=== PATIENT | male | born 1935 | race Caucasian/White ===

== ENCOUNTER → 2016-05-13 | Outpatient (CLI) | payer OTHER ==
[~2016-05-13] MED LIST: AMR2 PO; ASPEC81 PO; CHOL2000 PO; CYAN1TAB5 PO; GLC/500 PO; LUCENTIS INT OCU; METO50TA16 PO; MULT60CA PO; NTRGSL/4 UT; SIMV40TA2 PO
[2016-05-13 17:10] LABS: BLOOD UREA NITROGEN 16 mg/dl (7-18); BUN/CREATININE RATIO 15.6 (10-20); CALCIUM 8.9 mg/dl (8.5-10.1); CARBON DIOXIDE 32 mmol/L (21-32); CHLORIDE 106 mmol/L (98-107); GLUCOSE 149 mg/dl (70-99); POTASSIUM 4.1 mmol/L (3.5-5.1); SODIUM 143 mmol/L (136-145)
[2016-05-14 06:23] LABS: ESTIMATED AVERAGE GLUCOSE 128 mg/dl; HA1C FLAG Normal (Normal)
== END | disposition home or self-care (01) ==
LOC: C.LABBC 14:24
PROVIDERS: ATTEND Internal Medicine Geriatric Medicine
DX: I10 Essential (primary) hypertension (principal); E11.9 Type 2 diabetes mellitus without complications; E78.5 Hyperlipidemia, unspecified

== ENCOUNTER → 2016-07-13 | Outpatient (CLI) | payer OTHER ==
--- NOTE | 2016-07-13 15:27 | DIAGNOSTIC IMAGING REPORT ---
LUMBAR SPINE 5 VIEWS HISTORY: Trauma Fall from standing COMPARISON: None. FINDINGS: 50% compression of L1. Slight compression deformity superior endplate T12. All remaining components of the lumbar spine is negative for acute bony pathology. No subluxation. Disc spaces are preserved. IMPRESSION: 50% compression deformity L1. Mild compression deformity superior endplate T12. Electronically signed by: Albert Tyler M.D. 07/13/2016 3:26 PM Dictated Date/Time: 07/13/2016 3:25 PM
--- NOTE | 2016-07-13 15:33 | DIAGNOSTIC IMAGING REPORT ---
LEFT HIP 2 VIEWS CLINICAL HISTORY: Fall several weeks ago with left hip pain. FINDINGS: AP and frog-leg views of the left hip are correlated with pelvic CT dated 03/12/2013. The skeletal structures are osteopenic. No fracture is identified in the left hip or the visualized left hemipelvis. Mild degenerative joint space narrowing is seen in left hip. The left sacroiliac joint is normal in appearance. The overlying soft tissues are unremarkable. IMPRESSION: Osteopenia and mild arthritic change as above. No fracture is seen in the left hip or the visualized left hemipelvis. Electronically signed by: Maurice Garrison M.D. 07/13/2016 3:32 PM Dictated Date/Time: 07/13/2016 3:31 PM
--- NOTE | 2016-07-13 15:44 | DIAGNOSTIC IMAGING REPORT ---
THORACIC SPINE 3 VIEWS ROUTINE CLINICAL HISTORY: Fall from standing COMPARISON STUDY: Chest CT May 23, 2015. FINDINGS: A right internal jugular [id number]-c-Vjys is incidentally noted. Mild loss of height of several lower thoracic vertebral bodies is noted. These fractures are age indeterminate. Mild multilevel degenerative disc disease is present. IMPRESSION: 1Mild to moderate loss of height of several vertebral bodies at the thoracolumbar junction which reflect age indeterminate compression fractures. Electronically signed by: Lucio Mcneal M.D. 07/13/2016 3:42 PM Dictated Date/Time: 07/13/2016 3:40 PM
== END | disposition home or self-care (01) ==
LOC: C.RADBC 14:10
PROVIDERS: ATTEND Physician Assistant
DX: T14.8 Other injury of unspecified body region (principal); W19.XXXA Unspecified fall, initial encounter; M85.88 Other specified disorders of bone density and structure, other site; M43.8X6 Other specified deforming dorsopathies, lumbar region

== ENCOUNTER → 2016-12-14 | Outpatient (CLI) | payer OTHER ==
--- NOTE | 2016-12-14 17:07 | EEG Procedure Note ---
EEG Procedure Note Date of Service Dec 14, 2016. Start / End Times Start Time: 1:41 PM End Time: 2:01 PM Referring Physician Preston Stanford History This is 81-year-old male with paroxysmal spells of falling down. EEG for further evaluation of possible seizure etiology. Home Medication List Scheduled Aspirin Enteric Coated (Ecotrin Or Generic *), 81 MG PO DAILY Cholecalciferol (Vitamin D3), 2,000 MG PO DAILY Cyanocobalamin (B-12), 2,000 MCG PO DAILY Glimepiride (Glimepiride), 2 MG PO DAILY Metformin Hcl (Glucophage), 500 MG PO BID Metoprolol Tartrate (Lopressor) (Lopressor), 25 MG PO BID Multiple Vitamins W/ Minerals (Preservision Areds 2), 1 TAB PO BID Nitroglycerin (Nitrostat), 0.4 MG UT PRN Simvastatin (Zocor), 40 MG PO QPM [Lucentis], 1 DOSE INT OCU UD Description This is a 21 electrode EEG with a single channel dedicated to limited EKG. The electrodes were placed in accordance with the International 10-20 system. At the start of the recording the patient was in an awake state. Background was well organized and composed of symmetric mixed alpha and beta frequencies. There was a symmetric well-formed moderate amplitude 8-9 Hz posterior dominant rhythm that was reactive to eye opening and closure. Hyperventilation was not done. Intermittent photic stimulation at various frequencies produced no abnormalities. There was no state changes or sleep transients. Interpretation This is a normal awake only routine EEG. There was no electrographic seizures or epileptiform discharges. Clinical Correlation A normal EEG does not rule out epilepsy if there is a strong clinical suspicion.
== END | disposition home or self-care (01) ==
LOC: C.NEUR 13:25
PROVIDERS: ATTEND Internal Medicine Geriatric Medicine
DX: R40.4 Transient alteration of awareness (principal)

== ENCOUNTER → 2017-01-04 | Outpatient (CLI) | payer OTHER | END | disposition home or self-care (01) | LOC: C.MAMM 14:58 | PROVIDERS: ATTEND Internal Medicine Geriatric Medicine | DX: M48.50XA Collapsed vertebra, not elsewhere classified, site unspecified, initial encounter for fracture (principal); M85.852 Other specified disorders of bone density and structure, left thigh; M85.851 Other specified disorders of bone density and structure, right thigh ==

== ENCOUNTER → 2017-06-30 | Outpatient (CLI) | payer OTHER ==
[2017-06-30 13:06] LABS: BASO % 0.2 %; BASO ABS # 0.01 K/uL (0-0.2); EOS % 4.1 %; EOS ABS # 0.21 K/uL (0-0.5); HEMATOCRIT 36.5 % (42-52); HEMOGLOBIN 13.1 g/dL (14.0-18.0); IG# 0.02 K/uL (0.00-0.02); LYMPH % 29.6 %; LYMPH ABS # 1.52 K/uL (1.2-3.4); MEAN CELL VOLUME 90.3 fL (80-100); MEAN CORPUSCULAR HEMOGLOBIN 32.4 pg (25-34); MEAN CORPUSCULAR HGB CONC 35.9 g/dl (32-36); MEAN PLATELET VOLUME 9.3 fL (7.4-10.4); MONO % 12.1 %; MONO ABS # 0.62 K/uL (0.11-0.59); NEUT % 53.6 %; NEUT ABS # 2.76 K/uL (1.4-6.5); PLATELET COUNT 145 K/uL (130-400); RED CELL DISTRIBUTION WIDTH CV 14.3 % (11.5-14.5); RED CELL DISTRIBUTION WIDTH SD 46.8 fL (36.4-46.3); WHITE BLOOD COUNT 5.14 K/uL (4.8-10.8)
[2017-06-30 13:32] LABS: ALBUMIN 3.7 gm/dl (3.4-5.0); ALT/SGPT 31 U/L (12-78); AST/SGOT 27 U/L (15-37); BLOOD UREA NITROGEN 15 mg/dl (7-18); CALCIUM 8.5 mg/dl (8.5-10.1); CARBON DIOXIDE 29 mmol/L (21-32); CREATININE 1.13 mg/dl (0.60-1.40); GLUCOSE 224 mg/dl (70-99); POTASSIUM 3.7 mmol/L (3.5-5.1); SODIUM 139 mmol/L (136-145)
[2017-06-30 13:35] LABS: ALKALINE PHOSPHATASE 124 U/L (45-117); TOTAL PROTEIN 7.4 gm/dl (6.4-8.2)
[2017-06-30 13:36] LABS: HEMOGLOBIN A1C 6.3 % (4.5-5.6)
== END | disposition home or self-care (01) ==
LOC: C.LAB1850 10:36
PROVIDERS: ATTEND Internal Medicine Geriatric Medicine
DX: I10 Essential (primary) hypertension (principal); I25.10 Atherosclerotic heart disease of native coronary artery without angina pectoris; E78.5 Hyperlipidemia, unspecified; C85.10 Unspecified B-cell lymphoma, unspecified site; E11.42 Type 2 diabetes mellitus with diabetic polyneuropathy; M48.50XA Collapsed vertebra, not elsewhere classified, site unspecified, initial encounter for fracture; M85.80 Other specified disorders of bone density and structure, unspecified site

== ENCOUNTER → 2017-09-22 | Outpatient (CLI) | payer OTHER ==
[2017-09-22 11:36] LABS: BASO % 0.6 %; BASO ABS # 0.03 K/uL (0-0.2); EOS % 3.3 %; EOS ABS # 0.16 K/uL (0-0.5); HEMATOCRIT 34.4 % (42-52); HEMOGLOBIN 12.2 g/dL (14.0-18.0); IG# 0.03 K/uL (0.00-0.02); LYMPH % 29.9 %; LYMPH ABS # 1.44 K/uL (1.2-3.4); MEAN CELL VOLUME 90.3 fL (80-100); MEAN CORPUSCULAR HGB CONC 35.5 g/dl (32-36); MEAN PLATELET VOLUME 9.4 fL (7.4-10.4); MONO % 11.4 %; MONO ABS # 0.55 K/uL (0.11-0.59); NEUT % 54.2 %; PLATELET COUNT 135 K/uL (130-400); RED CELL DISTRIBUTION WIDTH CV 14.5 % (11.5-14.5); RED CELL DISTRIBUTION WIDTH SD 47.2 fL (36.4-46.3); WHITE BLOOD COUNT 4.81 K/uL (4.8-10.8)
[2017-09-22 12:02] LABS: ALBUMIN 3.5 gm/dl (3.4-5.0); ALKALINE PHOSPHATASE 89 U/L (45-117); ALT/SGPT 24 U/L (12-78); AST/SGOT 19 U/L (15-37); BLOOD UREA NITROGEN 13 mg/dl (7-18); CALCIUM 8.6 mg/dl (8.5-10.1); CARBON DIOXIDE 28 mmol/L (21-32); CREATININE 1.03 mg/dl (0.60-1.40); GLUCOSE 255 mg/dl (70-99); SODIUM 138 mmol/L (136-145); TOTAL PROTEIN 6.7 gm/dl (6.4-8.2)
== END | disposition home or self-care (01) ==
LOC: C.LABSPEC 10:56
PROVIDERS: ATTEND Internal Medicine Hematology & Oncology
DX: C83.07 Small cell B-cell lymphoma, spleen (principal)

== ENCOUNTER 2020-05-19 13:34 | Inpatient (IN) ==
[2020-05-19] MEDS ORDERED: IPRATROPIUM BROMIDE/ALBUTEROL respimat INH INH STA (14:35)
[2020-05-19] MEDS ORDERED: guaiFENesin 600 MG TABCR PO STA (14:35)
[2020-05-19] MEDS ORDERED: dexAMETHasone**PF** 10 MG/ML VIAL IV ONE (14:35)
[2020-05-19 14:56] LABS: Eosinophils # (auto) 0.06 K/uL (0-0.5); Eosinophils % (auto) 1.7 %; Hematocrit (blood only) 32.8 % (42-52); Hemoglobin 11.9 g/dL (14.0-18.0); Immature Granulocytes # (auto) 0.03 K/uL (0.00-0.02); Immature Granulocytes % (auto) 0.9 %; Lymphocytes # (auto) 0.82 K/uL (1.2-3.4); Lymphocytes % (auto) 23.4 %; Mean Corpuscular Hemoglobin 32.3 pg (25-34); Mean Corpuscular Hgb Conc 36.3 g/dL (32-36); Mean Corpuscular Volume 89.1 fL (80-100); Mean Platelet Volume 10.9 fL (7.4-10.4); Monocytes # (auto) 0.55 K/uL (0.11-0.59); Monocytes % (auto) 15.7 %; Neutrophils # (auto) 2.05 K/uL (1.4-6.5); Neutrophils % (auto) 58.3 %; Platelet Count 122 K/uL (130-400); RDW Coefficient of Variation 13.3 % (11.5-14.5); RDW Standard Deviation 43.7 fL (36.4-46.3); Red Blood Count 3.68 M/uL (4.7-6.1); White Blood Count 3.51 K/uL (4.8-10.8)
--- NOTE | 2020-05-19 14:56 | Electrocardiogram Report ---
Test Reason : Blood Pressure : / mmHG Vent. Rate : 059 BPM Atrial Rate : 059 BPM P-R Int : 168 ms QRS Dur : 116 ms QT Int : 476 ms P-R-T Axes : 063 -66 087 degrees QTc Int : 471 ms Sinus bradycardia Left anterior fascicular block Abnormal ECG When compared with ECG of 12-DEC-2012 11:24, T wave inversion no longer evident in Inferior leads Confirmed by Kain Clements [id number]) on 05/19/2020 2:56:19 PM Referred By: ED Confirmed By:Kain Clements
--- NOTE | 2020-05-19 14:57 | XRay Report ---
XR chest 1V portable CLINICAL HISTORY: Chest Pain COMPARISON STUDY: Chest radiograph August 17, 2019. FINDINGS: Right internal jugular Roqxvj-[id number]-Agih is in place. There is no pneumothorax or pleural effus ion. Cardiac size is within normal limits. There is interstitial thickening and suspected mild bilate ral airspace opacities. There is no evidence for pulmonary edema. IMPRESSION: Mild bilateral airspace opacities and interstitial thickening which favor an infectious process. Radiographic follow-up is recommended. ACT 112: Negative or not required by law. Electronically signed by: Lucio Mcneal M.D. 05/19/2020 2:55 PM
[2020-05-19] MEDS: SODIUM CHLORIDE 0.9% 500 ML IV SCH ×2 (15:01→23:45)
[2020-05-19 15:12] LABS: INR 1.1 (0.9-1.1); Prothrombin Time 10.9 Seconds (9.0-12.0)
[2020-05-19 15:30] LABS: Alanine Aminotransferase 53 U/L (12-78); Albumin Globulin Ratio 0.6 (0.9-2); Albumin Level 2.5 gm/dl (3.4-5.0); Alkaline Phosphatase 74 U/L (45-117); BUN Creatinine Ratio 35.9 (10-20); Bilirubin,Total 1.6 mg/dl (0.2-1); Blood Urea Nitrogen 29 mg/dl (7-18); Calcium 8.1 mg/dl (8.5-10.1); Carbon Dioxide 29 mmol/L (21-32); Chloride 105 mmol/L (98-107); Est GFR (African American) 94.4; Est GFR (Non-African American) 81.5; Globulin 4.1 gm/dl (2.5-4.0); Glucose 155 mg/dl (70-99); Lipase 109 U/L (73-393); NT Pro B Type Natriuretic Pept 669 pg/ml (0-1800); Phosphorus 2.9 mg/dl (2.5-4.9); Sodium 139 mmol/L (136-145); Total Protein 6.6 gm/dl (6.4-8.2); Troponin I < 0.015 ng/ml (0-0.045)
[2020-05-19 16:13] LABS: Influenza A virus by PCR Negative (Neg); Influenza B virus by PCR Negative (Neg); RSV by PCR Negative (Neg)
[2020-05-19 16:40] LABS: Potassium 4.5 mmol/L (3.5-5.1)
[2020-05-19 16:48] LABS: Magnesium 2.3 mg/dl (1.8-2.4)
--- NOTE | 2020-05-19 17:07 | Emergency Department Note ---
Impression & Plan Pneumonia due to COVID-19 virus, Hypoxia, COPD (chronic obstructive pulmonary disease) ED Provider Note NAME: NATALIA RANDHAWA AGE: 84 SEX: M ARRIVES VIA: Ambulance INFORMANT: Patient, ED PROVIDER(S): Carlos Eduardo Barros MD CHIEF COMPLAINT: Shortness of breath, Covid-19 exposure. PLAN: Disposition: Admit MEDICAL DECISION MAKING: The patient is a pleasant 84-year-old gentleman with a past medical history of COPD, remote history of smoking, prior history of lymphoma, KS/cardiomyopathy, hypertension, hyperlipidemia, diabetes who presents to the emergency department with worsening shortness of breath in setting of developing cough, congestion with feverishness and body aches over the past week in the setting of his grandson who lives with them being diagnosed with COVID-19 and being symptomatic several weeks ago. The patient denies any chest pain, active nausea (though he did vomit in the ambulance in route), diarrhea, urinary symptoms. On arrival the patient is fatigued, uncomfortable but no acute distress, afebrile stable vital signs. O2 saturation initially low-mid 90s on room air without increased respiratory effort. However, he then did develop mild hypoxia to mid 80s on room air. Lungs with intermittent wheezing. He does appear clinically dry. Abdomen is benign. Given the patient's worsening symptoms and low O2 saturation he is agreeable with recommendation for admission given his high risk in the setting of presumed COVID-19. EKG without overt acute ischemia. Chest x-ray demonstrates bilateral airspace opacities and interstitial thickening suspicious for pneumonia. WBC 3.5 with lymphopenia 0.82 consistent with suspected COVID-19 infection. H/H 11.9/32.8 without recent values for comparison. Platelets 122K without recent values for comparison. Chemistry without metabolic acidosis. BUN/creatinine> 30 consistent with the patient's clinically dry appearance. LFTs are unremarkable. Troponin negative/undetectable. BNP within normal limits. Treatment initiated with IV fluid hydration, dexamethasone, guaifenesin, albuterol MDI. Dr. Rivera, [facility] [place] to evaluate the patient for admission. Triage Nursing notes reviewed and agree them. Prior medical records reviewed Vital Signs: reviewed and remarkable for hypoxia. Differential diagnosis: Reactive airway disease, pneumonia, pneumothorax, COPD, CHF, infections, cardiac ischemia, pulmonary embolism, musculoskeletal, gastrointestinal, as well as other pathologies. ER treatment provided: See below. Diagnostics interpreted by me: ECG: Sinus bradycardia, 59 bpm, no ectopy, LAFB, no overt ST elevation or depression. Cardiac Monitoring: An order for continuous cardiac monitoring was placed and demonstrated Sinus bradycardia, 59 bpm, no ectopy. Laboratory studies: See below Imaging studies: XR chest 1V portable CLINICAL HISTORY: Chest Pain COMPARISON STUDY: Chest radiograph August 17, 2019. FINDINGS: Right internal jugular Rlcsyk-d-Cbmc is in place. There is no pneumothorax or pleural effusion. Cardiac size is within normal limits. There is interstitial thickening and suspected mild bilateral airspace opacities. There is no evidence for pulmonary edema. IMPRESSION: Mild bilateral airspace opacities and interstitial thickening which favor an infectious process. Radiographic follow-up is recommended. ACT 112: Negative or not required by law. Consultation(s): Dr. Rivera, [facility] [place] to evaluate the patient for admission. HPI: The patient is a pleasant 84-year-old gentleman with a past medical history of COPD, remote history of smoking, prior history of lymphoma, KS/cardiomyopathy, hypertension, hyperlipidemia, diabetes who presents to the emergency department with worsening shortness of breath in setting of developing cough, congestion with feverishness and body aches over the past week in the setting of his grandson who lives with them being diagnosed with COVID-19 and being symptomatic several weeks ago. The patient denies any chest pain, active nausea (though he did vomit in the ambulance in route), diarrhea, urinary symptoms. ROS: See above HPI for pertinent positives & negatives. A total of 10 systems reviewed and were otherwise negative. PAST MEDICAL HISTORY:See Below PAST SURGICAL HISTORY:See Below FAMILY HISTORY:See Below SOCIAL HISTORY:See Below HOME MEDICATIONS:See Below ALLERGIES:See Below VITALS:See Below PHYSICAL EXAMINATION: GENERAL: Awake, alert, fatigued/uncomfortable-appearing, in no distress HENT: Normocephalic, atraumatic. Oropharynx with dry mucous membranes and otherwise unremarkable. EYES: Normal conjunctiva. Sclera non-icteric. NECK: Supple. No nuchal rigidity. FROM. No JVD. RESPIRATORY: Intermittent wheezes, otherwise clear. CARDIAC: Regular rate, normal rhythm. Extremities warm and well perfused. Pulses equal. ABDOMEN: Soft, non-distended. No tenderness to palpation. No rebound or guarding. No masses. RECTAL: Deferred. MUSCULOSKELETAL: Chest examination reveals no tenderness. The back is symmetrical on inspection without obvious abnormality. There is no CVA tenderness to palpation. No joint edema. LOWER EXTREMITIES: Calves are equal size bilaterally and non-tender. No edema. No discoloration. NEURO: Normal sensorium. No sensory or motor deficits noted. SKIN: No rash or jaundice noted. 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 Following with Heme/Onc q6 months. Vitamin D insufficiency Surgical History H/O heart artery stent (~2002) History of cholecystectomy History of PTCA (~2013) Family History Father Leukemia Mother Sick sinus syndrome S/P placement of cardiac pacemaker Sister Macular degeneration Brother Macular degeneration Denies family history of Ovarian cancer Prostate cancer Breast cancer Lung cancer Colorectal cancer Social History Smoking Status: Former smoker Second Hand Exposure: No; Do You Dip or Chew Tobacco: No; Tobacco Cessation Education Requested by Patient: No Hx Alcohol Use: No Hx Substance Use: No Preferred Language: Mohawk Communication Ability: Effective Visual Impairment: No Limitations Hearing Ability: Normal Beliefs That Will Affect Care: None marital status: Current Living Situation: Spouse and Family Current Living Situation Comment: Lives with and nephew Other Information That Helps Us Care for You: No Feels Safe at Home: Yes Safety Concerns: Feels Safe At This Time Assistive Devices: None Allergies Allergies Allergy/AdvReac Type Severity Reaction Status Date / Time Sulfa (Sulfonamide Allergy Intermediate RASH Verified 05/19/20 15:11 Antibiotics) adhesive Allergy Mild RASH Verified 05/19/20 15:11 bee venom protein (honey bee) Allergy Unknown Verified 05/19/20 15:11 Home Meds Home Medications Medication Instructions Recorded Confirmed cyanocobalamin (vitamin B-12) 2,000 mcg PO DAILY tab 10/02/19 03/29/21 2,000 mcg tablet vit C 250 mg-vit E 90 mg-zinc 40 1 tab PO BID 11/22/18 05/19/20 mg-copper 1 [id number] capsule Previous Rx's Medication Instructions Recorded aspirin 81 mg tablet,delayed 81 mg PO DAILY #30 tab 08/21/18 release cholecalciferol (vitamin D3) 50 2,000 units PO DAILY #30 cap 08/21/18 mcg (2,000 unit) capsule magnesium 250 mg tablet 250 mg PO DAILY #30 tab 08/21/18 vitamin B complex 1 tab PO DAILY #30 tab 08/21/18 metoprolol tartrate 50 mg tablet 25 mg PO BID #90 tab 01/21/20 lisinopril 5 mg tablet 5 mg PO DAILY #90 tab 05/19/20 metformin 500 mg tablet 500 mg PO BID #180 tab 05/19/20 Results & Data (ED) Vital Signs Vital Signs - 24 hr 05/19/20 13:39 05/19/20 13:41 05/19/20 13:42 Temperature 36.4 C L Temperature Source Oral Pulse Rate 62 61 61 Pulse Rate from SpO2 Sensor 62 61 Respiratory Rate 18 19 16 Respiratory Effort / Characteristics Spontaneous Respiratory Pattern Regular Blood Pressure 173/79 H 173/79 H Blood Pressure Mean 110 110 Pulse Oximetry 100 97 98 Oxygen Delivery Method Room Air Oxygen Flow Rate Sepsis Recent Fever Within 48 Hours No Sepsis New/Unexplained Change in Mental Status No Sepsis Action Taken by Nursing No Action Required Oxygen Flow Rate - Titration Pulse Oximetry Post Tiitration 05/19/20 13:44 05/19/20 14:00 05/19/20 14:30 Temperature Temperature Source Pulse Rate 59 L 63 Pulse Rate from SpO2 Sensor 59 L 62 Respiratory Rate 18 21 Respiratory Effort / Characteristics Spontaneous Respiratory Pattern Regular Blood Pressure 146/71 H 123/62 Blood Pressure Mean 96 82 Pulse Oximetry 92 87 L Oxygen Delivery Method Room Air Oxygen Flow Rate Sepsis Recent Fever Within 48 Hours Sepsis New/Unexplained Change in Mental Status Sepsis Action Taken by Nursing Oxygen Flow Rate - Titration Pulse Oximetry Post Tiitration 05/19/20 15:00 05/19/20 15:01 05/19/20 15:12 Temperature Temperature Source Pulse Rate 57 L 59 L Pulse Rate from SpO2 Sensor 57 L 59 L Respiratory Rate 18 17 Respiratory Effort / Characteristics Respiratory Pattern Blood Pressure 136/68 Blood Pressure Mean 90 Pulse Oximetry 97 99 86 L Oxygen Delivery Method Nasal Cannula Oxygen Flow Rate 0 Sepsis Recent Fever Within 48 Hours Sepsis New/Unexplained Change in Mental Status Sepsis Action Taken by Nursing Oxygen Flow Rate - Titration 2 Pulse Oximetry Post Tiitration 96 05/19/20 15:13 05/19/20 15:30 05/19/20 16:00 Temperature Temperature Source Pulse Rate 60 63 Pulse Rate from SpO2 Sensor 61 65 Respiratory Rate 19 20 Respiratory Effort / Characteristics Respiratory Pattern Blood Pressure 126/63 112/60 Blood Pressure Mean 84 77 Pulse Oximetry 99 98 Oxygen Delivery Method Nasal Cannula Oxygen Flow Rate Sepsis Recent Fever Within 48 Hours Sepsis New/Unexplained Change in Mental Status Sepsis Action Taken by Nursing Oxygen Flow Rate - Titration Pulse Oximetry Post Tiitration 05/19/20 16:01 05/19/20 16:30 05/19/20 16:31 Temperature Temperature Source Pulse Rate 63 62 62 Pulse Rate from SpO2 Sensor 64 62 62 Respiratory Rate 20 20 20 Respiratory Effort / Characteristics Respiratory Pattern Blood Pressure 121/60 Blood Pressure Mean 80 Pulse Oximetry 98 98 99 Oxygen Delivery Method Nasal Cannula Oxygen Flow Rate 2 Sepsis Recent Fever Within 48 Hours Sepsis New/Unexplained Change in Mental Status Sepsis Action Taken by Nursing Oxygen Flow Rate - Titration Pulse Oximetry Post Tiitration 05/19/20 17:00 05/19/20 17:01 05/19/20 17:30 Temperature Temperature Source Pulse Rate 62 69 58 L Pulse Rate from SpO2 Sensor 62 68 59 L Respiratory Rate 22 21 21 Respiratory Effort / Characteristics Respiratory Pattern Blood Pressure 121/62 127/65 Blood Pressure Mean 81 85 Pulse Oximetry 97 97 99 Oxygen Delivery Method Oxygen Flow Rate Sepsis Recent Fever Within 48 Hours Sepsis New/Unexplained Change in Mental Status Sepsis Action Taken by Nursing Oxygen Flow Rate - Titration Pulse Oximetry Post Tiitration 05/19/20 17:31 05/19/20 18:00 05/19/20 18:01 Temperature Temperature Source Pulse Rate 60 58 L 58 L Pulse Rate from SpO2 Sensor 60 59 L 58 L Respiratory Rate 22 23 24 Respiratory Effort / Characteristics Respiratory Pattern Blood Pressure 124/63 Blood Pressure Mean 83 Pulse Oximetry 98 98 99 Oxygen Delivery Method Oxygen Flow Rate 2 2 Sepsis Recent Fever Within 48 Hours Sepsis New/Unexplained Change in Mental Status Sepsis Action Taken by Nursing Oxygen Flow Rate - Titration Pulse Oximetry Post Tiitration Laboratory Data Attestation: I reviewed the patient's lab results. Result diagrams: 05/19/20 14:00 05/19/20 15:53 Lab Results 05/19/20 05/19/20 05/19/20 Range/Units 14:00 14:00 14:00 WBC 3.51 L (4.8-10.8) K/uL RBC 3.68 L (4.7-6.1) M/uL Hgb 11.9 L (14.0-18.0) g/dL Hct 32.8 L (42-52) % MCV 89.1 (80-100) fL MCH 32.3 (25-34) pg MCHC 36.3 H (32-36) g/dL RDW Std Deviation 43.7 (36.4-46.3) fL RDW Coeff of Petar 13.3 (11.5-14.5) % Plt Count 122 L (130-400) K/uL MPV 10.9 H (7.4-10.4) fL Immature Gran % (Auto) 0.9 % Neut % (Auto) 58.3 % Lymph % (Auto) 23.4 % [place] % (Auto) 15.7 % Eos % (Auto) 1.7 % Baso % (Auto) 0.0 % Neut # (Auto) 2.05 (1.4-6.5) K/uL Lymph # (Auto) 0.82 L (1.2-3.4) K/uL [place] # (Auto) 0.55 (0.11-0.59) K/uL Eos # (Auto) 0.06 (0-0.5) K/uL Baso # (Auto) 0.00 (0-0.2) K/uL Immature Gran # (Auto) 0.03 H (0.00-0.02) K/uL Hyposegmented Neuts 1+ PT 10.9 (9.0-12.0) Seconds INR 1.1 (0.9-1.1) Sodium 139 (136-145) mmol/L Potassium (3.5-5.1) mmol/L Chloride 105 (98-107) mmol/L Carbon Dioxide 29 (21-32) mmol/L Anion Gap 5.0 (3-11) BUN 29 H (7-18) mg/dl Creatinine 0.80 (0.6-1.4) mg/dl Est Cr Clr Drug Dosing Not Reportable Est GFR ( Amer) 94.4 Est GFR (Non-Af Amer) 81.5 BUN/Creatinine Ratio 35.9 H (10-20) Glucose 155 H (70-99) mg/dl Calcium 8.1 L (8.5-10.1) mg/dl Phosphorus 2.9 (2.5-4.9) mg/dl Magnesium (1.8-2.4) mg/dl Total Bilirubin 1.6 H (0.2-1) mg/dl Direct Bilirubin (0-0.2) mg/dl AST (15-37) U/L ALT 53 (12-78) U/L Alkaline Phosphatase 74 (45-117) U/L Total Creatine Kinase (39-308) U/L Troponin I < 0.015 (0-0.045) ng/ml C-Reactive Protein (0-0.29) mg/dl NT-Pro-B Natriuret Pep 669 (0-1800) pg/ml Total Protein 6.6 (6.4-8.2) gm/dl Albumin 2.5 L (3.4-5.0) gm/dl Globulin 4.1 H (2.5-4.0) gm/dl Albumin/Globulin Ratio 0.6 L (0.9-2) Lipase 109 (73-393) U/L COVID-19 Eval Order SARS-CoV-2 (PCR) (Negative) Influenza Type A (PCR) (Neg) Influenza Type B (PCR) (Neg) RSV (RT-PCR) (Neg) 05/19/20 05/19/20 05/19/20 Range/Units 15:00 15:00 15:53 WBC (4.8-10.8) K/uL RBC (4.7-6.1) M/uL Hgb (14.0-18.0) g/dL Hct (42-52) % MCV (80-100) fL MCH (25-34) pg MCHC (32-36) g/dL RDW Std Deviation (36.4-46.3) fL RDW Coeff of Petar (11.5-14.5) % Plt Count (130-400) K/uL MPV (7.4-10.4) fL Immature Gran % (Auto) % Neut % (Auto) % Lymph % (Auto) % [place] % (Auto) % Eos % (Auto) % Baso % (Auto) % Neut # (Auto) (1.4-6.5) K/uL Lymph # (Auto) (1.2-3.4) K/uL [place] # (Auto) (0.11-0.59) K/uL Eos # (Auto) (0-0.5) K/uL Baso # (Auto) (0-0.2) K/uL Immature Gran # (Auto) (0.00-0.02) K/uL Hyposegmented Neuts PT (9.0-12.0) Seconds INR (0.9-1.1) Sodium (136-145) mmol/L Potassium 4.5 (3.5-5.1) mmol/L Chloride (98-107) mmol/L Carbon Dioxide (21-32) mmol/L Anion Gap (3-11) BUN (7-18) mg/dl Creatinine (0.6-1.4) mg/dl Est Cr Clr Drug Dosing Est GFR ( Amer) Est GFR (Non-Af Amer) BUN/Creatinine Ratio (10-20) Glucose (70-99) mg/dl Calcium (8.5-10.1) mg/dl Phosphorus (2.5-4.9) mg/dl Magnesium 2.3 (1.8-2.4) mg/dl Total Bilirubin (0.2-1) mg/dl Direct Bilirubin (0-0.2) mg/dl AST 49 H (15-37) U/L ALT (12-78) U/L Alkaline Phosphatase (45-117) U/L Total Creatine Kinase 26 L (39-308) U/L Troponin I (0-0.045) ng/ml C-Reactive Protein (0-0.29) mg/dl NT-Pro-B Natriuret Pep (0-1800) pg/ml Total Protein (6.4-8.2) gm/dl Albumin (3.4-5.0) gm/dl Globulin (2.5-4.0) gm/dl Albumin/Globulin Ratio (0.9-2) Lipase (73-393) U/L COVID-19 Eval Order [facility] at [facility] SARS-CoV-2 (PCR) POSITIVE A* (Negative) Influenza Type A (PCR) Negative (Neg) Influenza Type B (PCR) Negative (Neg) RSV (RT-PCR) Negative (Neg) 05/19/20 Range/Units 15:53 WBC (4.8-10.8) K/uL RBC (4.7-6.1) M/uL Hgb (14.0-18.0) g/dL Hct (42-52) % MCV (80-100) fL MCH (25-34) pg MCHC (32-36) g/dL RDW Std Deviation (36.4-46.3) fL RDW Coeff of Petar (11.5-14.5) % Plt Count (130-400) K/uL MPV (7.4-10.4) fL Immature Gran % (Auto) % Neut % (Auto) % Lymph % (Auto) % [place] % (Auto) % Eos % (Auto) % Baso % (Auto) % Neut # (Auto) (1.4-6.5) K/uL Lymph # (Auto) (1.2-3.4) K/uL [place] # (Auto) (0.11-0.59) K/uL Eos # (Auto) (0-0.5) K/uL Baso # (Auto) (0-0.2) K/uL Immature Gran # (Auto) (0.00-0.02) K/uL Hyposegmented Neuts PT (9.0-12.0) Seconds INR (0.9-1.1) Sodium (136-145) mmol/L Potassium (3.5-5.1) mmol/L Chloride (98-107) mmol/L Carbon Dioxide (21-32) mmol/L Anion Gap (3-11) BUN (7-18) mg/dl Creatinine (0.6-1.4) mg/dl Est Cr Clr Drug Dosing Est GFR ( Amer) Est GFR (Non-Af Amer) BUN/Creatinine Ratio (10-20) Glucose (70-99) mg/dl Calcium (8.5-10.1) mg/dl Phosphorus (2.5-4.9) mg/dl Magnesium (1.8-2.4) mg/dl Total Bilirubin (0.2-1) mg/dl Direct Bilirubin (0-0.2) mg/dl AST (15-37) U/L ALT (12-78) U/L Alkaline Phosphatase (45-117) U/L Total Creatine Kinase (39-308) U/L Troponin I (0-0.045) ng/ml C-Reactive Protein 5.26 H (0-0.29) mg/dl NT-Pro-B Natriuret Pep (0-1800) pg/ml Total Protein (6.4-8.2) gm/dl Albumin (3.4-5.0) gm/dl Globulin (2.5-4.0) gm/dl Albumin/Globulin Ratio (0.9-2) Lipase (73-393) U/L COVID-19 Eval Order SARS-CoV-2 (PCR) (Negative) Influenza Type A (PCR) (Neg) Influenza Type B (PCR) (Neg) RSV (RT-PCR) (Neg) Administered Medications Enoxaparin Sodium (Enoxaparin Inj 40 Mg/0.4 Ml Syr) 40 mg SQ BID DANIKA Stop: 06/18/20 22:44 Last Admin: 05/19/20 23:38 Dose: 40 mg Documented by: [id number] Sodium Chloride (Nss 1000ml) 1,000 mls @ 100 mls/hr IV .Q10H DANIKA Stop: 05/20/20 08:44 Last Admin: 05/19/20 23:38 Dose: 100 mls/hr Documented by: [id number] Insulin Aspart (Insulin Aspart 100 Units/Ml 3 Ml Pen) 0 units SC ACHS DANIKA Stop: 06/18/20 21:29 Last Admin: 05/19/20 22:45 Dose: 3 units Documented by: [id number] Cosigned by: [id number] Metoprolol Tartrate (Metoprolol Tartrate 25 Mg Tab) 25 mg PO BID DANIKA Stop: 06/18/20 20:59 Last Admin: 05/19/20 22:13 Dose: 25 mg Documented by: [id number] Multivitamins/Minerals (Cerovite Adv Formula Tab) 1 tab PO BID DANIKA Stop: 06/18/20 21:39 Last Admin: 05/19/20 22:13 Dose: 1 tab Documented by: [id number] Discontinued Medications Albuterol (Ipratropium Mcintosh/Albuterol Respimat Inh) 1 puffs INH NOW STA Stop: 05/19/20 14:36 Last Admin: 05/19/20 14:59 Dose: 1 puffs Documented by: [id number] Dexamethasone Sodium Phosphate (DexamethasonePf 10 Mg/Ml Vial) 10 mg IV NOW ONE Stop: 05/19/20 14:36 Last Admin: 05/19/20 15:00 Dose: 10 mg Documented by: [id number] Guaifenesin (Guaifenesin 600 Mg Tabcr) 600 mg PO NOW STA Stop: 05/19/20 14:36 Last Admin: 05/19/20 15:01 Dose: 600 mg Documented by: [id number] Sodium Chloride (Nss) 500 mls @ 125 mls/hr IV .Q4H DANIKA Stop: 06/18/20 14:44 Last Admin: 05/19/20 23:45 Dose: Not Given Documented by: [id number] Infusion: 05/19/20 23:45 Dose: 0 mls/hr Documented by: [id number] Admin: 05/19/20 15:01 Dose: 125 mls/hr Documented by: [id number] Insulin Aspart (Insulin Aspart 100 Units/Ml 3 Ml Pen) 0 units SC 0400 [facility] Stop: 05/20/20 04:01 Last Admin: 05/20/20 04:08 Dose: 3 units Documented by: [id number] Cosigned by: [id number] Discharge Plan Visit Data Chief Complaint: Shortness of Breath/Dyspnea ED Provider: Carlos Eduardo Barros Discharge Problem: Pneumonia due to COVID-19 virus, Hypoxia, COPD (chronic obstructive pulmonary disease) Patient Disposition: Admitted As Inpatient Discharge Instructions Interventions: ED Discharge Assessment Last Done: 05/19/20 18:57 Discharge Problem: COPD (chronic obstructive pulmonary disease) Qualifiers: COPD type: unspecified COPD Qualified Code(s): J44.9 - Chronic obstructive pulmonary disease, unspecified
[2020-05-19 17:10] LABS: SARS CoV2 RNA(COVID-19) InHosp POSITIVE (Negative)
--- NOTE | 2020-05-19 18:12 | History & Physical Report ---
Date of Service May 19, 2020 Assessment & Plan (1) Pneumonia due to COVID-19 virus: Dexamethasone 6 mg IV daily up until discharge. Given duration of illness (admission on day 13) unlikely benefit from remdesivir. Isolation precautions. Self prone as able. (2) Hypoxia: without respiratory distress on admission Aim O2 sats > 90% (3) Hypertension: Continue metoprolol tartrate 25 mg p.o. twice daily with hold parameters Continue lisinopril 5 mg p.o. daily with hold parameters (4) Diabetes mellitus, type II: Hemoglobin A1c 5.4 in July 2019 Hold Metformin. 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 Gentle rehydration only. Continue ASA, metoprolol On no outpatient statin, previously on simvastatin but unclear why he discontinued this. 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 (9) Oropharyngeal dysphagia: ?secondary to very dry mucus membranes. Consult SLT. (10) DVT prophylaxis: D-dimer pending to assess whether patient high risk to need BID dosing. Currently will order BID, however if d -dimer < 700 consider daily Lovenox 40mg dosing. Admission and Anticipated Discharge Date Admission Date: May 19, 2020 History of Present Illness Chief Complaint: Shortness of breath, hypoxia, fatigue Primary Care Provider: DO Jhony Arce Melissa is an 84-year-old male who presents to the ER via EMS with shortness of breath. He was exposed to his grandson who tested positive for COVID-19 3 weeks ago. History taken from the patient in person and and daughter over the phone. Suspected started illness May 07 initially with fever and chills. He progressively became more fatigued with reduced appetite and for the last 7 days has mostly been laid up in bed. He comes to the emergency room today on advice of his daughter who is an RN and called EMS. Current main symptoms of generalized fatigue and poor appetite. Additional symptoms of chills, shortness of breath, dry cough, sore throat, vomiting (just once today), nasal congestion. He notably reports being wheelchair-bound since the fall due to diabetic neuropathy. Also notably has a port for repeated iron transfusions. In the ER chest x-ray concerning for mild bilateral airspace opacities and interstitial thickening suggestive of infectious process, SARS-CoV-2 PCR positive. He was treated with dexamethasone 10 mg IV. He was referred to medicine for admission ongoing management of COVID-19 pneumonia. Allergies Allergy/AdvReac Type Severity Reaction Status Date / Time Sulfa (Sulfonamide Allergy Intermediate RASH Verified 05/19/20 15:11 Antibiotics) adhesive Allergy Mild RASH Verified 05/19/20 15:11 bee venom protein (honey bee) Allergy Unknown Verified 05/19/20 15:11 Home Medications Medication Instructions Recorded Confirmed Type aspirin 81 mg tablet,delayed 81 mg PO DAILY #30 tab 08/21/18 05/19/20 Rx release cholecalciferol (vitamin D3) 50 2,000 units PO DAILY #30 cap 08/21/18 05/19/20 Rx mcg (2,000 unit) capsule magnesium 250 mg tablet 250 mg PO DAILY #30 tab 08/21/18 05/19/20 Rx vitamin B complex 1 tab PO DAILY #30 tab 08/21/18 05/19/20 Rx cyanocobalamin (vitamin B-12) 2,000 mcg PO DAILY tab 11/22/18 05/19/20 History 2,000 mcg tablet vit C 250 mg-vit E 90 mg-zinc 40 1 tab PO BID 11/22/18 05/19/20 History mg-copper 1 ld-jhdica-lzukpz capsule metoprolol tartrate 50 mg tablet 25 mg PO BID #90 tab 01/21/20 05/19/20 Rx lisinopril 5 mg tablet 5 mg PO DAILY #90 tab 05/19/20 05/19/20 Rx metformin 500 mg tablet 500 mg PO BID #180 tab 05/19/20 05/19/20 Rx Past Med/Surg History Medical History Cardiomyopathy Diabetes mellitus, type II Gait apraxia History of DC (myocardial infarction) (~2002) Hyperlipidemia Hypertension Low vision of left eye Lymphoma, marginal zone, 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 Following with Heme/Onc q6 months. Vitamin D insufficiency Surgical History H/O heart artery stent (~2002) History of cholecystectomy History of PTCA (~2013) Family History Father Leukemia Mother Sick sinus syndrome S/P placement of cardiac pacemaker Sister Macular degeneration Brother Macular degeneration Denies family history of Ovarian cancer Prostate cancer Breast cancer Lung cancer Colorectal cancer Social History Smoking Status: Former smoker Second Hand Exposure: No; Do You Dip or Chew Tobacco: No; Tobacco Cessation Education Requested by Patient: No Hx Alcohol Use: No Hx Substance Use: No Preferred Language: French Communication Ability: Effective Visual Impairment: No Limitations Hearing Ability: Normal Beliefs That Will Affect Care: None marital status: Current Living Situation: Spouse and Family Current Living Situation Comment: Lives with and nephew Other Information That Helps Us Care for You: No Feels Safe at Home: Yes Safety Concerns: Feels Safe At This Time Assistive Devices: None Review of Systems Review of Systems: All systems reviewed & are unremarkable except as noted in HPI & below Gastrointestinal: Occasional choking and coughing after eating Physical Exam Constitutional: well developed and well nourished; no acute distress Eyes: + anicteric sclerae; normal pupil size Left eyelid drooping, left eye reduced vision ENMT: Ears: no external ear abnormality Nose: no external nose abnormality Mouth: + dry oral mucous membranes Neck: trachea midline, no thyromegaly Respiratory: normal respiratory effort, lungs clear to auscultation Cardiovascular: Rate/Rhythm: regular rate and regular rhythm Extremities: normal capillary refill; no calf tenderness and no pedal edema Gastrointestinal (Abdomen): normal bowel sounds, soft, nontender, no hepatosplenomegaly Musculoskeletal: no cyanosis or clubbing, extremities motor strength 5/5 Skin: no rashes, warm and dry Neurologic: moves all extremities and awake; no focal motor deficits and not confused Psychiatric: A+Ox3, euthymic affect Results & Data Results & Data ([facility]) Vital Signs (Past 12 Hours) Vital Signs Temp Pulse Resp BP Pulse Ox 05/19/20 18:01 58 L 24 99 05/19/20 18:00 58 L 23 124/63 98 05/19/20 17:31 60 22 98 05/19/20 17:30 58 L 21 127/65 99 05/19/20 17:01 69 21 97 05/19/20 17:00 62 22 121/62 97 05/19/20 16:31 62 20 99 05/19/20 16:30 62 20 121/60 98 05/19/20 16:01 63 20 98 05/19/20 16:00 63 20 112/60 98 05/19/20 15:30 60 19 126/63 99 05/19/20 15:12 86 L 05/19/20 15:01 59 L 17 99 05/19/20 15:00 57 L 18 136/68 97 05/19/20 14:30 63 21 123/62 87 L 05/19/20 14:00 59 L 18 146/71 H 92 05/19/20 13:42 61 16 98 05/19/20 13:41 36.4 C L 61 19 173/79 H 97 05/19/20 13:39 62 18 173/79 H 100 Diagnostic Findings XR chest 1V portable IMPRESSION: Mild bilateral airspace opacities and interstitial thickening which favor an infectious process. Radiographic follow-up is recommended. Medications Administered ER medications given: Dexamethasone 10 mg IV NSS 500 ml @ 125 ml/hr Code Status & VTE Plan Code Status DNR - all other treatment outside of a cardiac arrest VTE Prophylaxis Plan VTE Prophylaxis will be ordered: Yes PG Care Time/CCT Total # of Minutes Spent Total Time Spent with Patient: Total time spent is greater than 50% in coordination of care (as documented) at patient's floor/unit and/or counseling patient: Coding Level of Care Code 46730 Initial Inpt Care Lvl 3 Diagnoses Pneumonia due to COVID-19 virus U07.1; J12.82 Hypoxia R09.02 Hypertension I10 Hypertension type: essential hypertension Diabetes mellitus, type II E11.65 Diabetes mellitus long-term insulin use: without long-term use Diabetes mellitus complication status: with hyperglycemia Lymphoma, marginal zone, spleen C83.07 Gait apraxia R48.2 History of DC (myocardial infarction) I25.2 Low vision of left eye H54.52A1 Oropharyngeal dysphagia R13.12 DVT prophylaxis Z29.9 (1) Diabetes mellitus, type II Diabetes mellitus long-term insulin use: without quality reviewer use Diabetes mellitus complication status: with hyperglycemia Qualified Code(s): E11.65 - Type 2 diabetes mellitus with hyperglycemia (2) Hypertension Hypertension type: essential hypertension Qualified Code(s): I10 - Essential (primary) hypertension
[2020-05-19] MEDS ORDERED: ACETAMINOPHEN 325 MG TAB PO PRN (20:28)
[2020-05-19] MEDS ORDERED: PHARMACY GLYCEMIC MGMT CONSULT PRN (21:00)
[2020-05-19] MEDS ORDERED: GLUCOSE 40% GEL 15 GM TUBE PO PRN (21:15)
[2020-05-19] MEDS ORDERED: DEXTROSE 50% 50 ML SYRINGE IV PRN (21:15)
[2020-05-19] MEDS ORDERED: GLUCOSE 10 TABS/TUBE PO PRN (21:15)
[2020-05-19] MEDS ORDERED: GLUCAGON FOR INJ 1 MG VIAL SQ PRN (21:15)
[2020-05-19] MEDS: METOPROLOL TARTRATE 25 MG TAB PO SCH (22:13)
[2020-05-19] MEDS: CEROVITE ADV FORMULA TAB PO SCH (22:13)
[2020-05-19] MEDS: INSULIN ASPART 100 UNITS/ML 3 ML PEN SC SCH (22:45)
[2020-05-19] MEDS ORDERED: SODIUM CHLORIDE 0.9% 1000ML 1,000 ML IV SCH (22:45)
[2020-05-19] MEDS: ENOXAPARIN INJ 40 MG/0.4 ML SYR SQ SCH (23:38)
[2020-05-20] MEDS ORDERED: INSULIN ASPART 100 UNITS/ML 3 ML PEN SC SCH (04:00)
[2020-05-20] MEDS: ONDANSETRON INJ 2 MG/ML 2 ML VIAL IV PRN ×2 (05:58→23:38)
[2020-05-20 07:10] LABS: Basophils # (auto) 0.01 K/uL (0-0.2); Basophils % (auto) 0.2 %; Eosinophils # (auto) 0.02 K/uL (0-0.5); Eosinophils % (auto) 0.5 %; Hematocrit (blood only) 32.1 % (42-52); Hemoglobin 11.6 g/dL (14.0-18.0); Immature Granulocytes # (auto) 0.04 K/uL (0.00-0.02); Lymphocytes # (auto) 0.56 K/uL (1.2-3.4); Lymphocytes % (auto) 13.6 %; Mean Corpuscular Hemoglobin 31.9 pg (25-34); Mean Corpuscular Hgb Conc 36.1 g/dL (32-36); Mean Corpuscular Volume 88.2 fL (80-100); Mean Platelet Volume 9.5 fL (7.4-10.4); Monocytes # (auto) 0.59 K/uL (0.11-0.59); Monocytes % (auto) 14.4 %; Neutrophils # (auto) 2.89 K/uL (1.4-6.5); Neutrophils % (auto) 70.3 %; Platelet Count 144 K/uL (130-400); RDW Coefficient of Variation 13.1 % (11.5-14.5); RDW Standard Deviation 42.6 fL (36.4-46.3); Red Blood Count 3.64 M/uL (4.7-6.1); White Blood Count 4.11 K/uL (4.8-10.8)
[2020-05-20 07:23] LABS: D Dimer 4330 ug/L FEU (0-500)
[2020-05-20 07:28] LABS: Estimated Average Glucose 140 mg/dl; Hemoglobin A1C 6.5 % (4.5-5.6)
[2020-05-20 07:44] LABS: BUN Creatinine Ratio 34.3 (10-20); Calcium 8.8 mg/dl (8.5-10.1); Creatinine Clr Calc Pharmacy 72.6 ml/min; Est GFR (African American) 93.9; Potassium 4.1 mmol/L (3.5-5.1)
[2020-05-20] MEDS: CEROVITE ADV FORMULA TAB PO SCH ×2 (08:24→21:54)
[2020-05-20] MEDS: CHOLECALCIFEROL 1,000 UNITS 25 MCG TAB PO SCH (08:25)
[2020-05-20] MEDS: CYANOCOBALAMIN 500 MCG TABLET (VITAMIN B-12) PO SCH (08:25)
[2020-05-20] MEDS: ASPIRIN 81 MG ECTAB PO SCH (08:25)
[2020-05-20] MEDS: MAGNESIUM OXIDE 400 MG TAB PO SCH (08:25)
[2020-05-20] MEDS: VITAMIN B COMPLEX TAB PO SCH (08:25)
[2020-05-20] MEDS: dexAMETHasone 6 MG in SYRINGE 0 ML IV SCH (08:26)
[2020-05-20] MEDS: METOPROLOL TARTRATE 25 MG TAB PO SCH (08:26)
[2020-05-20] MEDS: ENOXAPARIN INJ 40 MG/0.4 ML SYR SQ SCH ×2 (08:26→21:54)
[2020-05-20] MEDS ORDERED: lisinopril 5 MG TAB PO SCH (09:00)
[2020-05-20] MEDS ORDERED: INSULIN HUMAN NPH SC SCH (09:00)
[2020-05-20] MEDS: INSULIN ASPART 100 UNITS/ML 3 ML PEN SC SCH ×4 (09:15→22:08)
[2020-05-20] MEDS: INSULIN HUMAN NPH SC SCH (10:01)
--- NOTE | 2020-05-20 12:19 | Pharmacy Report ---
Pharmacy Glycemic Short Note 2 - Date of Service May 20, 2020 - Glycemic Short BSG Results (Last 24 hours): 05/19/20 05/19/20 05/20/20 14:00 21:43 03:40 Glucose 155 H POC Glucose 215 H 193 H 05/20/20 05/20/20 06:44 08:19 Glucose 156 H POC Glucose 170 H OUTPATIENT ANTIDIABETIC REGIMEN: * metformin 500 bid * A1c 6.5% ASSESSMENT: * 84 year old admitted with COVID pneumonia. Started on IV dexamethasone * Type 2 diabetic managed only on metformin at home. Anticipate steroid induced hyperglycemia. Plan to utilize NPH ~0.4 units/kg to help with coverage of steroids. Plan stress of 3 for novolog PLAN FOR INPATIENT GLYCEMIC CONTROL: * Hold outpatient oral diabetes medications * Basal insulin * NPH 30 units daily (~0.4 units/kg) - give with IV dexamethasone * Bolus insulin * NovoLog per scale ACHS or Q6hrs while NPO * Goal Range: Low 110 mg/dL - High 140 mg/dL * Correction Factor: 20 mg/dL/unit * Nutritional / Prandial insulin per carb ratio of 1 unit per 7 grams CHO consumed PLAN FOR DISCHARGE: * A1c 6.5% - reasonable to continue home metformin on discharge as long as no contraindications exist
--- NOTE | 2020-05-20 20:36 | Hospitalist Progress Note ---
Date of Service May 20, 2020 Assessment & Plan (1) Pneumonia due to COVID-19 virus: Dexamethasone 6 mg IV daily, day 2 Given duration of illness (admission on day 13) no benefit from remdesivir. Isolation precautions. doing well on 1-2L today, no distress try to titrate to room air very weak, even at baseline, will ask PT/OT to see him (2) Hypoxia: without respiratory distress on admission Aim O2 sats > 90% doing well on 1-2L today, continue to try to wean (3) Hypertension: Continue metoprolol tartrate 25 mg p.o. twice daily with hold parameters, BP soft this morning stop lisinopril 5mg for now (4) Diabetes mellitus, type II: Hemoglobin A1c 5.4 in July 2019 Hold Metformin. 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 Gentle rehydration only. Continue ASA, metoprolol On no outpatient statin, previously on simvastatin but unclear why he discontinued this. 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 (9) Oropharyngeal dysphagia: eating fine today (10) DVT prophylaxis: D-dimer high at 4400, continue BID dosing of Lovenox Admission and Anticipated Discharge Date Admission Date: May 19, 2020 Subjective patient doing well, breathing easy at rest, no cough he is eating a little better but not much, drinking adequately he says he has been sick for about a week now, progressively got worse discussed case with his daughter over the phone, answered her questions reviewed chart from admission patient is doing well on 2L, no distress, CXR was not overly impressive for infiltrates labs are stable, mild leukopenia, Cr is at baseline and electrolytes stable, D dimer up at 4400 no fever, no diarrhea Review of Systems Review of Systems: All systems reviewed & are unremarkable except as noted in Subjective Constitutional: + fatigue and + weakness Respiratory: + cough and + dyspnea on exertion; no dyspnea and no sputum production Cardiovascular: no chest pain and no edema Gastrointestinal: + early satiety; no abdominal pain, no nausea, no vomiting, no constipation and no diarrhea/loose stools Physical Exam Constitutional: well developed, + thin, + frail appearing and comfortable; no acute distress Neck: trachea midline, no thyromegaly Respiratory: normal respiratory effort, lungs clear to auscultation Cardiovascular: RRR, no murmur, no edema Gastrointestinal (Abdomen): normal bowel sounds, soft, nontender, no hepatosplenomegaly Musculoskeletal: Head/Neck/Chest: normocephalic, head atraumatic and neck supple Extremities: extremities normal to inspection and + abnormal strength (generalized weakness in legs, cannot stand up) Skin: no rashes, warm and dry Neurologic: patellar DTR's 2+ bilat, sensation intact and PERRL, EOMI, accommodation nl, no face palsy, no dysarthria Psychiatric: A+Ox3, euthymic affect Lymphatic: no cervical or axillary lymphadenopathy Results & Data Results & Data ([facility]) Vital Signs (Past 12 Hours) Vital Signs Temp Pulse BP Pulse Ox 05/20/20 17:05 95 05/20/20 16:20 96 05/20/20 14:39 36.4 C L 52 L 165/74 H 97 Laboratory Results Laboratory Results - last 24 hr 05/19/20 05/19/20 05/19/20 21:43 21:43 21:43 WBC RBC Hgb Hct MCV MCH MCHC RDW Std Deviation RDW Coeff of Petar Plt Count MPV Immature Gran % (Auto) Neut % (Auto) Lymph % (Auto) [place] % (Auto) Eos % (Auto) Baso % (Auto) Neut # (Auto) Lymph # (Auto) [place] # (Auto) Eos # (Auto) Baso # (Auto) Immature Gran # (Auto) D-Dimer Cancelled Sodium Potassium Chloride Carbon Dioxide Anion Gap BUN Creatinine Est Cr Clr Drug Dosing Est GFR ( Amer) Est GFR (Non-Af Amer) BUN/Creatinine Ratio Glucose POC Glucose 215 H Estimat Average Glucose Hemoglobin A1c Calcium Procalcitonin < 0.05 05/20/20 05/20/20 05/20/20 03:40 06:44 06:44 WBC 4.11 L RBC 3.64 L Hgb 11.6 L Hct 32.1 L MCV 88.2 MCH 31.9 MCHC 36.1 H RDW Std Deviation 42.6 RDW Coeff of Petar 13.1 Plt Count 144 MPV 9.5 Immature Gran % (Auto) 1.0 Neut % (Auto) 70.3 Lymph % (Auto) 13.6 [place] % (Auto) 14.4 Eos % (Auto) 0.5 Baso % (Auto) 0.2 Neut # (Auto) 2.89 Lymph # (Auto) 0.56 L [place] # (Auto) 0.59 Eos # (Auto) 0.02 Baso # (Auto) 0.01 Immature Gran # (Auto) 0.04 H D-Dimer Sodium 138 Potassium 4.1 Chloride 104 Carbon Dioxide 30 Anion Gap 5.0 BUN 28 H Creatinine 0.81 Est Cr Clr Drug Dosing 72.6 Est GFR ( Amer) 93.9 Est GFR (Non-Af Amer) 81.0 BUN/Creatinine Ratio 34.3 H Glucose 156 H POC Glucose 193 H Estimat Average Glucose Hemoglobin A1c Calcium 8.8 Procalcitonin 05/20/20 05/20/20 05/20/20 06:44 06:44 08:19 WBC RBC Hgb Hct MCV MCH MCHC RDW Std Deviation RDW Coeff of Petar Plt Count MPV Immature Gran % (Auto) Neut % (Auto) Lymph % (Auto) [place] % (Auto) Eos % (Auto) Baso % (Auto) Neut # (Auto) Lymph # (Auto) [place] # (Auto) Eos # (Auto) Baso # (Auto) Immature Gran # (Auto) D-Dimer 4330 H* Sodium Potassium Chloride Carbon Dioxide Anion Gap BUN Creatinine Est Cr Clr Drug Dosing Est GFR ( Amer) Est GFR (Non-Af Amer) BUN/Creatinine Ratio Glucose POC Glucose 170 H Estimat Average Glucose 140 Hemoglobin A1c 6.5 H Calcium Procalcitonin 05/20/20 05/20/20 12:13 16:58 WBC RBC Hgb Hct MCV MCH MCHC RDW Std Deviation RDW Coeff of Petar Plt Count MPV Immature Gran % (Auto) Neut % (Auto) Lymph % (Auto) [place] % (Auto) Eos % (Auto) Baso % (Auto) Neut # (Auto) Lymph # (Auto) [place] # (Auto) Eos # (Auto) Baso # (Auto) Immature Gran # (Auto) D-Dimer Sodium Potassium Chloride Carbon Dioxide Anion Gap BUN Creatinine Est Cr Clr Drug Dosing Est GFR ( Amer) Est GFR (Non-Af Amer) BUN/Creatinine Ratio Glucose POC Glucose 178 H 186 H Estimat Average Glucose Hemoglobin A1c Calcium Procalcitonin Medications Administered Current Inpatient Medications Acetaminophen (Acetaminophen 325 Mg Tab) 650 mg PO Q4H PRN PRN Reason: pain/fever Stop: 06/18/20 20:27 Aspirin (Aspirin 81 Mg Ectab) 81 mg PO DAILY DANIKA Stop: 06/19/20 08:59 Last Admin: 05/20/20 08:25 Dose: 81 mg Documented by: Cyanocobalamin (Cyanocobalamin 500 Mcg Tablet (Vitamin B-12)) 2,000 mcg PO QAM DANIKA Stop: 06/19/20 08:59 Last Admin: 05/20/20 08:25 Dose: 2,000 mcg Documented by: Dextrose (Dextrose 50% 50 Ml Syringe) 25 - 50 ml IV UD PRN; Protocol PRN Reason: Hypoglycemia Protocol Stop: 06/18/20 21:14 Enoxaparin Sodium (Enoxaparin Inj 40 Mg/0.4 Ml Syr) 40 mg SQ BID DANIKA Stop: 06/18/20 22:44 Last Admin: 05/20/20 08:26 Dose: 40 mg Documented by: Glucagon (Glucagon For Inj 1 Mg Vial) 1 mg SQ UD PRN; Protocol PRN Reason: Hypoglycemia Protocol Stop: 06/18/20 21:14 Glucose (Glucose 40% Gel 15 Gm Tube) 15 - 30 gm PO UD PRN; Protocol PRN Reason: Hypoglycemia Protocol Stop: 06/18/20 21:14 Glucose (Glucose 10 Tabs/Tube) 4 - 8 tabs PO UD PRN; Protocol PRN Reason: Hypoglycemia Protocol Stop: 06/18/20 21:14 Heparin Sodium (Porcine) (Heparin 100 Unit/Ml 5ml Flush) 5 ml FLUSH PRN PRN PRN Reason: Flush Stop: 06/19/20 03:51 Dexamethasone 6 mg/ Syringe 1.5 mls @ 1 mls/min IV QAM DANIKA Stop: 05/29/20 08:59 Last Admin: 05/20/20 08:26 Dose: 1 mls/min Documented by: Insulin Aspart (Insulin Aspart 100 Units/Ml 3 Ml Pen) 0 units SC ACHS DANIKA Stop: 06/18/20 21:29 Last Admin: 05/20/20 17:12 Dose: 5 units Documented by: Insulin Human NPH (Insulin Human Nph) 30 units SC DAILY DANIKA Stop: 06/19/20 08:59 Last Admin: 05/20/20 10:01 Dose: 30 units Documented by: Magnesium Oxide (Magnesium Oxide 400 Mg Tab) 400 mg PO DAILY [facility] Stop: 06/19/20 08:59 Last Admin: 05/20/20 08:25 Dose: 400 mg Documented by: Miscellaneous (Carbohydrates For Hypoglycemia ) 15 - 30 gm PO UD PRN PRN Reason: Hypoglycemia Treatment Stop: 06/18/20 21:14 Miscellaneous Information (Pharmacy Glycemic Mgmt Consult) 1 ea N/A UD PRN PRN Reason: Consult Stop: 06/18/20 20:59 Multivitamins/Minerals (Cerovite Adv Formula Tab) 1 tab PO BID [facility] Stop: 06/18/20 21:39 Last Admin: 05/20/20 08:24 Dose: 1 tab Documented by: Ondansetron HCl (Ondansetron Inj 2 Mg/Ml 2 Ml Vial) 4 mg IV Q4H PRN PRN Reason: Nausea Stop: 06/18/20 20:27 Last Admin: 05/20/20 05:58 Dose: 4 mg Documented by: Polyethylene Glycol (Polyethylene (Miralax) 17 Gm Pack) 17 gm PO DAILY PRN PRN Reason: Constipation Stop: 06/18/20 20:27 Vitamin B Complex (Vitamin B Complex Tab) 1 tab PO DAILY [facility] Stop: 06/19/20 08:59 Last Admin: 05/20/20 08:25 Dose: 1 tab Documented by: Vitamin D (Cholecalciferol 1,000 Units 25 Mcg Tab) 2,000 units PO DAILY DANIKA Stop: 06/19/20 08:59 Last Admin: 05/20/20 08:25 Dose: 2,000 units Documented by: PG Care Time/CCT Total # of Minutes Spent Total Time Spent with Patient: Total time spent is greater than 50% in coordination of care (as documented) at patient's floor/unit and/or counseling patient: Coding Level of Care Code 73626 Subseq Hosp Care Lvl 3 Diagnoses Pneumonia due to COVID-19 virus U07.1; J12.82 Hypoxia R09.02 Hypertension I10 Hypertension type: essential hypertension Diabetes mellitus, type II E11.65 Diabetes mellitus manager intermediate insulin use: without manager intermediate use Diabetes mellitus complication status: with hyperglycemia Lymphoma, marginal zone, spleen C83.07 Gait apraxia R48.2 History of DC (myocardial infarction) I25.2 Low vision of left eye H54.52A1 Oropharyngeal dysphagia R13.12 DVT prophylaxis Z29.9 (1) Hypertension Hypertension type: essential hypertension Qualified Code(s): I10 - Essential (primary) hypertension (2) Diabetes mellitus, type II Diabetes mellitus usp insulin use: without usp use Diabetes mellitus complication status: with hyperglycemia Qualified Code(s): E11.65 - Type 2 diabetes mellitus with hyperglycemia
[2020-05-20] MEDS: HEPARIN 100 UNIT/ML 5ML FLUSH FLUSH PRN (23:43)
[2020-05-21] MEDS: CYANOCOBALAMIN 500 MCG TABLET (VITAMIN B-12) PO SCH (08:34)
[2020-05-21] MEDS: MAGNESIUM OXIDE 400 MG TAB PO SCH (08:34)
[2020-05-21] MEDS: CHOLECALCIFEROL 1,000 UNITS 25 MCG TAB PO SCH (08:34)
[2020-05-21] MEDS: CEROVITE ADV FORMULA TAB PO SCH ×2 (08:34→21:18)
[2020-05-21] MEDS: dexAMETHasone 6 MG in SYRINGE 0 ML IV SCH (08:35)
[2020-05-21] MEDS: VITAMIN B COMPLEX TAB PO SCH (08:35)
[2020-05-21] MEDS: ASPIRIN 81 MG ECTAB PO SCH (08:35)
[2020-05-21] MEDS: ENOXAPARIN INJ 40 MG/0.4 ML SYR SQ SCH ×2 (08:35→21:18)
[2020-05-21] MEDS: INSULIN ASPART 100 UNITS/ML 3 ML PEN SC SCH ×4 (08:56→21:27)
[2020-05-21] MEDS: INSULIN HUMAN NPH SC SCH (08:58)
[2020-05-21] MEDS: PANTOprazole 40 MG TAB PO SCH (09:32)
[2020-05-21] MEDS: SODIUM CHLORIDE 0.9% 1000ML 1,000 ML IV SCH (09:33)
--- NOTE | 2020-05-21 13:43 | Pharmacy Report ---
Pharmacy Glycemic Short Note 2 - Date of Service May 21, 2020 - Glycemic Short BSG Results (Last 24 hours): 05/20/20 05/20/20 05/21/20 16:58 21:52 08:31 POC Glucose 186 H 158 H 129 H 05/21/20 12:34 POC Glucose 133 H OUTPATIENT ANTIDIABETIC REGIMEN: * metformin 500 bid * A1c 6.5% ASSESSMENT: 05/21 * Patient received total of 43 units of insulin yesterday, of which 30 units were NPH * BSGs improving throughout the day * Fasting BSG w/in range at 129 mg/dL - continue same NPH to cover dexamethasone 05/20 * 84 year old admitted with COVID pneumonia. Started on IV dexamethasone * Type 2 diabetic managed only on metformin at home. Anticipate steroid induced hyperglycemia. Plan to utilize NPH ~0.4 units/kg to help with coverage of steroids. Plan stress of 3 for novolog PLAN FOR INPATIENT GLYCEMIC CONTROL: * Hold outpatient oral diabetes medications * Basal insulin * NPH 30 units daily (~0.4 units/kg) - give with IV dexamethasone * Bolus insulin * NovoLog per scale ACHS or Q6hrs while NPO * Goal Range: Low 110 mg/dL - High 140 mg/dL * Correction Factor: 20 mg/dL/unit * Nutritional / Prandial insulin per carb ratio of 1 unit per 7 grams CHO consumed PLAN FOR DISCHARGE: * A1c 6.5% - reasonable to continue home metformin on discharge as long as no contraindications exist
[2020-05-21] MEDS ORDERED: SODIUM CHLORIDE 0.9% 1000ML 250 ML IV ONE (16:13)
--- NOTE | 2020-05-21 22:58 | Hospitalist Progress Note ---
Date of Service May 21, 2020 Assessment & Plan (1) Pneumonia due to COVID-19 virus: Dexamethasone 6 mg IV daily, day 3 Given duration of illness (admission on day 13) no benefit from remdesivir. Isolation precautions. doing well on 1L today, no distress, saturations > 90% try to titrate to room air as allowed very weak, even at baseline, will ask PT/OT to see him very fatigued today, poor oral intake add Boost for calories (2) Hypoxia: without respiratory distress on admission Aim O2 sats > 90% doing well on 1L today, continue to try to wean to room air (3) Hypertension: Continue metoprolol tartrate 25 mg p.o. twice daily with hold parameters, BP soft this morning stop lisinopril 5mg for now (4) Diabetes mellitus, type II: Hemoglobin A1c 5.4 in July 2019 Hold Metformin. 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 Gentle rehydration only. Continue ASA, metoprolol On no outpatient statin, previously on simvastatin but unclear why he discontinued this. 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 (9) Oropharyngeal dysphagia: eating fine today (10) DVT prophylaxis: D-dimer high at 4400, continue BID dosing of Lovenox Admission and Anticipated Discharge Date Admission Date: May 19, 2020 Subjective patient says he is very weak, just wants to sleep all day very poor appetite, UO is low, only 150cc out today, he is on IV fluids no nausea, no vomiting, no diarrhea, no fever/chills, no dyspnea, he is stable on 1L, could likely be okay on room air no labs today asked RN to give hime 250cc bolus of NSS for the low UO added Boost TID for nutrition/calories Review of Systems Review of Systems: All systems reviewed & are unremarkable except as noted in Subjective Constitutional: + fatigue and + weakness; no fever, no chills and no sweats Respiratory: no cough and no dyspnea Cardiovascular: no chest pain, no palpitations, no syncope and no edema Gastrointestinal: no abdominal pain, no nausea, no vomiting, no constipation and no diarrhea/loose stools Musculoskeletal: + muscle weakness Physical Exam Constitutional: well developed, + thin, + frail appearing and comfortable; no acute distress Neck: trachea midline, no thyromegaly Respiratory: normal respiratory effort, lungs clear to auscultation Cardiovascular: RRR, no murmur, no edema Gastrointestinal (Abdomen): normal bowel sounds, soft, nontender, no hepatosplenomegaly Musculoskeletal: Head/Neck/Chest: normocephalic, head atraumatic and neck supple Extremities: extremities normal to inspection and + abnormal strength (generalized weakness in legs, cannot stand up) Skin: no rashes, warm and dry Neurologic: patellar DTR's 2+ bilat, sensation intact and PERRL, EOMI, accommodation nl, no face palsy, no dysarthria Psychiatric: A+Ox3, euthymic affect Lymphatic: no cervical or axillary lymphadenopathy Results & Data Results & Data ([facility]) Vital Signs (Past 12 Hours) Vital Signs Temp Pulse Resp BP Pulse Ox Pulse Ox 05/21/20 15:49 37 C 53 L 16 138/72 98 05/21/20 13:21 92 Laboratory Results Laboratory Results - last 24 hr 05/21/20 05/21/20 05/21/20 08:31 12:34 16:27 POC Glucose 129 H 133 H 127 H 05/21/20 21:17 POC Glucose 143 H Medications Administered Current Inpatient Medications Acetaminophen (Acetaminophen 325 Mg Tab) 650 mg PO Q4H PRN PRN Reason: pain/fever Stop: 06/18/20 20:27 Aspirin (Aspirin 81 Mg Ectab) 81 mg PO DAILY [facility] Stop: 06/19/20 08:59 Last Admin: 05/21/20 08:35 Dose: 81 mg Documented by: Cyanocobalamin (Cyanocobalamin 500 Mcg Tablet (Vitamin B-12)) 2,000 mcg PO QAM DANIKA Stop: 06/19/20 08:59 Last Admin: 05/21/20 08:34 Dose: 2,000 mcg Documented by: Dextrose (Dextrose 50% 50 Ml Syringe) 25 - 50 ml IV UD PRN; Protocol PRN Reason: Hypoglycemia Protocol Stop: 06/18/20 21:14 Enoxaparin Sodium (Enoxaparin Inj 40 Mg/0.4 Ml Syr) 40 mg SQ BID DANIKA Stop: 06/18/20 22:44 Last Admin: 05/21/20 21:18 Dose: 40 mg Documented by: Glucagon (Glucagon For Inj 1 Mg Vial) 1 mg SQ UD PRN; Protocol PRN Reason: Hypoglycemia Protocol Stop: 06/18/20 21:14 Glucose (Glucose 40% Gel 15 Gm Tube) 15 - 30 gm PO UD PRN; Protocol PRN Reason: Hypoglycemia Protocol Stop: 06/18/20 21:14 Glucose (Glucose 10 Tabs/Tube) 4 - 8 tabs PO UD PRN; Protocol PRN Reason: Hypoglycemia Protocol Stop: 06/18/20 21:14 Heparin Sodium (Porcine) (Heparin 100 Unit/Ml 5ml Flush) 5 ml FLUSH PRN PRN PRN Reason: Flush Stop: 06/19/20 03:51 Last Admin: 05/20/20 23:43 Dose: 5 ml Documented by: Dexamethasone 6 mg/ Syringe 1.5 mls @ 1 mls/min IV QAM DANIKA Stop: 05/29/20 08:59 Last Admin: 05/21/20 08:35 Dose: 1 mls/min Documented by: Sodium Chloride (Nss 1000ml) 1,000 mls @ 80 mls/hr IV .[id number] [facility] Stop: 06/20/20 08:29 Last Admin: 05/21/20 09:33 Dose: 80 mls/hr Documented by: Insulin Aspart (Insulin Aspart 100 Units/Ml 3 Ml Pen) 0 units SC ACHS DANIKA Stop: 06/18/20 21:29 Last Admin: 05/21/20 21:27 Dose: 1 units Documented by: Insulin Human NPH (Insulin Human Nph) 30 units SC DAILY DANIKA Stop: 06/19/20 08:59 Last Admin: 05/21/20 08:58 Dose: 30 units Documented by: Magnesium Oxide (Magnesium Oxide 400 Mg Tab) 400 mg PO DAILY DANIKA Stop: 06/19/20 08:59 Last Admin: 05/21/20 08:34 Dose: 400 mg Documented by: Miscellaneous (Carbohydrates For Hypoglycemia ) 15 - 30 gm PO UD PRN PRN Reason: Hypoglycemia Treatment Stop: 06/18/20 21:14 Miscellaneous Information (Pharmacy Glycemic Mgmt Consult) 1 ea N/A UD PRN PRN Reason: Consult Stop: 06/18/20 20:59 Multivitamins/Minerals (Cerovite Adv Formula Tab) 1 tab PO BID DANIKA Stop: 06/18/20 21:39 Last Admin: 05/21/20 21:18 Dose: 1 tab Documented by: Ondansetron HCl (Ondansetron Inj 2 Mg/Ml 2 Ml Vial) 4 mg IV Q4H PRN PRN Reason: Nausea Stop: 06/18/20 20:27 Last Admin: 05/20/20 23:38 Dose: 4 mg Documented by: Pantoprazole Sodium (Pantoprazole 40 Mg Tab) 40 mg PO QAM DANIKA Stop: 06/20/20 08:59 Last Admin: 05/21/20 09:32 Dose: 40 mg Documented by: Polyethylene Glycol (Polyethylene (Miralax) 17 Gm Pack) 17 gm PO DAILY PRN PRN Reason: Constipation Stop: 06/18/20 20:27 Vitamin B Complex (Vitamin B Complex Tab) 1 tab PO DAILY DANIKA Stop: 06/19/20 08:59 Last Admin: 05/21/20 08:35 Dose: 1 tab Documented by: Vitamin D (Cholecalciferol 1,000 Units 25 Mcg Tab) 2,000 units PO DAILY DANIK[facility] Stop: 06/19/20 08:59 Last Admin: 05/21/20 08:34 Dose: 2,000 units Documented by: PG Care Time/CCT Total # of Minutes Spent Total Time Spent with Patient: Total time spent is greater than 50% in coordination of care (as documented) at patient's floor/unit and/or counseling patient: Coding Level of Care Code 76987 Subseq Hosp Care Lvl 2 Diagnoses Pneumonia due to COVID-19 virus U07.1; J12.82 Hypoxia R09.02 Hypertension I10 Hypertension type: essential hypertension Diabetes mellitus, type II E11.65 Diabetes mellitus custodial insulin use: without tank terminal gauger use Diabetes mellitus complication status: with hyperglycemia Lymphoma, marginal zone, spleen C83.07 Gait apraxia R48.2 History of NM (myocardial infarction) I25.2 Low vision of left eye H54.52A1 Oropharyngeal dysphagia R13.12 DVT prophylaxis Z29.9 (1) Hypertension Hypertension type: essential hypertension Qualified Code(s): I10 - Essential (primary) hypertension (2) Diabetes mellitus, type II Diabetes mellitus tank terminal gauger insulin use: without tank terminal gauger use Diabetes mellitus complication status: with hyperglycemia Qualified Code(s): E11.65 - Type 2 diabetes mellitus with hyperglycemia
[2020-05-22 06:03] LABS: Hematocrit (blood only) 28.4 % (42-52); Hemoglobin 10.5 g/dL (14.0-18.0); Mean Corpuscular Hemoglobin 32.9 pg (25-34); Mean Platelet Volume 9.3 fL (7.4-10.4); Platelet Count 159 K/uL (130-400); RDW Coefficient of Variation 13.1 % (11.5-14.5); RDW Standard Deviation 42.5 fL (36.4-46.3); Red Blood Count 3.19 M/uL (4.7-6.1); White Blood Count 5.42 K/uL (4.8-10.8)
[2020-05-22 06:29] LABS: BUN Creatinine Ratio 33.3 (10-20); Calcium 8.2 mg/dl (8.5-10.1); Creatinine Clr Calc Pharmacy 82.8 ml/min; Est GFR (African American) 99.2; Est GFR (Non-African American) 85.6; Magnesium 2.1 mg/dl (1.8-2.4); Potassium 3.5 mmol/L (3.5-5.1)
[2020-05-22] MEDS: CARBOHYDRATES FOR HYPOGLYCEMIA PO PRN ×2 (07:57→08:21)
[2020-05-22] MEDS: SODIUM CHLORIDE 0.9% 1000ML 1,000 ML IV SCH ×3 (07:58→20:23)
[2020-05-22] MEDS: dexAMETHasone 6 MG in SYRINGE 0 ML IV SCH (08:04)
[2020-05-22] MEDS: CYANOCOBALAMIN 500 MCG TABLET (VITAMIN B-12) PO SCH (08:04)
[2020-05-22] MEDS: VITAMIN B COMPLEX TAB PO SCH (08:04)
[2020-05-22] MEDS: CEROVITE ADV FORMULA TAB PO SCH ×2 (08:04→20:51)
[2020-05-22] MEDS: MAGNESIUM OXIDE 400 MG TAB PO SCH (08:04)
[2020-05-22] MEDS: ASPIRIN 81 MG ECTAB PO SCH (08:04)
[2020-05-22] MEDS: CHOLECALCIFEROL 1,000 UNITS 25 MCG TAB PO SCH (08:04)
[2020-05-22] MEDS: PANTOprazole 40 MG TAB PO SCH (08:04)
[2020-05-22] MEDS: ENOXAPARIN INJ 40 MG/0.4 ML SYR SQ SCH ×2 (08:04→20:52)
[2020-05-22] MEDS: INSULIN ASPART 100 UNITS/ML 3 ML PEN SC SCH ×4 (08:26→21:01)
[2020-05-22] MEDS ORDERED: INSULIN HUMAN NPH SC SCH ×2 (09:00)
--- NOTE | 2020-05-22 11:41 | Pharmacy Report ---
Pharmacy Glycemic Short Note 2 - Date of Service May 22, 2020 - Glycemic Short BSG Results (Last 24 hours): 05/21/20 05/21/20 05/21/20 12:34 16:27 21:17 Glucose POC Glucose 133 H 127 H 143 H 05/22/20 05/22/20 05/22/20 05:50 07:48 07:50 Glucose 63 L POC Glucose 67 L* 67 L* 05/22/20 05/22/20 05/22/20 08:13 08:15 08:18 Glucose POC Glucose 67 L* 67 L* 66 L* 05/22/20 05/22/20 05/22/20 08:35 08:37 08:58 Glucose POC Glucose 69 L* 66 L* 77 OUTPATIENT ANTIDIABETIC REGIMEN: * metformin 500 bid * A1c 6.5% ASSESSMENT: 05/22 * Pt has received 31 units of insulin over the past 24hrs * 30 units of basal with NPH for steroid induced hyperglycemia with dexamethasone IV * 1 units of bolus with NovoLog; very poor PO intake * BSGs 075-116-942-143-67 mg/dl * Pt with LOW BSG this AM at 63mg/dl. This could just be patient's baseline AM fasting BSG based on A1c. However, pt required 3 juices Q15 min to bring BSG up to 77mg/dl. Pt is only receiving NPH insulin QAM with dexamethasone which usually lasts ~18hrs. Pt received one unit of NovoLog insulin at HS which may have also contributed to AM low BSG. * Pt with very poor PO intake yesterday and continues today. Will hold off on NPH this AM. Reassess if small dose needed at lunch time. Steroids cause more severe hyperglycemia when combined with CHO. NPH may not be needed if low PO intake continues. 05/21 * Patient received total of 43 units of insulin yesterday, of which 30 units were NPH * BSGs improving throughout the day * Fasting BSG w/in range at 129 mg/dL - continue same NPH to cover dexamethasone 05/20 * 84 year old admitted with COVID pneumonia. Started on IV dexamethasone * Type 2 diabetic managed only on metformin at home. Anticipate steroid induced hyperglycemia. Plan to utilize NPH ~0.4 units/kg to help with coverage of steroids. Plan stress of 3 for novolog PLAN FOR INPATIENT GLYCEMIC CONTROL: * Hold outpatient oral diabetes medications * Basal insulin * Hold NPH this AM for LOW BSG and poor PO intake. Will add a small dose of NPH if BSG > 180 * Bolus insulin: no change * NovoLog per scale ACHS or Q6hrs while NPO * Goal Range: Low 110 mg/dL - High 140 mg/dL * Correction Factor: 20 mg/dL/unit * Nutritional / Prandial insulin per carb ratio of 1 unit per 7 grams CHO consumed PLAN FOR DISCHARGE: * A1c 6.5% - reasonable to continue home metformin on discharge as long as no contraindications exist
[2020-05-22] MEDS ORDERED: INSULIN HUMAN NPH SC ONE (12:30)
--- NOTE | 2020-05-22 23:09 | Hospitalist Progress Note ---
Date of Service May 22, 2020 Assessment & Plan (1) Pneumonia due to COVID-19 virus: Dexamethasone 6 mg IV daily, day 4 Given duration of illness (admission on day 13) no benefit from remdesivir. Isolation precautions. doing well on 1L since admission, no distress, saturations > 90% try to titrate to room air as allowed very weak, even at baseline, will ask PT/OT to see him very fatigued today, but appetite is a little better add Boost for calories (2) Hypoxia: without respiratory distress on admission Aim O2 sats > 90% doing well on 1L today, continue to try to wean to room air (3) Hypertension: Continue metoprolol tartrate 25 mg p.o. twice daily with hold parameters, BP low normal stop lisinopril 5mg for now (4) Diabetes mellitus, type II: Hemoglobin A1c 5.4 in July 2019 Hold Metformin. 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 Gentle rehydration only. Continue ASA, metoprolol On no outpatient statin, previously on simvastatin but unclear why he discontinued this. 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 (9) Oropharyngeal dysphagia: eating fine today (10) DVT prophylaxis: D-dimer high at 4400, continue BID dosing of Lovenox Admission and Anticipated Discharge Date Admission Date: May 19, 2020 Subjective patient still says he feels terrible, very weak, poor appetite, but he is getting down a little more, drinking his Boost no dyspnea, no cough, no fever checked BMP, renal function is normal, BUN going down to 24 from 29 on admission, electrolytes stable WBC is normal, Hb stable updated his daughter over the phone Review of Systems Review of Systems: All systems reviewed & are unremarkable except as noted in Subjective Constitutional: + fatigue and + weakness; no fever Respiratory: no cough and no dyspnea Cardiovascular: no chest pain, no palpitations, no syncope and no edema Physical Exam Constitutional: well developed, + thin, + frail appearing and comfortable; no acute distress Neck: trachea midline, no thyromegaly Respiratory: normal respiratory effort, lungs clear to auscultation Cardiovascular: RRR, no murmur, no edema Gastrointestinal (Abdomen): normal bowel sounds, soft, nontender, no hepatosplenomegaly Musculoskeletal: Head/Neck/Chest: normocephalic, head atraumatic and neck supple Extremities: extremities normal to inspection and + abnormal strength (generalized weakness in legs, cannot stand up) Skin: no rashes, warm and dry Neurologic: patellar DTR's 2+ bilat, sensation intact and PERRL, EOMI, accommodation nl, no face palsy, no dysarthria Psychiatric: A+Ox3, euthymic affect Lymphatic: no cervical or axillary lymphadenopathy Results & Data Results & Data ([facility]) Vital Signs (Past 12 Hours) Vital Signs Temp Pulse Resp BP Pulse Ox 05/22/20 20:21 36.4 C L 51 L 20 102/57 L 97 05/22/20 17:10 36.4 C L 58 L 20 138/81 97 Laboratory Results Laboratory Results - last 24 hr 05/22/20 05/22/20 05/22/20 05:50 05:50 07:48 WBC 5.42 RBC 3.19 L Hgb 10.5 L Hct 28.4 L MCV 89.0 MCH 32.9 MCHC 37.0 H RDW Std Deviation 42.5 RDW Coeff of Petar 13.1 Plt Count 159 MPV 9.3 Sodium 144 Potassium 3.5 Chloride 112 H Carbon Dioxide 31 Anion Gap 1.0 L BUN 24 H Creatinine 0.71 Est Cr Clr Drug Dosing 82.8 Est GFR ( Amer) 99.2 Est GFR (Non-Af Amer) 85.6 BUN/Creatinine Ratio 33.3 H Glucose 63 L POC Glucose 67 L* Calcium 8.2 L Magnesium 2.1 05/22/20 05/22/20 05/22/20 07:50 08:13 08:15 WBC RBC Hgb Hct MCV MCH MCHC RDW Std Deviation RDW Coeff of Petar Plt Count MPV Sodium Potassium Chloride Carbon Dioxide Anion Gap BUN Creatinine Est Cr Clr Drug Dosing Est GFR ( Amer) Est GFR (Non-Af Amer) BUN/Creatinine Ratio Glucose POC Glucose 67 L* 67 L* 67 L* Calcium Magnesium 05/22/20 05/22/20 05/22/20 08:18 08:35 08:37 WBC RBC Hgb Hct MCV MCH MCHC RDW Std Deviation RDW Coeff of Petar Plt Count MPV Sodium Potassium Chloride Carbon Dioxide Anion Gap BUN Creatinine Est Cr Clr Drug Dosing Est GFR ( Amer) Est GFR (Non-Af Amer) BUN/Creatinine Ratio Glucose POC Glucose 66 L* 69 L* 66 L* Calcium Magnesium 05/22/20 05/22/20 05/22/20 08:58 12:01 17:02 WBC RBC Hgb Hct MCV MCH MCHC RDW Std Deviation RDW Coeff of Petar Plt Count MPV Sodium Potassium Chloride Carbon Dioxide Anion Gap BUN Creatinine Est Cr Clr Drug Dosing Est GFR ( Amer) Est GFR (Non-Af Amer) BUN/Creatinine Ratio Glucose POC Glucose 77 171 H 189 H Calcium Magnesium 05/22/20 20:28 WBC RBC Hgb Hct MCV MCH MCHC RDW Std Deviation RDW Coeff of Petar Plt Count MPV Sodium Potassium Chloride Carbon Dioxide Anion Gap BUN Creatinine Est Cr Clr Drug Dosing Est GFR ( Amer) Est GFR (Non-Af Amer) BUN/Creatinine Ratio Glucose POC Glucose 116 H Calcium Magnesium Medications Administered Current Inpatient Medications Acetaminophen (Acetaminophen 325 Mg Tab) 650 mg PO Q4H PRN PRN Reason: pain/fever Stop: 06/18/20 20:27 Aspirin (Aspirin 81 Mg Ectab) 81 mg PO DAILY [facility] Stop: 06/19/20 08:59 Last Admin: 05/22/20 08:04 Dose: 81 mg Documented by: Cyanocobalamin (Cyanocobalamin 500 Mcg Tablet (Vitamin B-12)) 2,000 mcg PO QAM DANIKA Stop: 06/19/20 08:59 Last Admin: 05/22/20 08:04 Dose: 2,000 mcg Documented by: Dextrose (Dextrose 50% 50 Ml Syringe) 25 - 50 ml IV UD PRN; Protocol PRN Reason: Hypoglycemia Protocol Stop: 06/18/20 21:14 Enoxaparin Sodium (Enoxaparin Inj 40 Mg/0.4 Ml Syr) 40 mg SQ BID [facility] Stop: 06/18/20 22:44 Last Admin: 05/22/20 20:52 Dose: 40 mg Documented by: Glucagon (Glucagon For Inj 1 Mg Vial) 1 mg SQ UD PRN; Protocol PRN Reason: Hypoglycemia Protocol Stop: 06/18/20 21:14 Glucose (Glucose 40% Gel 15 Gm Tube) 15 - 30 gm PO UD PRN; Protocol PRN Reason: Hypoglycemia Protocol Stop: 06/18/20 21:14 Last Admin: 05/22/20 08:43 Dose: 15 gm Documented by: Glucose (Glucose 10 Tabs/Tube) 4 - 8 tabs PO UD PRN; Protocol PRN Reason: Hypoglycemia Protocol Stop: 06/18/20 21:14 Heparin Sodium (Porcine) (Heparin 100 Unit/Ml 5ml Flush) 5 ml FLUSH PRN PRN PRN Reason: Flush Stop: 06/19/20 03:51 Last Admin: 05/20/20 23:43 Dose: 5 ml Documented by: Dexamethasone 6 mg/ Syringe 1.5 mls @ 1 mls/min IV QAM DANIKA Stop: 05/29/20 08:59 Last Admin: 05/22/20 08:04 Dose: 1 mls/min Documented by: Sodium Chloride (Nss 1000ml) 1,000 mls @ 80 mls/hr IV .[id number] [facility] Stop: 06/20/20 08:29 Last Admin: 05/22/20 20:23 Dose: 80 mls/hr Documented by: Insulin Aspart (Insulin Aspart 100 Units/Ml 3 Ml Pen) 0 units SC ACHS DANIKA Stop: 06/18/20 21:29 Last Admin: 05/22/20 21:01 Dose: Not Given Documented by: Magnesium Oxide (Magnesium Oxide 400 Mg Tab) 400 mg PO DAILY [facility] Stop: 06/19/20 08:59 Last Admin: 05/22/20 08:04 Dose: 400 mg Documented by: Miscellaneous (Carbohydrates For Hypoglycemia ) 15 - 30 gm PO UD PRN PRN Reason: Hypoglycemia Treatment Stop: 06/18/20 21:14 Last Admin: 05/22/20 08:21 Dose: 15 gm Documented by: Miscellaneous Information (Pharmacy Glycemic Mgmt Consult) 1 ea N/A UD PRN PRN Reason: Consult Stop: 06/18/20 20:59 Multivitamins/Minerals (Cerovite Adv Formula Tab) 1 tab PO BID DANIKA Stop: 06/18/20 21:39 Last Admin: 05/22/20 20:51 Dose: 1 tab Documented by: Ondansetron HCl (Ondansetron Inj 2 Mg/Ml 2 Ml Vial) 4 mg IV Q4H PRN PRN Reason: Nausea Stop: 06/18/20 20:27 Last Admin: 05/20/20 23:38 Dose: 4 mg Documented by: Pantoprazole Sodium (Pantoprazole 40 Mg Tab) 40 mg PO QAM DANIKA Stop: 06/20/20 08:59 Last Admin: 05/22/20 08:04 Dose: 40 mg Documented by: Polyethylene Glycol (Polyethylene (Miralax) 17 Gm Pack) 17 gm PO DAILY PRN PRN Reason: Constipation Stop: 06/18/20 20:27 Vitamin B Complex (Vitamin B Complex Tab) 1 tab PO DAILY DANIKA Stop: 06/19/20 08:59 Last Admin: 05/22/20 08:04 Dose: 1 tab Documented by: Vitamin D (Cholecalciferol 1,000 Units 25 Mcg Tab) 2,000 units PO DAILY DANIKA Stop: 06/19/20 08:59 Last Admin: 05/22/20 08:04 Dose: 2,000 units Documented by: PG Care Time/CCT Total # of Minutes Spent Total Time Spent with Patient: Total time spent is greater than 50% in coordination of care (as documented) at patient's floor/unit and/or counseling patient: Coding Level of Care Code 84761 Subseq Hosp Care Lvl 2 Diagnoses Pneumonia due to COVID-19 virus U07.1; J12.82 Hypoxia R09.02 Hypertension I10 Hypertension type: essential hypertension Diabetes mellitus, type II E11.65 Diabetes mellitus usp insulin use: without ore storage drier use Diabetes mellitus complication status: with hyperglycemia Lymphoma, marginal zone, spleen C83.07 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
[2020-05-23] MEDS ORDERED: METOPROLOL TARTRATE 1 MG/ML VIAL IV ONE (00:08)
[2020-05-23] MEDS ORDERED: POTASSIUM CHLORIDE CRTAB 20 MEQ TABCR PO STA (00:10)
[2020-05-23] MEDS: METOPROLOL TARTRATE 1 MG/ML VIAL IV STA (00:21)
[2020-05-23] MEDS ORDERED: METOPROLOL TARTRATE 1 MG/ML VIAL IV STA ×2 (00:52→03:30)
--- NOTE | 2020-05-23 00:53 | Communication Note ---
Date of Service: May 23, 2020 Notified by nursing around 00:00 that patient was feeling "off" and had converted into atrial fibrillation, confirmed on EKG. Patient with rates in the 140-150's. Evaluated patient at the bedside who agreed that he was not feeling well, though had difficulty verbalizing his discomfort. He noted that he was not having chest pain or pressure. With mild shortness of breath but no increase in need for O2 and saturating 97% on 1L NC as he has been. He also endorsed having nausea. Patient unsure if he has ever had a history of atrial fibrillation PE: Patient alert and oriented x3 Heart - Tachycardic 140-150's, irregularly irregular, no definitive murmurs Lungs - CTA bilateral, no crackles, rales or wheezes noted. Abdomen - soft nontender, normal bowel sounds. Plan: -Will optimize electrolyte balance with KCl 40meq IV -Noted that patient was on metoprolol in the past, but has not had since 05/19/20 -With EF 35-40%, do not want to fluid overload patient -Lopressor 5mg push x1 tolerated well with improvement of patients symptoms in addition reduction of HR 110-120's. -Held on second 5mg Lopressor push as his BP was soft at 104/69 -Will restart patients Metoprolol Tartrate 25mg PO in the AM, would monitor for hypotension and adjust PRN Resident Activity Tracking Resident Involvement: Resident Care Provided and Director Of Planning Coverage Note Care Provided: Adult Hospital Medicine
[2020-05-23] MEDS: POTASSIUM CHLORIDE / WTR 10 MEQ/100 ML PLCT IV SCH ×4 (01:02→04:31)
[2020-05-23] MEDS: METOPROLOL TARTRATE 25 MG TAB PO SCH ×2 (05:57→09:18)
[2020-05-23] MEDS ORDERED: METOPROLOL TARTRATE 1 MG/ML VIAL IV SCH (06:00)
[2020-05-23 06:53] LABS: BUN Creatinine Ratio 20.1 (10-20); Calcium 8.1 mg/dl (8.5-10.1); Creatinine Clr Calc Pharmacy 75.4 ml/min; Est GFR (African American) 95.4; Est GFR (Non-African American) 82.3; Magnesium 1.9 mg/dl (1.8-2.4); Phosphorus 2.2 mg/dl (2.5-4.9); Potassium 3.9 mmol/L (3.5-5.1)
[2020-05-23] MEDS ORDERED: INSULIN HUMAN NPH SC SCH (09:00)
[2020-05-23] MEDS: INSULIN ASPART 100 UNITS/ML 3 ML PEN SC SCH ×4 (09:18→21:22)
[2020-05-23] MEDS: ASPIRIN 81 MG ECTAB PO SCH (09:21)
[2020-05-23] MEDS: VITAMIN B COMPLEX TAB PO SCH (09:21)
[2020-05-23] MEDS: CEROVITE ADV FORMULA TAB PO SCH ×2 (09:21→21:03)
[2020-05-23] MEDS: CYANOCOBALAMIN 500 MCG TABLET (VITAMIN B-12) PO SCH (09:21)
[2020-05-23] MEDS: dexAMETHasone 6 MG in SYRINGE 0 ML IV SCH (09:21)
[2020-05-23] MEDS: PANTOprazole 40 MG TAB PO SCH (09:21)
[2020-05-23] MEDS: ENOXAPARIN INJ 40 MG/0.4 ML SYR SQ SCH (09:21)
[2020-05-23] MEDS: CHOLECALCIFEROL 1,000 UNITS 25 MCG TAB PO SCH (09:21)
[2020-05-23] MEDS: MAGNESIUM OXIDE 400 MG TAB PO SCH (09:21)
[2020-05-23] MEDS: INSULIN HUMAN NPH SC SCH (09:48)
--- NOTE | 2020-05-23 09:59 | Pharmacy Report ---
Pharmacy Glycemic Short Note 2 - Date of Service May 23, 2020 - Glycemic Short BSG Results (Last 24 hours): 05/22/20 05/22/20 05/22/20 12:01 17:02 20:28 Glucose POC Glucose 171 H 189 H 116 H 05/23/20 05/23/20 05:46 07:56 Glucose 84 POC Glucose 102 H OUTPATIENT ANTIDIABETIC REGIMEN: * metformin 500 bid * A1c 6.5% ASSESSMENT: 05/23 * Pt has received 21 units of insulin over the past 24hrs * 10 units of basal with NPH for steroid induced hyperglycemia with dexamethasone IV * 11 units of bolus with NovoLog * BSGs 66-25-103-189-116-102 mg/dl * No low BSG this am with dose reductions in NPH yesterday. * Appetite remains very poor. * Dexamethasone 4mg IV daily continues (day #4 today) will continue NPH but at significantly reduced dosing secondary to decreased PO intake * No changes needed to CF/CR 05/22 * Pt has received 31 units of insulin over the past 24hrs * 30 units of basal with NPH for steroid induced hyperglycemia with dexamethasone IV * 1 units of bolus with NovoLog; very poor PO intake * BSGs 602-912-405-143-67 mg/dl * Pt with LOW BSG this AM at 63mg/dl. This could just be patient's baseline AM fasting BSG based on A1c. However, pt required 3 juices Q15 min to bring BSG up to 77mg/dl. Pt is only receiving NPH insulin QAM with dexamethasone which usually lasts ~18hrs. Pt received one unit of NovoLog insulin at HS which may have also contributed to AM low BSG. * Pt with very poor PO intake yesterday and continues today. Will hold off on NPH this AM. Reassess if small dose needed at lunch time. Steroids cause more severe hyperglycemia when combined with CHO. NPH may not be needed if low PO intake continues. 05/21 * Patient received total of 43 units of insulin yesterday, of which 30 units were NPH * BSGs improving throughout the day * Fasting BSG w/in range at 129 mg/dL - continue same NPH to cover dexamethasone 05/20 * 84 year old admitted with COVID pneumonia. Started on IV dexamethasone * Type 2 diabetic managed only on metformin at home. Anticipate steroid induced hyperglycemia. Plan to utilize NPH ~0.4 units/kg to help with coverage of steroids. Plan stress of 3 for novolog PLAN FOR INPATIENT GLYCEMIC CONTROL: * Hold outpatient oral diabetes medications * Basal insulin * NPH 15 units (0.2 units/kg) SQ daily with IV dexamethasone. HOLD if dexamethasone held or DC * Bolus insulin: no change * NovoLog per scale ACHS or Q6hrs while NPO * Goal Range: Low 110 mg/dL - High 140 mg/dL * Correction Factor: 20 mg/dL/unit * Nutritional / Prandial insulin per carb ratio of 1 unit per 7 grams CHO consumed PLAN FOR DISCHARGE: * A1c 6.5% - reasonable to continue home metformin on discharge as long as no contraindications exist
[2020-05-23] MEDS: SODIUM CHLORIDE 0.9% 1000ML 1,000 ML IV SCH (12:00)
[2020-05-23] MEDS ORDERED: METOPROLOL TARTRATE 25 MG TAB PO STA (15:37)
--- NOTE | 2020-05-23 15:58 | Hospitalist Progress Note ---
Date of Service May 23, 2020 Assessment & Plan (1) Atrial fibrillation: went into afib with RVR, rates in 150's down to 110's after Lopressor 5mg IV morning Lopressor was held for BP of 104 will give Lopressor 25mg PO now start on Amiodarone 200mg BID this evening start on full anticoagulation with Eliquis 5mg BID (2) Pneumonia due to COVID-19 virus: Dexamethasone 6 mg IV daily, day 5 Given duration of illness (admission on day 13) no benefit from remdesivir. Isolation precautions. titrated down to room air, no distress, saturations > 90% very weak, even at baseline, will ask PT/OT to see him very fatigued today add Boost for calories (3) Hypoxia: without respiratory distress on admission Aim O2 sats > 90% down to room air today, at most he was on 1L this week (4) Hypertension: Continue metoprolol tartrate 25 mg p.o. twice daily with hold parameters, BP low normal stop lisinopril 5mg for now (5) Diabetes mellitus, type II: Hemoglobin A1c 5.4 in July 2019 Hold Metformin. 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 Gentle rehydration only. Continue ASA, metoprolol On no outpatient statin, previously on simvastatin but unclear why he discontinued this. 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 (10) Oropharyngeal dysphagia: eating fine today (11) DVT prophylaxis: D-dimer high at 4400, continue BID dosing of Lovenox Admission and Anticipated Discharge Date Admission Date: May 19, 2020 Subjective patient was feeling "funny" last night, went into afib on the monitor, HR in the 150's no ischemic changes on EKG, no chest pain at the time given 5mg IV Lopressor, HR down to 110's has been stable today but no Lopressor given this morning due to BP of 104 systo lic he is still not eating great, cannot drink the Boost, no appetite making urine, fluids at 80cc/hr, no BM today titrated to room air today, breathing easy updated his daughter over the phone, she says he does not follow with a manager surgery he does not take anticoagulation senior care he does have a pacemaker for sick sinus syndrome that was placed many years ago d/w RN, will give Lopressor 25mg PO now, BP is 114 systolic will start on Amiodarone 200mg BID to try to convert to sinus Review of Systems Review of Systems: All systems reviewed & are unremarkable except as noted in Subjective Physical Exam Constitutional: well developed, + thin, + frail appearing and comfortable; no acute distress Neck: trachea midline, no thyromegaly Respiratory: normal respiratory effort, lungs clear to auscultation Cardiovascular: Rate/Rhythm: + tachycardic and + irregularly irregular Heart Sounds: normal S1 and normal S2; no murmur Extremities: normal capillary refill; no edema Gastrointestinal (Abdomen): normal bowel sounds, soft, nontender, no hepatosplenomegaly Musculoskeletal: Head/Neck/Chest: normocephalic, head atraumatic and neck supple Extremities: extremities normal to inspection and + abnormal strength (generalized weakness in legs, cannot stand up) Skin: no rashes, warm and dry Neurologic: patellar DTR's 2+ bilat, sensation intact and PERRL, EOMI, accommodation nl, no face palsy, no dysarthria Psychiatric: A+Ox3, euthymic affect Lymphatic: no cervical or axillary lymphadenopathy Results & Data Results & Data ([facility]) Vital Signs (Past 12 Hours) Vital Signs Temp Pulse Pulse Resp BP Pulse Ox 05/23/20 14:28 96 05/23/20 14:26 36.2 C L 118 H 16 114/76 97 05/23/20 12:03 36.8 C 110 H 20 106/72 91 05/23/20 08:17 36.4 C L 100 H 16 100/62 96 05/23/20 07:47 124 H 05/23/20 05:55 126 H 115/73 05/23/20 03:56 128 H Laboratory Results Laboratory Results - last 24 hr 05/22/20 05/22/20 05/23/20 17:02 20:28 05:46 Sodium 140 Potassium 3.9 Chloride 109 H Carbon Dioxide 29 Anion Gap 2.0 L BUN 16 Creatinine 0.78 Est Cr Clr Drug Dosing 75.4 Est GFR ( Amer) 95.4 Est GFR (Non-Af Amer) 82.3 BUN/Creatinine Ratio 20.1 H Glucose 84 POC Glucose 189 H 116 H Calcium 8.1 L Phosphorus 2.2 L Magnesium 1.9 05/23/20 05/23/20 07:56 12:03 Sodium Potassium Chloride Carbon Dioxide Anion Gap BUN Creatinine Est Cr Clr Drug Dosing Est GFR ( Amer) Est GFR (Non-Af Amer) BUN/Creatinine Ratio Glucose POC Glucose 102 H 126 H Calcium Phosphorus Magnesium Medications Administered Current Inpatient Medications Acetaminophen (Acetaminophen 325 Mg Tab) 650 mg PO Q4H PRN PRN Reason: pain/fever Stop: 06/18/20 20:27 Amiodarone HCl (Amiodarone 200 Mg Tab) 200 mg PO BIDM [facility] Stop: 06/22/20 16:59 Aspirin (Aspirin 81 Mg Ectab) 81 mg PO DAILY [facility] Stop: 06/19/20 08:59 Last Admin: 05/23/20 09:21 Dose: 81 mg Documented by: Cyanocobalamin (Cyanocobalamin 500 Mcg Tablet (Vitamin B-12)) 2,000 mcg PO QAM [facility] Stop: 06/19/20 08:59 Last Admin: 05/23/20 09:21 Dose: 2,000 mcg Documented by: Dextrose (Dextrose 50% 50 Ml Syringe) 25 - 50 ml IV UD PRN; Protocol PRN Reason: Hypoglycemia Protocol Stop: 06/18/20 21:14 Enoxaparin Sodium (Enoxaparin Inj 40 Mg/0.4 Ml Syr) 40 mg SQ BID [facility] Stop: 06/18/20 22:44 Last Admin: 05/23/20 09:21 Dose: 40 mg Documented by: Glucagon (Glucagon For Inj 1 Mg Vial) 1 mg SQ UD PRN; Protocol PRN Reason: Hypoglycemia Protocol Stop: 06/18/20 21:14 Glucose (Glucose 40% Gel 15 Gm Tube) 15 - 30 gm PO UD PRN; Protocol PRN Reason: Hypoglycemia Protocol Stop: 06/18/20 21:14 Last Admin: 05/22/20 08:43 Dose: 15 gm Documented by: Glucose (Glucose 10 Tabs/Tube) 4 - 8 tabs PO UD PRN; Protocol PRN Reason: Hypoglycemia Protocol Stop: 06/18/20 21:14 Heparin Sodium (Porcine) (Heparin 100 Unit/Ml 5ml Flush) 5 ml FLUSH PRN PRN PRN Reason: Flush Stop: 06/19/20 03:51 Last Admin: 05/20/20 23:43 Dose: 5 ml Documented by: Dexamethasone 6 mg/ Syringe 1.5 mls @ 1 mls/min IV QAM [facility] Stop: 05/29/20 08:59 Last Admin: 05/23/20 09:21 Dose: 1 mls/min Documented by: Sodium Chloride (Nss 1000ml) 1,000 mls @ 80 mls/hr IV .[id number] [facility] Stop: 06/20/20 08:29 Last Admin: 05/23/20 12:00 Dose: 80 mls/hr Documented by: Insulin Aspart (Insulin Aspart 100 Units/Ml 3 Ml Pen) 0 units SC ACHS [facility] Stop: 06/18/20 21:29 Last Admin: 05/23/20 12:03 Dose: Not Given Documented by: Insulin Human NPH (Insulin Human Nph) 15 units SC DAILY [facility] Stop: 06/22/20 09:59 Last Admin: 05/23/20 09:48 Dose: 15 units Documented by: Magnesium Oxide (Magnesium Oxide 400 Mg Tab) 400 mg PO DAILY [facility] Stop: 06/19/20 08:59 Last Admin: 05/23/20 09:21 Dose: 400 mg Documented by: Miscellaneous (Carbohydrates For Hypoglycemia ) 15 - 30 gm PO UD PRN PRN Reason: Hypoglycemia Treatment Stop: 06/18/20 21:14 Last Admin: 05/22/20 08:21 Dose: 15 gm Documented by: Miscellaneous Information (Pharmacy Glycemic Mgmt Consult) 1 ea N/A UD PRN PRN Reason: Consult Stop: 06/18/20 20:59 Multivitamins/Minerals (Cerovite Adv Formula Tab) 1 tab PO BID [facility] Stop: 06/18/20 21:39 Last Admin: 05/23/20 09:21 Dose: 1 tab Documented by: Ondansetron HCl (Ondansetron Inj 2 Mg/Ml 2 Ml Vial) 4 mg IV Q4H PRN PRN Reason: Nausea Stop: 06/18/20 20:27 Last Admin: 05/20/20 23:38 Dose: 4 mg Documented by: Pantoprazole Sodium (Pantoprazole 40 Mg Tab) 40 mg PO QAM [facility] Stop: 06/20/20 08:59 Last Admin: 05/23/20 09:21 Dose: 40 mg Documented by: Polyethylene Glycol (Polyethylene (Miralax) 17 Gm Pack) 17 gm PO DAILY PRN PRN Reason: Constipation Stop: 06/18/20 20:27 Vitamin B Complex (Vitamin B Complex Tab) 1 tab PO DAILY [facility] Stop: 06/19/20 08:59 Last Admin: 05/23/20 09:21 Dose: 1 tab Documented by: Vitamin D (Cholecalciferol 1,000 Units 25 Mcg Tab) 2,000 units PO DAILY [facility] Stop: 06/19/20 08:59 Last Admin: 05/23/20 09:21 Dose: 2,000 units Documented by: PG Care Time/CCT Total # of Minutes Spent Total Time Spent with Patient: Total time spent is greater than 50% in coordination of care (as documented) at patient's floor/unit and/or counseling patient: Coding Level of Care Code 93640 Subseq Hosp Care Lvl 3 Diagnoses Atrial fibrillation I48.91 Pneumonia due to COVID-19 virus U07.1; J12.82 Hypoxia R09.02 Hypertension I10 Hypertension type: essential hypertension Diabetes mellitus, type II E11.65 Diabetes mellitus senior care insulin use: without senior care use Diabetes mellitus complication status: with hyperglycemia Lymphoma, marginal zone, spleen C83.07 Gait apraxia R48.2 History of [place] (myocardial infarction) I25.2 Low vision of left eye H54.52A1 Oropharyngeal dysphagia R13.12 DVT prophylaxis Z29.9 (1) Hypertension Hypertension type: essential hypertension Qualified Code(s): I10 - Essential (primary) hypertension (2) Diabetes mellitus, type II 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
--- NOTE | 2020-05-23 16:06 | Electrocardiogram Report ---
Test Reason : Blood Pressure : / mmHG Vent. Rate : 151 BPM Atrial Rate : 131 BPM P-R Int : 000 ms QRS Dur : 096 ms QT Int : 320 ms P-R-T Axes : 000 -70 113 degrees QTc Int : 507 ms Atrial fibrillation with rapid ventricular response with premature ventricular or aberrantly conducte d complexes Left axis deviation Septal infarct , age undetermined Abnormal ECG When compared with ECG of 19-MAY-2020 13:40, Significant changes have occurred Confirmed by Kain Clements ([id number]) on 05/23/2020 4:06:08 PM Referred By: REFERRED SELF Confirmed By:Kain Clements
[2020-05-23] MEDS: AMIODARONE 200 MG TAB PO SCH (16:20)
[2020-05-23] MEDS: APIXABAN 5 MG TABLET PO SCH (21:03)
[2020-05-24] MEDS: SODIUM CHLORIDE 0.9% 1000ML 1,000 ML IV SCH ×2 (00:39→12:10)
[2020-05-24 08:13] LABS: BUN Creatinine Ratio 16.7 (10-20); Calcium 8.6 mg/dl (8.5-10.1); Creatinine Clr Calc Pharmacy 61.4 ml/min; Est GFR (African American) 79.2; Est GFR (Non-African American) 68.3; Potassium 3.5 mmol/L (3.5-5.1)
[2020-05-24] MEDS: ONDANSETRON INJ 2 MG/ML 2 ML VIAL IV PRN (08:21)
[2020-05-24] MEDS: dexAMETHasone 6 MG in SYRINGE 0 ML IV SCH (08:22)
[2020-05-24] MEDS: MAGNESIUM OXIDE 400 MG TAB PO SCH (08:24)
[2020-05-24] MEDS: CEROVITE ADV FORMULA TAB PO SCH ×2 (08:24→21:15)
[2020-05-24] MEDS: ASPIRIN 81 MG ECTAB PO SCH (08:24)
[2020-05-24] MEDS: CHOLECALCIFEROL 1,000 UNITS 25 MCG TAB PO SCH (08:24)
[2020-05-24] MEDS: METOPROLOL TARTRATE 25 MG TAB PO SCH ×2 (08:24→21:15)
[2020-05-24] MEDS: VITAMIN B COMPLEX TAB PO SCH (08:25)
[2020-05-24] MEDS: CYANOCOBALAMIN 500 MCG TABLET (VITAMIN B-12) PO SCH (08:25)
[2020-05-24] MEDS: PANTOprazole 40 MG TAB PO SCH (08:25)
[2020-05-24] MEDS: INSULIN ASPART 100 UNITS/ML 3 ML PEN SC SCH ×4 (08:26→21:21)
[2020-05-24 08:27] LABS: Hematocrit (blood only) 37.9 % (42-52); Hemoglobin 13.8 g/dL (14.0-18.0); Mean Corpuscular Hemoglobin 32.3 pg (25-34); Mean Corpuscular Hgb Conc 36.4 g/dL (32-36); Mean Corpuscular Volume 88.8 fL (80-100); Mean Platelet Volume 10.2 fL (7.4-10.4); Platelet Count 289 K/uL (130-400); RDW Coefficient of Variation 13.3 % (11.5-14.5); RDW Standard Deviation 42.7 fL (36.4-46.3); Red Blood Count 4.27 M/uL (4.7-6.1); White Blood Count 11.78 K/uL (4.8-10.8)
[2020-05-24] MEDS: APIXABAN 5 MG TABLET PO SCH ×2 (08:28→21:15)
[2020-05-24] MEDS: INSULIN HUMAN NPH SC SCH (08:39)
[2020-05-24] MEDS: AMIODARONE 200 MG TAB PO SCH ×2 (09:28→16:55)
--- NOTE | 2020-05-24 15:56 | Hospitalist Progress Note ---
Date of Service May 24, 2020 Assessment & Plan (1) Atrial fibrillation: went into afib with RVR, rates in 150's on 05/22 in the evening continue Lopressor 25mg BID started on Amiodarone 200mg BID to try to convert to sinus rhythm start on full anticoagulation with Eliquis 5mg BID on 05/23 rates in the 90s today, better, but still in afib (2) Pneumonia due to COVID-19 virus: Dexamethasone 6 mg IV daily, day 6 Given duration of illness (admission on day 13) no benefit from remdesivir. Isolation precautions. titrated down to room air, no distress, saturations > 90% very weak, even at baseline, will ask PT/OT to see him very fatigued today add Boost for calories but not eating or drinking will likely keep until early/mid next week (3) Hypoxia: without respiratory distress on admission Aim O2 sats > 90% down to room air for two days, at most he was on 1L this week (4) Hypertension: Continue metoprolol tartrate 25 mg p.o. twice daily with hold parameters, BP low normal stop lisinopril 5mg for now (5) Diabetes mellitus, type II: Hemoglobin A1c 5.4 in July 2019 Hold Metformin. 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 Gentle rehydration only. Continue ASA, metoprolol On no outpatient statin, previously on simvastatin but unclear why he discontinued this. 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 (10) Oropharyngeal dysphagia: eating fine today (11) DVT prophylaxis: D-dimer high at 4400, continue BID dosing of Lovenox Admission and Anticipated Discharge Date Admission Date: May 19, 2020 Subjective patient still not eating, but otherwise doing well he ambulated to the bathroom without help today, told him he needs to ring his bajwa his afib is better controlled on Amiodarone and Lopressor 25mg BID no fever/chills hoping to go home after the weekend Review of Systems Review of Systems: All systems reviewed & are unremarkable except as noted in Subjective Physical Exam Constitutional: well developed, + thin, + frail appearing and comfortable; no acute distress Neck: trachea midline, no thyromegaly Respiratory: normal respiratory effort, lungs clear to auscultation Cardiovascular: RRR, no murmur, no edema Rate/Rhythm: + tachycardic and + irregularly irregular Heart Sounds: normal S1 and normal S2; no murmur Extremities: normal capillary refill; no edema Gastrointestinal (Abdomen): normal bowel sounds, soft, nontender, no hepatosplenomegaly Musculoskeletal: Head/Neck/Chest: normocephalic, head atraumatic and neck supp le Extremities: extremities normal to inspection and + abnormal strength (generalized weakness in legs, cannot stand up) Skin: no rashes, warm and dry Neurologic: patellar DTR's 2+ bilat, sensation intact and PERRL, EOMI, accommodation nl, no face palsy, no dysarthria Psychiatric: A+Ox3, euthymic affect Lymphatic: no cervical or axillary lymphadenopathy Results & Data Results & Data ([facility]) Vital Signs (Past 12 Hours) Vital Signs Temp Pulse Pulse Resp BP Pulse Ox 05/24/20 15:34 93 H 05/24/20 15:29 36.1 C L 111 H 16 118/72 95 05/24/20 11:32 36.3 C L 77 16 111/71 94 05/24/20 10:51 96 H 05/24/20 07:57 36.0 C L 136 H 16 147/86 H 94 05/24/20 07:11 100 H Laboratory Results Laboratory Results - last 24 hr 05/23/20 05/23/20 05/24/20 16:15 20:55 07:25 WBC RBC Hgb Hct MCV MCH MCHC RDW Std Deviation RDW Coeff of Petar Plt Count MPV Sodium Potassium Chloride Carbon Dioxide Anion Gap BUN Creatinine Est Cr Clr Drug Dosing Est GFR ( Amer) Est GFR (Non-Af Amer) BUN/Creatinine Ratio Glucose POC Glucose 173 H 162 H 87 Calcium 05/24/20 05/24/20 05/24/20 07:45 07:45 11:28 WBC 11.78 H RBC 4.27 L Hgb 13.8 L Hct 37.9 L MCV 88.8 MCH 32.3 MCHC 36.4 H RDW Std Deviation 42.7 RDW Coeff of Petar 13.3 Plt Count 289 MPV 10.2 Sodium 140 Potassium 3.5 Chloride 108 H Carbon Dioxide 25 Anion Gap 7.0 BUN 17 Creatinine 1.00 Est Cr Clr Drug Dosing 61.4 Est GFR ( Amer) 79.2 Est GFR (Non-Af Amer) 68.3 BUN/Creatinine Ratio 16.7 Glucose 107 H POC Glucose 120 H Calcium 8.6 Medications Administered Current Inpatient Medications Acetaminophen (Acetaminophen 325 Mg Tab) 650 mg PO Q4H PRN PRN Reason: pain/fever Stop: 06/18/20 20:27 Amiodarone HCl (Amiodarone 200 Mg Tab) 200 mg PO BIDM [facility] Stop: 06/22/20 16:59 Last Admin: 05/24/20 09:28 Dose: 200 mg Documented by: Apixaban (Apixaban 5 Mg Tablet) 5 mg PO BID [facility] Stop: 06/22/20 20:59 Last Admin: 05/24/20 08:28 Dose: 5 mg Documented by: Aspirin (Aspirin 81 Mg Ectab) 81 mg PO DAILY [facility] Stop: 06/19/20 08:59 Last Admin: 05/24/20 08:24 Dose: 81 mg Documented by: Cyanocobalamin (Cyanocobalamin 500 Mcg Tablet (Vitamin B-12)) 2,000 mcg PO QAM [facility] Stop: 06/19/20 08:59 Last Admin: 05/24/20 08:25 Dose: 2,000 mcg Documented by: Dextrose (Dextrose 50% 50 Ml Syringe) 25 - 50 ml IV UD PRN; Protocol PRN Reason: Hypoglycemia Protocol Stop: 06/18/20 21:14 Glucagon (Glucagon For Inj 1 Mg Vial) 1 mg SQ UD PRN; Protocol PRN Reason: Hypoglycemia Protocol Stop: 06/18/20 21:14 Glucose (Glucose 40% Gel 15 Gm Tube) 15 - 30 gm PO UD PRN; Protocol PRN Reason: Hypoglycemia Protocol Stop: 06/18/20 21:14 Last Admin: 05/22/20 08:43 Dose: 15 gm Documented by: Glucose (Glucose 10 Tabs/Tube) 4 - 8 tabs PO UD PRN; Protocol PRN Reason: Hypoglycemia Protocol Stop: 06/18/20 21:14 Heparin Sodium (Porcine) (Heparin 100 Unit/Ml 5ml Flush) 5 ml FLUSH PRN PRN PRN Reason: Flush Stop: 06/19/20 03:51 Last Admin: 05/20/20 23:43 Dose: 5 ml Documented by: Dexamethasone 6 mg/ Syringe 1.5 mls @ 1 mls/min IV QAM [facility] Stop: 05/29/20 08:59 Last Admin: 05/24/20 08:22 Dose: 1 mls/min Documented by: Sodium Chloride (Nss 1000ml) 1,000 mls @ 80 mls/hr IV .[id number] [facility] Stop: 06/20/20 08:29 Last Admin: 05/24/20 12:10 Dose: 80 mls/hr Documented by: Insulin Aspart (Insulin Aspart 100 Units/Ml 3 Ml Pen) 0 units SC ACHS [facility] Stop: 06/18/20 21:29 Last Admin: 05/24/20 12:14 Dose: 4 units Documented by: Insulin Human NPH (Insulin Human Nph) 15 units SC DAILY [facility] Stop: 06/22/20 09:59 Last Admin: 05/24/20 08:39 Dose: 15 units Documented by: Magnesium Oxide (Magnesium Oxide 400 Mg Tab) 400 mg PO DAILY [facility] Stop: 06/19/20 08:59 Last Admin: 05/24/20 08:24 Dose: 400 mg Documented by: Metoprolol Tartrate (Metoprolol Tartrate 25 Mg Tab) 25 mg PO BID [facility] Stop: 06/23/20 08:59 Last Admin: 05/24/20 08:24 Dose: 25 mg Documented by: Miscellaneous (Carbohydrates For Hypoglycemia ) 15 - 30 gm PO UD PRN PRN Reason: Hypoglycemia Treatment Stop: 06/18/20 21:14 Last Admin: 05/22/20 08:21 Dose: 15 gm Documented by: Miscellaneous Information (Pharmacy Glycemic Mgmt Consult) 1 ea N/A UD PRN PRN Reason: Consult Stop: 06/18/20 20:59 Multivitamins/Minerals (Cerovite Adv Formula Tab) 1 tab PO BID [facility] Stop: 06/18/20 21:39 Last Admin: 05/24/20 08:24 Dose: 1 tab Documented by: Ondansetron HCl (Ondansetron Inj 2 Mg/Ml 2 Ml Vial) 4 mg IV Q4H PRN PRN Reason: Nausea Stop: 06/18/20 20:27 Last Admin: 05/24/20 08:21 Dose: 4 mg Documented by: Pantoprazole Sodium (Pantoprazole 40 Mg Tab) 40 mg PO QAM [facility] Stop: 06/20/20 08:59 Last Admin: 05/24/20 08:25 Dose: 40 mg Documented by: Polyethylene Glycol (Polyethylene (Miralax) 17 Gm Pack) 17 gm PO DAILY PRN PRN Reason: Constipation Stop: 06/18/20 20:27 Vitamin B Complex (Vitamin B Complex Tab) 1 tab PO DAILY [facility] Stop: 06/19/20 08:59 Last Admin: 05/24/20 08:25 Dose: 1 tab Documented by: Vitamin D (Cholecalciferol 1,000 Units 25 Mcg Tab) 2,000 units PO DAILY [facility] Stop: 06/19/20 08:59 Last Admin: 05/24/20 08:24 Dose: 2,000 units Documented by: PG Care Time/CCT Total # of Minutes Spent Total Time Spent with Patient: Total time spent is greater than 50% in coordination of care (as documented) at patient's floor/unit and/or counseling patient: Coding Level of Care Code 67218 Subseq Hosp Care Lvl 2 Diagnoses Atrial fibrillation I48.91 Pneumonia due to COVID-19 virus U07.1; J12.82 Hypoxia R09.02 Hypertension I10 Hypertension type: essential hypertension Diabetes mellitus, type II E11.65 Diabetes mellitus complication status: with hyperglycemia Diabetes mellitus long term care pharmacist insulin use: without custodial use Lymphoma, marginal zone, spleen C83.07 Gait apraxia R48.2 History of [place] (myocardial infarction) I25.2 Low vision of left eye H54.52A1 Oropharyngeal dysphagia R13.12 DVT prophylaxis Z29.9 (1) Diabetes mellitus, type II Diabetes mellitus complication status: with hyperglycemia Diabetes mellitus custodial insulin use: without long term care pharmacist use Qualified Code(s): E11.65 - Type 2 diabetes mellitus with hyperglycemia (2) Hypertension Hypertension type: essential hypertension Qualified Code(s): I10 - Essential (primary) hypertension
[2020-05-25] MEDS: SODIUM CHLORIDE 0.9% 1000ML 1,000 ML IV SCH ×2 (00:38→12:17)
[2020-05-25] MEDS: PANTOprazole 40 MG TAB PO SCH (08:17)
[2020-05-25] MEDS: CHOLECALCIFEROL 1,000 UNITS 25 MCG TAB PO SCH (08:17)
[2020-05-25] MEDS: dexAMETHasone 6 MG in SYRINGE 0 ML IV SCH (08:17)
[2020-05-25] MEDS: CYANOCOBALAMIN 500 MCG TABLET (VITAMIN B-12) PO SCH (08:17)
[2020-05-25] MEDS: MAGNESIUM OXIDE 400 MG TAB PO SCH (08:17)
[2020-05-25] MEDS: METOPROLOL TARTRATE 25 MG TAB PO SCH ×2 (08:17→20:49)
[2020-05-25] MEDS: VITAMIN B COMPLEX TAB PO SCH (08:18)
[2020-05-25] MEDS: APIXABAN 5 MG TABLET PO SCH ×2 (08:18→20:49)
[2020-05-25] MEDS: ASPIRIN 81 MG ECTAB PO SCH (08:18)
[2020-05-25] MEDS: AMIODARONE 200 MG TAB PO SCH ×2 (08:18→16:56)
[2020-05-25] MEDS: CEROVITE ADV FORMULA TAB PO SCH ×2 (08:19→20:49)
[2020-05-25] MEDS: INSULIN HUMAN NPH SC SCH (08:31)
[2020-05-25] MEDS: INSULIN ASPART 100 UNITS/ML 3 ML PEN SC SCH ×4 (08:31→21:01)
--- NOTE | 2020-05-25 13:21 | Electrocardiogram Report ---
Test Reason : Blood Pressure : / mmHG Vent. Rate : 068 BPM Atrial Rate : 068 BPM P-R Int : 208 ms QRS Dur : 130 ms QT Int : 392 ms P-R-T Axes : 054 -58 -25 degrees QTc Int : 416 ms Normal sinus rhythm with 1st degree A-V block Left axis deviation Left bundle branch block Abnormal ECG When compared with ECG of 22-MAY-2020 23:57, Left bundle branch block now complete HR has decreased by 83 bpm Atrial fibrillation no longer present Confirmed by Jarrett Stephen ([id number] on 05/25/2020 1:20:41 PM Referred By: REFERRED SELF Confirmed By:Jarrett Stephen
--- NOTE | 2020-05-25 15:56 | Hospitalist Progress Note ---
Date of Service May 25, 2020 Assessment & Plan (1) Atrial fibrillation: went into afib with RVR, rates in 150's on 05/22 in the evening continue Lopressor 25mg BID started on Amiodarone 200mg BID to try to convert to sinus rhythm start on full anticoagulation with Eliquis 5mg BID on 05/23 rates in the 80-90s today will consult cardiology tomorrow for recommendations going forward, arrange for follow up (2) Pneumonia due to COVID-19 virus: Dexamethasone 6 mg IV daily, day 7 Given duration of illness (admission on day 13) no benefit from remdesivir. Isolation precautions. titrated down to room air, no distress, saturations > 90% very weak, even at baseline, will ask PT/OT to see him very fatigued today eating and drinking better, stop IV fluids PT/OT - very weak, recommending rehab (3) Hypoxia: without respiratory distress on admission Aim O2 sats > 90% down to room air for three days, at most he was on 1L (4) Hypertension: Continue metoprolol tartrate 25 mg p.o. twice daily with hold parameters, BP low normal stop lisinopril 5mg for now (5) Diabetes mellitus, type II: Hemoglobin A1c 5.4 in July 2019 Hold Metformin. 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 (10) Oropharyngeal dysphagia: eating fine today (11) DVT prophylaxis: D-dimer high at 4400, continue BID dosing of Lovenox Admission and Anticipated Discharge Date Admission Date: May 19, 2020 Subjective patient doing better, eating and drinking better, will stop IV fluids no fever, no dyspnea, no cough, no chest pain, no GI symptoms still very weak, not walking well if at all making urine sugars stable HR in the 80-90's on monitor, on Lopressor and Amiodarone 200mg BID Review of Systems Review of Systems: All systems reviewed & are unremarkable except as noted in Subjective Constitutional: + weakness Musculoskeletal: + muscle weakness Physical Exam Constitutional: well developed, + thin, + frail appearing and comfortable; no acute distress Neck: trachea midline, no thyromegaly Respiratory: normal respiratory effort, lungs clear to auscultation Cardiovascular: Rate/Rhythm: regular rate and + irregularly irregular Heart Sounds: normal S1 and normal S2; no murmur Extremities: normal capillary refill; no edema Gastrointestinal (Abdomen): normal bowel sounds, soft, nontender, no hepatosplenomegaly Musculoskeletal: Head/Neck/Chest: normocephalic, head atraumatic and neck supple Extremities: extremities normal to inspection and + abnormal strength (generalized weakness in legs, cannot stand up) Skin: no rashes, warm and dry Neurologic: patellar DTR's 2+ bilat, sensation intact and PERRL, EOMI, accommo dation nl, no face palsy, no dysarthria Psychiatric: A+Ox3, euthymic affect Lymphatic: no cervical or axillary lymphadenopathy Results & Data Results & Data ([facility]) Vital Signs (Past 12 Hours) Vital Signs Temp Pulse Pulse Resp BP Pulse Ox 05/25/20 14:42 90 18 114/79 94 05/25/20 07:03 36.2 C L 90 103 H 16 117/62 94 Laboratory Results Laboratory Results - last 24 hr 05/24/20 05/24/20 05/25/20 16:44 20:09 07:39 POC Glucose 211 H 179 H 114 H 05/25/20 11:47 POC Glucose 155 H Medications Administered Current Inpatient Medications Acetaminophen (Acetaminophen 325 Mg Tab) 650 mg PO Q4H PRN PRN Reason: pain/fever Stop: 06/18/20 20:27 Amiodarone HCl (Amiodarone 200 Mg Tab) 200 mg PO BIDM [facility] Stop: 06/22/20 16:59 Last Admin: 05/25/20 08:18 Dose: 200 mg Documented by: Apixaban (Apixaban 5 Mg Tablet) 5 mg PO BID [facility] Stop: 06/22/20 20:59 Last Admin: 05/25/20 08:18 Dose: 5 mg Documented by: Aspirin (Aspirin 81 Mg Ectab) 81 mg PO DAILY DANIKA Stop: 06/19/20 08:59 Last Admin: 05/25/20 08:18 Dose: 81 mg Documented by: Cyanocobalamin (Cyanocobalamin 500 Mcg Tablet (Vitamin B-12)) 2,000 mcg PO QAM DANIKA Stop: 06/19/20 08:59 Last Admin: 05/25/20 08:17 Dose: 2,000 mcg Documented by: Dextrose (Dextrose 50% 50 Ml Syringe) 25 - 50 ml IV UD PRN; Protocol PRN Reason: Hypoglycemia Protocol Stop: 06/18/20 21:14 Glucagon (Glucagon For Inj 1 Mg Vial) 1 mg SQ UD PRN; Protocol PRN Reason: Hypoglycemia Protocol Stop: 06/18/20 21:14 Glucose (Glucose 40% Gel 15 Gm Tube) 15 - 30 gm PO UD PRN; Protocol PRN Reason: Hypoglycemia Protocol Stop: 06/18/20 21:14 Last Admin: 05/22/20 08:43 Dose: 15 gm Documented by: Glucose (Glucose 10 Tabs/Tube) 4 - 8 tabs PO UD PRN; Protocol PRN Reason: Hypoglycemia Protocol Stop: 06/18/20 21:14 Heparin Sodium (Porcine) (Heparin 100 Unit/Ml 5ml Flush) 5 ml FLUSH PRN PRN PRN Reason: Flush Stop: 06/19/20 03:51 Last Admin: 05/20/20 23:43 Dose: 5 ml Documented by: Dexamethasone 6 mg/ Syringe 1.5 mls @ 1 mls/min IV QAM DANIKA Stop: 05/29/20 08:59 Last Admin: 05/25/20 08:17 Dose: 1 mls/min Documented by: Sodium Chloride (Nss 1000ml) 1,000 mls @ 80 mls/hr IV .[id number] [facility] Stop: 06/20/20 08:29 Last Admin: 05/25/20 12:17 Dose: 80 mls/hr Documented by: Insulin Aspart (Insulin Aspart 100 Units/Ml 3 Ml Pen) 0 units SC ACHS DANIKA Stop: 06/18/20 21:29 Last Admin: 05/25/20 12:23 Dose: 7 units Documented by: Insulin Human NPH (Insulin Human Nph) 15 units SC DAILY DANIKA Stop: 06/22/20 09:59 Last Admin: 05/25/20 08:31 Dose: 15 units Documented by: Magnesium Oxide (Magnesium Oxide 400 Mg Tab) 400 mg PO DAILY DANIKA Stop: 06/19/20 08:59 Last Admin: 05/25/20 08:17 Dose: 400 mg Documented by: Metoprolol Tartrate (Metoprolol Tartrate 25 Mg Tab) 25 mg PO BID DANIKA Stop: 06/23/20 08:59 Last Admin: 05/25/20 08:17 Dose: 25 mg Documented by: Miscellaneous (Carbohydrates For Hypoglycemia ) 15 - 30 gm PO UD PRN PRN Reason: Hypoglycemia Treatment Stop: 06/18/20 21:14 Last Admin: 05/22/20 08:21 Dose: 15 gm Documented by: Ayanna Information (Pharmacy Glycemic Mgmt Consult) 1 ea N/A UD PRN PRN Reason: Consult Stop: 06/18/20 20:59 Multivitamins/Minerals (Cerovite Adv Formula Tab) 1 tab PO BID [facility] Stop: 06/18/20 21:39 Last Admin: 05/25/20 08:19 Dose: 1 tab Documented by: Ondansetron HCl (Ondansetron Inj 2 Mg/Ml 2 Ml Vial) 4 mg IV Q4H PRN PRN Reason: Nausea Stop: 06/18/20 20:27 Last Admin: 05/24/20 08:21 Dose: 4 mg Documented by: Pantoprazole Sodium (Pantoprazole 40 Mg Tab) 40 mg PO QAM [facility] Stop: 06/20/20 08:59 Last Admin: 05/25/20 08:17 Dose: 40 mg Documented by: Polyethylene Glycol (Polyethylene (Miralax) 17 Gm Pack) 17 gm PO DAILY PRN PRN Reason: Constipation Stop: 06/18/20 20:27 Vitamin B Complex (Vitamin B Complex Tab) 1 tab PO DAILY DANIKA Stop: 06/19/20 08:59 Last Admin: 05/25/20 08:18 Dose: 1 tab Documented by: Vitamin D (Cholecalciferol 1,000 Units 25 Mcg Tab) 2,000 units PO DAILY [facility] Stop: 06/19/20 08:59 Last Admin: 05/25/20 08:17 Dose: 2,000 units Documented by: PG Care Time/CCT Total # of Minutes Spent Total Time Spent with Patient: Total time spent is greater than 50% in coordination of care (as documented) at patient's floor/unit and/or counseling patient: Coding Level of Care Code 19040 Subseq Hosp Care Lvl 2 Diagnoses Atrial fibrillation I48.91 Pneumonia due to COVID-19 virus U07.1; J12.82 Hypoxia R09.02 Hypertension I10 Hypertension type: essential hypertension Diabetes mellitus, type II E11.65 Diabetes mellitus complication status: with hyperglycemia Diabetes mellitus superintendent terminal insulin use: without halfway use Lymphoma, marginal zone, spleen C83.07 Gait apraxia R48.2 History of AR (myocardial infarction) I25.2 Low vision of left eye H54.52A1 Oropharyngeal dysphagia R13.12 DVT prophylaxis Z29.9 (1) Diabetes mellitus, type II Diabetes mellitus complication status: with hyperglycemia Diabetes mellitus halfway insulin use: without superintendent terminal use Qualified Code(s): E11.65 - Type 2 diabetes mellitus with hyperglycemia (2) Hypertension Hypertension type: essential hypertension Qualified Code(s): I10 - Essential (primary) hypertension
[2020-05-26] MEDS: SODIUM CHLORIDE 0.9% 1000ML 1,000 ML IV SCH ×2 (00:52→12:52)
[2020-05-26 07:07] LABS: Creatinine Clr Calc Pharmacy 67.8 ml/min; Est GFR (African American) 86.5; Est GFR (Non-African American) 74.6
--- NOTE | 2020-05-26 08:34 | Hospitalist Progress Note ---
Date of Service May 26, 2020 Assessment & Plan (1) Atrial fibrillation: went into afib with RVR, rates in 150's on 05/22 in the evening continue Lopressor 25mg BID started on Amiodarone 200mg BID to try to convert to sinus rhythm start on full anticoagulation with Eliquis 5mg BID on 05/23 rates controlled but remains in atrial fibrillation/flutter Cardiology neurology consultation agrees with amiodarone and anticoagulation they are ordering an echocardiogram to evaluate his ejection fraction as he is previous history of depressed ejection fraction (2) Pneumonia due to COVID-19 virus: Patient is now out of airborne precautions due to duration of illness dexamethasone 6 mg IV daily, will discontinue now is no longer hypoxemic Given duration of illness (admission on day 13) no benefit from remdesivir. Discontinue airborne isolation precautions. Per infectious control review titrated down to room air, no distress, saturations > 90% very weak, even at baseline, will ask PT/OT to see him Continues to be very fatigued today eating and drinking better, stop IV fluids PT/OT - very weak, recommending rehab (3) Hypoxia: without respiratory distress on admission Aim O2 sats > 90% down to room air for three days, at most he was on 1L (4) Hypertension: Continue metoprolol tartrate 25 mg p.o. twice daily with hold parameters, BP low normal stop lisinopril 5mg for now (5) Diabetes mellitus, type II: Hemoglobin A1c 5.4 in July 2019 Hold Metformin. 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 (10) Oropharyngeal dysphagia: eating fine today (11) DVT prophylaxis: D-dimer high at 4400, continue anticoagulation with apixaban Admission and Anticipated Discharge Date Admission Date: May 19, 2020 Subjective pt is doing better, eating and drinking will stop IVF looking at placement. otherwise is weak and tired Review of Systems Review of Systems: Mild distress and fatigue no headache, blurry or double vision no speech or swallowing issues no chest pain, pressure or palpitations Still with some baseline shortness of breath, nonproductive cough or wheezes no abdominal pain, nausea or vomiting, diarrhea or constipation no dysuria, hematuria or frequency no focal joint pain or swelling no back pain, CVA tenderness or radicular pain no bruising, bleeding or rashes no focal signs of weakness or numbness or altered sensation no complaints of anxiety or depression.. Physical Exam Physical Exam: The patient appeared well nourished and normally developed. Vital signs as documented. Head exam is normocephalic atraumatic no scleral icterus Neck is without JVD, thyromegaly, or carotid bruits. Lungs are basilar rales which clear with deep breath, no focal loss of breath sounds Cardiac exam, Rhythm is regular.. No murmurs, rubs or gallops. Abdominal exam reveals normal bowel sounds, soft non tender, no masses Extremities are nonedematous and both pedal pulses are present Neurologic exam is alert and oriented x3 likely has some baseline dementia, no focal loss of strength or sensation but globally is weak Skin is without bruises or rashes Psychologically is without concerns for anxiety or depression Results & Data Results & Data ([facility]) Vital Signs (Past 12 Hours) Vital Signs Temp Pulse Pulse Resp BP Pulse Ox 05/26/20 07:52 97.5 F L 93 H 16 107/62 94 05/26/20 04:28 97.9 F 82 16 100/62 96 05/26/20 01:01 76 05/26/20 00:09 97.7 F 73 20 108/69 96 05/25/20 20:38 97.7 F 86 16 109/71 97 PG Care Time/CCT Total # of Minutes Spent Total Time Spent with Patient: Total time spent is greater than 50% in coordination of care (as documented) at patient's floor/unit and/or counseling patient: Coding Level of Care Code 94360 Subseq Hosp Care Lvl 3 Diagnoses Atrial fibrillation I48.91 Pneumonia due to COVID-19 virus U07.1; J12.82 Hypoxia R09.02 Hypertension I10 Hypertension type: essential hypertension Diabetes mellitus, type II E11.65 Diabetes mellitus complication status: with hyperglycemia Diabetes mellitus mcc insulin use: without terminal supervisor use Lymphoma, marginal zone, spleen C83.07 Gait apraxia R48.2 History of MS (myocardial infarction) I25.2 Low vision of left eye H54.52A1 Oropharyngeal dysphagia R13.12 DVT prophylaxis Z29.9 (1) Diabetes mellitus, type II Diabetes mellitus complication status: with hyperglycemia Diabetes mellitus mcc insulin use: without mcc use Qualified Code(s): E11.65 - Type 2 diabetes mellitus with hyperglycemia (2) Hypertension Hypertension type: essential hypertension Qualified Code(s): I10 - Essential (primary) hypertension
[2020-05-26] MEDS: INSULIN ASPART 100 UNITS/ML 3 ML PEN SC SCH ×4 (09:21→21:18)
[2020-05-26] MEDS: INSULIN HUMAN NPH SC SCH (09:22)
[2020-05-26] MEDS: METOPROLOL TARTRATE 25 MG TAB PO SCH ×2 (09:29→21:17)
[2020-05-26] MEDS: APIXABAN 5 MG TABLET PO SCH ×2 (09:29→21:17)
[2020-05-26] MEDS: CEROVITE ADV FORMULA TAB PO SCH ×2 (09:29→21:17)
[2020-05-26] MEDS: ASPIRIN 81 MG ECTAB PO SCH (09:30)
[2020-05-26] MEDS: dexAMETHasone 6 MG in SYRINGE 0 ML IV SCH (09:30)
[2020-05-26] MEDS: CYANOCOBALAMIN 500 MCG TABLET (VITAMIN B-12) PO SCH (09:30)
[2020-05-26] MEDS: AMIODARONE 200 MG TAB PO SCH ×2 (09:31→19:43)
[2020-05-26] MEDS: MAGNESIUM OXIDE 400 MG TAB PO SCH (09:31)
[2020-05-26] MEDS: VITAMIN B COMPLEX TAB PO SCH (09:32)
[2020-05-26] MEDS: PANTOprazole 40 MG TAB PO SCH (09:32)
[2020-05-26] MEDS: CHOLECALCIFEROL 1,000 UNITS 25 MCG TAB PO SCH (09:33)
--- NOTE | 2020-05-26 09:50 | Cardiology Consultation ---
Date of Consultation May 26, 2020 Assessment & Plan (1) Atrial fibrillation: He has atrial fibrillation which occurred on May 22, 2020 and has remained since. The rate was initially fast, now on amiodarone and metoprolol the rate is reasonably well controlled. He is on anticoagulation as well which is appropriate. I cannot tell if this is an acute presentation with atrial fibrillation due to the stress of the COVID-19 or if he has paroxysmal atrial fibrillation with recurrence now. I would recommend continue with amiodarone, due to the kinetics of amiodarone will take some time for it to build up enough in his bloodstream and tissues to cause conversion. At the moment I do not think we need to convert the rhythm but since he was immediately started on anticoagulation that would be an option at any time. (2) Cardiomyopathy: He has a cardiomyopathy identified last September which is apparently ischemic (he has wall motion abnormalities and a history of known coronary artery disease). It might be useful to know whether his ejection fraction is stable, I am going to order an echocardiogram and I talked to the department and they will do it when they are in the Covid unit for somebody else, rather than going in just for this echocardiogram. (3) History of HI (myocardial infarction): He has known coronary disease and a history of myocardial infarction. There is no evidence to suggest that he has had an acute ischemic event. We have not had an evaluation of his coronary disease for some time vital think that is necessary now. (4) Hypertension: He has a history of hypertension but currently his blood pressure is generally on the low side on his current regimen. If we need to increase antihypertensives I would go up on beta-blockade to help control the heart rate a little more closely. For now I think it is appropriate. (5) Hyperlipidemia: He has coronary disease and a history of hyperlipidemia or dyslipidemia, his LDL was excellent in July 2019 but he is no longer on a statin. Now is probably not a good time to reintroduce 1, but that should be a consideration for the future. We could draw cholesterol measurements now but that may be misleading. History of Present Illness Reason for Consultation: Atrial fibrillation, cardiomyopathy Attending Physician: Madan Wood MD History of Present Illness This is an 84-year-old male who has a history of diabetes mellitus, hypertension, dyslipidemia and coronary disease including intervention in 2002 but has been doing well in that regard in recent years. He also has a history of B-cell lymphoma. He is wheelchair-bound typically due to peripheral neuropathy from diabetes. He presented here on May 19, 2020 which shortness of breath, fatigue and poor appetite. He did test positive for COVID-19 and did have a prior recent exposure. He was admitted for treatment of that. He was in sinus rhythm at the time. Evaluation in the hospital included an electrocardiogram on May 22, 2020 which was notable for atrial fibrillation with a rapid heart rate of 151 bpm and a septal infarct. He was started on oral amiodarone and and Eliquis. On telemetry has remained in AF with a reasonable heart rate but in his chart is an electrocardiogram on May 24, 2020 showed sinus rhythm at 68 bpm with first- degree AV block and a left bundle branch block pattern with a QRS duration of 130 ms. I believe this electrocardiogram is not his, I did review of telemetry at that time and for the time surrounding it and there is no evidence that he had atrial fibrillation. A prior echocardiogram October 15, 2019 showed normal left ventricular size with left ventricular dysfunction and ejection fraction of 35 to 40% with wall motion abnormalities. At that time he had sinus bradycardia. A troponin done on presentation here was negative, his albumin was reduced at 2.5 with a globulin slightly elevated at 4.1. Cholesterol measurements were good on presentation and liver function tests were minimally abnormal, evidently he was on a statin in the past but that had been discontinued for uncertain reasons. Due to the COVID-19 pandemic I did not interview him. Allergies Allergy/AdvReac Type Severity Reaction Status Date / Time Sulfa (Sulfonamide Allergy Intermediate RASH Verified 05/19/20 15:11 Antibiotics) adhesive Allergy Mild RASH Verified 05/19/20 15:11 bee venom protein (honey bee) Allergy Unknown Verified 05/19/20 15:11 Home Medications Medication Instructions Recorded Confirmed Type aspirin 81 mg tablet,delayed 81 mg PO DAILY #30 tab 08/21/18 05/19/20 Rx release cholecalciferol (vitamin D3) 50 2,000 units PO DAILY #30 cap 08/21/18 05/19/20 Rx mcg (2,000 unit) capsule magnesium 250 mg tablet 250 mg PO DAILY #30 tab 08/21/18 05/19/20 Rx vitamin B complex 1 tab PO DAILY #30 tab 08/21/18 05/19/20 Rx cyanocobalamin (vitamin B-12) 2,000 mcg PO DAILY tab 11/22/18 05/19/20 History 2,000 mcg tablet vit C 250 mg-vit E 90 mg-zinc 40 1 tab PO BID 11/22/18 05/19/20 History mg-copper 1 [id number] capsule metoprolol tartrate 50 mg tablet 25 mg PO BID #90 tab 01/21/20 05/19/20 Rx lisinopril 5 mg tablet 5 mg PO DAILY #90 tab 05/19/20 05/19/20 Rx metformin 500 mg tablet 500 mg PO BID #180 tab 05/19/20 05/19/20 Rx Patient History Medical History Cardiomyopathy Diabetes mellitus, type II Gait apraxia History of HI (myocardial infarction) (~2002) Hyperlipidemia Hypertension Low vision of left eye Lymphoma, marginal zone, 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 Following with Heme/Onc q6 months. Vitamin D insufficiency Surgical History H/O heart artery stent (~2002) History of cholecystectomy History of PTCA (~2013) Family History Father Leukemia Mother Sick sinus syndrome S/P placement of cardiac pacemaker Sister Macular degeneration Brother Macular degeneration Denies family history of Ovarian cancer Prostate cancer Breast cancer Lung cancer Colorectal cancer Social History Smoking Status: Former smoker Second Hand Exposure: No; Do You Dip or Chew Tobacco: No; Tobacco Cessation Education Requested by Patient: No Hx Alcohol Use: No Hx Substance Use: No Preferred Language: Syriac Communication Ability: Effective Visual Impairment: No Limitations Hearing Ability: Normal Beliefs That Will Affect Care: None marital status: Current Living Situation: Spouse and Family Current Living Situation Comment: Lives with and nephew How many Children do You have: 4 Other Information That Helps Us Care for You: No Feels Safe at Home: Yes Safety Concerns: Feels Safe At This Time Assistive Devices: Wheelchair Physical Exam Physical Exam: Due to the COVID-19 pandemic I did not examine the patient. Results & Data ([facility]) Vital Signs (Past 12 Hours) Vital Signs Temp Pulse Pulse Resp BP Pulse Ox 05/26/20 07:52 36.4 C L 93 H 16 107/62 94 05/26/20 04:28 36.6 C 82 16 100/62 96 05/26/20 01:01 76 05/26/20 00:09 36.5 C 73 20 108/69 96 Laboratory Results Comprehensive Metabolic Panel 05/26/20 Range/Units 05:53 Creatinine 0.93 (0.6-1.4) mg/dl Intake and Output 05/25/20 05/26/20 05/26/20 22:59 06:59 14:59 Intake Total 2031 1000 2031 Output Total 150 / 450 300 / 450 Balance -50 1581 700 / 1581 Intake: IV 999 Nss 1000ML 1,000 ml @ 80 mls/hr 999 IV .[id number] DANIKA Rx#:[id number] Oral 100 / 100 0 / 100 Output: Urine 150 / 450 300 / 450 Other: Weight 82.5 kg Weight Measurement Method Built in [facility] Diagnostic Findings I reviewed his electrocardiograms and as noted in the HPI I believe the elect rocardiogram from May 24, 2020 is not his and I will have it deleted. Telemetry: Atrial fibrillation for the last 72 hours that is available on telemetry, no evidence of sinus rhythm, rate averaging around 100 bpm. PG Care Time/CCT Total # of Minutes Spent Total Time Spent with Patient: Total time spent is greater than 50% in coordination of care (as documented) at patient's floor/unit and/or counseling patient: Coding Level of Care Code 35900 Initial Inpt Care Lvl 3 Diagnoses Atrial fibrillation I48.0 Atrial fibrillation type: paroxysmal Cardiomyopathy I25.5 Cardiomyopathy type: ischemic History of HI (myocardial infarction) I25.2 Hypertension I10 Hypertension type: essential hypertension Hyperlipidemia E78.5 Hyperlipidemia type: unspecified (1) Atrial fibrillation Atrial fibrillation type: paroxysmal Qualified Code(s): I48.0 - Paroxysmal atrial fibrillation (2) Hyperlipidemia Hyperlipidemia type: unspecified Qualified Code(s): E78.5 - Hyperlipidemia, unspecified (3) Hypertension Hypertension type: essential hypertension Qualified Code(s): I10 - Essential (primary) hypertension (4) Cardiomyopathy Cardiomyopathy type: ischemic Qualified Code(s): I25.5 - Ischemic cardiomyopathy
--- NOTE | 2020-05-26 13:13 | Pharmacy Report ---
Pharmacy Glycemic Short Note 2 - Date of Service May 26, 2020 - Glycemic Short BSG Results (Last 24 hours): 05/25/20 05/25/20 05/26/20 16:37 20:41 07:51 POC Glucose 170 H 156 H 120 H 05/26/20 11:47 POC Glucose 140 H OUTPATIENT ANTIDIABETIC REGIMEN: * metformin 500 bid * A1c 6.5% ASSESSMENT: 05/26/20: * Mr Torres's BSGs have been quite stable over the past 48 hours or so. * Carb coverage was tightened slightly yesterday morning, which seems to be providing better control throughout the day. * No changes at this time. 05/23 * Pt has received 21 units of insulin over the past 24hrs * 10 units of basal with NPH for steroid induced hyperglycemia with dexamethasone IV * 11 units of bolus with NovoLog * BSGs [id number] mg/dl * No low BSG this am with dose reductions in NPH yesterday. * Appetite remains very poor. * Dexamethasone 4mg IV daily continues (day #4 today) will continue NPH but at significantly reduced dosing secondary to decreased PO intake * No changes needed to CF/CR 05/22 * Pt has received 31 units of insulin over the past 24hrs * 30 units of basal with NPH for steroid induced hyperglycemia with dexamethasone IV * 1 units of bolus with NovoLog; very poor PO intake * BSGs 662-299-469-143-67 mg/dl * Pt with LOW BSG this AM at 63mg/dl. This could just be patient's baseline AM fasting BSG based on A1c. However, pt required 3 juices Q15 min to bring BSG up to 77mg/dl. Pt is only receiving NPH insulin QAM with dexamethasone which usually lasts ~18hrs. Pt received one unit of NovoLog insulin at HS which may have also contributed to AM low BSG. * Pt with very poor PO intake yesterday and continues today. Will hold off on NPH this AM. Reassess if small dose needed at lunch time. Steroids cause more severe hyperglycemia when combined with CHO. NPH may not be needed if low PO intake continues. 05/21 * Patient received total of 43 units of insulin yesterday, of which 30 units were NPH * BSGs improving throughout the day * Fasting BSG w/in range at 129 mg/dL - continue same NPH to cover dexamethasone 05/20 * 84 year old admitted with COVID pneumonia. Started on IV dexamethasone * Type 2 diabetic managed only on metformin at home. Anticipate steroid induced hyperglycemia. Plan to utilize NPH ~0.4 units/kg to help with coverage of steroids. Plan stress of 3 for novolog PLAN FOR INPATIENT GLYCEMIC CONTROL: * Hold outpatient oral diabetes medications * Basal insulin * NPH 15 units (0.2 units/kg) SQ daily with IV dexamethasone. HOLD if dexamethasone held or DC * Bolus insulin: no change * NovoLog per scale ACHS or Q6hrs while NPO * Goal Range: Low 110 mg/dL - High 140 mg/dL * Correction Factor: 20 mg/dL/unit * Nutritional / Prandial insulin per carb ratio of 1 unit per 6 grams CHO consumed PLAN FOR DISCHARGE: * A1c 6.5% - reasonable to continue home metformin on discharge as long as no contraindications exist
--- NOTE | 2020-05-26 15:06 | Electrocardiogram Report ---
Test Reason : Blood Pressure : / mmHG Vent. Rate : 076 BPM Atrial Rate : 357 BPM P-R Int : 000 ms QRS Dur : 114 ms QT Int : 404 ms P-R-T Axes : 000 -71 133 degrees QTc Int : 454 ms Atrial fibrillation Left axis deviation Incomplete left bundle block Nonspecific T wave abnormality Abnormal ECG When compared with ECG of 22-MAY-2020 23:57, Vent. rate has decreased BY 75 BPM Confirmed by Royce Mcneil ([id number]) on 05/26/2020 3:05:55 PM Referred By: REFERRED SELF Confirmed By:Royce Mcneil
--- NOTE | 2020-05-26 16:00 | Electrocardiogram Report ---
Test Reason : Blood Pressure : / mmHG Vent. Rate : 083 BPM Atrial Rate : 340 BPM P-R Int : 000 ms QRS Dur : 116 ms QT Int : 396 ms P-R-T Axes : 000 -72 124 degrees QTc Int : 465 ms Atrial fibrillation Left axis deviation Incomplete left bundle block Nonspecific T wave abnormality Abnormal ECG When compared with ECG of 22-MAY-2020 23:57, Vent. rate has decreased BY 68 BPM Confirmed by Royce Mcneil ([id number]) on 05/26/2020 3:59:37 PM Referred By: REFERRED SELF Confirmed By:Royce Mcneil
--- NOTE | 2020-05-26 21:54 | XCELERA ---
[id number]
[2020-05-27] MEDS: POLYETHYLENE (MIRALAX) 17 GM PACK PO PRN (00:24)
--- NOTE | 2020-05-27 08:46 | Hospitalist Progress Note ---
Date of Service May 27, 2020 Assessment & Plan (1) Atrial fibrillation: went into afib with RVR, rates in 150's on 05/22 in the evening, now rate controlled on Lopressor 25mg BID, Amiodarone 200mg BID, Eliquis 5mg BID on 05/23 remains in atrial fibrillation/flutter Cardiology consultation agrees with amiodarone and anticoagulation echocardiogram shows EF 45%, previous echo 2019 35-40%-> HFrEF is euvolemic and stable (2) Pneumonia due to COVID-19 virus: Patient is now out of airborne precautions due to duration of illness dexamethasone 6 mg IV daily, will discontinue now is no longer hypoxemic Given duration of illness (admission on day 13) no benefit from remdesivir. Discontinue airborne isolation precautions. Per infectious control review titrated down to room air, no distress, saturations > 90% very weak, even at baseline, will ask PT/OT to see him Continues to be very fatigued today eating and drinking better, stop IV fluids PT/OT - very weak, recommending rehab (3) Hypoxia: without respiratory distress on admission Aim O2 sats > 90% down to room air for three days, at most he was on 1L (4) Hypertension: Continue metoprolol tartrate 25 mg p.o. twice daily with hold parameters, BP low normal stop lisinopril 5mg for now (5) Diabetes mellitus, type II: Hemoglobin A1c 5.4 in July 2019 Hold Metformin. 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 (10) Oropharyngeal dysphagia: eating fine today (11) DVT prophylaxis: D-dimer high at 4400, continue anticoagulation with apixaban Admission and Anticipated Discharge Date Admission Date: May 19, 2020 Subjective pt is pleasanlty demented, he has some dysarthria today. if persists will have Ct head or MRI Review of Systems Review of Systems: Mild distress and fatigue no headache, blurry or double vision no swallowing issues, was awoken form sleep but did have some mumbly speech no chest pain, pressure or palpitations Still with some baseline shortness of breath, nonproductive cough or wheezes no abdominal pain, nausea or vomiting, diarrhea or constipation no dysuria, hematuria or frequency no focal joint pain or swelling no back pain, CVA tenderness or radicular pain no bruising, bleeding or rashes no focal signs of weakness or numbness or altered sensation no complaints of anxiety or depression.. Physical Exam Physical Exam: The patient appeared well nourished and normally developed. Vital signs as documented. Head exam is normocephalic atraumatic no scleral icterus Neck is without JVD, thyromegaly, or carotid bruits. Lungs are basilar rales which clear with deep breath, no focal loss of breath sounds Cardiac exam, Rhythm is regular.. No murmurs, rubs or gallops. Abdominal exam reveals normal bowel sounds, soft non tender, no masses Extremities are nonedematous and both pedal pulses are present Neurologic exam is alert and oriented x3 likely has some baseline dementia, no focal loss of strength or sensation but globally is weak Skin is without bruises or rashes Psychologically is without concerns for anxiety or depression Results & Data Results & Data ([facility]) Vital Signs (Past 12 Hours) Vital Signs Temp Pulse Pulse Resp BP Pulse Ox 05/27/20 08:08 97.7 F 68 18 132/84 95 05/27/20 07:29 80 05/27/20 01:08 107 H 05/26/20 23:21 97.9 F 87 18 114/78 95 PG Care Time/CCT Total # of Minutes Spent Total Time Spent with Patient: Total time spent is greater than 50% in coordination of care (as documented) at patient's floor/unit and/or counseling patient: Coding Level of Care Code 70671 Subseq Hosp Care Lvl 3 Diagnoses Atrial fibrillation I48.0 Atrial fibrillation type: paroxysmal Pneumonia due to COVID-19 virus U07.1; J12.82 Hypoxia R09.02 Hypertension I10 Hypertension type: essential hypertension Diabetes mellitus, type II E11.65 Diabetes mellitus complication status: with hyperglycemia Diabetes mellitus long-term insulin use: without long term acute care registered nurse use Lymphoma, marginal zone, spleen C83.07 Gait apraxia R48.2 History of [place] (myocardial infarction) I25.2 Low vision of left eye H54.52A1 Oropharyngeal dysphagia R13.12 DVT prophylaxis Z29.9 (1) Diabetes mellitus, type II Diabetes mellitus complication status: with hyperglycemia Diabetes mellitus long-term insulin use: without long term acute care registered nurse use Qualified Code(s): E11.65 - Type 2 diabetes mellitus with hyperglycemia (2) Atrial fibrillation Atrial fibrillation type: paroxysmal Qualified Code(s): I48.0 - Paroxysmal atrial fibrillation (3) Hypertension Hypertension type: essential hypertension Qualified Code(s): I10 - Essential (primary) hypertension
[2020-05-27] MEDS: INSULIN ASPART 100 UNITS/ML 3 ML PEN SC SCH ×4 (08:47→20:40)
[2020-05-27] MEDS: APIXABAN 5 MG TABLET PO SCH ×2 (08:48→20:39)
[2020-05-27] MEDS: VITAMIN B COMPLEX TAB PO SCH (08:49)
[2020-05-27] MEDS: METOPROLOL TARTRATE 25 MG TAB PO SCH ×2 (08:49→20:40)
[2020-05-27] MEDS: ASPIRIN 81 MG ECTAB PO SCH (08:49)
[2020-05-27] MEDS: CHOLECALCIFEROL 1,000 UNITS 25 MCG TAB PO SCH (08:49)
[2020-05-27] MEDS: MAGNESIUM OXIDE 400 MG TAB PO SCH (08:49)
[2020-05-27] MEDS: CYANOCOBALAMIN 500 MCG TABLET (VITAMIN B-12) PO SCH (08:50)
[2020-05-27] MEDS: PANTOprazole 40 MG TAB PO SCH (08:50)
[2020-05-27] MEDS: AMIODARONE 200 MG TAB PO SCH ×2 (08:50→17:20)
[2020-05-27] MEDS: CEROVITE ADV FORMULA TAB PO SCH ×2 (08:50→20:39)
--- NOTE | 2020-05-27 10:00 | Cardiology Progress Note ---
Date of Service May 27, 2020 Assessment & Plan (1) Atrial fibrillation: He has atrial fibrillation which occurred on May 22, 2020 and has remained since. The rate was initially fast, now on amiodarone and metoprolol the rate is very well controlled. He is on anticoagulation as well which is appropriate. I cannot tell if this is an acute presentation with atrial fibrillation due to the stress of the COVID-19 or if he has paroxysmal atrial fibrillation with recurrence now. I would recommend continue with amiodarone, due to the kinetics of amiodarone it will take some time for it to build up enough in his bloodstream and tissues to cause conversion. At the moment I do not think we need to convert the rhythm but since he was immediately started on anticoagulation when atrial fibrillation occurred that would be an option at any time. (2) Cardiomyopathy: He has a cardiomyopathy identified last September which is apparently ischemic (he has wall motion abnormalities and a history of known coronary artery disease). His ejection fraction seems to have improved somewhat since last summer, currently 45%. He has been on metoprolol tartrate 25 mg twice a day, which I believe he was on at home as well, which technically is not the best for her cardiomyopathy. It may be adequate but I would be in favor of switching it to metoprolol succinate 50 mg daily and I will make that switch for tomorrow. It also appears that he was on lisinopril 5 mg daily at home, his last creatinine is excellent and his blood pressure over the last several days is adequate. I am going to restart that as well for tomorrow. (3) History of [place] (myocardial infarction): He has known coronary disease and a history of myocardial infarction. There is no evidence to suggest that he has had an acute ischemic event. We have not had an evaluation of his coronary disease for some time but I do not think that is necessary now. (4) Hypertension: He has a history of hypertension but his blood pressure was running on the low side but it is now improved. I am going to restart his lisinopril. If we need to increase antihypertensives I would go up on beta-blockade to help control the heart rate a little more closely as well as his cardiomyopathy. For now I think it is appropriate. (5) Hyperlipidemia: He has coronary disease and a history of hyperlipidemia or dyslipidemia, his LDL was excellent in July 2019 but he is no longer on a statin. Now is probably not a good time to reintroduce one, but that should be a consideration for the future. We could draw cholesterol measurements now but that may be misleading. Admission and Anticipated Discharge Date Admission Date: May 19, 2020 Subjective I did not go into the patient's room to interview him today. Physical Exam Physical Exam: Due to the COVID-19 pandemic I did not do a physical examination today. Results & Data ([facility]) Vital Signs (Past 12 Hours) Vital Signs Temp Pulse Pulse Resp BP Pulse Ox 05/27/20 08:08 36.5 C 68 18 132/84 95 05/27/20 07:29 80 05/27/20 01:08 107 H 05/26/20 23:21 36.6 C 87 18 114/78 95 Laboratory Results Intake and Output 05/26/20 05/27/20 05/27/20 22:59 06:59 14:59 Intake Total 470.667 / 1530.667 100 / 1530.667 Output Total 450 / 700 200 / 200 Balance 470.667 / 830.667 -350 / 830.667 -200 / -200 Intake: IV 470.667 / 1430.667 Nss 1000ML 1,000 ml @ 80 mls/hr 470.667 / 1430.667 IV .[id number] [facility] Rx#:[id number] Oral 100 / 100 Output: Urine 450 / 700 200 / 200 Other: Other Intake Source SIPS Diagnostic Findings His echocardiogram May 26, 2020 shows normal left ventricular size with mild le ft ventricular dysfunction and ejection fraction 45%. He does have wall motion abnormalities. If anything his left ventricular function has improved compared to last year. An electrocardiogram done on May 26, 2020 shows atrial fibrillation with ventricular rate of 83 bpm. Telemetry monitoring shows continued atrial fibrillation with a heart rate ranging from 60 to 90 bpm over the last 24 hours with an appropriate diurnal heart rate variation. PG Care Time/CCT Total # of Minutes Spent Total Time Spent with Patient: Total time spent is greater than 50% in coordination of care (as documented) at patient's floor/unit and/or counseling patient: Coding Level of Care Code 60563 Subseq Hosp Care Lvl 3 Diagnoses Atrial fibrillation I48.0 Atrial fibrillation type: paroxysmal Cardiomyopathy I25.5 Cardiomyopathy type: ischemic History of [place] (myocardial infarction) I25.2 Hypertension I10 Hypertension type: essential hypertension Hyperlipidemia E78.5 Hyperlipidemia type: unspecified (1) Atrial fibrillation Atrial fibrillation type: paroxysmal Qualified Code(s): I48.0 - Paroxysmal atrial fibrillation (2) Cardiomyopathy Cardiomyopathy type: ischemic Qualified Code(s): I25.5 - Ischemic cardiomyopathy (3) Hypertension Hypertension type: essential hypertension Qualified Code(s): I10 - Essential (primary) hypertension (4) Hyperlipidemia Hyperlipidemia type: unspecified Qualified Code(s): E78.5 - Hyperlipidemia, unspecified
[2020-05-27] MEDS: ONDANSETRON INJ 2 MG/ML 2 ML VIAL IV PRN (10:11)
--- NOTE | 2020-05-27 14:58 | Pharmacy Report ---
Pharmacy Glycemic Short Note 2 - Date of Service May 27, 2020 - Glycemic Short BSG Results (Last 24 hours): 05/26/20 05/26/20 05/27/20 16:39 20:16 07:41 POC Glucose 193 H 245 H 165 H 05/27/20 11:48 POC Glucose 156 H OUTPATIENT ANTIDIABETIC REGIMEN: * metformin 500 bid * A1c 6.5% ASSESSMENT: 05/27/20: * IV dexamethasone has been discontinued. Expect that this will reduce patient's insulin requirements significantly. * NPH held today. Do not anticipate that pt will require further dosing. * Pt was hyperglycemic yesterday afternoon/evening, so Novolog parameters not adjusted today. Expect that parameters will need to be loosened tomorrow morning, as patient's insulin sensitivity increases. PLAN FOR INPATIENT GLYCEMIC CONTROL: * Hold outpatient oral diabetes medications * Basal insulin * none * Bolus insulin: no change * NovoLog per scale ACHS or Q6hrs while NPO * Goal Range: Low 110 mg/dL - High 140 mg/dL * Correction Factor: 20 mg/dL/unit * Nutritional / Prandial insulin per carb ratio of 1 unit per 6 grams CHO consumed PLAN FOR DISCHARGE: * A1c 6.5% - reasonable to continue home metformin on discharge as long as no contraindications exist
[2020-05-28] MEDS: APIXABAN 5 MG TABLET PO SCH ×2 (08:38→20:30)
[2020-05-28] MEDS: VITAMIN B COMPLEX TAB PO SCH (08:39)
[2020-05-28] MEDS: CHOLECALCIFEROL 1,000 UNITS 25 MCG TAB PO SCH (08:39)
[2020-05-28] MEDS: CEROVITE ADV FORMULA TAB PO SCH ×2 (08:39→20:32)
[2020-05-28] MEDS: CYANOCOBALAMIN 500 MCG TABLET (VITAMIN B-12) PO SCH (08:39)
[2020-05-28] MEDS: AMIODARONE 200 MG TAB PO SCH ×2 (08:40→17:21)
[2020-05-28] MEDS: ASPIRIN 81 MG ECTAB PO SCH (08:40)
[2020-05-28] MEDS: MAGNESIUM OXIDE 400 MG TAB PO SCH (08:40)
[2020-05-28] MEDS: PANTOprazole 40 MG TAB PO SCH (08:41)
[2020-05-28] MEDS: INSULIN ASPART 100 UNITS/ML 3 ML PEN SC SCH ×4 (08:42→20:31)
[2020-05-28] MEDS ORDERED: lisinopril 5 MG TAB PO SCH (09:00)
[2020-05-28] MEDS ORDERED: METOPROLOL SUCC 50MG EXT REL TAB PO SCH (09:00)
[2020-05-28] MEDS: POLYETHYLENE (MIRALAX) 17 GM PACK PO PRN (13:57)
[2020-05-28] MEDS ORDERED: SODIUM CHLORIDE 0.9% 1000ML 1,000 ML IV SCH (15:15)
--- NOTE | 2020-05-28 15:41 | Hospitalist Progress Note ---
Date of Service May 28, 2020 Assessment & Plan (1) Atrial fibrillation: went into afib with RVR, rates in 150's on 05/22 in the evening, now rate controlled on Lopressor 25mg BID, Amiodarone 200mg BID, Eliquis 5mg BID on 05/23 due to orthostatic issues, will reduce lopressor to 25 mg daily and follow , family states in the past did remains in atrial fibrillation/flutter Cardiology consultation agrees with amiodarone and anticoagulation echocardiogram shows EF 45%, previous echo 2019 35-40%-> HFrEF is euvolemic and stable, was started on lisinopril but this will be held also. (2) Pneumonia due to COVID-19 virus: Patient is now out of airborne precautions due to duration of illness dexamethasone 6 mg IV daily, will discontinue now is no longer hypoxemic Given duration of illness (admission on day 13) no benefit from remdesivir. Discontinue airborne isolation precautions. Per infectious control review titrated down to room air, no distress, saturations > 90% very weak, even at baseline, will ask PT/OT to see him Continues to be very fatigued today eating and drinking better, stop IV fluids PT/OT - very weak, recommending rehab, was unfortunatley dizzy with PT will need some medicaiton adjustments (3) Hypoxia: without respiratory distress on admission Aim O2 sats > 90% down to room air for three days, at most he was on 1L (4) Hypertension: Continue metoprolol succinate 25 mg p.o. daily with hold parameters, BP low normal stop lisinopril 5mg for now (5) Diabetes mellitus, type II: Hemoglobin A1c 5.4 in July 2019 Hold Metformin. 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 (10) Oropharyngeal dysphagia: eating fine today (11) DVT prophylaxis: D-dimer high at 4400, continue anticoagulation with apixaban (12) Constipation: adding scheduled senna to prn miralax Admission and Anticipated Discharge Date Admission Date: May 19, 2020 Subjective pt does have some issues with postural hypotension and some symptomatic dizziness this am with PT and maybe affect from metoprolol lisinopril which will be held and reduced. pt also is a bit constipated Review of Systems Review of Systems: Mild distress and fatigue, orthostatic dizziness no headache, blurry or double vision no swallowing issues, was awoken form sleep but did have some mumbly speech no chest pain, pressure or palpitations Still with some baseline shortness of breath, nonproductive cough or wheezes no abdominal pain, nausea or vomiting, diarrhea or constipation no dysuria, hematuria or frequency no focal joint pain or swelling no back pain, CVA tenderness or radicular pain no bruising, bleeding or rashes no focal signs of weakness or numbness or altered sensation no complaints of anxiety or depression.. Physical Exam Physical Exam: The patient appeared well nourished and normally developed. Vital signs as documented. seems orthostatic Head exam is normocephalic atraumatic no scleral icterus Neck is without JVD, thyromegaly, or carotid bruits. Lungs are basilar rales which clear with deep breath, no focal loss of breath sounds Cardiac exam, Rhythm is regular.. No murmurs, rubs or gallops. Abdominal exam reveals normal bowel sounds, soft non tender, no masses Extremities are nonedematous and both pedal pulses are present Neurologic exam is alert and oriented x3 likely has some baseline dementia, no focal loss of strength or sensation but globally is weak Skin is without bruises or rashes Psychologically is without concerns for anxiety or depression Results & Data Results & Data ([facility]) Vital Signs (Past 12 Hours) Vital Signs Temp Pulse Pulse Resp BP Pulse Ox 05/28/20 15:23 97.7 F 81 20 108/66 95 05/28/20 11:02 97.7 F 90 20 114/80 94 05/28/20 07:30 83 05/28/20 07:28 97.7 F 99 H 20 124/78 97 PG Care Time/CCT Total # of Minutes Spent Total Time Spent with Patient: Total time spent is greater than 50% in coordination of care (as documented) at patient's floor/unit and/or counseling patient: Coding Level of Care Code 64997 Subseq Hosp Care Lvl 3 Diagnoses Atrial fibrillation I48.0 Atrial fibrillation type: paroxysmal Pneumonia due to COVID-19 virus U07.1; J12.82 Hypoxia R09.02 Hypertension I10 Hypertension type: essential hypertension Diabetes mellitus, type II E11.65 Diabetes mellitus senior living insulin use: without senior living use Diabetes mellitus complication status: with hyperglycemia Lymphoma, marginal zone, spleen C83.07 Gait apraxia R48.2 History of [place] (myocardial infarction) I25.2 Low vision of left eye H54.52A1 Oropharyngeal dysphagia R13.12 DVT prophylaxis Z29.9 Constipation K59.00 (1) Atrial fibrillation Atrial fibrillation type: paroxysmal Qualified Code(s): I48.0 - Paroxysmal atrial fibrillation (2) Hypertension Hypertension type: essential hypertension Qualified Code(s): I10 - Essential (primary) hypertension (3) Diabetes mellitus, type II 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
[2020-05-29 06:44] LABS: Hematocrit (blood only) 36.2 % (42-52); Hemoglobin 13.1 g/dL (14.0-18.0); Mean Corpuscular Hemoglobin 32.6 pg (25-34); Mean Corpuscular Hgb Conc 36.2 g/dL (32-36); Mean Platelet Volume 9.7 fL (7.4-10.4); Platelet Count 245 K/uL (130-400); RDW Coefficient of Variation 14.5 % (11.5-14.5); RDW Standard Deviation 46.2 fL (36.4-46.3); Red Blood Count 4.02 M/uL (4.7-6.1); White Blood Count 8.52 K/uL (4.8-10.8)
[2020-05-29 07:16] LABS: Albumin Level 2.1 gm/dl (3.4-5.0); BUN Creatinine Ratio 22.1 (10-20); Calcium 7.7 mg/dl (8.5-10.1); Creatinine Clr Calc Pharmacy 74.6 ml/min; Est GFR (African American) 91.6; Est GFR (Non-African American) 79.1; Magnesium 1.7 mg/dl (1.8-2.4); Potassium 4.2 mmol/L (3.5-5.1)
[2020-05-29 07:19] LABS: Albumin Globulin Ratio 0.7 (0.9-2); Bilirubin,Total 1.4 mg/dl (0.2-1); Globulin 3.2 gm/dl (2.5-4.0); Total Protein 5.3 gm/dl (6.4-8.2)
[2020-05-29] MEDS: CHOLECALCIFEROL 1,000 UNITS 25 MCG TAB PO SCH (07:41)
[2020-05-29] MEDS: AMIODARONE 200 MG TAB PO SCH ×2 (07:41→16:46)
[2020-05-29] MEDS: APIXABAN 5 MG TABLET PO SCH ×2 (07:41→21:11)
[2020-05-29] MEDS: VITAMIN B COMPLEX TAB PO SCH (07:42)
[2020-05-29] MEDS: CYANOCOBALAMIN 500 MCG TABLET (VITAMIN B-12) PO SCH (07:42)
[2020-05-29] MEDS: CEROVITE ADV FORMULA TAB PO SCH ×2 (07:43→21:11)
[2020-05-29] MEDS: MAGNESIUM OXIDE 400 MG TAB PO SCH (07:43)
[2020-05-29] MEDS: PANTOprazole 40 MG TAB PO SCH (07:43)
[2020-05-29] MEDS: ASPIRIN 81 MG ECTAB PO SCH (07:44)
[2020-05-29] MEDS: INSULIN ASPART 100 UNITS/ML 3 ML PEN SC SCH ×4 (08:06→21:11)
[2020-05-29] MEDS ORDERED: METOPROLOL SUCC 25MG EXT REL TAB PO SCH (09:00)
[2020-05-29] MEDS: ONDANSETRON INJ 2 MG/ML 2 ML VIAL IV PRN (10:12)
[2020-05-29] MEDS: HEPARIN 100 UNIT/ML 5ML FLUSH FLUSH PRN (10:12)
[2020-05-29] MEDS: POLYETHYLENE (MIRALAX) 17 GM PACK PO PRN (10:13)
--- NOTE | 2020-05-29 11:24 | Pharmacy Report ---
Pharmacy Glycemic Short Note 2 - Date of Service May 29, 2020 - Glycemic Short BSG Results (Last 24 hours): 05/28/20 05/28/20 05/28/20 11:30 16:27 20:16 Glucose POC Glucose 146 H 158 H 145 H 05/29/20 05/29/20 06:21 07:30 Glucose 137 H POC Glucose 135 H OUTPATIENT ANTIDIABETIC REGIMEN: * metformin 500 bid * A1c 6.5% ASSESSMENT: 05/29/20: * Pt has received 11 units of insulin over the past 24hrs * 0 units of basal * 11 units of bolus with NovoLog * BSGs 135-158 mg/dl * No changes needed in insulin regimen at this time 05/27/20: * IV dexamethasone has been discontinued. Expect that this will reduce patient's insulin requirements significantly. * NPH held today. Do not anticipate that pt will require further dosing. * Pt was hyperglycemic yesterday afternoon/evening, so Novolog parameters not adjusted today. Expect that parameters will need to be loosened tomorrow morning, as patient's insulin sensitivity increases. PLAN FOR INPATIENT GLYCEMIC CONTROL: * Hold outpatient oral diabetes medications * Basal insulin * none * Bolus insulin: no change * NovoLog per scale ACHS or Q6hrs while NPO * Goal Range: Low 110 mg/dL - High 140 mg/dL * Correction Factor: 25 mg/dL/unit * Nutritional / Prandial insulin per carb ratio of 1 unit per 9 grams CHO consumed PLAN FOR DISCHARGE: * A1c 6.5% - reasonable to continue home metformin on discharge as long as no contraindications exist
[2020-05-29] MEDS ORDERED: LACTATED RINGER'S 1,000 ML IV SCH (11:30)
[2020-05-29] MEDS ORDERED: bisacodyL 10 MG SUPP PR STA (12:03)
--- NOTE | 2020-05-29 13:08 | XRay Report ---
KUB CLINICAL HISTORY: Vomiting. Constipation. FINDINGS: 2 AP, portable, supine abdominal radiographs are correlated with abdominal CT dated 6. Cholecystectomy clips are noted in the right upper quadrant. There is a nonobstructed abdominal selin wel gas pattern noting moderate colonic fecal retention. No evidence of intraperitoneal free air is s een on these supine views. There are no abnormal abdominal calcifications. Small phleboliths are note d in the pelvis. The skeletal structures are osteopenic and appear intact. Lumbosacral spondylosis is observed. IMPRESSION: Moderate constipation. Electronically signed by: Maurice Garrison M.D. 05/29/2020 1:06 PM
--- NOTE | 2020-05-29 13:39 | Cardiology Progress Note ---
Date of Service May 29, 2020 Assessment & Plan (1) Atrial fibrillation: He has atrial fibrillation which occurred on May 22, 2020 and has remained since. The rate was initially fast, now on amiodarone and metoprolol the rate is well controlled. He is on anticoagulation as well which is a ppropriate. I cannot tell if this is an acute presentation with atrial fibrillation due to the stress of the COVID-19 or if he has paroxysmal atrial fibrillation with recurrence now. He has been on amiodarone but remains in atrial fibrillation and he likely has symptoms related to it primarily involving orthostasis. I think at this point it is reasonable to convert the rhythm back to normal, it should be safe as he was placed on anticoagulation immediately because the rhythm started while he was here on telemetry. I discussed the indications, procedure, risks and alternatives of cardioversion with him and he understands and agrees to proceed. He did sign consent. We will try to schedule this for tomorrow morning. (2) Cardiomyopathy: He has a cardiomyopathy identified 2019 which is apparently ischemic (he has wall motion abnormalities and a history of known coronary artery disease). His ejection fraction seems to have improved somewhat since last summer, currently 45%. He had I did switch him to metoprolol succinate but that may be contributing to his orthostasis been on metoprolol tartrate 25 mg twice a day, which I believe he was on at home as well, which technically is not the best for her cardiomyopathy. I had switched him to metoprolol succinate however that may be contributing to his orthostasis. That has been discontinued due to the orthostasis. Over the long run it would be good for him to be back on it if he can tolerate it. (3) History of [place] (myocardial infarction): He has known coronary disease and a history of myocardial infarction. There is no evidence to suggest that he has had an acute ischemic event. We have not had an evaluation of his coronary disease for some time but I do not think that is necessary now. (4) Hypertension: He has a history of hypertension but his blood pressure was running on the low side with orthostasis here. He was on lisinopril at home, that would be a good drug for his cardiomyopathy as well however with his hypotension he is currently not on it. (5) Hyperlipidemia: He has coronary disease and a history of hyperlipidemia or dyslipidemia, his LDL was excellent in July 2019 but he is no longer on a statin. Now is probably not a good time to reintroduce one, but that should be a consideration for the future. We could draw cholesterol measurements now but that may be misleading. Admission and Anticipated Discharge Date Admission Date: May 19, 2020 Subjective He feels well when he is laying in bed, however he is unable to stand up without significant symptomatic hypotension. His main complaint is that of his bowels at the moment. He has no palpitations. Physical Exam Physical Exam: Constitutional: Alert, cooperative and in no distress. HEENT: Unremarkable Neck: No jugular venous distention, carotid pulses are irregular but otherwise normal and equal bilaterally without bruits. Pulmonary: Clear to auscultation bilaterally. Cardiac: Irregular rhythm with no murmur, gallop or rub. Abdomen: Soft, nontender with normal bowel sounds. Extremities: No edema. Distal pulses intact. Neurologic: No focal findings. Gait is steady. Skin: No rash, ecchymoses or petechiae. Results & Data ([facility]) Vital Signs (Past 12 Hours) Vital Signs Temp Pulse Pulse Resp BP BP Pulse Ox 05/29/20 11:47 36.5 C 114 H 16 108/76 92 05/29/20 07:41 36.4 C L 88 16 111/81 96 05/29/20 07:30 98 H 05/29/20 03:22 36.3 C L 112 H 18 123/88 95 Laboratory Results Cardiac Enzymes 05/29/20 Range/Units 06:21 AST 11 L (15-37) U/L CBC 05/29/20 Range/Units 06:21 WBC 8.52 (4.8-10.8) K/uL RBC 4.02 L (4.7-6.1) M/uL Hgb 13.1 L (14.0-18.0) g/dL Hct 36.2 L (42-52) % Plt Count 245 (130-400) K/uL Comprehensive Metabolic Panel 05/29/20 Range/Units 06:21 Sodium 140 (136-145) mmol/L Potassium 4.2 (3.5-5.1) mmol/L Chloride 108 H (98-107) mmol/L Carbon Dioxide 27 (21-32) mmol/L BUN 19 H (7-18) mg/dl Creatinine 0.86 (0.6-1.4) mg/dl Glucose 137 H (70-99) mg/dl Calcium 7.7 L (8.5-10.1) mg/dl AST 11 L (15-37) U/L ALT 20 (12-78) U/L Alkaline Phosphatase 61 (45-117) U/L Total Protein 5.3 L (6.4-8.2) gm/dl Albumin 2.1 L (3.4-5.0) gm/dl Intake and Output 05/28/20 05/29/20 05/29/20 22:59 06:59 14:59 Intake Total 100 / 1125 1000 / 1125 Output Total 300 / 925 475 / 925 Balance -200 / 200 525 / 200 Intake: IV 1000 / 1000 Nss 1000ML 1,000 ml @ 100 mls/ 1000 / 1000 hr IV .Q10H DANIKA Rx#:[id number] Oral 100 / 125 Output: Urine 300 / 925 475 / 925 Other: Other Intake Source Sips Weight 84 kg Weight Measurement Method Built in [facility] Diagnostic Findings Telemetry: Atrial fibrillation, rate varying between 80 and 110, lower at night and higher during the day. PG Care Time/CCT Total # of Minutes Spent Total Time Spent with Patient: Total time spent is greater than 50% in coordination of care (as documented) at patient's floor/unit and/or counseling patient: Coding Level of Care Code 89861 Subseq Hosp Care Lvl 3 Diagnoses Atrial fibrillation I48.0 Atrial fibrillation type: paroxysmal Cardiomyopathy I25.5 Cardiomyopathy type: ischemic History of [place] (myocardial infarction) I25.2 Hypertension I10 Hypertension type: essential hypertension Hyperlipidemia E78.5 Hyperlipidemia type: unspecified (1) Atrial fibrillation Atrial fibrillation type: paroxysmal Qualified Code(s): I48.0 - Paroxysmal atrial fibrillation (2) Cardiomyopathy Cardiomyopathy type: ischemic Qualified Code(s): I25.5 - Ischemic cardiomyopathy (3) Hypertension Hypertension type: essential hypertension Qualified Code(s): I10 - Essential (primary) hypertension (4) Hyperlipidemia Hyperlipidemia type: unspecified Qualified Code(s): E78.5 - Hyperlipidemia, unspecified
[2020-05-29] MEDS ORDERED: METOPROLOL TARTRATE 1 MG/ML VIAL IV PRN (15:35)
--- NOTE | 2020-05-29 19:43 | Hospitalist Progress Note ---
Date of Service May 29, 2020 Assessment & Plan (1) Atrial fibrillation: went into afib with RVR, rates in 150's on 05/22 in the evening, now rate controlled on Lopressor 25mg BID, Amiodarone 200mg BID, Eliquis 5mg BID on 05/23 due to orthostatic issues, will reduce lopressor to 25 mg daily and follow , family states in the past did remains in atrial fibrillation/flutter Cardiology consultation agrees with amiodarone and anticoagulation echocardiogram shows EF 45%, previous echo 2019 35-40%-> HFrEF is euvolemic and stable, was started on lisinopril but this will be held also. (2) Pneumonia due to COVID-19 virus: Patient is now out of airborne precautions due to duration of illness dexamethasone 6 mg IV daily, will discontinue now is no longer hypoxemic Given duration of illness (admission on day 13) no benefit from remdesivir. Discontinue airborne isolation precautions. Per infectious control review titrated down to room air, no distress, saturations > 90% very weak, even at baseline, will ask PT/OT to see him Continues to be very fatigued today eating and drinking better, stop IV fluids PT/OT - very weak, recommending rehab, was unfortunatley dizzy with PT will need some medicaiton adjustments (3) Hypoxia: without respiratory distress on admission Aim O2 sats > 90% down to room air for three days, at most he was on 1L (4) Hypertension: Continue metoprolol succinate 25 mg p.o. daily with hold parameters, BP low normal stop lisinopril 5mg for now (5) Diabetes mellitus, type II: Hemoglobin A1c 5.4 in July 2019 Hold Metformin. 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 (10) Oropharyngeal dysphagia: eating fine today (11) DVT prophylaxis: D-dimer high at 4400, continue anticoagulation with apixaban (12) Constipation: adding scheduled senna to prn miralax Admission and Anticipated Discharge Date Admission Date: May 19, 2020 Subjective He feels well when he is laying in bed, however he is unable to stand up without significant symptomatic hypotension. He has no palpitations. he does have some constipation seen on kub Review of Systems Review of Systems: Mild distress and fatigue, orthostatic dizziness no headache, blurry or double vision no swallowing issues, was awoken form sleep but did have some mumbly speech no chest pain, pressure or palpitations Still with some baseline shortness of breath, nonproductive cough or wheezes minor abdominal pain, mild nausea & vomiting no dysuria, hematuria or frequency no focal joint pain or swelling no back pain, CVA tenderness or radicular pain no bruising, bleeding or rashes no focal signs of weakness or numbness or altered sensation no complaints of anxiety or depression.. Physical Exam Physical Exam: The patient appeared well nourished and normally developed. Vital signs as documented. seems orthostatic Head exam is normocephalic atraumatic no scleral icterus Neck is without JVD, thyromegaly, or carotid bruits. Lungs are basilar rales which clear with deep breath, no focal loss of breath sounds Cardiac exam, Rhythm is regular.. No murmurs, rubs or gallops. Abdominal exam reveals normal bowel sounds, soft non tender, no masses Extremities are nonedematous and both pedal pulses are present Neurologic exam is alert and oriented x3 likely has some baseline dementia, no focal loss of strength or sensation but globally is weak Skin is without bruises or rashes Psychologically is without concerns for anxiety or depression Results & Data Results & Data ([facility]) Vital Signs (Past 12 Hours) Vital Signs Temp Pulse Resp BP BP Pulse Ox 05/29/20 19:02 97.9 F 110 H 16 114/73 92 05/29/20 16:14 97.7 F 116 H 16 105/69 96 05/29/20 11:47 97.7 F 114 H 16 108/76 92 PG Care Time/CCT Total # of Minutes Spent Total Time Spent with Patient: Total time spent is greater than 50% in coordination of care (as documented) at patient's floor/unit and/or counseling patient: Coding Level of Care Code 03286 Subseq Hosp Care Lvl 3 Diagnoses Atrial fibrillation I48.0 Atrial fibrillation type: paroxysmal Pneumonia due to COVID-19 virus U07.1; J12.82 Hypoxia R09.02 Hypertension I10 Hypertension type: essential hypertension Diabetes mellitus, type II E11.65 Diabetes mellitus complication status: with hyperglycemia Diabetes mellitus mcfp insulin use: without mcfp use Lymphoma, marginal zone, spleen C83.07 Gait apraxia R48.2 History of [place] (myocardial infarction) I25.2 Low vision of left eye H54.52A1 Oropharyngeal dysphagia R13.12 DVT prophylaxis Z29.9 Constipation K59.00 (1) Diabetes mellitus, type II Diabetes mellitus complication status: with hyperglycemia Diabetes mellitus mcfp insulin use: without mcfp use Qualified Code(s): E11.65 - Type 2 diabetes mellitus with hyperglycemia (2) Atrial fibrillation Atrial fibrillation type: paroxysmal Qualified Code(s): I48.0 - Paroxysmal atrial fibrillation (3) Hypertension Hypertension type: essential hypertension Qualified Code(s): I10 - Essential (primary) hypertension
[2020-05-29] MEDS: LACTATED RINGER'S 1,000 ML IV SCH (19:55)
[2020-05-30 00:31] LABS: Appearance Urine Clear (Clear); Bacteria Urine Automated Negative (Negative); Bilirubin Urine Negative (Negative); Blood Urine Negative (Negative); Color Urine Dark Yellow; Glucose Urine UA Negative (Negative); Ketones Urine Trace (Negative); Leukocyte Esterase Urine 1+ (Negative); Nitrite Urine Negative (Negative); Protein Urine Negative (Negative); RBC Urine Automated 0-4 /hpf (0-4); Specific Gravity Urine 1.015 (1.000-1.030); Urobilinogen Urine Negative (Negative)
[2020-05-30] MEDS: CEROVITE ADV FORMULA TAB PO SCH ×2 (07:47→20:38)
[2020-05-30] MEDS: VITAMIN B COMPLEX TAB PO SCH (07:47)
[2020-05-30] MEDS: PANTOprazole 40 MG TAB PO SCH (07:47)
[2020-05-30] MEDS: ASPIRIN 81 MG ECTAB PO SCH (07:48)
[2020-05-30] MEDS: AMIODARONE 200 MG TAB PO SCH ×2 (07:48→18:10)
[2020-05-30] MEDS: MAGNESIUM OXIDE 400 MG TAB PO SCH (07:48)
[2020-05-30] MEDS: APIXABAN 5 MG TABLET PO SCH ×2 (07:49→20:36)
[2020-05-30] MEDS: CYANOCOBALAMIN 500 MCG TABLET (VITAMIN B-12) PO SCH (07:49)
[2020-05-30] MEDS: CHOLECALCIFEROL 1,000 UNITS 25 MCG TAB PO SCH (07:49)
[2020-05-30] MEDS: LACTATED RINGER'S 1,000 ML IV SCH ×2 (07:50→21:27)
[2020-05-30] MEDS: INSULIN ASPART 100 UNITS/ML 3 ML PEN SC SCH ×4 (07:52→20:40)
[2020-05-30] MEDS ORDERED: LIDOCAINE 2% 2 ML VIAL/AMP(20MG/ML) INFIL ONE (09:21)
[2020-05-30] MEDS ORDERED: PROPOFOL IV EMULSION 10 MG/ML 20 ML VIAL IV ONE (09:21)
--- NOTE | 2020-05-30 09:35 | Cardiology Progress Note ---
Date of Service May 30, 2020 Assessment & Plan (1) Atrial fibrillation: He has atrial fibrillation which occurred on May 22, 2020 and has remained since. The rate was initially fast, on amiodarone and metoprolol the rate is well controlled. He has been on anticoagulation as well which is appropriate. I cannot tell if this is an acute onset of atrial fibrillation due to the stress of the COVID-19 or if he has paroxysmal atrial fibrillation with recurrence now. He has been on amiodarone but remains in atrial fibrillation and he likely has symptoms related to it primarily involving orthostasis. I think at this point it is reasonable to convert the rhythm back to normal, it should be safe to proceed at any time as he was placed on anticoagulation immediately because the rhythm started while he was here on telemetry. I discussed the procedure with him yesterday and got consent. We will do it this morning. He has no questions this morning. (2) Cardiomyopathy: He has a cardiomyopathy identified 2019 which is apparently isch emic (he has wall motion abnormalities and a history of known coronary artery disease). His ejection fraction seems to have improved somewhat since last summer, currently 45%. He had I did switch him to metoprolol succinate but that may be contributing to his orthostasis been on metoprolol tartrate 25 mg twice a day, which I believe he was on at home as well, which technically is not the best for his cardiomyopathy. I had switched him to metoprolol succinate however that may be contributing to his orthostasis. That has been discontinued due to the orthostasis. Over the long run it would be good for him to be back on it if he can tolerate it. (3) History of [place] (myocardial infarction): He has known coronary disease and a history of myocardial infarction. There is no evidence to suggest that he has had an acute ischemic event. We have not had an evaluation of his coronary disease for some time but I do not think that is necessary now. (4) Hypertension: He has a history of hypertension but his blood pressure was running on the low side with orthostasis here. He was on lisinopril at home, that would be a good drug for his cardiomyopathy as well however with his hypotension he is currently not on it. (5) Hyperlipidemia: He has coronary disease and a history of hyperlipidemia or dyslipidemia, his LDL was excellent in July 2019 but he is no longer on a statin. Now is probably not a good time to reintroduce one, but that should be a consideration for the future. We could draw cholesterol measurements now but that may be misleading. Admission and Anticipated Discharge Date Admission Date: May 19, 2020 Subjective He is feeling well today, he has no specific complaints. He remains unaware of his rhythm Physical Exam Physical Exam: Constitutional: Alert, cooperative and in no distress. HEENT: Unremarkable Neck: No jugular venous distention, carotid pulses are irregular but otherwise normal and equal bilaterally without bruits. Pulmonary: Clear to auscultation bilaterally. Cardiac: Irregular somewhat rapid rhythm with no murmur, gallop or rub. Abdomen: Soft, nontender with normal bowel sounds. Extremities: No edema. Distal pulses intact. Neurologic: No focal findings. Gait is steady. Skin: No rash, ecchymoses or petechiae. Results & Data ([facility]) Vital Signs (Past 12 Hours) Vital Signs Temp Pulse Pulse Resp BP Pulse Ox 05/30/20 07:41 36.5 C 105 H 18 91/63 L 95 05/30/20 05:15 120 H 05/30/20 03:00 36.4 C L 115 H 20 108/69 96 05/29/20 23:00 36 C L 111 H 20 123/82 94 Laboratory Results Intake and Output 05/29/20 05/30/20 05/30/20 22:59 06:59 14:59 Intake Total 1000 / 1150 953.333 / 953.333 Output Total 150 / 1400 1050 / 1400 Balance 850 / -250 -1050 / -250 953.333 / 953.333 Intake: IV 1000 / 1000 953.333 / 953.333 Lr 1,000 ml @ 80 mls/hr IV . 1000 / 1000 953.333 / 953.333 [id number] DANIKA Rx#:[id number] Output: Urine 150 / 450 100 / 450 Urine Amount (Catheter) 950 / 950 Straight 950 / 950 Other: Other Intake Source NPO Weight 84 kg Patient Weight 05/31/20 06:59 Weight 84 kg Diagnostic Findings Telemetry: Remains in atrial fibrillation with a heart rate in the 100-120 range, consistent with withholding meds. PG Care Time/CCT Total # of Minutes Spent Total Time Spent with Patient: Total time spent is greater than 50% in coordination of care (as documented) at patient's floor/unit and/or counseling patient: Coding Level of Care Code 35696 Subseq Hosp Care Lvl 3 Diagnoses Atrial fibrillation I48.0 Atrial fibrillation type: paroxysmal Cardiomyopathy I25.5 Cardiomyopathy type: ischemic History of [place] (myocardial infarction) I25.2 Hypertension I10 Hypertension type: essential hypertension Hyperlipidemia E78.5 Hyperlipidemia type: unspecified (1) Atrial fibrillation Atrial fibrillation type: paroxysmal Qualified Code(s): I48.0 - Paroxysmal atrial fibrillation (2) Hyperlipidemia Hyperlipidemia type: unspecified Qualified Code(s): E78.5 - Hyperlipidemia, unspecified (3) Hypertension Hypertension type: essential hypertension Qualified Code(s): I10 - Essential (primary) hypertension (4) Cardiomyopathy Cardiomyopathy type: ischemic Qualified Code(s): I25.5 - Ischemic cardiomyopathy
--- NOTE | 2020-05-30 09:35 | Anesthesiology Consultation ---
Date of Service May 30, 2020 Assessment & Plan Chart Review Chart Review: Acceptable Risk for Surgery and Patient NOT seen in Pre Admission Testing Consults Requested none ASA ASA4 Proposed Anesthesia Anesthesia Type: General History Surgery Operation Date: 05/30/20 11:00 Proposed Procedures p Cardioversion Radio Artist w/Anesthesia - Royce Mcneil MD Height/Weight Height: 6 ft 3 in Weight: 84 kg Allergies Allergy/AdvReac Type Severity Reaction Status Date / Time Sulfa (Sulfonamide Allergy Intermediate RASH Verified 05/19/20 15:11 Antibiotics) adhesive Allergy Mild RASH Verified 05/19/20 15:11 bee venom protein (honey bee) Allergy Unknown Unknown Verified 05/27/20 10:13 Medications Home Medications Medication Instructions Recorded Confirmed Last Taken aspirin 81 mg tablet,delayed 81 mg PO DAILY #30 tab 08/21/18 05/19/20 05/17/20 release cholecalciferol (vitamin D3) 50 2,000 units PO DAILY #30 cap 08/21/18 05/19/20 05/17/20 mcg (2,000 unit) capsule magnesium 250 mg tablet 250 mg PO DAILY #30 tab 08/21/18 05/19/20 05/17/20 vitamin B complex 1 tab PO DAILY #30 tab 08/21/18 05/19/20 05/17/20 cyanocobalamin (vitamin B-12) 2,000 mcg PO DAILY tab 11/22/18 05/19/20 05/17/20 2,000 mcg tablet vit C 250 mg-vit E 90 mg-zinc 40 1 tab PO BID 11/22/18 05/19/20 05/17/20 mg-copper 1 [id number] capsule metoprolol tartrate 50 mg tablet 25 mg PO BID #90 tab 01/21/20 05/19/20 05/17/20 lisinopril 5 mg tablet 5 mg PO DAILY #90 tab 05/19/20 05/19/20 05/17/20 metformin 500 mg tablet 500 mg PO BID #180 tab 05/19/20 05/19/20 05/17/20 Active Medications Generic Name Dose Route Start Last Admin Trade Name Freq PRN Reason Stop Dose Admin Amiodarone HCl 200 mg 05/29/20 17:00 05/30/20 07:48 Amiodarone 200 Mg Tab PO 06/28/20 16:59 200 mg BIDM DANIKA Administration Apixaban 5 mg 05/23/20 21:00 05/30/20 07:49 Apixaban 5 Mg Tablet PO 06/22/20 20:59 5 mg BID DANIKA Administration Aspirin 81 mg 05/20/20 09:00 05/30/20 07:48 Aspirin 81 Mg Ectab PO 06/19/20 08:59 81 mg DAILY DANIKA Administration Cyanocobalamin 2,000 mcg 05/20/20 09:00 05/30/20 07:49 Cyanocobalamin 500 Mcg Tablet (Vitamin B-12) PO 06/19/20 08:59 2,000 mcg QAM DANIKA Administration Glucose 15 - 30 gm 05/19/20 21:15 05/22/20 08:43 Glucose 40% Gel 15 Gm Tube PO 06/18/20 21:14 15 gm UD PRN Administration Hypoglycemia Protocol Protocol Heparin Sodium (Porcine) 5 ml 05/20/20 03:52 05/29/20 10:12 Heparin 100 Unit/Ml 5ml Flush FLUSH 06/19/20 03:51 5 ml PRN PRN Administration Flush Lactated Ringer's 1,000 mls @ 80 mls/hr 05/29/20 19:45 05/30/20 07:50 Lr IV 06/28/20 19:44 80 mls/hr .[id number] DANIKA Administration Insulin Aspart 0 units 05/19/20 21:30 05/30/20 07:52 Insulin Aspart 100 Units/Ml 3 Ml Pen SC 06/18/20 21:29 3 units ACHS DANIKA Administration Magnesium Oxide 400 mg 05/20/20 09:00 05/30/20 07:48 Magnesium Oxide 400 Mg Tab PO 06/19/20 08:59 400 mg DAILY DANIKA Administration Miscellaneous 15 - 30 gm 05/19/20 21:15 05/22/20 08:21 Carbohydrates For Hypoglycemia PO 06/18/20 21:14 15 gm UD PRN Administration Hypoglycemia Treatment Multivitamins/Minerals 1 tab 05/19/20 21:40 05/30/20 07:47 Cerovite Adv Formula Tab PO 06/18/20 21:39 1 tab BID DANIKA Administration Ondansetron HCl 4 mg 05/19/20 20:28 05/29/20 10:12 Ondansetron Inj 2 Mg/Ml 2 Ml Vial IV 06/18/20 20:27 4 mg Q4H PRN Administration Nausea Pantoprazole Sodium 40 mg 05/21/20 09:00 05/30/20 07:47 Pantoprazole 40 Mg Tab PO 06/20/20 08:59 40 mg QAM DANIKA Administration Polyethylene Glycol 17 gm 05/19/20 20:28 05/29/20 10:13 Polyethylene (Miralax) 17 Gm Pack PO 06/18/20 20:27 17 gm DAILY PRN Administration Constipation Vitamin B Complex 1 tab 05/20/20 09:00 05/30/20 07:47 Vitamin B Complex Tab PO 06/19/20 08:59 1 tab DAILY DANIKA Administration Vitamin D 2,000 units 05/20/20 09:00 05/30/20 07:49 Cholecalciferol 1,000 Units 25 Mcg Tab PO 06/19/20 08:59 2,000 units DAILY DANIKA Administration Past Medical History Medical History Cardiomyopathy Diabetes mellitus, type II Gait apraxia History of [place] (myocardial infarction) (~2002) Hyperlipidemia Hypertension Low vision of left eye Lymphoma, marginal zone, 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 Following with Heme/Onc q6 months. Vitamin D insufficiency Exercise / Class Metabolic Activity III < 4 Walking/Shop/Light housework Past Family History Family History Father Leukemia Mother Sick sinus syndrome S/P placement of cardiac pacemaker Sister Macular degeneration Brother Macular degeneration Denies family history of Ovarian cancer Prostate cancer Breast cancer Lung cancer Colorectal cancer Past Surgical History Surgical History H/O heart artery stent (~2002) History of cholecystectomy History of PTCA (~2013) Past Anesthesia History No Hx of Anesthesia Complications and No Family Hx of Anesthesia Complications History of PONV No Hx of PONV and No Hx of Motion Sickness Social History Smoking Status: Former smoker Do You Dip or Chew Tobacco: No Hx Alcohol Use: No Hx Substance Use: No Physical Exam Vital Signs Last Vital Signs Temp 36.5 C 05/30/20 07:41 Pulse 105 H 05/30/20 07:41 Resp 18 05/30/20 07:41 BP 91/63 L 05/30/20 07:41 Pulse Ox 95 05/30/20 07:41 Testing Laboratory Results 05/29/20 06:21 05/29/20 06:21 PT 10.9 Seconds (9.0-12.0) 05/19/20 14:00 INR 1.1 (0.9-1.1) 05/19/20 14:00 Hemoglobin A1c 6.5 % (4.5-5.6) H 05/20/20 06:44 Urine Color Dark Yellow 05/30/20 Unknown Urine Appearance Clear (Clear) 05/30/20 Unknown Urine pH 5.0 (4.5-7.5) 05/30/20 Unknown Ur Specific [place] 1.015 (1.000-1.030) 05/30/20 Unknown Urine Protein Negative (Negative) 05/30/20 Unknown Urine Glucose (UA) Negative (Negative) 05/30/20 Unknown Urine Ketones Trace (Negative) H 05/30/20 Unknown Urine Nitrite Negative (Negative) 05/30/20 Unknown Ur Leukocyte Esterase 1+ (Negative) H 05/30/20 Unknown Urine WBC (Auto) 10-30 /hpf (0-5) H 05/30/20 Unknown Urine RBC (Auto) 0-4 /hpf (0-4) 05/30/20 Unknown U Hyaline Cast (Auto) 1-5 /lpf (0-5) 05/30/20 Unknown U Epithel Cells (Auto) 10-20 /lpf (0-5) H 05/30/20 Unknown Urine Bacteria (Auto) Negative (Negative) 05/30/20 Unknown 05/30/20 07:31 POC Glucose 187 H Electrocardiogram Date: 05/26/20 Findings: + NSST changes and + AFIB @ (at 82;LAD;IRBBB) Chest X-Ray Date: 05/19/20 Findings: + infiltrate (B/L airspace opacities) Echocardiogram Date: 05/26/20 EF: 40% LV Function: dysfunctional RWMA: + akinetic (inferolateral wall and basal inferior wall) and + hypokinetic (mid inferior wall); no none Other Findings: + LVH (mild) Valvular Disease: + no significant valvular disease
[2020-05-30] MEDS ORDERED: ATROPINE SULFATE 0.1 MG/ML 10ML SYR IV PRN (10:07)
[2020-05-30] MEDS ORDERED: ePHEDrine sulfate 50 MG/ML AMP IV PRN (10:07)
--- NOTE | 2020-05-30 10:12 | Anesthesiology Progress Note ---
Date of Service May 30, 2020 Anesthesia Post Procedure Vital Signs Vital Signs: Temp Pulse Pulse Resp BP BP Pulse Ox 05/30/20 09:55 109 H 16 99/72 L 94 05/30/20 07:41 36.5 C 105 H 18 91/63 L 95 05/30/20 07:30 124 H 05/30/20 05:15 120 H 05/30/20 03:00 36.4 C L 115 H 20 108/69 96 05/29/20 23:00 36 C L 111 H 20 123/82 94 05/29/20 19:02 36.6 C 110 H 16 114/73 92 05/29/20 16:14 36.5 C 116 H 16 105/69 96 05/29/20 11:47 36.5 C 114 H 16 108/76 92 Transfer of Care Handoff Completed per policy Notes Mental Status: alert / awake / arousable Patient Amnestic to Procedure: Yes Nausea / Vomiting: adequately controlled Pain: adequately controlled Airway Patency, RR, SpO2: stable & adequate BP & HR: stable & adequate Hydration State: stable & adequate Anesthetic Complications: no major complications apparent
--- NOTE | 2020-05-30 10:19 | Cardioversion ---
Date of Service May 30, 2020 PG Electrical Cardioversion Rp Electrical Cardioversion Report The patient was brought to the laboratory being NPO after midnight and was identified in the laboratory, connected to the recording apparatus including electrocardiographic monitoring, noninvasive blood pressure monitoring and pulse oximetry. Anteroposterior patch electrodes were placed. The patient was anesthetized by the anesthesia department. Once adequate anesthesia was obtained a synchronized biphasic shock was delivered using 200 J with conversion to a sinus rhythm. The patient awoke from the anesthetic without sequela, will be observed briefly and then discharged. Coding Level of Care Code Cardioversion, elective Additional Codes Electrical Cardioversion Report ([id number])
[2020-05-30] MEDS: cefTRIAXone SODIUM 2,000 MG in DEXTROSE 5% 50 ML IV SCH (11:14)
--- NOTE | 2020-05-30 11:45 | Pharmacy Report ---
Pharmacy Glycemic Short Note 2 - Date of Service May 30, 2020 - Glycemic Short BSG Results (Last 24 hours): 05/29/20 05/29/20 05/30/20 16:44 20:14 07:31 POC Glucose 168 H 192 H 187 H 05/30/20 11:37 POC Glucose 151 H OUTPATIENT ANTIDIABETIC REGIMEN: * metformin 500 bid * A1c 6.5% ASSESSMENT: 05/30/20: * Pt has received 10 units of insulin over the past 24hrs * 0 units of basal * 10 units of bolus with NovoLog * BSGs 135-192 mg/dl * Blood sugars rising some with meals, tighten CF/CR for better glycemic control * s/p electrocardioversion today 05/29/20: * Pt has received 11 units of insulin over the past 24hrs * 0 units of basal * 11 units of bolus with NovoLog * BSGs 135-158 mg/dl * No changes needed in insulin regimen at this time 05/27/20: * IV dexamethasone has been discontinued. Expect that this will reduce patient's insulin requirements significantly. * NPH held today. Do not anticipate that pt will require further dosing. * Pt was hyperglycemic yesterday afternoon/evening, so Novolog parameters not adjusted today. Expect that parameters will need to be loosened tomorrow morning, as patient's insulin sensitivity increases. PLAN FOR INPATIENT GLYCEMIC CONTROL: * Hold outpatient oral diabetes medications * Basal insulin * none * Bolus insulin: tighten CF/CR * NovoLog per scale ACHS or Q6hrs while NPO * Goal Range: Low 110 mg/dL - High 140 mg/dL * Correction Factor: 20 mg/dL/unit * Nutritional / Prandial insulin per carb ratio of 1 unit per 7 grams CHO consumed PLAN FOR DISCHARGE: * A1c 6.5% - reasonable to continue home metformin on discharge as long as no contraindications exist
--- NOTE | 2020-05-30 18:25 | Hospitalist Progress Note ---
Date of Service May 30, 2020 Assessment & Plan (1) Atrial fibrillation: went into afib with RVR, rates in 150's on 05/22 in the evening, now rate controlled on Amiodarone 200mg BID, Eliquis 5mg BID on 05/23 was cardioverted successfully, not on metoprolol due to lower blood pressure remains in nsr post conversion Cardiology consultation agrees with amiodarone and anticoagulation echocardiogram shows EF 45%, previous echo 2019 35-40%-> HFrEF is euvolemic and stable, was started on lisinopril but this will be held due to lower blood pressure (2) Pneumonia due to COVID-19 virus: Patient is now out of airborne precautions due to duration of illness dexamethasone 6 mg IV daily, will discontinue now is no longer hypoxemic Given duration of illness (admission on day 13) no benefit from remdesivir. Discontinue airborne isolation precautions. Per infectious control review titrated down to room air, no distress, saturations > 90% very weak, even at baseline, will ask PT/OT to see him Continues to be very fatigued today eating and drinking better, stop IV fluids PT/OT - very weak, recommending rehab, was unfortunatley dizzy with PT will need some medicaiton adjustments (3) Hypoxia: without respiratory distress on admission Aim O2 sats > 90% down to room air for three days, at most he was on 1L (4) Hypertension: stopped metoprolol due to lower blood pressure stop lisinopril 5mg for now (5) Diabetes mellitus, type II: Hemoglobin A1c 5.4 in July 2019 Hold Metformin. 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 (10) Oropharyngeal dysphagia: eating fine today (11) DVT prophylaxis: D-dimer high at 4400, continue anticoagulation with apixaban (12) Constipation: adding scheduled senna to prn miralax Admission and Anticipated Discharge Date Admission Date: May 19, 2020 Subjective He is feeling well today, he has no specific complaints. He was cardioverted but does not recall the event, remains with good supine blood pressure Review of Systems Review of Systems: Mild distress and fatigue, orthostatic dizziness no headache, blurry or double vision no swallowing issues, was awoken form sleep but did have some mumbly speech no chest pain, pressure or palpitations Still with some baseline shortness of breath, nonproductive cough or wheezes minor abdominal pain, mild nausea & vomiting no dysuria, hematuria or frequency no focal joint pain or swelling no back pain, CVA tenderness or radicular pain no bruising, bleeding or rashes no focal signs of weakness or numbness or altered sensation no complaints of anxiety or depression.. Physical Exam Physical Exam: The patient appeared well nourished and normally developed. Vital signs as documented. seems orthostatic Head exam is normocephalic atraumatic no scleral icterus Neck is without JVD, thyromegaly, or carotid bruits. Lungs are basilar rales which clear with deep breath, no focal loss of breath sounds Cardiac exam, Rhythm is regular.. No murmurs, rubs or gallops. Abdominal exam reveals normal bowel sounds, soft non tender, no masses Extremities are nonedematous and both pedal pulses are present Neurologic exam is alert and oriented x3 likely has some baseline dementia, no focal loss of strength or sensation but globally is weak Skin is without bruises or rashes Psychologically is without concerns for anxiety or depression Results & Data Results & Data ([facility]) Vital Signs (Past 12 Hours) Vital Signs Temp Pulse Pulse Resp BP BP Pulse Ox 05/30/20 16:19 98.1 F 69 16 124/66 95 05/30/20 11:45 97.9 F 66 16 104/62 95 05/30/20 11:05 71 05/30/20 10:30 64 18 97/52 L 94 05/30/20 10:15 97.9 F 66 18 94/52 L 99 05/30/20 09:55 109 H 16 99/72 L 94 05/30/20 07:41 97.7 F 105 H 18 91/63 L 95 05/30/20 07:30 124 H PG Care Time/CCT Total # of Minutes Spent Total Time Spent with Patient: Total time spent is greater than 50% in coordination of care (as documented) at patient's floor/unit and/or counseling patient: Coding Level of Care Code 43558 Subseq Hosp Care Lvl 3 Diagnoses Atrial fibrillation I48.0 Atrial fibrillation type: paroxysmal Pneumonia due to COVID-19 virus U07.1; J12.82 Hypoxia R09.02 Hypertension I10 Hypertension type: essential hypertension Diabetes mellitus, type II E11.65 Diabetes mellitus complication status: with hyperglycemia Diabetes mellitus ferry terminal supervisor insulin use: without ferry terminal supervisor use Lymphoma, marginal zone, spleen C83.07 Gait apraxia R48.2 History of [place] (myocardial infarction) I25.2 Low vision of left eye H54.52A1 Oropharyngeal dysphagia R13.12 DVT prophylaxis Z29.9 Constipation K59.00 (1) Diabetes mellitus, type II Diabetes mellitus complication status: with hyperglycemia Diabetes mellitus ferry terminal supervisor insulin use: without prison use Qualified Code(s): E11.65 - Type 2 diabetes mellitus with hyperglycemia (2) Atrial fibrillation Atrial fibrillation type: paroxysmal Qualified Code(s): I48.0 - Paroxysmal atrial fibrillation (3) Hypertension Hypertension type: essential hypertension Qualified Code(s): I10 - Essential (primary) hypertension
--- NOTE | 2020-05-31 07:25 | Electrocardiogram Report ---
Test Reason : Blood Pressure : / mmHG Vent. Rate : 066 BPM Atrial Rate : 066 BPM P-R Int : 180 ms QRS Dur : 102 ms QT Int : 498 ms P-R-T Axes : 053 -65 121 degrees QTc Int : 522 ms Sinus rhythm with Premature supraventricular complexes Left axis deviation Prolonged QT Abnormal ECG When compared with ECG of 26-MAY-2020 14:14, Sinus rhythm has replaced Atrial fibrillation T wave inversion more evident in Anterior leads QT has lengthened Confirmed by Royce Mcneil ([id number]) on 05/31/2020 7:25:24 AM Referred By: REFERRED SELF Confirmed By:Royce Mcneil
[2020-05-31 07:43] LABS: Hematocrit (blood only) 29.6 % (42-52); Hemoglobin 10.6 g/dL (14.0-18.0); Mean Corpuscular Hemoglobin 32.7 pg (25-34); Mean Corpuscular Hgb Conc 35.8 g/dL (32-36); Mean Corpuscular Volume 91.4 fL (80-100); Mean Platelet Volume 9.4 fL (7.4-10.4); Platelet Count 183 K/uL (130-400); RDW Coefficient of Variation 15.1 % (11.5-14.5); RDW Standard Deviation 47.4 fL (36.4-46.3); Red Blood Count 3.24 M/uL (4.7-6.1); White Blood Count 7.28 K/uL (4.8-10.8)
[2020-05-31 07:58] LABS: BUN Creatinine Ratio 18.2 (10-20); Calcium 8.2 mg/dl (8.5-10.1); Creatinine Clr Calc Pharmacy 82.8 ml/min; Est GFR (African American) 95.4; Est GFR (Non-African American) 82.3; Magnesium 1.8 mg/dl (1.8-2.4); Potassium 3.9 mmol/L (3.5-5.1)
[2020-05-31] MEDS: AMIODARONE 200 MG TAB PO SCH (08:22)
[2020-05-31] MEDS: VITAMIN B COMPLEX TAB PO SCH (08:23)
[2020-05-31] MEDS: CEROVITE ADV FORMULA TAB PO SCH ×2 (08:23→20:42)
[2020-05-31] MEDS: CHOLECALCIFEROL 1,000 UNITS 25 MCG TAB PO SCH (08:23)
[2020-05-31] MEDS: PANTOprazole 40 MG TAB PO SCH (08:23)
[2020-05-31] MEDS: CYANOCOBALAMIN 500 MCG TABLET (VITAMIN B-12) PO SCH (08:23)
[2020-05-31] MEDS: MAGNESIUM OXIDE 400 MG TAB PO SCH (08:23)
[2020-05-31] MEDS: ASPIRIN 81 MG ECTAB PO SCH (08:23)
[2020-05-31] MEDS: INSULIN ASPART 100 UNITS/ML 3 ML PEN SC SCH ×4 (08:24→20:44)
[2020-05-31] MEDS: APIXABAN 5 MG TABLET PO SCH ×2 (08:24→20:42)
[2020-05-31] MEDS: cefTRIAXone SODIUM 2,000 MG in DEXTROSE 5% 50 ML IV SCH (08:33)
[2020-05-31] MEDS: LACTATED RINGER'S 1,000 ML IV SCH ×2 (10:54→23:22)
[2020-05-31] MEDS ORDERED: FLUDROCORTISONE ACETATE 0.1 MG TAB PO ONE (16:40)
[2020-05-31] MEDS: ONDANSETRON INJ 2 MG/ML 2 ML VIAL IV PRN (18:07)
--- NOTE | 2020-05-31 18:08 | CT Scan Report ---
HEAD CT NONCONTRAST CT DOSE: 853.38 mGy.cm HISTORY: Altered mental status. Stroke symptoms. TECHNIQUE: Multiaxial CT images of the head were performed without the use of intravenous contrast. A utomated exposure control was utilized for this study. A dose lowering technique was utilized adheri ng to the principles of ALARA. Comparison: Brain MRI 10/05/2013. Findings: The paranasal sinuses and mastoid air cells are clear. The calvarium and skull base are int act. There is no mass, hematoma, midline shift, acute infarct. White matter hypodensity is nonspecifi c but suggestive of microvascular ischemic change. The ventricles and sulci demonstrate mild age-rela vivienne involutional changes. 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 Impression: No acute intracranial abnormality. Atrophy and microvascular ischemic changes. ACT 112: Negative or not required by law. Electronically signed by: Perico Schaefer M.D. 05/31/2020 6:07 PM
--- NOTE | 2020-05-31 18:51 | Hospitalist Progress Note ---
Date of Service May 31, 2020 Assessment & Plan (1) Orthostatic hypotension: This is his biggest issue, preventing pt from being able to participate in PT, did hold antihypertensives and will give a dose of florinef, did have normal am cortisol and pending tsh (2) Atrial fibrillation: went into afib with RVR, rates in 150's on 05/22 in the evening, now rate controlled on Amiodarone 200mg BID, Eliquis 5mg BID on 05/23 was cardioverted successfully, not on metoprolol due to lower blood pressure remains in nsr post conversion Cardiology consultation agrees with amiodarone and anticoagulation echocardiogram shows EF 45%, previous echo 2019 35-40%-> HFrEF is euvolemic and stable, was started on lisinopril but this will be held due to lower blood pressure (3) Pneumonia due to COVID-19 virus: Patient is now out of airborne precautions due to duration of illness dexamethasone 6 mg IV daily, will discontinue now is no longer hypoxemic Given duration of illness (admission on day 13) no benefit from remdesivir. Discontinue airborne isolation precautions. Per infectious control review titrated down to room air, no distress, saturations > 90% very weak, even at baseline, will ask PT/OT to see him Continues to be very fatigued today eating and drinking better, stop IV fluids PT/OT - very weak, recommending rehab, was unfortunatley dizzy with PT will need some medicaiton adjustments (4) Hypoxia: without respiratory distress on admission Aim O2 sats > 90% down to room air for three days, at most he was on 1L (5) Diabetes mellitus, type II: Hemoglobin A1c 5.4 in July 2019 Hold Metformin. 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 (10) Oropharyngeal dysphagia: eating fine today (11) Constipation: adding scheduled senna to prn miralax (12) DVT prophylaxis: D-dimer high at 4400, continue anticoagulation with apixaban Admission and Anticipated Discharge Date Admission Date: May 19, 2020 Subjective pt feels that he is better, He was cardioverted but does not recall the event, remains with good supine blood pressure but still with some issues, will try some florinef, am cortisol was good Review of Systems Review of Systems: Mild distress and fatigue, orthostatic dizziness no headache, blurry or double vision no swallowing issues, was awoken form sleep but did have some mumbly speech no chest pain, pressure or palpitations Still with some baseline shortness of breath, nonproductive cough or wheezes minor abdominal pain, mild nausea & vomiting no dysuria, hematuria or frequency no focal joint pain or swelling no back pain, CVA tenderness or radicular pain no bruising, bleeding or rashes no focal signs of weakness or numbness or altered sensation no complaints of anxiety or depression.. Physical Exam Physical Exam: The patient appeared well nourished and normally developed. Vital signs as documented. seems orthostatic Head exam is normocephalic atraumatic no scleral icterus Neck is without JVD, thyromegaly, or carotid bruits. Lungs are basilar rales which clear with deep breath, no focal loss of breath sounds Cardiac exam, Rhythm is regular.. No murmurs, rubs or gallops. Abdominal exam reveals normal bowel sounds, soft non tender, no masses Extremities are nonedematous and both pedal pulses are present Neurologic exam is alert and oriented x3 likely has some baseline dementia, no focal loss of strength or sensation but globally is weak Skin is without bruises or rashes Psychologically is without concerns for anxiety or depression Results & Data Results & Data ([facility]) Vital Signs (Past 12 Hours) Vital Signs Temp Pulse Resp BP Pulse Ox 05/31/20 14:52 97.3 F L 58 L 16 118/70 96 05/31/20 11:08 97.5 F L 59 L 20 151/70 H 97 05/31/20 07:30 98.1 F 57 L 18 127/70 93 PG Care Time/CCT Total # of Minutes Spent Total Time Spent with Patient: Total time spent is greater than 50% in coordination of care (as documented) at patient's floor/unit and/or counseling patient: Coding Level of Care Code 63596 Subseq Hosp Care Lvl 3 Diagnoses Orthostatic hypotension I95.1 Atrial fibrillation I48.0 Atrial fibrillation type: paroxysmal Pneumonia due to COVID-19 virus U07.1; J12.82 Hypoxia R09.02 Diabetes mellitus, type II E11.65 Diabetes mellitus snf insulin use: without exterminator use Diabetes mellitus complication status: with hyperglycemia Lymphoma, marginal zone, spleen C83.07 Gait apraxia R48.2 History of [place] (myocardial infarction) I25.2 Low vision of left eye H54.52A1 Oropharyngeal dysphagia R13.12 Constipation K59.00 DVT prophylaxis Z29.9 (1) Atrial fibrillation Atrial fibrillation type: paroxysmal Qualified Code(s): I48.0 - Paroxysmal atrial fibrillation (2) Diabetes mellitus, type II Diabetes mellitus snf insulin use: without snf use Diabetes anand quick complication status: with hyperglycemia Qualified Code(s): E11.65 - Type 2 diabetes mellitus with hyperglycemia
[2020-06-01] MEDS: VITAMIN B COMPLEX TAB PO SCH (07:49)
[2020-06-01] MEDS: AMIODARONE 200 MG TAB PO SCH (07:49)
[2020-06-01] MEDS: MAGNESIUM OXIDE 400 MG TAB PO SCH (07:49)
[2020-06-01] MEDS: PANTOprazole 40 MG TAB PO SCH (07:49)
[2020-06-01] MEDS: CEROVITE ADV FORMULA TAB PO SCH ×2 (07:49→20:08)
[2020-06-01] MEDS: CHOLECALCIFEROL 1,000 UNITS 25 MCG TAB PO SCH (07:49)
[2020-06-01] MEDS: FLUDROCORTISONE ACETATE 0.1 MG TAB PO SCH (07:50)
[2020-06-01] MEDS: CYANOCOBALAMIN 500 MCG TABLET (VITAMIN B-12) PO SCH (07:50)
[2020-06-01] MEDS: APIXABAN 5 MG TABLET PO SCH ×2 (07:50→20:08)
[2020-06-01] MEDS: ASPIRIN 81 MG ECTAB PO SCH (07:50)
[2020-06-01] MEDS: INSULIN ASPART 100 UNITS/ML 3 ML PEN SC SCH ×4 (07:54→21:20)
[2020-06-01] MEDS: cefTRIAXone SODIUM 2,000 MG in DEXTROSE 5% 50 ML IV SCH (08:20)
[2020-06-01 08:21] LABS: BUN Creatinine Ratio 17.4 (10-20); Calcium 7.8 mg/dl (8.5-10.1); Creatinine Clr Calc Pharmacy 93.5 ml/min; Est GFR (African American) 100.3; Est GFR (Non-African American) 86.6; Potassium 3.7 mmol/L (3.5-5.1)
[2020-06-01 08:31] LABS: Thyroid Stimulating Hormone 2.83 uIu/ml (0.300-4.500)
[2020-06-01] MEDS: LACTATED RINGER'S 1,000 ML IV SCH ×2 (12:10→23:49)
--- NOTE | 2020-06-01 15:33 | Hospitalist Progress Note ---
Date of Service June 01, 2020 Assessment & Plan (1) Orthostatic hypotension: has improved with florinef, did have normal am cortisol and tsh, continue to watch edema and blood pressure (2) Depressed: PT has depressed affect and speaking to family has been so for some time, the pt and family are agreeable to try remeron for depression and help with appetite stimulation (3) Atrial fibrillation: went into afib with RVR, rates in 150's on 05/22 in the evening, now rate controlled on Amiodarone 200mg BID, Eliquis 5mg BID on 05/23 was cardioverted successfully, not on metoprolol due to lower blood pressure remains in nsr post conversion Cardiology consultation agrees with amiodarone and anticoagulation echocardiogram shows EF 45%, previous echo 2019 35-40%-> HFrEF is euvolemic and stable, was started on lisinopril but this will be held due to lower blood pressure (4) Pneumonia due to COVID-19 virus: Patient is now out of airborne precautions due to duration of illness dexamethasone 6 mg IV daily, will discontinue now is no longer hypoxemic Given duration of illness (admission on day 13) no benefit from remdesivir. Discontinue airborne isolation precautions. Per infectious control review titrated down to room air, no distress, saturations > 90% very weak, even at baseline, will ask PT/OT to see him Continues to be very fatigued today eating and drinking better, stop IV fluids PT/OT - very weak, recommending rehab, was unfortunatley dizzy with PT will need some medicaiton adjustments (5) Hypoxia: resolved (6) Diabetes mellitus, type II: Hemoglobin A1c 5.4 in July 2019 Hold Metformin. 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 Prior LDL 49 in 07/2019 (10) Low vision of left eye: Secondary to macular degeneration (11) Oropharyngeal dysphagia: eating fine today, has minced and moist diet (12) Constipation: adding scheduled senna to prn miralax (13) DVT prophylaxis: D-dimer high at 4400, continue anticoagulation with apixaban Admission and Anticipated Discharge Date Admission Date: May 19, 2020 Subjective pt feels that he is better, He was cardioverted but does not recall the event, remains with good supine blood pressure but still with some issues, will try some florinef, am cortisol was good Review of Systems Review of Systems: Mild distress and fatigue, orthostatic dizziness no headache, blurry or double vision no swallowing issues, was awoken form sleep but did have some mumbly speech no chest pain, pressure or palpitations Still with some baseline shortness of breath, nonproductive cough or wheezes minor abdominal pain, mild nausea & vomiting no dysuria, hematuria or frequency no focal joint pain or swelling no back pain, CVA tenderness or radicular pain no bruising, bleeding or rashes no focal signs of weakness or numbness or altered sensation no complaints of anxiety or depression.. Physical Exam Physical Exam: The patient appeared well nourished and normally developed. Vital signs as documented. seems orthostatic Head exam is normocephalic atraumatic no scleral icterus Neck is without JVD, thyromegaly, or carotid bruits. Lungs are basilar rales which clear with deep breath, no focal loss of breath sounds Cardiac exam, Rhythm is regular.. No murmurs, rubs or gallops. Abdominal exam reveals normal bowel sounds, soft non tender, no masses Extremities are nonedematous and both pedal pulses are present Neurologic exam is alert and oriented x3 likely has some baseline dementia, no focal loss of strength or sensation but globally is weak Skin is without bruises or rashes Psychologically is without concerns for anxiety or depression Results & Data Results & Data ([facility]) Vital Signs (Past 12 Hours) Vital Signs Temp Pulse Resp BP BP Pulse Ox 06/01/20 15:15 98.1 F 60 18 134/77 97 06/01/20 11:04 98.2 F 63 18 133/73 94 06/01/20 07:00 97.7 F 63 20 134/75 96 06/01/20 04:00 97.9 F 65 20 146/71 H 93 PG Care Time/CCT Total # of Minutes Spent Total Time Spent with Patient: Total time spent is greater than 50% in coordination of care (as documented) at patient's floor/unit and/or counseling patient: Coding Level of Care Code 85687 Subseq Hosp Care Lvl 3 Diagnoses Orthostatic hypotension I95.1 Depressed F32.9 Atrial fibrillation I48.0 Atrial fibrillation type: paroxysmal Pneumonia due to COVID-19 virus U07.1; J12.82 Hypoxia R09.02 Diabetes mellitus, type II E11.65 Diabetes mellitus skilled nursing insulin use: without skilled nursing use Diabetes mellitus complication status: with hyperglycemia Lymphoma, marginal zone, spleen C83.07 Gait apraxia R48.2 History of [place] (myocardial infarction) I25.2 Low vision of left eye H54.52A1 Oropharyngeal dysphagia R13.12 Constipation K59.00 DVT prophylaxis Z29.9 (1) Atrial fibrillation Atrial fibrillation type: paroxysmal Qualified Code(s): I48.0 - Paroxysmal atrial fibrillation (2) Diabetes mellitus, type II Diabetes mellitus termite helper insulin use: without termite helper use Diabetes mellitus complication status: with hyperglycemia Qualified Code(s): E11.65 - Type 2 diabetes mellitus with hyperglycemia
[2020-06-01] MEDS: MIRTAZAPINE TAB 15 MG TAB PO SCH (21:20)
[2020-06-02] MEDS: MAGNESIUM OXIDE 400 MG TAB PO SCH (07:21)
[2020-06-02] MEDS: APIXABAN 5 MG TABLET PO SCH ×2 (07:21→20:27)
[2020-06-02] MEDS: CYANOCOBALAMIN 500 MCG TABLET (VITAMIN B-12) PO SCH (07:21)
[2020-06-02] MEDS: CEROVITE ADV FORMULA TAB PO SCH ×2 (07:21→20:27)
[2020-06-02] MEDS: ASPIRIN 81 MG ECTAB PO SCH (07:22)
[2020-06-02] MEDS: AMIODARONE 200 MG TAB PO SCH (07:22)
[2020-06-02] MEDS: FLUDROCORTISONE ACETATE 0.1 MG TAB PO SCH (07:22)
[2020-06-02] MEDS: PANTOprazole 40 MG TAB PO SCH (07:22)
[2020-06-02] MEDS: VITAMIN B COMPLEX TAB PO SCH (07:22)
[2020-06-02] MEDS: CHOLECALCIFEROL 1,000 UNITS 25 MCG TAB PO SCH (07:22)
[2020-06-02] MEDS: cefTRIAXone SODIUM 2,000 MG in DEXTROSE 5% 50 ML IV SCH (08:42)
--- NOTE | 2020-06-02 09:03 | Pharmacy Report ---
Pharmacy Glycemic Short Note 2 - Date of Service June 02, 2020 - Glycemic Short BSG Results (Last 24 hours): 06/01/20 06/01/20 06/01/20 11:14 16:22 20:15 POC Glucose 173 H 142 H 135 H 06/02/20 07:25 POC Glucose 138 H OUTPATIENT ANTIDIABETIC REGIMEN: * Metformin 500 BIDM * A1c 6.5% (05/20/20) ASSESSMENT: 06/02: * BSGs have been reasonably well controlled since discontinuation of steroids * BSGs yesterday of 124, 173, 142, and 135 mg/dL * Patient received 8 units of bolus insulin only (no basal) * Fasting BSG of 138 mg/dL today (fasting BSGs have been slightly elevated over past several days) * Will start basal insulin at 0.1 unit/kg daily * Lunch BSG of 201 mg/dL - no Novolog given with breakfast (potentially uncovered breakfast/snack?) * No change for now 05/27/20: * IV dexamethasone has been discontinued. Expect that this will reduce patient's insulin requirements significantly. * NPH held today. Do not anticipate that pt will require further dosing. * Pt was hyperglycemic yesterday afternoon/evening, so Novolog parameters not adjusted today. Expect that parameters will need to be loosened tomorrow morning, as patient's insulin sensitivity increases. PLAN FOR INPATIENT GLYCEMIC CONTROL: * Hold outpatient oral diabetes medications * Basal insulin * 8 units SC daily (0.1 unit/kg) * Bolus insulin: continue * NovoLog per scale ACHS or Q6hrs while NPO * Goal Range: Low 110 mg/dL - High 140 mg/dL * Correction Factor: 20 mg/dL/unit * Nutritional / Prandial insulin per carb ratio of 1 unit per 7 grams CHO consumed PLAN FOR DISCHARGE: * A1c 6.5% - reasonable to continue home metformin on discharge as long as no contraindications exist
[2020-06-02] MEDS: INSULIN GLARGINE SOLOSTAR 100 UNITS/ML 3 ML PEN SC SCH (09:24)
[2020-06-02] MEDS: INSULIN ASPART 100 UNITS/ML 3 ML PEN SC SCH ×4 (09:24→20:34)
[2020-06-02] MEDS: LACTATED RINGER'S 1,000 ML IV SCH (12:44)
--- NOTE | 2020-06-02 12:57 | Hospitalist Progress Note ---
Date of Service June 02, 2020 Assessment & Plan (1) Orthostatic hypotension: has improved with florinef, did have normal am cortisol and tsh, continue to watch edema and blood pressure stop IV fluids today plan for SNF rehab tomorrow (2) Depressed: PT has depressed affect and speaking to family has been so for some time, the pt and family are agreeable to try remeron for depression and help with appetite stimulation continue Remeron on discharge, will take some time to work (3) Atrial fibrillation: went into afib with RVR, rates in 150's on 05/22 in the evening, now rate controlled on Amiodarone 200mg BID, Eliquis 5mg BID on 05/23 was cardioverted successfully, not on metoprolol due to lower blood pressure remains in nsr post conversion Cardiology consultation agrees with amiodarone and anticoagulation echocardiogram shows EF 45%, previous echo 2019 35-40%-> HFrEF is euvolemic and stable, was started on lisinopril but this will be held due to lower blood pressure (4) Pneumonia due to COVID-19 virus: Patient is now out of airborne precautions due to duration of illness dexamethasone 6 mg IV daily, will discontinue now is no longer hypoxemic Given duration of illness (admission on day 13) no benefit from remdesivir. Discontinue airborne isolation precautions. Per infectious control review titrated down to room air, no distress, saturations > 90% very weak, even at baseline, will ask PT/OT to see him Continues to be very fatigued eating and drinking better, stop IV fluids PT/OT - very weak, recommending rehab, apply for auth today, should be ready tomorrow (5) Hypoxia: resolved (6) Diabetes mellitus, type II: Hemoglobin A1c 5.4 in July 2019 Hold Metformin. 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 Prior LDL 49 in 07/2019 (10) Low vision of left eye: Secondary to macular degeneration (11) Oropharyngeal dysphagia: eating fine today, has minced and moist diet (12) Constipation: adding scheduled senna to prn miralax (13) DVT prophylaxis: D-dimer high at 4400, continue anticoagulation with apixaban (14) Urinary retention: developing issue, straight cath for over 600mL this morning, had lower abdominal pain post void residual 300mL this evening ordered padilla will need to keep catheter for 10-14 days and follow up with urology for voiding trial Admission and Anticipated Discharge Date Admission Date: May 19, 2020 Subjective patient doing okay, only issue is that he is having a difficult time voiding he had to be straight cathed for 600mL this morning, had lower abdominal pain then he had over 300mL post void residual this evening, ordered padilla catheter to be placed he is eating better, will stop IV fluids labs and vitals stable CM working on placement for him, needs rehab, would be ready tomorrow Review of Systems Review of Systems: All systems reviewed & are unremarkable except as noted in Subjective Constitutional: + fatigue and + weakness Respiratory: no cough and no dyspnea Cardiovascular: no chest pain and no edema Genitourinary: + difficulty urinating; no dysuria Physical Exam Constitutional: well developed, + thin, + frail appearing and comfortable; no acute distress Neck: trachea midline, no thyromegaly Respiratory: normal respiratory effort, lungs clear to auscultation Cardiovascular: RRR, no murmur, no edema Rate/Rhythm: regular rate and + irregularly irregular Heart Sounds: normal S1 and normal S2; no murmur Extremities: normal capillary refill; no edema Gastrointestinal (Abdomen): normal bowel sounds, soft, nontender, no hepatosplenomegaly Musculoskeletal: Head/Neck/Chest: normocephalic, head atraumatic and neck supple Extremities: extremities normal to inspection and + abnormal strength (generalized weakness in legs, cannot stand up) Skin: no rashes, warm and dry Neurologic: patellar DTR's 2+ bilat, sensation intact and PERRL, EOMI, accommodation nl, no face palsy, no dysarthria Psychiatric: A+Ox3, euthymic affect Lymphatic: no cervical or axillary lymphadenopathy Results & Data Results & [facility] ([facility]) Vital Signs (Past 12 Hours) Vital Signs Temp Pulse Resp BP Pulse Ox 06/02/20 11:46 36.3 C L 93 H 20 119/73 95 06/02/20 07:00 36.4 C L 75 20 162/73 H 94 06/02/20 03:00 36.2 C L 68 20 171/74 H 91 Laboratory Results Laboratory Results - last 24 hr 06/01/20 06/01/20 06/02/20 16:22 20:15 07:25 POC Glucose 142 H 135 H 138 H 06/02/20 11:42 POC Glucose 201 H Medications Administered Current Inpatient Medications Acetaminophen (Acetaminophen 325 Mg Tab) 650 mg PO Q4H PRN PRN Reason: pain/fever Stop: 06/18/20 20:27 Amiodarone HCl (Amiodarone 200 Mg Tab) 200 mg PO DAILY DANIKA Stop: 07/01/20 08:59 Last Admin: 06/02/20 07:22 Dose: 200 mg Documented by: Apixaban (Apixaban 5 Mg Tablet) 5 mg PO BID DANIKA Stop: 06/22/20 20:59 Last Admin: 06/02/20 07:21 Dose: 5 mg Documented by: Aspirin (Aspirin 81 Mg Ectab) 81 mg PO DAILY DANIKA Stop: 06/19/20 08:59 Last Admin: 06/02/20 07:22 Dose: 81 mg Documented by: Cyanocobalamin (Cyanocobalamin 500 Mcg Tablet (Vitamin B-12)) 2,000 mcg PO QAM DANIKA Stop: 06/19/20 08:59 Last Admin: 06/02/20 07:21 Dose: 2,000 mcg Documented by: Dextrose (Dextrose 50% 50 Ml Syringe) 25 - 50 ml IV UD PRN; Protocol PRN Reason: Hypoglycemia Protocol Stop: 06/18/20 21:14 Fludrocortisone Acetate (Fludrocortisone Acetate 0.1 Mg Tab) 0.1 mg PO QAM DANIKA Stop: 07/01/20 08:59 Last Admin: 06/02/20 07:22 Dose: 0.1 mg Documented by: Glucagon (Glucagon For Inj 1 Mg Vial) 1 mg SQ UD PRN; Protocol PRN Reason: Hypoglycemia Protocol Stop: 06/18/20 21:14 Glucose (Glucose 40% Gel 15 Gm Tube) 15 - 30 gm PO UD PRN; Protocol PRN Reason: Hypoglycemia Protocol Stop: 06/18/20 21:14 Last Admin: 05/22/20 08:43 Dose: 15 gm Documented by: Glucose (Glucose 10 Tabs/Tube) 4 - 8 tabs PO UD PRN; Protocol PRN Reason: Hypoglycemia Protocol Stop: 06/18/20 21:14 Heparin Sodium (Porcine) (Heparin 100 Unit/Ml 5ml Flush) 5 ml FLUSH PRN PRN PRN Reason: Flush Stop: 06/19/20 03:51 Last Admin: 05/29/20 10:12 Dose: 5 ml Documented by: Lactated Ringer's (Lr) 1,000 mls @ 80 mls/hr IV .[id number] [facility] Stop: 06/28/20 19:44 Last Admin: 06/02/20 12:44 Dose: 80 mls/hr Documented by: Ceftriaxone Sodium 2,000 mg/ (Dextrose) 70 mls @ 140 mls/hr IV DAILY [facility]; Protocol Stop: 06/04/20 09:29 Last Infusion: 06/02/20 09:44 Dose: Infused Documented by: Insulin Aspart (Insulin Aspart 100 Units/Ml 3 Ml Pen) 0 units SC ACHS DANIKA Stop: 06/18/20 21:29 Last Admin: 06/02/20 12:16 Dose: 8 units Documented by: Insulin Glargine (Insulin Glargine Solostar 100 Units/Ml 3 Ml Pen) 8 units SC DAILY DANIKA Stop: 07/02/20 08:59 Last Admin: 06/02/20 09:24 Dose: 8 units Documented by: Magnesium Oxide (Magnesium Oxide 400 Mg Tab) 400 mg PO DAILY DANIKA Stop: 06/19/20 08:59 Last Admin: 06/02/20 07:21 Dose: 400 mg Documented by: Metoprolol Tartrate (Metoprolol Tartrate 1 Mg/Ml Vial) 5 mg IV Q4H PRN PRN Reason: sbp> 185, dbp >95, HR >120 Stop: 06/28/20 15:34 Mirtazapine (Mirtazapine Tab 15 Mg Tab) 15 mg PO HS DANIKA Stop: 07/01/20 20:59 Last Admin: 06/01/20 21:20 Dose: 15 mg Documented by: Miscellaneous (Carbohydrates For Hypoglycemia ) 15 - 30 gm PO UD PRN PRN Reason: Hypoglycemia Treatment Stop: 06/18/20 21:14 Last Admin: 05/22/20 08:21 Dose: 15 gm Documented by: Miscellaneous Information (Pharmacy Glycemic Mgmt Consult) 1 ea N/A UD PRN PRN Reason: Consult Stop: 06/18/20 20:59 Multivitamins/Minerals (Cerovite Adv Formula Tab) 1 tab PO BID DANIKA Stop: 06/18/20 21:39 Last Admin: 06/02/20 07:21 Dose: 1 tab Documented by: Ondansetron HCl (Ondansetron Inj 2 Mg/Ml 2 Ml Vial) 4 mg IV Q4H PRN PRN Reason: Nausea Stop: 06/18/20 20:27 Last Admin: 05/31/20 18:07 Dose: 4 mg Documented by: Pantoprazole Sodium (Pantoprazole 40 Mg Tab) 40 mg PO QAM DANIKA Stop: 06/20/20 08:59 Last Admin: 06/02/20 07:22 Dose: 40 mg Documented by: Polyethylene Glycol (Polyethylene (Miralax) 17 Gm Pack) 17 gm PO DAILY PRN PRN Reason: Constipation Stop: 06/18/20 20:27 Last Admin: 05/29/20 10:13 Dose: 17 gm Documented by: Vitamin B Complex (Vitamin B Complex Tab) 1 tab PO DAILY DANIKA Stop: 06/19/20 08:59 Last Admin: 06/02/20 07:22 Dose: 1 tab Documented by: Vitamin D (Cholecalciferol 1,000 Units 25 Mcg Tab) 2,000 units PO DAILY DANIKA Stop: 06/19/20 08:59 Last Admin: 06/02/20 07:22 Dose: 2,000 units Documented by: PG Care Time/CCT Total # of Minutes Spent Total Time Spent with Patient: Total time spent is greater than 50% in coordination of care (as documented) at patient's floor/unit and/or counseling patient: Coding Level of Care Code 52108 Subseq Hosp Care Lvl 3 Diagnoses Orthostatic hypotension I95.1 Depressed F32.9 Atrial fibrillation I48.0 Atrial fibrillation type: paroxysmal Pneumonia due to COVID-19 virus U07.1; J12.82 Hypoxia R09.02 Diabetes mellitus, type II E11.65 Diabetes mellitus complication status: with hyperglycemia Diabetes mellitus terminologist insulin use: without terminologist use Lymphoma, marginal zone, spleen C83.07 Gait apraxia R48.2 History of IA (myocardial infarction) I25.2 Low vision of left eye H54.52A1 Oropharyngeal dysphagia R13.12 Constipation K59.00 DVT prophylaxis Z29.9 Urinary retention R33.9 (1) Diabetes mellitus, type II Diabetes mellitus complication status: with hyperglycemia Diabetes mellitus correction insulin use: without terminologist use Qualified Code(s): E11.65 - Type 2 diabetes mellitus with hyperglycemia (2) Atrial fibrillation Atrial fibrillation type: paroxysmal Qualified Code(s): I48.0 - Paroxysmal atrial fibrillation
[2020-06-02] MEDS: MIRTAZAPINE TAB 15 MG TAB PO SCH (20:27)
[2020-06-03] MEDS: INSULIN GLARGINE SOLOSTAR 100 UNITS/ML 3 ML PEN SC SCH (08:33)
[2020-06-03] MEDS: INSULIN ASPART 100 UNITS/ML 3 ML PEN SC SCH ×4 (08:34→20:37)
[2020-06-03] MEDS: CEROVITE ADV FORMULA TAB PO SCH ×2 (08:35→20:36)
--- NOTE | 2020-06-03 08:35 | Pharmacy Report ---
Pharmacy Glycemic Short Note 2 - Date of Service June 03, 2020 - Glycemic Short BSG Results (Last 24 hours): 06/02/20 06/02/20 06/02/20 11:42 16:29 20:07 POC Glucose 201 H 136 H 102 H 06/03/20 07:39 POC Glucose 122 H OUTPATIENT ANTIDIABETIC REGIMEN: * Metformin 500 BIDM * A1c 6.5% (05/20/20) ASSESSMENT: 06/03: * BSGs yesterday of 138, 201, 136, and 102 mg/dL * Patient received 24 units of insulin (8 units of which was basal) * Fasting BSG improved today at 122 mg/dL - will continue once daily low-dose Lantus 06/02: * BSGs have been reasonably well controlled since discontinuation of steroids * BSGs yesterday of 124, 173, 142, and 135 mg/dL * Patient received 8 units of bolus insulin only (no basal) * Fasting BSG of 138 mg/dL today (fasting BSGs have been slightly elevated over past several days) * Will start basal insulin at 0.1 unit/kg daily * Lunch BSG of 201 mg/dL - no Novolog given with breakfast (potentially uncovered breakfast/snack?) * No change for now 05/27/20: * IV dexamethasone has been discontinued. Expect that this will reduce patient's insulin requirements significantly. * NPH held today. Do not anticipate that pt will require further dosing. * Pt was hyperglycemic yesterday afternoon/evening, so Novolog parameters not adjusted today. Expect that parameters will need to be loosened tomorrow morning, as patient's insulin sensitivity increases. PLAN FOR INPATIENT GLYCEMIC CONTROL: * Hold outpatient oral diabetes medications * Basal insulin - continue * 8 units SC daily (0.1 unit/kg) * Bolus insulin: continue * NovoLog per scale ACHS or Q6hrs while NPO * Goal Range: Low 110 mg/dL - High 140 mg/dL * Correction Factor: 20 mg/dL/unit * Nutritional / Prandial insulin per carb ratio of 1 unit per 7 grams CHO consumed PLAN FOR DISCHARGE: * A1c 6.5% - reasonable to continue home metformin on discharge as long as no contraindications exist
[2020-06-03] MEDS: ASPIRIN 81 MG ECTAB PO SCH (08:36)
[2020-06-03] MEDS: AMIODARONE 200 MG TAB PO SCH (08:36)
[2020-06-03] MEDS: VITAMIN B COMPLEX TAB PO SCH (08:36)
[2020-06-03] MEDS: FLUDROCORTISONE ACETATE 0.1 MG TAB PO SCH (08:36)
[2020-06-03] MEDS: CHOLECALCIFEROL 1,000 UNITS 25 MCG TAB PO SCH (08:36)
[2020-06-03] MEDS: PANTOprazole 40 MG TAB PO SCH (08:36)
[2020-06-03] MEDS: MAGNESIUM OXIDE 400 MG TAB PO SCH (08:36)
[2020-06-03] MEDS: APIXABAN 5 MG TABLET PO SCH ×2 (08:36→20:36)
[2020-06-03] MEDS: CYANOCOBALAMIN 500 MCG TABLET (VITAMIN B-12) PO SCH (08:37)
[2020-06-03] MEDS: cefTRIAXone SODIUM 2,000 MG in DEXTROSE 5% 50 ML IV SCH (08:37)
[2020-06-03] MEDS: HEPARIN 100 UNIT/ML 5ML FLUSH FLUSH PRN (09:18)
[2020-06-03] MEDS: CARBOHYDRATES FOR HYPOGLYCEMIA PO PRN (16:53)
[2020-06-03] MEDS: MIRTAZAPINE TAB 15 MG TAB PO SCH (20:38)
[2020-06-04] MEDS: ASPIRIN 81 MG ECTAB PO SCH (08:57)
[2020-06-04] MEDS: APIXABAN 5 MG TABLET PO SCH (08:57)
[2020-06-04] MEDS: AMIODARONE 200 MG TAB PO SCH (08:57)
[2020-06-04] MEDS: CYANOCOBALAMIN 500 MCG TABLET (VITAMIN B-12) PO SCH (08:58)
[2020-06-04] MEDS: CHOLECALCIFEROL 1,000 UNITS 25 MCG TAB PO SCH (08:58)
[2020-06-04] MEDS: PANTOprazole 40 MG TAB PO SCH (08:58)
[2020-06-04] MEDS: INSULIN GLARGINE SOLOSTAR 100 UNITS/ML 3 ML PEN SC SCH (08:58)
[2020-06-04] MEDS: VITAMIN B COMPLEX TAB PO SCH (08:58)
[2020-06-04] MEDS: MAGNESIUM OXIDE 400 MG TAB PO SCH (08:58)
[2020-06-04] MEDS: CEROVITE ADV FORMULA TAB PO SCH ×2 (08:58→20:28)
[2020-06-04] MEDS: FLUDROCORTISONE ACETATE 0.1 MG TAB PO SCH (08:58)
[2020-06-04] MEDS: cefTRIAXone SODIUM 2,000 MG in DEXTROSE 5% 50 ML IV SCH (09:31)
[2020-06-04] MEDS: INSULIN ASPART 100 UNITS/ML 3 ML PEN SC SCH ×4 (09:36→20:28)
[2020-06-04] MEDS: HEPARIN 100 UNIT/ML 5ML FLUSH FLUSH PRN (10:08)
--- NOTE | 2020-06-04 10:23 | Urology Consultation ---
Date of Consultation June 04, 2020 Assessment & Plan (1) Urinary retention: (2) Hematuria: 84yo M admitted on 05/19 with COVID-19 pneumonia who developed urinary retention requiring padilla catheter placement and now with gross hematuria - Hospital course, labs, and imaging reviewed. - Plan of care reviewed with Dr. Ornelas. - He is afebrile, VSS. - No new labs today. Most recent white count and creatinine were normal. - Patient developed urinary retention and required Padilla catheter placement on 06/02 - Has now developed gross hematuria secondary to catheter trauma (patient pulled on catheter per nursing note) - Padilla catheter irrigated at bedside this morning without difficulty. Multiple clots removed with irrigation. Urine cleared to light-pink color. Suprapubic discomfort improved. Pt tolerated well. - Continue to monitor padilla catheter - OK to irrigate gently as needed for retention/clots/ suprapubic pain. Bladder scan as needed. - If hematuria persists, may need to consider holding anticoagulant therapy - Will continue to follow Supervising Physician Co-Signing Physician Notes agree with above . urine clearing this afternoon History of Present Illness Reason for Consultation: Urinary retention; Hematuria Attending Physician: Pablo Hager DO History of Present Illness 84yo M with a PMHx including COPD, remote history of smoking, prior history of lymphoma, MA/cardiomyopathy, hypertension, hyperlipidemia, diabetes who was admitted on 05/19 with worsening shortness of breath, developing cough, congestion, and body aches. Chest x-ray concerning for mild bilateral airspace opacities and interstitial thickening suggestive of infectious process, SARS-CoV-2 PCR positive. He was admitted for ongoing management of COVID-19 pneumonia. He went into Afib on 05/22 and is s/p Cardioversion on 05/30. He was started on Eliquis on 05/23. Patient is now out of airborne precautions due to duration of illness. On 06/03, he reported difficulty with urination. He was straight cathed for over 600ml. On reassessment, post void residual was 300ml. A padilla catheter was ordered and placed at that time. This morning he was found to be pulling on the Padilla catheter and nursing noted hematuria and some bleeding around insertion site. Per nursing, one large clot passed on its own into the catheter bag. He continued to report suprapubic discomfort, so nursing irrigated the catheter twice noting removal of large clots with each irrigation. He continued to have suprapubic pain and leaking around catheter insertion site. Urology consulted for urinary retention, hematuria, and clots. Chart review: Afebrile, VSS. Wbc (05/31)- 7.28 Hgb (05/31)- 10.6 Cr (06/01)- 0.69 Urine culture negative for infection. Patient examined at bedside this AM. Awake, alert, resting in bed on arrival. He currently complains of suprapubic pain. Padilla catheter intact, draining small amount of hematuria with clots noted in tubing. Also a small amount of blood noted at insertion site. He denies fevers or chills. No nausea or vomiting. Patient states he had a few days of difficulty with urination and suprapubic pain. He does report some mild discomfort and small amount of bleeding at time of catheter insertion. He was tolerating the catheter without issues until this morning. He denies any baseline urinary issues prior to this admission. Denies hx of hematuria/dysuria. Denies urgency, frequency, and hesitancy. Nocturia 0-1. No issues with emptying his bladder previously. Stream good. Denies prior hx of urological issues. Has not followed with a urologist in the past. Denies personal/family hx of prostate, bladder, or kidney cancers. Unsure of last PSA. He notably reports being wheelchair-bound since the fall due to diabetic neuropathy. Also notably has a port for repeated iron transfusions. Offers no additional complaints today Allergies Allergy/AdvReac Type Severity Reaction Status Date / Time Sulfa (Sulfonamide Allergy Intermediate RASH Verified 05/19/20 15:11 Antibiotics) adhesive Allergy Mild RASH Verified 05/19/20 15:11 bee venom protein (honey bee) Allergy Unknown Unknown Verified 05/27/20 10:13 Home Medications Medication Instructions Recorded Confirmed Type aspirin 81 mg tablet,delayed 81 mg PO DAILY #30 tab 08/21/18 05/19/20 Rx release cholecalciferol (vitamin D3) 50 2,000 units PO DAILY #30 cap 08/21/18 05/19/20 Rx mcg (2,000 unit) capsule magnesium 250 mg tablet 250 mg PO DAILY #30 tab 08/21/18 05/19/20 Rx vitamin B complex 1 tab PO DAILY #30 tab 08/21/18 05/19/20 Rx cyanocobalamin (vitamin B-12) 2,000 mcg PO DAILY tab 11/22/18 05/19/20 History 2,000 mcg tablet vit C 250 mg-vit E 90 mg-zinc 40 1 tab PO BID 11/22/18 05/19/20 History mg-copper 1 [id number] capsule metoprolol tartrate 50 mg tablet 25 mg PO BID #90 tab 01/21/20 05/19/20 Rx lisinopril 5 mg tablet 5 mg PO DAILY #90 tab 05/19/20 05/19/20 Rx metformin 500 mg tablet 500 mg PO BID #180 tab 05/19/20 05/19/20 Rx amiodarone 200 mg PO DAILY 30 Days #30 tab 06/04/20 Rx apixaban [Eliquis] 5 mg PO BID 30 Days #60 tab 06/04/20 Rx fludrocortisone 0.1 mg PO QAM 30 Days #30 tab 06/04/20 Rx mirtazapine 15 mg PO HS 30 Days #30 tab 06/04/20 Rx Patient History Medical History Cardiomyopathy Diabetes mellitus, type II Gait apraxia History of MA (myocardial infarction) (~2002) Hyperlipidemia Hypertension Low vision of left eye Lymphoma, marginal zone, 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 Following with Heme/Onc q6 months. Vitamin D insufficiency Surgical History H/O heart artery stent (~2002) History of cholecystectomy History of PTCA (~2013) Family History Father Leukemia Mother Sick sinus syndrome S/P placement of cardiac pacemaker Sister Macular degeneration Brother Macular degeneration Denies family history of Ovarian cancer Prostate cancer Breast cancer Lung cancer Colorectal cancer Social History Smoking Status: Former smoker Second Hand Exposure: No; Do You Dip or Chew Tobacco: No; Tobacco Cessation Education Requested by Patient: No Hx Alcohol Use: No Hx Substance Use: No Preferred Language: German Communication Ability: Effective Visual Impairment: No Limitations Hearing Ability: Normal Beliefs That Will Affect Care: None marital status: Current Living Situation: Spouse and Family Current Living Situation Comment: Lives with and nephew How many Children do You have: 4 Other Information That Helps Us Care for You: No Feels Safe at Home: Yes Safety Concerns: Feels Safe At This Time Assistive Devices: Wheelchair Review of Systems Review of Systems: All systems reviewed & are unremarkable except as noted in HPI & below Physical Exam Constitutional: well developed and + frail appearing; no acute distress Respiratory: no respiratory distress and no labored breathing Cardiovascular: Extremities: no calf tenderness Gastrointestinal (Abdomen): Inspection/Auscultation: abdomen not distended Percussion/Palpation: + abdomen tender (mild suprapubic tenderness with palpation) and abdomen soft; no guarding Musculoskeletal: Head/Neck/Chest: normocephalic Skin: no rashes, warm and dry Neurologic: awake Psychiatric: A+Ox3, euthymic affect Genitourinary: Padilla catheter intact Results & Data ([facility]) Vital Signs (Past 12 Hours) Vital Signs Temp Pulse Pulse Resp BP BP Pulse Ox 06/04/20 07:30 36.7 C 77 18 120/75 96 06/04/20 07:16 82 06/04/20 03:00 36.7 C 76 18 105/65 96 06/04/20 00:21 77 06/03/20 23:19 36.6 C 77 18 106/66 95 PG Care Time/CCT Total # of Minutes Spent Total Time Spent with Patient: Total time spent is greater than 50% in coordination of care (as documented) at patient's floor/unit and/or counseling patient: Coding Level of Care Code 10137 Initial Inpt Care Lvl 3 Diagnoses Urinary retention R33.9 Hematuria R31.9
[2020-06-04] MEDS: MIRTAZAPINE TAB 15 MG TAB PO SCH (20:29)
--- NOTE | 2020-06-05 08:58 | Urology Progress Note ---
Date of Service June 05, 2020 Assessment & Plan (1) Urinary retention: (2) Hematuria: 84yo M admitted on 05/19 with COVID-19 pneumonia who developed urinary retention requiring padilla catheter placement and now with gross hematuria - Afebrile, VSS. No new labs today. - Patient developed urinary retention and required Padilla catheter placement on 06/02. - Developed gross hematuria secondary to catheter trauma (patient pulled on catheter). - Padilla catheter intact/patent, draining pink-tinged urine with a few small clots noted in tubing this morning - Eliquis on hold per primary team. - Maintain Padilla catheter and continue to monitor -OK to irrigate gently as needed for retention/clots/suprapubic pain. - Bladder scan as needed. - Recommend keeping Padilla catheter for at least 7-10 days - Will arrange outpatient follow-up with urology for voiding trial - Possible discharge to [facility] later today, will continue to follow while inpatient Admission and Anticipated Discharge Date Admission Date: May 19, 2020 Subjective Pt examined at bedside this AM. Awake, resting comfortably in bed on arrival. He denies any pain or discomfort currently, does have intermittent suprapubic discomfort. Padilla catheter intact/patent, draining pink-tinged urine with a few small clots noted in tubing. Padilla catheter irrigated overnight x1 by nursing for suprapubic pain - Pain improved following irrigation. Denies dysuria. No fevers or chills. Tolerating diet, no nausea or vomiting. Urine output overnight -1200ml Eliquis on hold Review of Systems Constitutional: as per Subjective / HPI Gastrointestinal: as per Subjective / HPI Genitourinary: + as per Subjective / HPI Physical Exam Constitutional: well developed and cooperative; no acute distress Respiratory: no respiratory distress and no labored breathing Gastrointestinal (Abdomen): Inspection/Auscultation: abdomen not distended Percussion/Palpation: + abdomen tender (mild suprapubic tenderness with palpation) and abdomen soft; no guarding Musculoskeletal: Head/Neck/Chest: normocephalic Skin: Warm and dry. Neurologic: awake Psychiatric: A+Ox3, euthymic affect Genitourinary: Padilla catheter intact Results & Data ([facility]) Vital Signs (Past 12 Hours) Vital Signs Temp Pulse Pulse Resp BP BP Pulse Ox 06/05/20 08:02 36.3 C L 86 18 114/73 94 06/05/20 07:32 73 06/05/20 03:44 36.6 C 76 20 137/77 96 06/05/20 00:14 36.2 C L 81 22 121/74 97 06/04/20 23:48 74 PG Care Time/CCT Total # of Minutes Spent Total Time Spent with Patient: Total time spent is greater than 50% in coordi nation of care (as documented) at patient's floor/unit and/or counseling patient: Coding Level of Care Code 32454 Subseq Hosp Care Lvl 2 Diagnoses Urinary retention R33.9 Hematuria R31.9
[2020-06-05] MEDS: INSULIN ASPART 100 UNITS/ML 3 ML PEN SC SCH ×2 (09:02→12:40)
[2020-06-05] MEDS: CYANOCOBALAMIN 500 MCG TABLET (VITAMIN B-12) PO SCH (09:03)
[2020-06-05] MEDS: CHOLECALCIFEROL 1,000 UNITS 25 MCG TAB PO SCH (09:03)
[2020-06-05] MEDS: PANTOprazole 40 MG TAB PO SCH (09:03)
[2020-06-05] MEDS: MAGNESIUM OXIDE 400 MG TAB PO SCH (09:04)
[2020-06-05] MEDS: ASPIRIN 81 MG ECTAB PO SCH (09:04)
[2020-06-05] MEDS: FLUDROCORTISONE ACETATE 0.1 MG TAB PO SCH (09:04)
[2020-06-05] MEDS: VITAMIN B COMPLEX TAB PO SCH (09:04)
[2020-06-05] MEDS: INSULIN GLARGINE SOLOSTAR 100 UNITS/ML 3 ML PEN SC SCH (09:05)
[2020-06-05] MEDS: CEROVITE ADV FORMULA TAB PO SCH (09:05)
[2020-06-05] MEDS: AMIODARONE 200 MG TAB PO SCH (09:05)
--- NOTE | 2020-06-05 09:45 | Hospitalist Progress Note ---
Date of Service June 04, 2020 Assessment & Plan (1) Orthostatic hypotension: has improved with florinef, did have normal am cortisol and tsh, continue to watch edema and blood pressure stop IV fluids 06/03 plan for SNF rehab once insurance authorizes (2) Urinary retention: developing issue, straight cath for over 600mL on 06/03 had lower abdominal pain post void residual 300mL on 06/03 padilla placed in evening on 06/03 will need to keep catheter for 10-14 days and follow up with urology for voiding trial now with some hematuria, clots, will hold Eliquis appreciate urology consult, recommend flushing catheter and holding Eliquis (3) Depressed: PT has depressed affect and speaking to family has been so for some time, the pt and family are agreeable to try remeron for depression and help with appetite stimulation continue Remeron on discharge, will take some time to work (4) Atrial fibrillation: went into afib with RVR, rates in 150's on 05/22 in the evening, now rate controlled on Amiodarone 200mg BID, Eliquis 5mg BID on 05/23 was cardioverted successfully, not on metoprolol due to lower blood pressure remains in nsr post conversion Cardiology consultation agrees with amiodarone and anticoagulation echocardiogram shows EF 45%, previous echo 2019 35-40%-> HFrEF is euvolemic and stable, was started on lisinopril but this will be held due to lower blood pressure hold Eliquis due to hematuria, can hold it for a week as he is in NSR at this time (5) Pneumonia due to COVID-19 virus: Patient is now out of airborne precautions due to duration of illness dexamethasone 6 mg IV daily, will discontinue now is no longer hypoxemic Given duration of illness (admission on day 13) no benefit from remdesivir. Discontinue airborne isolation precautions. Per infectious control review titrated down to room air, no distress, saturations > 90% very weak, even at baseline, will ask PT/OT to see him Continues to be very fatigued eating and drinking better, stop IV fluids PT/OT - very weak, recommending rehab, apply for auth today, should be ready tomorrow (6) Hypoxia: resolved (7) Diabetes mellitus, type II: Hemoglobin A1c 5.4 in July 2019 Hold Metformin. 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 Prior LDL 49 in 07/2019 (11) Low vision of left eye: Secondary to macular degeneration (12) Oropharyngeal dysphagia: eating fine today, has minced and moist diet (13) Constipation: adding scheduled senna to prn miralax (14) DVT prophylaxis: D-dimer high at 4400, continue anticoagulation with apixaban Admission and Anticipated Discharge Date Admission Date: May 19, 2020 Subjective patient doing okay, eating well he was pulling at his padilla catheter, caused some hematuria and clots and then it was not draining well, urine around the catheter appreciate urology consult, flushed catheter, got out clots, urine clear eventually vitals stable will hold Eliquis as he is in normal sinus rhythm stable for discharge, awaiting insurance auth anticipated him getting auth on 06/04 but still pending by end of the day Review of Systems Review of Systems: All systems reviewed & are unremarkable except as noted in Subjective Constitutional: + fatigue and + weakness Respiratory: no dyspnea Cardiovascular: no chest pain Gastrointestinal: no abdominal pain, no nausea, no vomiting, no constipation and no diarrhea/loose stools Genitourinary: + hematuria (clots in padilla) Physical Exam Constitutional: well developed, + thin, + frail appearing and comfortable; no acute distress Neck: trachea midline, no thyromegaly Respiratory: normal respiratory effort, lungs clear to auscultation Cardiovascular: RRR, no murmur, no edema Rate/Rhythm: regular rate and + irregularly irregular Heart Sounds: normal S1 and normal S2; no murmur Extremities: normal capillary refill; no edema Gastrointestinal (Abdomen): normal bowel sounds, soft, nontender, no hepatosplenomegaly Musculoskeletal: Head/Neck/Chest: normocephalic, head atraumatic and neck supple Extremities: extremities normal to inspection and + abnormal strength (generalized weakness in legs, cannot stand up) Skin: no rashes, warm and dry Neurologic: patellar DTR's 2+ bilat, sensation intact and PERRL, EOMI, accommodation nl, no face palsy, no dysarthria Psychiatric: A+Ox3, euthymic affect Lymphatic: no cervical or axillary lymphadenopathy Results & Data Results & Data ([facility]) Vital Signs (Past 12 Hours) Vital Signs Temp Pulse Pulse Resp BP BP Pulse Ox 06/05/20 08:02 36.3 C L 86 18 114/73 94 06/05/20 07:32 73 06/05/20 03:44 36.6 C 76 20 137/77 96 06/05/20 00:14 36.2 C L 81 22 121/74 97 06/04/20 23:48 74 Medications Administered Current Inpatient Medications Acetaminophen (Acetaminophen 325 Mg Tab) 650 mg PO Q4H PRN PRN Reason: pain/fever Stop: 06/18/20 20:27 Last Admin: 06/04/20 09:40 Dose: 650 mg Documented by: Amiodarone HCl (Amiodarone 200 Mg Tab) 200 mg PO DAILY DANIKA Stop: 07/01/20 08:59 Last Admin: 06/05/20 09:05 Dose: 200 mg Documented by: Apixaban (Apixaban 5 Mg Tablet) 5 mg PO BID DANIKA Stop: 06/22/20 20:59 Last Admin: 06/04/20 08:57 Dose: 5 mg Documented by: Aspirin (Aspirin 81 Mg Ectab) 81 mg PO DAILY DANIKA Stop: 06/19/20 08:59 Last Admin: 06/05/20 09:04 Dose: 81 mg Documented by: Cyanocobalamin (Cyanocobalamin 500 Mcg Tablet (Vitamin B-12)) 2,000 mcg PO QAM DANIKA Stop: 06/19/20 08:59 Last Admin: 06/05/20 09:03 Dose: 2,000 mcg Documented by: Dextrose (Dextrose 50% 50 Ml Syringe) 25 - 50 ml IV UD PRN; Protocol PRN Reason: Hypoglycemia Protocol Stop: 06/18/20 21:14 Fludrocortisone Acetate (Fludrocortisone Acetate 0.1 Mg Tab) 0.1 mg PO QAM DANIKA Stop: 07/01/20 08:59 Last Admin: 06/05/20 09:04 Dose: 0.1 mg Documented by: Glucagon (Glucagon For Inj 1 Mg Vial) 1 mg SQ UD PRN; Protocol PRN Reason: Hypoglycemia Protocol Stop: 06/18/20 21:14 Glucose (Glucose 40% Gel 15 Gm Tube) 15 - 30 gm PO UD PRN; Protocol PRN Reason: Hypoglycemia Protocol Stop: 06/18/20 21:14 Last Admin: 05/22/20 08:43 Dose: 15 gm Documented by: Glucose (Glucose 10 Tabs/Tube) 4 - 8 tabs PO UD PRN; Protocol PRN Reason: Hypoglycemia Protocol Stop: 06/18/20 21:14 Heparin Sodium (Porcine) (Heparin 100 Unit/Ml 5ml Flush) 5 ml FLUSH PRN PRN PRN Reason: Flush Stop: 06/19/20 03:51 Last Admin: 06/04/20 10:08 Dose: 5 ml Documented by: Insulin Aspart (Insulin Aspart 100 Units/Ml 3 Ml Pen) 0 units SC ACHS DANIKA Stop: 06/18/20 21:29 Last Admin: 06/05/20 09:02 Dose: 7 units Documented by: Insulin Glargine (Insulin Glargine Solostar 100 Units/Ml 3 Ml Pen) 8 units SC DAILY DANIKA Stop: 07/02/20 08:59 Last Admin: 06/05/20 09:05 Dose: 8 units Documented by: Magnesium Oxide (Magnesium Oxide 400 Mg Tab) 400 mg PO DAILY DANIKA Stop: 06/19/20 08:59 Last Admin: 06/05/20 09:04 Dose: 400 mg Documented by: Metoprolol Tartrate (Metoprolol Tartrate 1 Mg/Ml Vial) 5 mg IV Q4H PRN PRN Reason: sbp> 185, dbp >95, HR >120 Stop: 06/28/20 15:34 Mirtazapine (Mirtazapine Tab 15 Mg Tab) 15 mg PO HS [facility] Stop: 07/01/20 20:59 Last Admin: 06/04/20 20:29 Dose: 15 mg Documented by: Miscellaneous (Carbohydrates For Hypoglycemia ) 15 - 30 gm PO UD PRN PRN Reason: Hypoglycemia Treatment Stop: 06/18/20 21:14 Last Admin: 06/03/20 16:53 Dose: 15 gm Documented by: Miscellaneous Information (Pharmacy Glycemic Mgmt Consult) 1 ea N/A UD PRN PRN Reason: Consult Stop: 06/18/20 20:59 Multivitamins/Minerals (Cerovite Adv Formula Tab) 1 tab PO BID DANIKA Stop: 06/18/20 21:39 Last Admin: 06/05/20 09:05 Dose: 1 tab Documented by: Ondansetron HCl (Ondansetron Inj 2 Mg/Ml 2 Ml Vial) 4 mg IV Q4H PRN PRN Reason: Nausea Stop: 06/18/20 20:27 Last Admin: 05/31/20 18:07 Dose: 4 mg Documented by: Pantoprazole Sodium (Pantoprazole 40 Mg Tab) 40 mg PO QAM DANIKA Stop: 06/20/20 08:59 Last Admin: 06/05/20 09:03 Dose: 40 mg Documented by: Polyethylene Glycol (Polyethylene (Miralax) 17 Gm Pack) 17 gm PO DAILY PRN PRN Reason: Constipation Stop: 06/18/20 20:27 Last Admin: 05/29/20 10:13 Dose: 17 gm Documented by: Vitamin B Complex (Vitamin B Complex Tab) 1 tab PO DAILY DANIKA Stop: 06/19/20 08:59 Last Admin: 06/05/20 09:04 Dose: 1 tab Documented by: Vitamin D (Cholecalciferol 1,000 Units 25 Mcg Tab) 2,000 units PO DAILY DANIKA Stop: 06/19/20 08:59 Last Admin: 06/05/20 09:03 Dose: 2,000 units Documented by: PG Care Time/CCT Total # of Minutes Spent Total Time Spent with Patient: Total time spent is greater than 50% in coordination of care (as documented) at patient's floor/unit and/or counseling patient: Coding Level of Care Code 02733 Subseq Hosp Care Lvl 2 Diagnoses Orthostatic hypotension I95.1 Urinary retention R33.9 Depressed F32.9 Atrial fibrillation I48.0 Atrial fibrillation type: paroxysmal Pneumonia due to COVID-19 virus U07.1; J12.82 Hypoxia R09.02 Diabetes mellitus, type II E11.65 Diabetes mellitus intermediate card 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 insulin use: without intermediate card tender use Diabetes mellitus complication status: with hyperglycemia Lymphoma, marginal zone, spleen C83.07 Gait apraxia R48.2 History of [place] (myocardial infarction) I25.2 Low vision of left eye H54.52A1 Oropharyngeal dysphagia R13.12 Constipation K59.00 DVT prophylaxis Z29.9 (1) Atrial fibrillation Atrial fibrillation type: paroxysmal Qualified Code(s): I48.0 - Paroxysmal atrial fibrillation (2) Diabetes mellitus, type II Diabetes mellitus halfway insulin use: without halfway use Diabetes mellitus complication status: with hyperglycemia Qualified Code(s): E11.65 - Type 2 diabetes mellitus with hyperglycemia
[2020-06-05 11:28] VITALS: BP 93/60; TEMP 98.2; O2SAT 98
--- NOTE | 2020-06-05 12:26 | Discharge Summary ---
Date of Service June 05, 2020 Admission HPI Per Admitting Provider Booker Melissa is an 84-year-old male who presents to the ER via EMS with shortness of breath. He was exposed to his grandson who tested positive for COVID-19 3 weeks ago. History taken from the patient in person and and daughter over the phone. Suspected started illness May 07 initially with fever and chills. He progressively became more fatigued with reduced appetite and for the last 7 days has mostly been laid up in bed. He comes to the emergency room today on advice of his daughter who is an RN and called EMS. Current main symptoms of generalized fatigue and poor appetite. Additional symptoms of chills, shortness of breath, dry cough, sore throat, vomiting (just once today), nasal congestion. He notably reports being wheelchair-bound since the fall due to diabetic neuropathy. Also notably has a port for repeated iron transfusions. In the ER chest x-ray concerning for mild bilateral airspace opacities and interstitial thickening suggestive of infectious process, SARS-CoV-2 PCR posit boy. He was treated with dexamethasone 10 mg IV. He was referred to medicine for admission ongoing management of COVID-19 pneumonia. Admission Exam Per Admitting Provider COVID 19 pneumonia Principal Diagnosis COVID 19 pneumonia, atrial fibrillation, urinary retention Discharge Exam Constitutional well developed, + thin, + frail appearing and comfortable; no acute distress Neck trachea midline, no thyromegaly Respiratory normal respiratory effort, lungs clear to auscultation Cardiovascular RRR, no murmur, no edema Rate/Rhythm: regular rate and + irregularly irregular Heart Sounds: normal S1 and normal S2; no murmur Extremities: normal capillary refill; no edema Gastrointestinal (Abdomen) normal bowel sounds, soft, nontender, no hepatosplenomegaly Musculoskeletal Head/Neck/Chest: normocephalic, head atraumatic and neck supple Extremities: extremities normal to inspection and + abnormal strength (general ized weakness in legs, cannot stand up) Skin no rashes, warm and dry Neurologic patellar DTR's 2+ bilat, sensation intact and PERRL, EOMI, accommodation nl, no face palsy, no dysarthria Psychiatric A+Ox3, euthymic affect Genitourinary no testicular masses, no penis abnormality (padilla catheter in place, bernal colored urine) Lymphatic no cervical or axillary lymphadenopathy Discharge Data Allergies Allergy/AdvReac Type Severity Reaction Status Date / Time Sulfa (Sulfonamide Allergy Intermediate RASH Verified 05/19/20 15:11 Antibiotics) adhesive Allergy Mild RASH Verified 05/19/20 15:11 bee venom protein (honey bee) Allergy Unknown Unknown Verified 05/27/20 10:13 Consultations 05/19/20 17:36 ED Decision to Admit Stat 05/25/20 21:31 Consult Cardiology Routine 06/04/20 09:56 Consult Urology Routine Procedures Performed Operation Date: 05/30/20 11:00 Actual Procedures p Cardioversion - Royce Mcneil MD Ordered Studies 05/31/20 16:41 CT head/brain wo con Routine Hospital Course (1) Orthostatic hypotension: has improved with florinef, did have normal am cortisol and tsh, continue to watch edema and blood pressure stop IV fluids 06/03 plan for SNF rehab once insurance authorizes continue Florinef 0.1mg daily (2) Urinary retention: developing issue, straight cath for over 600mL on 06/03 had lower abdominal pain post void residual 300mL on 06/03 padilla placed in evening on 06/03 will need to keep catheter for 10-14 days and follow up with urology for voiding trial now with some hematuria, clots, will hold Eliquis for 7 days appreciate urology consult, recommend flushing catheter and holding Eliquis follow up with [facility] urology in clinic in 7-10 days (3) Depressed: PT has depressed affect and speaking to family has been so for some time, the pt and family are agreeable to try remeron for depression and help with appetite stimulation continue Remeron on discharge, will take some time to work (4) Atrial fibrillation: went into afib with RVR, rates in 150's on 05/22 in the evening, now rate controlled on Amiodarone 200mg BID, Eliquis 5mg BID on 05/23 was cardioverted successfully, not on metoprolol due to lower blood pressure remains in nsr post conversion Cardiology consultation agrees with amiodarone and anticoagulation echocardiogram shows EF 45%, previous echo 2019 35-40%-> HFrEF is euvolemic and stable, was started on lisinopril but this will be held due to lower blood pressure hold Eliquis due to hematuria, can hold it for a week as he is in NSR at this time (5) Pneumonia due to COVID-19 virus: Patient is now out of airborne precautions due to duration of illness dexamethasone 6 mg IV daily, will discontinue now is no longer hypoxemic Given duration of illness (admission on day 13) no benefit from remdesivir. Discontinue airborne isolation precautions. Per infectious control review titrated down to room air, no distress, saturations > 90% very weak, even at baseline, will ask PT/OT to see him Continues to be very fatigued eating and drinking better, stop IV fluids PT/OT - very weak, recommending rehab, go to [facility] goal is for him to be able to stand and pivot to get in wheelchair (6) Hypoxia: resolved (7) Diabetes mellitus, type II: Hemoglobin A1c 5.4 in July 2019 Hold Metformin. 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 Prior LDL 49 in 07/2019 (11) Low vision of left eye: Secondary to macular degeneration (12) Oropharyngeal dysphagia: eating fine today, has minced and moist diet (13) Constipation: adding scheduled senna to prn miralax (14) DVT prophylaxis: D-dimer high at 4400, continue anticoagulation with apixaban Total Time Total Time Spent Total Time Spent (In Minutes): 40 Total Time Includes: Examination of the Patient, Discharge Planning, Medication Reconciliation and Communication With Other Providers (spoke with insurance for peer to peer) Discharge Plan Discharge Items Patient Disposition: Transfer [facility] Fac Reason For Visit: COVID-19 HYPOXIA Discharge Diagnosis: COVID 19 pneumonia Atrial fibrillation, s/p cardioversion urinary retention, padilla placed Condition on Discharge: Good Goals: follow up with urology in 10-14 days for voiding trial improve strength and mobility, goal is to stand and pivot so he can go home safely Activity: Resume your previous activity Non-emergency contact: Primary Care Provider Call non-emergency contact if: you have any medication questions Follow-up/Referrals: Royce Mcneil MD [Physician] - (one month, follow up atrial fibrillation, cardioversion) Buddy Olivo DO [Physician] - (10 days, needs voiding trial in office for urinary retention) Gilberto Locke DO [Primary Care Provider] - Diet: Carb Consistent or DM2 Addtl Attending Provider Instructions: Medications: - AMIODARONE: 200mg daily for the next month, follow up with Dr. Mcneil to see if he should continue taking past one month - ELIQUIS: 5mg twice a day for stroke prevention with afib, PLEASE HOLD THIS MEDICATION UNTIL 06/11 DUE TO HEMATURIA/CLOTS - FLORINEF: 0.1mg every morning for orthostatic hypotension - REMERON: 15mg at night for depression, help appetite COVID 19, mild hypoxemia that resolved quickly, completed course of dexamethasone, no longer needs isolation still with weakness, was already weak prior to admission needs rehab to improve ability to stand and pivot so that family can transfer him at home Atrial fibrillation: went into afib while admitted, treated initially with amiodarone due to low blood pressures successful cardioversion by Dr. Mcneil, remains in NSR continue amiodarone and Eliquis (hold until 06/11 due to hematuria and clots) recommend follow up with cardiology in a month Urinary retention: required straight cath for 600mL and then had post void residuals of over 300mL padilla placed on 06/02 due to ongoing retention recommend keeping padilla until he can follow up with urology in the office, allow bladder to relax cannot use Flomax due to orthostatic hypotension changes had some hematuria and clots on 06/04 in the morning hold Eliquis, can irrigated catheter 1-2x a day as needed, urine is bernal colored this was due to catheter trauma, he pulled at catheter in evening and morning on 06/04 Pending Studies at Discharge: No Stand-Alone Forms: My [facility] [email or web address] Skilled Items Patient informed of condition?: Yes DNR: Yes Discharge Level of Care: Acute rehab Communicable Disease: No Discharge Prognosis: Improving Lines: None Urinary Catheter: Yes Medications and DC Order Prescriptions: New Eliquis 5 mg Tablet 5 mg PO BID 30 Days Qty: 60 RF: 3 amiodarone 200 mg Tablet 200 mg PO DAILY 30 Days Qty: 30 RF: 0 mirtazapine 15 mg Tablet 15 mg PO HS 30 Days Qty: 30 RF: 3 fludrocortisone 0.1 mg Tablet 0.1 mg PO QAM 30 Days Qty: 30 RF: 3 Continued aspirin [Adult Low Dose Aspirin] 81 mg tablet,delayed release (DR/EC) 81 mg PO DAILY Qty: 30 RF: 2 vitamin B complex [B Complex-Vitamin B12] tablet 1 tab PO DAILY Qty: 30 RF: 0 magnesium 250 mg tablet 250 mg PO DAILY Qty: 30 RF: 0 cholecalciferol (vitamin D3) 2,000 unit capsule 2,000 units PO DAILY Qty: 30 RF: 0 metformin 500 mg tablet 500 mg PO BID Qty: 180 RF: 3 cyanocobalamin (vitamin B-12) 2,000 mcg tablet 2,000 mcg PO DAILY RF: 0 PreserVision AREDS-2 [id number]-somc-lo-mg capsule 1 tab PO BID RF: 0 Discontinued metoprolol tartrate 50 mg tablet 25 mg PO BID Qty: 90 RF: 3 lisinopril 5 mg tablet 5 mg PO DAILY Qty: 90 RF: 3 Discharge Orders: Discharge Order (Routine); Ordered 06/05/20 Ordered By: Pablo Treadwell/Other Patient Handouts: Managing Type 2 Diabetes, Managing Diabetes: The A1C Test Admission Data Admit Date/Time: 05/19/20 18:14 Attending Provider: Pablo Hager Admit Provider: Norris Rivera Primary Care Provider: Gilberto Locke Other Providers: Norris Rivera ; Kain Clements ; Heartjacqueline, ; Buddy Olivo Other Interventions: Discharge Summary Assessment (RN) Last Done: 06/05/20 14:18 Coding Level of Care Code D/C Day Management >30 mins Diagnoses Orthostatic hypotension I95.1 Urinary retention R33.9 Depressed F32.9 Atrial fibrillation I48.0 Atrial fibrillation type: paroxysmal Pneumonia due to COVID-19 virus U07.1; J12.82 Hypoxia R09.02 Diabetes mellitus, type II E11.65 Diabetes mellitus complication status: with hyperglycemia Diabetes mellitus 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
[2020-06-05 13:38] VITALS: PULSE 85
== END 2020-06-05 15:15 | DRG 177 ==
LOC: ED 13:34 → 2W 18:14 → SUATTDRO 18:14 → 2W 18:57 → 2N 06-02 14:18

== ENCOUNTER 2020-06-09 05:20 | Inpatient (IN) ==
[2020-06-09] MEDS ORDERED: SODIUM CHLORIDE 0.9% 1000ML 1,000 ML IV ONE (05:33)
--- NOTE | 2020-06-09 05:41 | Emergency Department Note ---
Impression & Plan Hypoxia, Bilateral pleural effusion, Elevated troponin, Acute hypotension ED Provider Note Name: NATALIA RANDHAWA Age: 84 Sex: M Arrives Via: Ambulance Informant: Patient, Daughter ED Provider: Donny Jimenez MD Chief Complaint: Hypoxia Impression: Hypoxia Bilateral Pleural Effusion Elevated Troponin Acute Hypotension Medical Decision Makin yr old male from [facility] who has been there the last 3 days after 2 weeks hospitalization for COVID complicated by Afib RVR and Urinary Retention. He was seen in ED after padilla came out yesterday, thus it was replaced and he was started on keflex for possible UTI. He arrives back here for evaluation of hypotension, bradycardia (30s per snf), and hypoxia (60s per snf). On arrival he is hypotensive and severely malnourished/weak and dehydrated. His sats are mid 90s on Room air and his HR is in the 60s with many PVCs/PACs. Lungs with decreased sounds lower bilaterally and crackles mid lung lockett. He is quite short of breath with laying flat which resolved with sitting up. When he falls asleep O2 sats are noted to drop in to 80s thus he was put on NC with good result. CXR with bilateral L>R new effusions and bilateral congestion/infiltrates. Given 1 L NSS Bolus with improvement in BP to 100/60. Patient was discussed with daughter (Emily Dyson [phone]) who is Trauma/CCM nurse at [employer] and agrees with plan. She was concerned for PE and given his recent hospitalization, known covid 2 weeks ago, and new hypoxia/hypotension will go ahead and get CTA PE study to further evaluate chest. Trop is positive which is new, along with some diffuse EKG changes which may be due hypoxia/hypotension, or even evolving cardiomyopathy he had from covid. He fortunately is adamant no chest pain thus I do not feel this is ACS requiring emergent interventionalist evaluation. With new effusions, hematuria and new mild thrombocytopenia will hold off on anticoagulation at this time. Prior Medical Record and Triage/Nursing Notes reviewed by Me Additional history obtained from chart and daughter Differentials:Reactive airway disease, pneumonia, pneumothorax, COPD, CHF, infections, cardiac ischemia, pulmonary embolism, musculoskeletal, gastrointestinal, as well as other pathologies. Vital Signs: reviewed and remarkable for hypotension Interventions: saline lock, nss bolus 1 L IV Labs:Reviewed and remarkable for mildly elevated troponin, mild new thrombocytopenia Imaging:X ray results are stated below per my interpretation: Chest: 1 view: New bilateral effusions, atelectasis/infiltrates bilaterally Radiologist interpretation reviewed by me: EKG:Per My Interpretation: Indication Hypotension: NSR 62 bpm, qtc 477, mult iple PACs/PVCs. No Ischemia. Compared to EKG 05/30/20 there are now PVCs & PACs and there is flattening of T waves that were previously inverted anteriorly. ST abnormalities notes throughout Cardiac/Tele Monitoring: Cardiac Monitoring: An Order was placed for continuous cardiac monitoring. The monitor shows a rate of 60 with a normal sinus rhythm with frequent PAC/PVC. Consults:Dr Israel NARAYAN Hospitalist Plan: Disposition:Hospitalization. Condition: Poor History of Present Illness:84 yr old male arrives for evaluation of weakness. Patient hospitalized for the last 2 weeks with COVID and discharged a few days ago to [facility] for post care. During his stay he had complications of afib rvr requiring cardioversion and hematuria with urinary retention. He arrives this morning following a trip here to ED yesterday for acute urinary retention with continued hematuria, having started on abx yesterday evening during ED stay. This morning arrives from alf following Hypotension, Bradycardia and Hypoxia with episodes of "agonal respirations." Patient notes he is very tired, that he feels like he can't breath and that he is very hungry/thirsty. He notes he hasn't eaten in the last two days and feels lightheaded. Shortness of breath is worse with laying flat but improves with sitting up. Denies chest pain, headache, neck pain, fevers, chills cough, abdominal pain, nausea, vomiting, diarrhea, leg swelling, calf pain nor other symptoms. No falls/injuries. No medications prior to arrival. He was on Eliquis when discharged to alf. ROS: See above HPI for pertinent positives & negatives. A total of 10 systems reviewed and were otherwise negative. Past Medical History:COVID-19, Afib, COPD, DMII, Hyperlipidemia, Macular degeneration Past Surgical History:eye surgery Family History:non contributory Social History:LIves in alf, no etoh, no tobacco Home Medications:See Below Allergies:Sulfa, bees, Adhesive Vitals:Blood Pressure: 80/40, Pulse 66, RR 22, T 36.7C, O2 96% on RA Physical Exam: GENERAL: Patient is chronically unwell appearing and in minimal distress. Dehydrated appearing EYES: No scleral icterus, unremarkable pupils. ENT: Mucous membranes dry, no nasal congestion. NECK: No masses appreciated, nomeningismus, trachea is midline. RESPIRATORY: No dyspnea. Clear to auscultation and equal bilaterally. No wheeze, no rhonchi. CARDIOVASCULAR: Regular rate and rhythm.No murmurs, rubs, gallops appreciated. GASTROINTESTINAL: Abdomen soft, non-tender, no peritonitis.Bowel sounds positi ve.No masses appreciated. BACK: No midline tenderness, no CVA tenderness EXTREMITIES: Normal motion all extremities, no cyanosis, no edema. NEUROLOGIC: Alert and oriented, no acute motor or sensory deficits, no focal weakness, cranial nerves grossly intact. SKIN: No rash, no jaundice, no diaphoresis. PSYCH: Appropriate GCS: 15 ED Course: Times/Reassessments: Feel asleep and hypoxia in to the mid 80s noted. 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 Following with Heme/Onc q6 months. Vitamin D insufficiency Surgical History H/O heart artery stent (~2002) History of cholecystectomy History of PTCA (~2013) Family History Father Leukemia Mother Sick sinus syndrome S/P placement of cardiac pacemaker Sister Macular degeneration Brother Macular degeneration Denies family history of Ovarian cancer Prostate cancer Breast cancer Lung cancer Colorectal cancer Social History Smoking Status: Former smoker Second Hand Exposure: No; Hx Alcohol Use: No Hx Substance Use: No Preferred Language: Maori Communication Ability: Effective Visual Impairment: No Limitations Hearing Ability: Normal Research Recruiter Required: No Beliefs That Will Affect Care: None marital status: Current Living Situation: Care Home Current Living Situation Comment: Lives with and nephew How many Children do You have: 4 Feels Safe at Home: Yes Safety Concerns: Feels Safe At This Time Assistive Devices: Denture - Upper, Glasses, Walker and Wheelchair Allergies Allergies Allergy/AdvReac Type Severity Reaction Status Date / Time Sulfa (Sulfonamide Allergy Intermediate RASH Verified 06/09/20 07:34 Antibiotics) adhesive Allergy Mild RASH Verified 06/09/20 07:34 bee venom protein (honey bee) Allergy Unknown Unknown Verified 06/09/20 07:34 Home Meds Home Medications Medication Instructions Recorded Confirmed cyanocobalamin (vitamin B-12) 2,000 mcg PO DAILY tab 11/22/18 06/09/20 2,000 mcg tablet vit C 250 mg-vit E 90 mg-zinc 40 1 tab PO BID 11/22/18 06/09/20 mg-copper 1 [id number] capsule acetaminophen 650 mg PO Q6 PRN MDD 3g 06/08/20 06/09/20 acetaminophen 650 mg PO Q6 PRN MDD 3g 06/08/20 06/09/20 amiodarone 200 mg PO QAM 06/08/20 06/09/20 apixaban [Eliquis] 5 mg PO UD 06/08/20 06/09/20 aspirin [Adult Low Dose Aspirin] 81 mg PO UD 06/08/20 06/09/20 lisinopril 5 mg PO QAM 06/08/20 06/09/20 magnesium 250 mg PO QAM 06/08/20 06/09/20 metoprolol tartrate 25 mg PO BID 06/08/20 06/09/20 potassium chloride 10 meq PO DAILY 06/08/20 06/09/20 Previous Rx's Medication Instructions Recorded cholecalciferol (vitamin D3) 50 2,000 units PO DAILY #30 cap 08/21/18 mcg (2,000 unit) capsule vitamin B complex 1 tab PO DAILY #30 tab 08/21/18 metformin 500 mg tablet 500 mg PO BID #180 tab 05/19/20 fludrocortisone 0.1 mg PO QAM 30 Days #30 tab 06/04/20 mirtazapine 15 mg PO HS 30 Days #30 tab 06/04/20 cephalexin 500 mg PO Q6H 5 Days #20 cap 06/08/20 phenazopyridine [Pyridium] 200 mg PO TID PRN #6 tab 06/08/20 Results & Data (ED) Vital Signs Vital Signs - 24 hr 06/09/20 05:39 06/09/20 06:03 06/09/20 07:06 Temperature 36.7 C Temperature Source Oral Pulse Rate 63 Pulse Rate [Right Finger] 66 62 Respiratory Rate 18 22 16 Respiratory Depth Normal Blood Pressure 89/58 L Blood Pressure [Right Arm] 99/59 L 121/72 Blood Pressure Mean 68 Blood Pressure Mean [Right Arm] 72 88 Blood Pressure Position Lying Blood Pressure Position [Right Arm] Lying Pulse Oximetry 97 96 99 Oxygen Delivery Method Room Air Room Air Nasal Cannula Oxygen Flow Rate 3 Sepsis Recent Fever Within 48 Hours No Sepsis New/Unexplained Change in Mental Status No Sepsis Action Taken by Nursing No Action Required Laboratory Data Result diagrams: 06/09/20 06:00 06/10/20 05:57 Lab Results 06/09/20 06/09/20 06/09/20 Range/Units 06:00 06:00 06:00 WBC 9.75 (4.8-10.8) K/uL RBC 3.27 L (4.7-6.1) M/uL Hgb 10.8 L (14.0-18.0) g/dL Hct 31.0 L (42-52) % MCV 94.8 (80-100) fL MCH 33.0 (25-34) pg MCHC 34.8 (32-36) g/dL RDW Std Deviation 57.7 H (36.4-46.3) fL RDW Coeff of Petar 17.4 H (11.5-14.5) % Plt Count 107 L (130-400) K/uL MPV 12.2 H (7.4-10.4) fL Immature Gran % (Auto) 0.2 % Neut % (Auto) 71.1 % Lymph % (Auto) 14.8 % Barbour % (Auto) 12.1 % Eos % (Auto) 1.7 % Baso % (Auto) 0.1 % Neut # (Auto) 6.93 H (1.4-6.5) K/uL Lymph # (Auto) 1.44 (1.2-3.4) K/uL Barbour # (Auto) 1.18 H (0.11-0.59) K/uL Eos # (Auto) 0.17 (0-0.5) K/uL Baso # (Auto) 0.01 (0-0.2) K/uL Immature Gran # (Auto) 0.02 (0.00-0.02) K/uL Platelet Estimate Decreased L (Normal) PT Cancelled INR Cancelled Sodium (136-145) mmol/L Potassium (3.5-5.1) mmol/L Chloride (98-107) mmol/L Carbon Dioxide (21-32) mmol/L Anion Gap (3-11) BUN (7-18) mg/dl Creatinine (0.6-1.4) mg/dl Est Cr Clr Drug Dosing ml/min Est GFR ( Amer) Est GFR (Non-Af Amer) BUN/Creatinine Ratio (10-20) Glucose (70-99) mg/dl Lactate 1.6 (0.4-2.0) mmol/L Calcium (8.5-10.1) mg/dl Magnesium (1.8-2.4) mg/dl Total Bilirubin (0.2-1) mg/dl Direct Bilirubin (0-0.2) mg/dl AST (15-37) U/L ALT (12-78) U/L Alkaline Phosphatase (45-117) U/L Troponin I (0-0.045) ng/ml Total Protein (6.4-8.2) gm/dl Albumin (3.4-5.0) gm/dl Lipase (73-393) U/L Procalcitonin Specimen Hemolysis COVID-19 Eval Order SARS-CoV-2 (PCR) (Negative) Influenza Type A (PCR) (Neg) Influenza Type B (PCR) (Neg) RSV (RT-PCR) (Neg) 06/09/20 06/09/20 06/09/20 Range/Units 06:00 06:00 06:58 WBC (4.8-10.8) K/uL RBC (4.7-6.1) M/uL Hgb (14.0-18.0) g/dL Hct (42-52) % MCV (80-100) fL MCH (25-34) pg MCHC (32-36) g/dL RDW Std Deviation (36.4-46.3) fL RDW Coeff of Petar (11.5-14.5) % Plt Count (130-400) K/uL MPV (7.4-10.4) fL Immature Gran % (Auto) % Neut % (Auto) % Lymph % (Auto) % Barbour % (Auto) % Eos % (Auto) % Baso % (Auto) % Neut # (Auto) (1.4-6.5) K/uL Lymph # (Auto) (1.2-3.4) K/uL Barbour # (Auto) (0.11-0.59) K/uL Eos # (Auto) (0-0.5) K/uL Baso # (Auto) (0-0.2) K/uL Immature Gran # (Auto) (0.00-0.02) K/uL Platelet Estimate (Normal) PT 13.4 H INR 1.4 H Sodium 138 (136-145) mmol/L Potassium (3.5-5.1) mmol/L Chloride 107 (98-107) mmol/L Carbon Dioxide 28 (21-32) mmol/L Anion Gap 3.0 (3-11) BUN 19 H (7-18) mg/dl Creatinine 0.88 (0.6-1.4) mg/dl Est Cr Clr Drug Dosing 63.4 ml/min Est GFR ( Amer) 90.8 Est GFR (Non-Af Amer) 78.3 BUN/Creatinine Ratio 21.3 H (10-20) Glucose 155 H (70-99) mg/dl Lactate (0.4-2.0) mmol/L Calcium 7.7 L (8.5-10.1) mg/dl Magnesium (1.8-2.4) mg/dl Total Bilirubin 1.9 H (0.2-1) mg/dl Direct Bilirubin (0-0.2) mg/dl AST (15-37) U/L ALT 21 (12-78) U/L Alkaline Phosphatase 70 (45-117) U/L Troponin I 0.071 H* (0-0.045) ng/ml Total Protein 6.2 L (6.4-8.2) gm/dl Albumin 2.0 L (3.4-5.0) gm/dl Lipase 40 L (73-393) U/L Procalcitonin Cancelled Specimen Hemolysis COVID-19 Eval Order SARS-CoV-2 (PCR) (Negative) Influenza Type A (PCR) (Neg) Influenza Type B (PCR) (Neg) RSV (RT-PCR) (Neg) 06/09/20 06/09/20 06/09/20 Range/Units 06:58 06:58 07:35 WBC (4.8-10.8) K/uL RBC (4.7-6.1) M/uL Hgb (14.0-18.0) g/dL Hct (42-52) % MCV (80-100) fL MCH (25-34) pg MCHC (32-36) g/dL RDW Std Deviation (36.4-46.3) fL RDW Coeff of Petar (11.5-14.5) % Plt Count (130-400) K/uL MPV (7.4-10.4) fL Immature Gran % (Auto) % Neut % (Auto) % Lymph % (Auto) % Barbour % (Auto) % Eos % (Auto) % Baso % (Auto) % Neut # (Auto) (1.4-6.5) K/uL Lymph # (Auto) (1.2-3.4) K/uL Barbour # (Auto) (0.11-0.59) K/uL Eos # (Auto) (0-0.5) K/uL Baso # (Auto) (0-0.2) K/uL Immature Gran # (Auto) (0.00-0.02) K/uL Platelet Estimate (Normal) PT INR Sodium (136-145) mmol/L Potassium 4.0 (3.5-5.1) mmol/L Chloride (98-107) mmol/L Carbon Dioxide (21-32) mmol/L Anion Gap (3-11) BUN (7-18) mg/dl Creatinine (0.6-1.4) mg/dl Est Cr Clr Drug Dosing ml/min Est GFR ( Amer) Est GFR (Non-Af Amer) BUN/Creatinine Ratio (10-20) Glucose (70-99) mg/dl Lactate (0.4-2.0) mmol/L Calcium (8.5-10.1) mg/dl Magnesium 1.7 L (1.8-2.4) mg/dl Total Bilirubin (0.2-1) mg/dl Direct Bilirubin 0.4 H (0-0.2) mg/dl AST 25 (15-37) U/L ALT (12-78) U/L Alkaline Phosphatase (45-117) U/L Troponin I (0-0.045) ng/ml Total Protein (6.4-8.2) gm/dl Albumin (3.4-5.0) gm/dl Lipase (73-393) U/L Procalcitonin 0.06 Specimen Hemolysis Cancelled COVID-19 Eval Order CovFluRsv at [facility] SARS-CoV-2 (PCR) (Negative) Influenza Type A (PCR) (Neg) Influenza Type B (PCR) (Neg) RSV (RT-PCR) (Neg) 06/09/20 Range/Units 07:35 WBC (4.8-10.8) K/uL RBC (4.7-6.1) M/uL Hgb (14.0-18.0) g/dL Hct (42-52) % MCV (80-100) fL MCH (25-34) pg MCHC (32-36) g/dL RDW Std Deviation (36.4-46.3) fL RDW Coeff of Petar (11.5-14.5) % Plt Count (130-400) K/uL MPV (7.4-10.4) fL Immature Gran % (Auto) % Neut % (Auto) % Lymph % (Auto) % Barbour % (Auto) % Eos % (Auto) % Baso % (Auto) % Neut # (Auto) (1.4-6.5) K/uL Lymph # (Auto) (1.2-3.4) K/uL Barbour # (Auto) (0.11-0.59) K/uL Eos # (Auto) (0-0.5) K/uL Baso # (Auto) (0-0.2) K/uL Immature Gran # (Auto) (0.00-0.02) K/uL Platelet Estimate (Normal) PT INR Sodium (136-145) mmol/L Potassium (3.5-5.1) mmol/L Chloride (98-107) mmol/L Carbon Dioxide (21-32) mmol/L Anion Gap (3-11) BUN (7-18) mg/dl Creatinine (0.6-1.4) mg/dl Est Cr Clr Drug Dosing ml/min Est GFR ( Amer) Est GFR (Non-Af Amer) BUN/Creatinine Ratio (10-20) Glucose (70-99) mg/dl Lactate (0.4-2.0) mmol/L Calcium (8.5-10.1) mg/dl Magnesium (1.8-2.4) mg/dl Total Bilirubin (0.2-1) mg/dl Direct Bilirubin (0-0.2) mg/dl AST (15-37) U/L ALT (12-78) U/L Alkaline Phosphatase (45-117) U/L Troponin I (0-0.045) ng/ml Total Protein (6.4-8.2) gm/dl Albumin (3.4-5.0) gm/dl Lipase (73-393) U/L Procalcitonin Specimen Hemolysis COVID-19 Eval Order SARS-CoV-2 (PCR) POSITIVE A* (Negative) Influenza Type A (PCR) Negative (Neg) Influenza Type B (PCR) Negative (Neg) RSV (RT-PCR) Negative (Neg) Administered Medications Amiodarone HCl (Amiodarone 200 Mg Tab) 200 mg PO QAM [facility] Stop: 07/09/20 11:05 Last Admin: 06/10/20 07:36 Dose: 200 mg Documented by: [id number] Admin: 06/09/20 12:54 Dose: 200 mg Documented by: [id number] Aspirin (Aspirin 81 Mg Ectab) 81 mg PO DAILY [facility] Stop: 07/09/20 11:05 Last Admin: 06/10/20 07:37 Dose: 81 mg Documented by: [id number] Admin: 06/09/20 12:53 Dose: 81 mg Documented by: [id number] Fludrocortisone Acetate (Fludrocortisone Acetate 0.1 Mg Tab) 0.1 mg PO QAM [facility] Stop: 07/09/20 11:05 Last Admin: 06/10/20 07:36 Dose: 0.1 mg Documented by: [id number] Admin: 06/09/20 12:54 Dose: 0.1 mg Documented by: [id number] Ceftriaxone Sodium 2,000 mg/ (Dextrose) 70 mls @ 140 mls/hr IV Q24H [facility] Stop: 06/14/20 11:59 Last Infusion: 06/09/20 13:49 Dose: 0 mls/hr Documented by: [id number] Admin: 06/09/20 12:54 Dose: 140 mls/hr Documented by: [id number] Insulin Aspart (Insulin Aspart 100 Units/Ml 3 Ml Pen) 0 units SC ACHS DANIKA Stop: 07/09/20 11:29 Last Admin: 06/09/20 20:30 Dose: 1 units Documented by: [id number] Cosigned by: [id number] Admin: 06/09/20 17:49 Dose: 1 units Documented by: [id number] Cosigned by: [id number] Admin: 06/09/20 13:48 Dose: 1 units Documented by: [id number] Cosigned by: [id number] Magnesium Oxide (Magnesium Oxide 400 Mg Tab) 400 mg PO QAM DANIKA Stop: 07/09/20 11:05 Last Admin: 06/10/20 07:36 Dose: 400 mg Documented by: [id number] Admin: 06/09/20 12:53 Dose: 400 mg Documented by: [id number] Mirtazapine (Mirtazapine Tab 15 Mg Tab) 15 mg PO HS DANIKA Stop: 07/09/20 20:59 Last Admin: 06/09/20 20:10 Dose: 15 mg Documented by: [id number] Multivitamins/Minerals (Cerovite Adv Formula Tab) 1 tab PO BID DANIKA Stop: 07/09/20 11:05 Last Admin: 06/10/20 07:37 Dose: 1 tab Documented by: [id number] Admin: 06/09/20 20:10 Dose: 1 tab Documented by: [id number] Admin: 06/09/20 12:53 Dose: 1 tab Documented by: [id number] Potassium Chloride (Potassium Chloride 10 Meq Tabcr) 10 meq PO DAILY DANIKA Stop: 07/09/20 11:05 Last Admin: 06/10/20 07:36 Dose: 10 meq Documented by: [id number] Admin: 06/09/20 12:53 Dose: 10 meq Documented by: [id number] Vitamin B Complex (Vitamin B Complex Tab) 1 tab PO DAILY DANIKA Stop: 07/09/20 11:05 Last Admin: 06/10/20 07:36 Dose: 1 tab Documented by: [id number] Admin: 06/09/20 12:54 Dose: 1 tab Documented by: [id number] Vitamin D (Cholecalciferol 1,000 Units 25 Mcg Tab) 2,000 units PO DAILY DANIKA Stop: 07/09/20 11:05 Last Admin: 06/10/20 07:36 Dose: 2,000 units Documented by: [id number] Admin: 06/09/20 12:53 Dose: 2,000 units Documented by: [id number] Discontinued Medications Sodium Chloride (Nss 1000ml) 1,000 mls @ 999 mls/hr IV .Q1H1M ONE Stop: 06/09/20 06:33 Last Infusion: 06/09/20 07:32 Dose: 0 mls/hr Documented by: [id number] Admin: 06/09/20 06:08 Dose: 999 mls/hr Documented by: [id number] Ioversol (Optiray 350 500ml) 125 ml IV ONCE ONE Stop: 06/09/20 06:29 Last Admin: 06/09/20 06:28 Dose: 109 ml Documented by: [id number] Imaging Data Radiologist's Impression: Chest X-Ray 06/09/20 05:33 SINGLE VIEW CHEST CLINICAL HISTORY: Hypoxia. Covid. FINDINGS: An AP, portable, upright chest radiograph is compared to study dated 05/19/2020. A right-sided central venous infusion port is unchanged in position. The heart is enlarged noting atherosclerotic calcification of the thoracic aorta. Multifocal airspace consolidation is seen throughout both lungs. There are layering pleural effusions. No pneumothorax is seen. The skeletal structures are osteopenic. There are healed left-sided rib fractures. IMPRESSION: 1. Multifocal airspace consolidation is seen throughout both lungs and consistent with the reported history of a viral pneumonia. 2. Layering pleural effusions. 3. Cardiomegaly. ACT 112: Negative or not required by law. Electronically signed by: Maurice Garrison M.D. 06/09/2020 7:24 AM Discharge Plan Visit Data Chief Complaint: Cardiac Assessment Stated Complaint: CARDIAC ASSESSMENT ED Provider: Donny Jimenez Discharge Problem: Hypoxia, Bilateral pleural effusion, Elevated troponin, Acute hypotension Patient Disposition: Admitted As Inpatient Discharge Instructions Interventions: ED Discharge Assessment Last Done: 06/09/20 10:55
[2020-06-09] MEDS ORDERED: OPTIRAY 350 500ml IV ONE (06:28)
[2020-06-09 06:37] LABS: Basophils # (auto) 0.01 K/uL (0-0.2); Basophils % (auto) 0.1 %; Eosinophils # (auto) 0.17 K/uL (0-0.5); Eosinophils % (auto) 1.7 %; Hemoglobin 10.8 g/dL (14.0-18.0); Immature Granulocytes # (auto) 0.02 K/uL (0.00-0.02); Immature Granulocytes % (auto) 0.2 %; Lymphocytes # (auto) 1.44 K/uL (1.2-3.4); Lymphocytes % (auto) 14.8 %; Mean Corpuscular Hgb Conc 34.8 g/dL (32-36); Mean Corpuscular Volume 94.8 fL (80-100); Mean Platelet Volume 12.2 fL (7.4-10.4); Monocytes # (auto) 1.18 K/uL (0.11-0.59); Monocytes % (auto) 12.1 %; Neutrophils # (auto) 6.93 K/uL (1.4-6.5); Neutrophils % (auto) 71.1 %; Platelet Count 107 K/uL (130-400); Platelet Estimate Decreased (Normal); RDW Coefficient of Variation 17.4 % (11.5-14.5); RDW Standard Deviation 57.7 fL (36.4-46.3); Red Blood Count 3.27 M/uL (4.7-6.1); White Blood Count 9.75 K/uL (4.8-10.8)
[2020-06-09 06:39] LABS: BUN Creatinine Ratio 21.3 (10-20); Bilirubin,Total 1.9 mg/dl (0.2-1); Calcium 7.7 mg/dl (8.5-10.1); Creatinine Clr Calc Pharmacy 63.4 ml/min; Est GFR (African American) 90.8; Est GFR (Non-African American) 78.3; Total Protein 6.2 gm/dl (6.4-8.2)
[2020-06-09 06:41] LABS: Troponin I 0.071 ng/ml (0-0.045)
--- NOTE | 2020-06-09 07:25 | XRay Report ---
SINGLE VIEW CHEST CLINICAL HISTORY: Hypoxia. Covid. FINDINGS: An AP, portable, upright chest radiograph is compared to study dated 05/19/2020. A right-eb ed central venous infusion port is unchanged in position. The heart is enlarged noting atheroscleroti c calcification of the thoracic aorta. Multifocal airspace consolidation is seen throughout both lung s. There are layering pleural effusions. No pneumothorax is seen. The skeletal structures are osteope johnson. There are healed left-sided rib fractures. IMPRESSION: 1. Multifocal airspace consolidation is seen throughout both lungs and consistent with the reported h istory of a viral pneumonia. 2. Layering pleural effusions. 3. Cardiomegaly. ACT 112: Negative or not required by law. Electronically signed by: Maurice Garrison M.D. 06/09/2020 7:24 AM
[2020-06-09 07:35] LABS: INR 1.4 (0.9-1.1); Prothrombin Time 13.4 Seconds (9.0-12.0)
[2020-06-09 07:41] LABS: Bilirubin Direct 0.4 mg/dl (0-0.2)
[2020-06-09 07:42] LABS: Magnesium 1.7 mg/dl (1.8-2.4)
--- NOTE | 2020-06-09 07:53 | History & Physical Report ---
Date of Service June 09, 2020 Assessment & Plan (1) Hypotension: Patient returns right side with hypotension and general decline. Prior to going home last time he was given Florinef for orthostatic hypotension. His family corroborated this is been a problem for some time. There is also some concern due to an indwelling Padilla catheter that he could have a urinary tract infection that is catheter associated present on admission. He was placed on Keflex however at this point time be transition to Rocephin and a culture will be sent. Culture from 06/08 shows multiple organisms. Also during his last day for Covid he was found to have a cardiomyopathy which was considered either either be from atrial fibrillation or possibly from his Covid infection. (2) Atrial fibrillation: Patient has remained rate controlled without medications he was anticoagulated with Eliquis did develop some hematuria from that (3) Cardiomyopathy: Once again the patient has an EF of 35 to 40% making him having chronic heart failure reduced ejection fraction need to be cautious with volume resuscitation in this case. 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 He was seen in ED after padilla came out 06/08,this was replaced and he was started on keflex for possible UTI. (culture not confirming) He returned 06/09 with hypotension, bradycardia (30s per USP), and hypoxia (60s per USP). On evaluation in the ER he was found to be hypotensive and severely malnourished/weak and dehydrated. His sats are mid 90s on Room air and his HR is in the 60s with many PVCs/PACs. He is described as being orthopneic. When he falls asleep O2 sats are noted to drop in to 80s thus he was put on NC with good result. CXR with bilateral L>R new effusions and bilateral congestion/infiltrates. His daughter (Emily Dyson [phone]) who is Trauma/CCM nurse at [employer] was updated by the ER attending. CTA PE study to further evaluate chest. Trop is positive which is new, along with some diffuse EKG changes which may be due hypoxia/hypotension, or even evolving cardiomyopathy he had from covid. He fortunately describes no chest pain With new effusions, hematuria and new mild thrombocytopenia will hold off on an ticoagulation at this time Allergies Allergy/AdvReac Type Severity Reaction Status Date / Time Sulfa (Sulfonamide Allergy Intermediate RASH Verified 06/09/20 07:34 Antibiotics) adhesive Allergy Mild RASH Verified 06/09/20 07:34 bee venom protein (honey bee) Allergy Unknown Unknown Verified 06/09/20 07:34 Home Medications Medication Instructions Recorded Confirmed Type cholecalciferol (vitamin D3) 50 2,000 units PO DAILY #30 cap 08/21/18 06/09/20 Rx mcg (2,000 unit) capsule vitamin B complex 1 tab PO DAILY #30 tab 08/21/18 06/09/20 Rx cyanocobalamin (vitamin B-12) 2,000 mcg PO DAILY tab 11/22/18 06/09/20 History 2,000 mcg tablet vit C 250 mg-vit E 90 mg-zinc 40 1 tab PO BID 11/22/18 06/09/20 History mg-copper 1 ip-erpryo-tassag capsule metformin 500 mg tablet 500 mg PO BID #180 tab 05/19/20 06/09/20 Rx fludrocortisone 0.1 mg PO QAM 30 Days #30 tab 06/04/20 06/09/20 Rx mirtazapine 15 mg PO HS 30 Days #30 tab 06/04/20 06/09/20 Rx acetaminophen 650 mg PO Q6 PRN MDD 3g 06/08/20 06/09/20 History acetaminophen 650 mg PO Q6 PRN MDD 3g 06/08/20 06/09/20 History amiodarone 200 mg PO QAM 06/08/20 06/09/20 History apixaban [Eliquis] 5 mg PO UD 06/08/20 06/09/20 History aspirin [Adult Low Dose Aspirin] 81 mg PO UD 04/18/21 04/19/21 History cephalexin 500 mg PO Q6H 5 Days #20 cap 06/08/20 06/09/20 Rx lisinopril 5 mg PO QAM 06/08/20 06/09/20 History magnesium 250 mg PO QAM 06/08/20 06/09/20 History metoprolol tartrate 25 mg PO BID 06/08/20 06/09/20 History phenazopyridine [Pyridium] 200 mg PO TID PRN #6 tab 06/08/20 06/09/20 Rx potassium chloride 10 meq PO DAILY 06/08/20 06/09/20 History Past Med/Surg History Medical History Cardiomyopathy Diabetes mellitus, type II Gait apraxia History of VT (myocardial infarction) (~2002) Hyperlipidemia Hypertension Low vision of left eye Lymphoma, marginal zone, 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 Following with Heme/Onc q6 months. Vitamin D insufficiency Surgical History H/O heart artery stent (~2002) History of cholecystectomy History of PTCA (~2013) Family History Father Leukemia Mother Sick sinus syndrome S/P placement of cardiac pacemaker Sister Macular degeneration Brother Macular degeneration Denies family history of Ovarian cancer Prostate cancer Breast cancer Lung cancer Colorectal cancer Social History Smoking Status: Former smoker Second Hand Exposure: No; Hx Alcohol Use: No Hx Substance Use: No Preferred Language: Serbian Communication Ability: Effective Visual Impairment: No Limitations Hearing Ability: Normal Commercial Lending Assistant Required: No Beliefs That Will Affect Care: None marital status: Current Living Situation: Shelter Current Living Situation Comment: Lives with and nephew How many Children do You have: 4 Feels Safe at Home: Yes Safety Concerns: Feels Safe At This Time Assistive Devices: Oxygen - Continuous Review of Systems Review of Systems: Mild distress and fatigue no headache, blurry or double vision garbling speech that is his baseline no chest pain, pressure or palpitations seems to have some shortness of breath, tachypneic no abdominal pain, nausea or vomiting, diarrhea or constipation no dysuria, does have hematuria on exam no focal joint pain or swelling no back pain, CVA tenderness or radicular pain no bruising, bleeding or rashes no focal signs of weakness or numbness or altered sensation no complaints of anxiety or depression.. Physical Exam Physical Exam: The patient appeared chronically ill and more debilitated than when I last saw him Vital signs as documented. Head exam is normocephalic atraumatic no scleral icterus Neck is without JVD, thyromegaly, or carotid bruits. Lungs are diminshed at the bases Cardiac exam, Rhythm is rate controlled and irregular Abdominal exam reveals normal bowel sounds, soft non tender, no masses Extremities are trace edematous and both pedal pulses are present Neurologic exam is alert and oriented, has leg weakness Skin is without bruises or rashes Psychologically is with concerns for depression Results & Data Results & Data ([facility]) Vital Signs (Past 12 Hours) Vital Signs Temp Pulse Pulse Resp BP BP Pulse Ox 06/09/20 07:06 62 16 121/72 99 06/09/20 06:03 66 22 99/59 L 96 06/09/20 05:39 98.1 F 63 18 89/58 L 97 chest x-ray shows persistent changes of COVID-19 positive test (U07.1, COVID-19) with Acute Pneumonia (J12.89, Other viral pneumonia) And bilateral layering pleural effusions PG Care Time/CCT Total # of Minutes Spent Total Time Spent with Patient: Total time spent is greater than 50% in coordination of care (as documented) at patient's floor/unit and/or counseling patient: Coding Level of Care Code 01286 Initial Inpt Care Lvl 3 Diagnoses Hypotension I95.9 Atrial fibrillation I48.0 Atrial fibrillation type: paroxysmal Cardiomyopathy I25.5 Cardiomyopathy type: ischemic Diabetes mellitus, type II E11.65 Diabetes mellitus complication status: with hyperglycemia Diabetes mellitus predatory animal exterminator insulin use: without skilled nursing use Gait apraxia R48.2 Depressed F32.9 Orthostatic hypotension I95.1 (1) Diabetes mellitus, type II Diabetes mellitus complication status: with hyperglycemia Diabetes mellitus predatory animal exterminator insulin use: without predatory animal exterminator use Qualified Code(s): E11.65 - Type 2 diabetes mellitus with hyperglycemia (2) Atrial fibrillation Atrial fibrillation type: paroxysmal Qualified Code(s): I48.0 - Paroxysmal atrial fibrillation (3) Cardiomyopathy Cardiomyopathy type: ischemic Qualified Code(s): I25.5 - Ischemic cardiomyopathy
--- NOTE | 2020-06-09 08:17 | CT Scan Report ---
CT ANGIOGRAM OF THE CHEST CLINICAL HISTORY: Hypoxia, shortness of breath, COVID positive patient COMPARISON STUDY: 05/23/2015 TECHNIQUE: Following the IV administration of 109 mL of Optiray, CT angiogram of the thorax was perfo rmed from the thoracic inlet to the lung bases utilizing the pulmonary embolus protocol. Images are r eviewed in the axial, sagittal, and coronal planes. IV contrast was administered without complication . MIP imaging was performed. A dose lowering technique was utilized adhering to the principles of [place]. CT DOSE: 782.10 mGy.cm FINDINGS: There is mild mediastinal and hilar lymphadenopathy possibly reactive. There was no evidence of thoracic aortic dilatation. There were no pulmonary artery filling defects to indicate acute pulmonary embolism. There are moderate bilateral pleural effusions There are multifocal groundglass pulmonary opacities consistent with a multifocal pneumonia. The examination is motion compromised. IMPRESSION: 1. No evidence of acute pulmonary embolism 2. Multifocal groundglass opacities consistent with a multifocal pneumonia 3. Moderate bilateral pleural effusions 4. Nonspecific mediastinal and hilar lymphadenopathy possibly reactive ACT 112: Negative or not required by law. Electronically signed by: Jakub Almonte M.D. 06/09/2020 8:16 AM
[2020-06-09 08:54] LABS: Influenza A virus by PCR Negative (Neg); Influenza B virus by PCR Negative (Neg); RSV by PCR Negative (Neg)
[2020-06-09 09:56] LABS: SARS CoV2 RNA(COVID-19) InHosp POSITIVE (Negative)
[2020-06-09] MEDS ORDERED: GLUCAGON FOR INJ 1 MG VIAL SQ PRN (11:06)
[2020-06-09] MEDS ORDERED: ALUMINUM/MAGNESIUM SUSP 30 ML UDC PO PRN (11:06)
[2020-06-09] MEDS ORDERED: POLYETHYLENE (MIRALAX) 17 GM PACK PO PRN (11:06)
[2020-06-09] MEDS ORDERED: DEXTROSE 50% 50 ML SYRINGE IV PRN (11:06)
[2020-06-09] MEDS ORDERED: ONDANSETRON INJ 2 MG/ML 2 ML VIAL IV PRN (11:06)
[2020-06-09] MEDS ORDERED: GLUCOSE 40% GEL 15 GM TUBE PO PRN (11:06)
[2020-06-09] MEDS ORDERED: CARBOHYDRATES FOR HYPOGLYCEMIA PO PRN (11:06)
[2020-06-09] MEDS ORDERED: ACETAMINOPHEN 325 MG TAB PO PRN (11:06)
[2020-06-09] MEDS ORDERED: GLUCOSE 10 TABS/TUBE PO PRN (11:06)
[2020-06-09] MEDS ORDERED: MAGNESIUM HYDROXIDE SUSP 30 ML UDC PO PRN (11:06)
[2020-06-09] MEDS ORDERED: cefTRIAXone SODIUM 1,000 MG in DEXTROSE 5% 50 ML IV SCH (11:06)
[2020-06-09] MEDS ORDERED: cefTRIAXone SODIUM 2,000 MG in DEXTROSE 5% 50 ML IV SCH (12:00)
[2020-06-09] MEDS: ASPIRIN 81 MG ECTAB PO SCH (12:53)
[2020-06-09] MEDS: CEROVITE ADV FORMULA TAB PO SCH ×2 (12:53→20:10)
[2020-06-09] MEDS: MAGNESIUM OXIDE 400 MG TAB PO SCH (12:53)
[2020-06-09] MEDS: CHOLECALCIFEROL 1,000 UNITS 25 MCG TAB PO SCH (12:53)
[2020-06-09] MEDS: POTASSIUM CHLORIDE 10 MEQ TABCR PO SCH (12:53)
[2020-06-09] MEDS: FLUDROCORTISONE ACETATE 0.1 MG TAB PO SCH (12:54)
[2020-06-09] MEDS: VITAMIN B COMPLEX TAB PO SCH (12:54)
[2020-06-09] MEDS: AMIODARONE 200 MG TAB PO SCH (12:54)
[2020-06-09] MEDS: cefTRIAXone SODIUM 2,000 MG in DEXTROSE 5% 50 ML IV SCH (12:54)
[2020-06-09 13:43] LABS: Appearance Urine Cloudy (Clear); Bacteria Urine Automated Negative (Negative); Blood Urine 3+ (Negative); Color Urine Orange; Glucose Urine UA Negative (Negative); Ketones Urine Trace (Negative); Leukocyte Esterase Urine Trace (Negative); Nitrite Urine Positive (Negative); Protein Urine 1+ (Negative); RBC Urine Automated >30 /hpf (0-4); Specific Gravity Urine > 1.045 (1.000-1.030); Urobilinogen Urine Negative (Negative)
[2020-06-09] MEDS: INSULIN ASPART 100 UNITS/ML 3 ML PEN SC SCH ×3 (13:48→20:30)
[2020-06-09 13:50] LABS: Bilirubin Urine 1+ (Negative)
--- NOTE | 2020-06-09 17:34 | Electrocardiogram Report ---
Test Reason : Blood Pressure : / mmHG Vent. Rate : 062 BPM Atrial Rate : 062 BPM P-R Int : 200 ms QRS Dur : 098 ms QT Int : 470 ms P-R-T Axes : 027 -61 117 degrees QTc Int : 477 ms Sinus rhythm with frequent Premature ventricular complexes Left anterior fascicular block Anteroseptal infarct , age undetermined Abnormal ECG Confirmed by Darwin Hoyt ([id number]) on 06/09/2020 5:34:08 PM Referred By: Bev Elkins Confirmed By:Christian Hoyt
[2020-06-09] MEDS: MIRTAZAPINE TAB 15 MG TAB PO SCH (20:10)
[2020-06-10 07:06] LABS: BUN Creatinine Ratio 24.1 (10-20); Calcium 7.6 mg/dl (8.5-10.1); Creatinine Clr Calc Pharmacy 87.2 ml/min; Est GFR (African American) 98.6; Est GFR (Non-African American) 85.1; Magnesium 1.8 mg/dl (1.8-2.4); Potassium 3.7 mmol/L (3.5-5.1)
[2020-06-10] MEDS: AMIODARONE 200 MG TAB PO SCH (07:36)
[2020-06-10] MEDS: CHOLECALCIFEROL 1,000 UNITS 25 MCG TAB PO SCH (07:36)
[2020-06-10] MEDS: MAGNESIUM OXIDE 400 MG TAB PO SCH (07:36)
[2020-06-10] MEDS: VITAMIN B COMPLEX TAB PO SCH (07:36)
[2020-06-10] MEDS: POTASSIUM CHLORIDE 10 MEQ TABCR PO SCH (07:36)
[2020-06-10] MEDS: FLUDROCORTISONE ACETATE 0.1 MG TAB PO SCH (07:36)
[2020-06-10] MEDS: ASPIRIN 81 MG ECTAB PO SCH (07:37)
[2020-06-10] MEDS: CEROVITE ADV FORMULA TAB PO SCH ×2 (07:37→20:18)
[2020-06-10] MEDS: INSULIN ASPART 100 UNITS/ML 3 ML PEN SC SCH ×4 (08:45→21:22)
[2020-06-10] MEDS: cefTRIAXone SODIUM 2,000 MG in DEXTROSE 5% 50 ML IV SCH (11:30)
--- NOTE | 2020-06-10 18:07 | Hospitalist Progress Note ---
Date of Service June 10, 2020 Assessment & Plan (1) Hypotension: Patient returns with hypotension and general decline. Prior to going home last time he was given Florinef for orthostatic hypotension. His family corroborated this is been a problem for some time. Culture from 06/08 shows multiple organisms, repeat is negative for infection stopping rocephin. Also during his last day for Covid he was found to have a cardiomyopathy which was considered either either be from atrial fibrillation or possibly from his Covid infection. (2) Atrial fibrillation: Patient continues to remain rate controlled without medications he was anticoagulated with Eliquis did develop some hematuria from that (3) Cardiomyopathy: Once again the patient has an EF of 35 to 40% making him having chronic heart failure reduced ejection fraction need to be cautious with volume resuscitation and sodium orally. 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 prior to his Covid infection he will continue with PT OT while here (6) Depressed: Patient has persistent depression he had some appetite reduction subsequently remains on Remeron (7) Orthostatic hypotension: As mentioned above the patient documented orthostatic hypotension Florinef will be maintained, in case this is POTS from post covid will have sodium chloride 1 gm po bid Admission and Anticipated Discharge Date Admission Date: June 09, 2020 Subjective pt looks much better, but still is not as his baseline, feels dizzy and weak Review of Systems Review of Systems: Mild distress and fatigue no headache, blurry or double vision no speech or swallowing issues no chest pain, pressure or palpitations no shortness of breath, cough or wheezes no abdominal pain, nausea or vomiting, diarrhea or constipation no dysuria, hematuria or frequency no focal joint pain or swelling no back pain, CVA tenderness or radicular pain no bruising, bleeding or rashes Still complains of dizziness or lightheadedness but no vertiginous symptoms Concerns for depression.. Physical Exam Physical Exam: The patient appeared chronically ill but improving Vital signs as documented. Head exam is normocephalic atraumatic no scleral icterus Neck is without JVD, thyromegaly, or carotid bruits. Lungs are clear to auscultation, no focal loss of breath sounds Cardiac exam, Rhythm is regular.. Systolic ejection murmur is heard Abdominal exam reveals normal bowel sounds, soft non tender, no masses Extremities are nonedematous and both pedal pulses are present Neurologic exam is alert and orientedx2 , some complaints of some hand numbness Skin is without bruises or rashes Psychologically is without concerns for anxiety or depression Results & Data Results & Data ([facility]) Vital Signs (Past 12 Hours) Vital Signs Temp Pulse Pulse Resp BP Pulse Ox Pulse Ox 06/10/20 15:46 98.8 F 77 19 121/67 97 06/10/20 14:00 85 06/10/20 11:39 94 06/10/20 11:20 97.3 F L 81 19 131/57 L 96 06/10/20 11:06 06/10/20 08:00 80 06/10/20 07:34 97.7 F 72 20 119/68 93 Pulse Ox Pulse Ox 06/10/20 15:46 06/10/20 14:00 06/10/20 11:39 94 06/10/20 11:20 06/10/20 11:06 94 06/10/20 08:00 06/10/20 07:34 PG Care Time/CCT Total # of Minutes Spent Total Time Spent with Patient: Total time spent is greater than 50% in coordination of care (as documented) at patient's floor/unit and/or counseling patient: Coding Level of Care Code 85175 Subseq Hosp Care Lvl 3 Diagnoses Hypotension I95.9 Atrial fibrillation I48.0 Atrial fibrillation type: paroxysmal Cardiomyopathy I25.5 Cardiomyopathy type: ischemic Diabetes mellitus, type II E11.65 Diabetes mellitus jail insulin use: without dedicated intermodal truck driver use Diabetes mellitus complication status: with hyperglycemia Gait apraxia R48.2 Depressed F32.9 Orthostatic hypotension I95.1 (1) Atrial fibrillation Atrial fibrillation type: paroxysmal Qualified Code(s): I48.0 - Paroxysmal atrial fibrillation (2) Cardiomyopathy Cardiomyopathy type: ischemic Qualified Code(s): I25.5 - Ischemic cardiomyopathy (3) Diabetes mellitus, type II Diabetes mellitus dedicated intermodal truck driver insulin use: without dedicated intermodal truck driver use Diabetes mellitus complication status: with hyperglycemia Qualified Code(s): E11.65 - Type 2 diabetes mellitus with hyperglycemia
[2020-06-10] MEDS: SODIUM CHLORIDE 1 GM TABLET PO SCH (20:18)
[2020-06-10] MEDS: MIRTAZAPINE TAB 15 MG TAB PO SCH (20:18)
[2020-06-11 06:46] LABS: Hematocrit (blood only) 28.8 % (42-52); Mean Corpuscular Hemoglobin 32.7 pg (25-34); Mean Corpuscular Hgb Conc 34.7 g/dL (32-36); Mean Corpuscular Volume 94.1 fL (80-100); Mean Platelet Volume 10.7 fL (7.4-10.4); Platelet Count 157 K/uL (130-400); RDW Coefficient of Variation 17.1 % (11.5-14.5); RDW Standard Deviation 57.3 fL (36.4-46.3); Red Blood Count 3.06 M/uL (4.7-6.1); White Blood Count 5.85 K/uL (4.8-10.8)
[2020-06-11 07:15] LABS: BUN Creatinine Ratio 19.4 (10-20); Calcium 8.1 mg/dl (8.5-10.1); Creatinine Clr Calc Pharmacy 89.7 ml/min; Est GFR (African American) 99.7; Est GFR (Non-African American) 86.1; Magnesium 1.7 mg/dl (1.8-2.4); Potassium 3.5 mmol/L (3.5-5.1)
[2020-06-11] MEDS: INSULIN ASPART 100 UNITS/ML 3 ML PEN SC SCH ×4 (08:31→21:51)
[2020-06-11] MEDS: MAGNESIUM OXIDE 400 MG TAB PO SCH (08:32)
[2020-06-11] MEDS: FLUDROCORTISONE ACETATE 0.1 MG TAB PO SCH (08:32)
[2020-06-11] MEDS: SODIUM CHLORIDE 1 GM TABLET PO SCH ×2 (08:32→21:51)
[2020-06-11] MEDS: CEROVITE ADV FORMULA TAB PO SCH ×2 (08:32→21:51)
[2020-06-11] MEDS: POTASSIUM CHLORIDE 10 MEQ TABCR PO SCH (08:32)
[2020-06-11] MEDS: VITAMIN B COMPLEX TAB PO SCH (08:32)
[2020-06-11] MEDS: ASPIRIN 81 MG ECTAB PO SCH (08:33)
[2020-06-11] MEDS: CHOLECALCIFEROL 1,000 UNITS 25 MCG TAB PO SCH (08:33)
[2020-06-11] MEDS: AMIODARONE 200 MG TAB PO SCH (08:33)
--- NOTE | 2020-06-11 17:39 | Hospitalist Progress Note ---
Date of Service June 11, 2020 Assessment & Plan (1) Hypotension: Patient returns with hypotension and general decline. Prior to going home last time he was given Florinef for orthostatic hypotension. His family corroborated this is been a problem for some time. Culture from 06/08 shows multiple organisms, repeat is negative for infection stopping rocephin. Also during his last day for Covid he was found to have a cardiomyopathy which was considered either either be from atrial fibrillation or possibly from his Covid infection. (2) Atrial fibrillation: Patient continues to remain rate controlled without medications he was anticoagulated with Eliquis did develop some hematuria from that (3) Cardiomyopathy: Once again the patient has an EF of 35 to 40% making him having chronic heart failure reduced ejection fraction need to be cautious with volume resuscitation and sodium orally. 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 prior to his Covid infection he will continue with PT OT while here (6) Depressed: Patient has persistent depression he had some appetite reduction subsequently remains on Remeron (7) Orthostatic hypotension: As mentioned above the patient documented orthostatic hypotension Florinef will be maintained, in case this is POTS from post covid toleration sodium chloride 1 gm po bid Admission and Anticipated Discharge Date Admission Date: June 09, 2020 Subjective pt looks better, but still is not as his baseline, feels light headed Review of Systems Review of Systems: Mild distress and fatigue no headache, blurry or double vision no speech or swallowing issues no chest pain, pressure or palpitations no shortness of breath, cough or wheezes no abdominal pain, nausea or vomiting, diarrhea or constipation no dysuria, hematuria or frequency no focal joint pain or swelling no back pain, CVA tenderness or radicular pain no bruising, bleeding or rashes Still complains of dizziness or lightheadedness but no vertiginous symptoms Concerns for depression.. Physical Exam 2 Physical Exam: The patient appeared chronically ill but improving Vital signs as documented. Head exam is normocephalic atraumatic no scleral icterus Neck is without JVD, thyromegaly, or carotid bruits. Lungs are clear to auscultation, no focal loss of breath sounds Cardiac exam, Rhythm is regular.. Systolic ejection murmur is heard Abdominal exam reveals normal bowel sounds, soft non tender, no masses Extremities are nonedematous and both pedal pulses are present Neurologic exam is alert and orientedx2 , some complaints of some hand numbness Skin is without bruises or rashes Psychologically is without concerns for anxiety or depression Results & Data Results & Data ([facility]) Vital Signs (Past 12 Hours) Vital Signs Temp Pulse Pulse Resp BP Pulse Ox 06/11/20 15:37 87 06/11/20 15:21 98.2 F 85 19 132/72 92 06/11/20 11:16 98.6 F 80 19 118/68 96 06/11/20 08:52 75 06/11/20 07:04 98.6 F 79 18 133/74 95 PG Care Time/CCT Total # of Minutes Spent Total Time Spent with Patient: Total time spent is greater than 50% in coordination of care (as documented) at patient's floor/unit and/or counseling patient: Coding Level of Care Code 92403 Subseq Hosp Care Lvl 3 Diagnoses Hypotension I95.9 Atrial fibrillation I48.0 Atrial fibrillation type: paroxysmal Cardiomyopathy I25.5 Cardiomyopathy type: ischemic Diabetes mellitus, type II E11.65 Diabetes mellitus intermodal dispatcher insulin use: without intermodal dispatcher use Diabetes mellitus complication status: with hyperglycemia Gait apraxia R48.2 Depressed F32.9 Orthostatic hypotension I95.1 (1) Atrial fibrillation Atrial fibrillation type: paroxysmal Qualified Code(s): I48.0 - Paroxysmal atrial fibrillation (2) Cardiomyopathy Cardiomyopathy type: ischemic Qualified Code(s): I25.5 - Ischemic cardiomyopathy (3) Diabetes mellitus, type II Diabetes mellitus [facility] insulin use: without [facility] use Diabetes mellitus complication status: with hyperglycemia Qualified Code(s): E11.65 - Type 2 diabetes mellitus with hyperglycemia
[2020-06-11] MEDS ORDERED: MAGNESIUM SULFATE / D5W 1 GM/100 ML BAG IV ONE (17:45)
[2020-06-11] MEDS: MIRTAZAPINE TAB 15 MG TAB PO SCH (21:51)
--- NOTE | 2020-06-12 02:35 | Communication Note ---
Date of Service: June 12, 2020 Subjective: Nursing notified me that the patient had a fall, unwitnessed. The patient denied hitting their head or any change in mental status. He was not experiencing any pain. When I saw him he has some slurring of his speech that has been chronic per nursing and he was not sure when I asked him if he had hit his head. Objective: CN II-XII intact with the exception of some right sided droop when asked to smile strength intact grossly in upper and lower extremity bilaterally A/P: - Order for CT w/o contrast given patient in on Eliquis - discussed with patient importance of using his call light - bed alarm is active
--- NOTE | 2020-06-12 07:15 | CT Scan Report ---
HEAD CT NONCONTRAST CT DOSE: 614.27 mGy.cm HISTORY: fall on elliquis TECHNIQUE: Multiaxial CT images of the head were performed without the use of intravenous contrast. A utomated exposure control was utilized for this study. A dose lowering technique was utilized adheri ng to the principles of ALARA. Comparison: Head CT 05/31/2020. Findings: The paranasal sinuses and mastoid air cells are clear. The calvarium and skull base are int act. There is no mass, hematoma, midline shift, acute infarct. White matter hypodensity is nonspecifi c but suggestive of microvascular ischemic change. The ventricles and sulci demonstrate mild age-rela vivienne involutional changes. 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 Impression: No significant change compared to the prior study. No acute intracranial abnormality. ACT 112: Negative or not required by law. Electronically signed by: Perico Schaefer M.D. 06/12/2020 7:14 AM
[2020-06-12 07:16] LABS: BUN Creatinine Ratio 18.9 (10-20); Calcium 8.7 mg/dl (8.5-10.1); Creatinine Clr Calc Pharmacy 88.4 ml/min; Est GFR (African American) 99.2; Est GFR (Non-African American) 85.6; Magnesium 1.8 mg/dl (1.8-2.4); Potassium 3.6 mmol/L (3.5-5.1)
[2020-06-12] MEDS: INSULIN ASPART 100 UNITS/ML 3 ML PEN SC SCH ×4 (08:37→21:14)
[2020-06-12] MEDS: AMIODARONE 200 MG TAB PO SCH (08:39)
[2020-06-12] MEDS: POTASSIUM CHLORIDE 10 MEQ TABCR PO SCH (08:40)
[2020-06-12] MEDS: SODIUM CHLORIDE 1 GM TABLET PO SCH ×2 (08:40→21:12)
[2020-06-12] MEDS: ASPIRIN 81 MG ECTAB PO SCH (08:40)
[2020-06-12] MEDS: FLUDROCORTISONE ACETATE 0.1 MG TAB PO SCH (08:40)
[2020-06-12] MEDS: VITAMIN B COMPLEX TAB PO SCH (08:41)
[2020-06-12] MEDS: CEROVITE ADV FORMULA TAB PO SCH ×2 (08:41→21:12)
[2020-06-12] MEDS: CHOLECALCIFEROL 1,000 UNITS 25 MCG TAB PO SCH (08:41)
[2020-06-12] MEDS: MAGNESIUM OXIDE 400 MG TAB PO SCH (08:42)
--- NOTE | 2020-06-12 15:37 | Hospitalist Progress Note ---
Date of Service June 12, 2020 Assessment & Plan (1) Hypotension: Patient returns with hypotension and general decline. Prior to going home last time he was given Florinef for orthostatic hypotension. His family corroborated this is been a problem for some time. Culture from 06/08 shows multiple organisms, repeat is negative for infection stopping rocephin. Also during his last stay for Covid he was found to have a cardiomyopathy which was considered either either be from atrial fibrillation or possibly from his Covid infection. pt has responded to salt tablets and florinef if concern for post covid POTS (2) Atrial fibrillation: Patient continues to remain rate controlled without medications he was anticoagulated with Eliquis did develop some hematuria from that, since resolved (3) Cardiomyopathy: Once again the patient has an EF of 35 to 40% making him having chronic heart failure reduced ejection fraction need to be cautious with volume resuscitation and sodium orally. 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 prior to his Covid infection he will continue with PT OT while here limited by his complaints of lightneadedness (6) Depressed: Patient has persistent depression he had some appetite reduction subsequently remains on Remeron (7) Orthostatic hypotension: As mentioned above the patient documented orthostatic hypotension Florinef will be maintained, in case this is POTS from post covid toleration sodium chloride 1 gm po bid Admission and Anticipated Discharge Date Admission Date: June 09, 2020 Subjective pt looks better, but still is not as his baseline, feels light headed but blood pressure much better, decreased oral intake and urinary output will have some ivf Review of Systems Review of Systems: Mild distress and fatigue no headache, blurry or double vision no speech or swallowing issues no chest pain, pressure or palpitations no shortness of breath, cough or wheezes no abdominal pain, nausea or vomiting, diarrhea or constipation decreased urine output dark urine no focal joint pain or swelling no back pain, CVA tenderness or radicular pain no bruising, bleeding or rashes Still complains of dizziness or lightheadedness but no vertiginous symptoms Concerns for depression.. Physical Exam Physical Exam: The patient appeared chronically ill but improving Vital signs as documented. Head exam is normocephalic atraumatic no scleral icterus Neck is without JVD, thyromegaly, or carotid bruits. Lungs are clear to auscultation, no focal loss of breath sounds Cardiac exam, Rhythm is regular.. Systolic ejection murmur is heard Abdominal exam reveals normal bowel sounds, soft non tender, no masses Extremities are nonedematous and both pedal pulses are present Neurologic exam is alert and orientedx2 still complaint of lightheadedness not vertigo Skin is without bruises or rashes Psychologically is without concerns for anxiety or depression Results & Data Results & Data ([facility]) Vital Signs (Past 12 Hours) Vital Signs Temp Pulse Pulse Resp BP BP Pulse Ox 06/12/20 15:07 97.9 F 80 20 150/70 H 92 06/12/20 11:30 97.6 F 88 20 125/73 100 06/12/20 11:00 06/12/20 08:00 92 H 06/12/20 07:07 98.2 F 82 17 136/73 99 06/12/20 03:47 97.3 F L 75 20 132/75 93 Pulse Ox 06/12/20 15:07 06/12/20 11:30 06/12/20 11:00 100 06/12/20 08:00 06/12/20 07:07 06/12/20 03:47 PG Care Time/CCT Total # of Minutes Spent Total Time Spent with Patient: Total time spent is greater than 50% in coordination of care (as documented) at patient's floor/unit and/or counseling patient: Coding Level of Care Code 20197 Subseq Hosp Care Lvl 3 Diagnoses Hypotension I95.9 Atrial fibrillation I48.0 Atrial fibrillation type: paroxysmal Cardiomyopathy I25.5 Cardiomyopathy type: ischemic Diabetes mellitus, type II E11.65 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 use: without irrigating pump operator use Diabetes mellitus complication status: with hyperglycemia Gait apraxia R48.2 Depressed F32.9 Orthostatic hypotension I95.1 (1) Atrial fibrillation Atrial fibrillation type: paroxysmal Qualified Code(s): I48.0 - Paroxysmal atrial fibrillation (2) Cardiomyopathy Cardiomyopathy type: ischemic Qualified Code(s): I25.5 - Ischemic cardiomyopathy (3) Diabetes mellitus, type II 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
[2020-06-12] MEDS ORDERED: SODIUM CHLORIDE 0.9% 1000ML 1,000 ML IV SCH (15:45)
[2020-06-12] MEDS: MIRTAZAPINE TAB 15 MG TAB PO SCH (21:12)
[2020-06-13 06:25] LABS: Hematocrit (blood only) 31.3 % (42-52); Hemoglobin 10.7 g/dL (14.0-18.0); Mean Corpuscular Hemoglobin 32.3 pg (25-34); Mean Corpuscular Hgb Conc 34.2 g/dL (32-36); Mean Corpuscular Volume 94.6 fL (80-100); Mean Platelet Volume 11.1 fL (7.4-10.4); Platelet Count 244 K/uL (130-400); RDW Coefficient of Variation 17.4 % (11.5-14.5); RDW Standard Deviation 58.4 fL (36.4-46.3); Red Blood Count 3.31 M/uL (4.7-6.1)
[2020-06-13 06:45] LABS: BUN Creatinine Ratio 15.8 (10-20); Calcium 8.3 mg/dl (8.5-10.1); Creatinine Clr Calc Pharmacy 76.6 ml/min; Est GFR (African American) 93.5; Est GFR (Non-African American) 80.6; Potassium 3.4 mmol/L (3.5-5.1)
[2020-06-13] MEDS: INSULIN ASPART 100 UNITS/ML 3 ML PEN SC SCH ×4 (08:12→20:35)
[2020-06-13] MEDS: ASPIRIN 81 MG ECTAB PO SCH (08:12)
[2020-06-13] MEDS: CHOLECALCIFEROL 1,000 UNITS 25 MCG TAB PO SCH (08:12)
[2020-06-13] MEDS: POTASSIUM CHLORIDE 10 MEQ TABCR PO SCH (08:12)
[2020-06-13] MEDS: SODIUM CHLORIDE 1 GM TABLET PO SCH ×2 (08:12→20:01)
[2020-06-13] MEDS: CEROVITE ADV FORMULA TAB PO SCH ×2 (08:12→20:01)
[2020-06-13] MEDS: AMIODARONE 200 MG TAB PO SCH (08:13)
[2020-06-13] MEDS: FLUDROCORTISONE ACETATE 0.1 MG TAB PO SCH (08:13)
[2020-06-13] MEDS: MAGNESIUM OXIDE 400 MG TAB PO SCH (08:13)
[2020-06-13] MEDS: VITAMIN B COMPLEX TAB PO SCH (08:13)
[2020-06-13] MEDS ORDERED: THIAMINE HCL 100 MG in SYRINGE 9 ML IV ONE (18:00)
--- NOTE | 2020-06-13 18:30 | Hospitalist Progress Note ---
Date of Service June 13, 2020 Assessment & Plan (1) Hypotension: Patient returns with hypotension and general decline. Prior to going home last time he was given Florinef for orthostatic hypotension. His family corroborated this is been a problem for some time. Culture from 06/08 shows multiple organisms, repeat is negative for infection stopping rocephin. Also during his last stay for Covid he was found to have a cardiomyopathy which was considered either either be from atrial fibrillation or possibly from his Covid infection. pt has responded to salt tablets and florinef if concern for post covid POTS (2) Atrial fibrillation: Patient continues to remain rate controlled without medications he was anticoagulated with Eliquis did develop some hematuria from that, since resolved (3) Cardiomyopathy: Once again the patient has an EF of 35 to 40% making him having chronic heart failure reduced ejection fraction need to be cautious with volume resuscitation and sodium orally. 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 prior to his Covid infection he will continue with PT OT while here limited by his complaints of lightneadedness (6) Depressed: Patient has persistent depression he had some appetite reduction subsequently remains on Remeron, however will stop due to concerns for med side affects (7) Orthostatic hypotension: As mentioned above the patient documented orthostatic hypotension Florinef will be maintained, in case this is POTS from post covid toleration sodium chloride 1 gm po bid Admission and Anticipated Discharge Date Admission Date: June 09, 2020 Subjective pt looks better, but still is not as his baseline, feels light headed but blood pressure continues to be better, continues to improve Review of Systems Review of Systems: Mild distress and moderate fatigue no headache, blurry or double vision some garbled speech but no swallowing issues no chest pain, pressure or palpitations no shortness of breath, cough or wheezes no abdominal pain, nausea or vomiting, diarrhea or constipation decreased urine output improved with ivf no focal joint pain or swelling no back pain, CVA tenderness or radicular pain no bruising, bleeding or rashes Still complains of dizziness or lightheadedness but no vertiginous symptoms Concerns for depression.. Physical Exam Physical Exam: The patient appeared chronically ill but improving Vital signs as documented. Head exam is normocephalic atraumatic no scleral icterus Neck is without JVD, thyromegaly, or carotid bruits. Lungs are clear to auscultation, no focal loss of breath sounds Cardiac exam, Rhythm is regular.. Systolic ejection murmur is heard Abdominal exam reveals normal bowel sounds, soft non tender, no masses Extremities are nonedematous and both pedal pulses are present Neurologic exam is alert and orientedx2 still complaint of lightheadedness not vertigo has some dysmetria Skin is without bruises or rashes Psychologically is without concerns for anxiety or depression Results & Data Results & Data ([facility]) Vital Signs (Past 12 Hours) Vital Signs Temp Pulse Pulse Resp BP Pulse Ox 06/13/20 16:00 87 06/13/20 15:39 91 06/13/20 15:25 98.1 F 79 22 121/64 91 06/13/20 11:15 97.7 F 79 20 128/78 93 06/13/20 08:00 84 06/13/20 07:18 97.5 F L 81 22 132/75 97 PG Care Time/CCT Total # of Minutes Spent Total Time Spent with Patient: Total time spent is greater than 50% in coordination of care (as documented) at patient's floor/unit and/or counseling patient: Coding Level of Care Code 73748 Subseq Hosp Care Lvl 3 Diagnoses Hypotension I95.9 Atrial fibrillation I48.0 Atrial fibrillation type: paroxysmal Cardiomyopathy I25.5 Cardiomyopathy type: ischemic Diabetes mellitus, type II E11.65 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
[2020-06-14] MEDS ORDERED: ALBUT/IPRATROP 3MG/0.5MG NEB 3 ML VIAL NEB PRN (01:44)
[2020-06-14] MEDS ORDERED: ALBUT/IPRATROP 3MG/0.5MG NEB 3 ML VIAL NEB ONE (01:44)
[2020-06-14] MEDS: ASPIRIN 81 MG ECTAB PO SCH (08:17)
[2020-06-14] MEDS: THIAMINE HCL 100 MG TAB PO SCH (08:17)
[2020-06-14] MEDS: POTASSIUM CHLORIDE 10 MEQ TABCR PO SCH (08:18)
[2020-06-14] MEDS: SODIUM CHLORIDE 1 GM TABLET PO SCH ×2 (08:18→20:17)
[2020-06-14] MEDS: MAGNESIUM OXIDE 400 MG TAB PO SCH (08:18)
[2020-06-14] MEDS: CEROVITE ADV FORMULA TAB PO SCH ×2 (08:18→20:17)
[2020-06-14] MEDS: AMIODARONE 200 MG TAB PO SCH (08:18)
[2020-06-14] MEDS: FLUDROCORTISONE ACETATE 0.1 MG TAB PO SCH (08:19)
[2020-06-14] MEDS: CHOLECALCIFEROL 1,000 UNITS 25 MCG TAB PO SCH (08:20)
[2020-06-14] MEDS: INSULIN ASPART 100 UNITS/ML 3 ML PEN SC SCH ×4 (09:03→20:54)
[2020-06-14 12:14] LABS: Appearance Urine Turbid (Clear); Bacteria Urine Automated Negative (Negative); Blood Urine 3+ (Negative); Color Urine Dark Yellow; Epithelial Cell Urine Auto 0-5 /lpf (0-5); Glucose Urine UA Negative (Negative); Ketones Urine 3+ (Negative); Leukocyte Esterase Urine 1+ (Negative); Nitrite Urine Positive (Negative); Protein Urine 2+ (Negative); Specific Gravity Urine 1.025 (1.000-1.030); Urobilinogen Urine Negative (Negative); WBC Urine Automated >30 /hpf (0-5)
[2020-06-14 12:17] LABS: Bilirubin Urine 1+ (Negative)
[2020-06-14] MEDS ORDERED: NURSING DECISION MEDICATION ONE (12:25)
[2020-06-14] MEDS ORDERED: LIDOCAINE 2% JELLY 5 ML TUBE ONE (12:27)
[2020-06-14 12:29] LABS: RBC Urine Automated >30 /hpf (0-4)
[2020-06-14 12:31] LABS: Cast Urine Automated 0 /lpf (0-5)
[2020-06-14] MEDS ORDERED: LIDOCAINE 2% JELLY 5 ML TUBE EXT PRN (12:33)
--- NOTE | 2020-06-14 15:05 | Hospitalist Progress Note ---
Date of Service June 14, 2020 Assessment & Plan (1) Hypotension: Patient returns with hypotension and general decline. Prior to going home last time he was given Florinef for orthostatic hypotension. His family corroborated this is been a problem for some time. Culture from 06/08 shows multiple organisms, repeat is negative for infection stopping rocephin. Also during his last stay for Covid he was found to have a cardiomyopathy which was considered either either be from atrial fibrillation or possibly from his Covid infection. pt has responded to salt tablets and florinef if concern for post covid POTS with blood pressures stable will reduce salt tablets to once a day (2) Atrial fibrillation: Patient continues to remain rate controlled without medications he was anticoagulated with Eliquis did develop some hematuria from that, since resolved (3) Cardiomyopathy: Once again the patient has an EF of 35 to 40% making him having chronic heart failure reduced ejection fraction need to be cautious with volume resuscitation and sodium orally. 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 prior to his Covid infection he will continue with PT OT while here limited by his complaints of lightneadedness (6) Depressed: Patient has persistent depression he had some appetite reduction subsequently started on Remeron, however will stop due to concerns for med side affects (7) Orthostatic hypotension: As mentioned above the patient documented orthostatic hypotension Florinef will be maintained, in case this is POTS from post covid toleration sodium chloride 1 gm daily (8) Discharge planning issues: Pt was discharged to [facility] the last visit discharged 06/05, in er 06/08 and readmitted 06/09, family feels that pt was given metoprolol and lisinopril which were directed not to give on the d/c paperwork,Pt presented with h ypotension, family requests not to return to [facility] Admission and Anticipated Discharge Date Admission Date: June 09, 2020 Subjective Patient seemed to have less issues with movement today however her biggest complaints is leaking Padilla catheter. Bladder scan did not show urinary retention however with the leaking around try to change the catheter out. We will send a urine culture as his urinalysis is abnormal. Was given intravenous thiamine and start on oral thiamine last night with a thiamine level sent to be pending Review of Systems Review of Systems: Mild distress and moderate fatigue no headache, blurry or double vision improving speech no chest pain, pressure or palpitations no shortness of breath, cough or wheezes no abdominal pain, nausea or vomiting, diarrhea or constipation leaking around padilla, attempt padilla change no focal joint pain or swelling no back pain, CVA tenderness or radicular pain no bruising, bleeding or rashes Still complains of dizziness or lightheadedness remains without vertiginous symptoms Concerns for depression.. Physical Exam Physical Exam: The patient appeared chronically ill but improving Vital signs as documented. Head exam is normocephalic atraumatic no scleral icterus Neck is without JVD, thyromegaly, or carotid bruits. Lungs are clear to auscultation, no focal loss of breath sounds Cardiac exam, Rhythm is regular.. Systolic ejection murmur is heard Abdominal exam reveals normal bowel sounds, soft non tender, no masses Extremities are nonedematous and both pedal pulses are present Neurologic exam is alert and orientedx3 still complaint of lightheadedness not vertigo has some dysmetria Skin is without bruises or rashes Psychologically is without concerns for anxiety or depression Results & Data Results & Data ([facility]) Vital Signs (Past 12 Hours) Vital Signs Temp Pulse Resp BP BP Pulse Ox 06/14/20 08:14 81 122/67 06/14/20 07:11 97.9 F 76 16 133/70 94 PG Care Time/CCT Total # of Minutes Spent Total Time Spent with Patient: Total time spent is greater than 50% in coord ination of care (as documented) at patient's floor/unit and/or counseling patient: Coding Level of Care Code 75614 Subseq Hosp Care Lvl 3 Diagnoses Hypotension I95.9 Atrial fibrillation I48.0 Atrial fibrillation type: paroxysmal Cardiomyopathy I25.5 Cardiomyopathy type: ischemic Diabetes mellitus, type II E11.65 Diabetes mellitus alf insulin use: without superintendent marine oil terminal use Diabetes mellitus complication status: with hyperglycemia Gait apraxia R48.2 Depressed F32.9 Orthostatic hypotension I95.1 Discharge planning issues Z02.9 (1) Atrial fibrillation Atrial fibrillation type: paroxysmal Qualified Code(s): I48.0 - Paroxysmal atrial fibrillation (2) Cardiomyopathy Cardiomyopathy type: ischemic Qualified Code(s): I25.5 - Ischemic cardiomyopathy (3) Diabetes mellitus, type II Diabetes mellitus alf insulin use: without superintendent marine oil terminal use Diabetes mellitus complication status: with hyperglycemia Qualified Code(s): E11.65 - Type 2 diabetes mellitus with hyperglycemia
[2020-06-15 06:44] LABS: Mean Corpuscular Hemoglobin 32.1 pg (25-34); Mean Corpuscular Hgb Conc 33.3 g/dL (32-36); Mean Corpuscular Volume 96.2 fL (80-100); Mean Platelet Volume 10.9 fL (7.4-10.4); Platelet Count 224 K/uL (130-400); RDW Coefficient of Variation 17.8 % (11.5-14.5); RDW Standard Deviation 60.7 fL (36.4-46.3); Red Blood Count 3.43 M/uL (4.7-6.1); White Blood Count 7.11 K/uL (4.8-10.8)
[2020-06-15] MEDS ORDERED: cefTRIAXone SODIUM 2,000 MG in DEXTROSE 5% 50 ML IV SCH (09:00)
[2020-06-15] MEDS: INSULIN ASPART 100 UNITS/ML 3 ML PEN SC SCH ×4 (09:33→22:37)
[2020-06-15] MEDS: MAGNESIUM OXIDE 400 MG TAB PO SCH (09:35)
[2020-06-15] MEDS: CHOLECALCIFEROL 1,000 UNITS 25 MCG TAB PO SCH (09:35)
[2020-06-15] MEDS: CEROVITE ADV FORMULA TAB PO SCH ×2 (09:35→22:36)
[2020-06-15] MEDS: ASPIRIN 81 MG ECTAB PO SCH (09:35)
[2020-06-15] MEDS: POTASSIUM CHLORIDE 10 MEQ TABCR PO SCH (09:35)
[2020-06-15] MEDS: AMIODARONE 200 MG TAB PO SCH (09:35)
[2020-06-15] MEDS: THIAMINE HCL 100 MG TAB PO SCH (09:35)
[2020-06-15] MEDS: FLUDROCORTISONE ACETATE 0.1 MG TAB PO SCH (09:35)
[2020-06-15] MEDS: SODIUM CHLORIDE 1 GM TABLET PO SCH ×2 (09:43→22:36)
[2020-06-15] MEDS ORDERED: FLUCONAZOLE 100 MG TAB PO ONE (14:15)
--- NOTE | 2020-06-15 14:16 | Hospitalist Progress Note ---
Date of Service June 15, 2020 Assessment & Plan (1) Urinary retention: pt did have padilla that was uncomfortable and leaking, he self removed it on 06/15, is voiding without it, does have confirmed colin uti, started on diflucan (2) Hypotension: Patient returns with hypotension and general decline. Prior to going home last time he was given Florinef for orthostatic hypotension. His family corroborated this is been a problem for some time. 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 to his Covid infection he will continue with PT OT while here limited by his complaints of lightneadedness on thiamine level sent and pending (7) Depressed: Patient has persistent depression he had some appetite reduction subs equently started on Remeron, however will stop due to concerns for med side affects (8) Orthostatic hypotension: As mentioned above the patient documented orthostatic hypotension Florinef will be maintained, in case this is POTS from post covid toleration sodium chloride 1 gm daily (9) Discharge planning issues: Pt was discharged to [facility] the last visit discharged 06/05, in er 06/08 and readmitted 06/09, family feels that pt was given metoprolol and lisinopril which were directed not to give on the d/c paperwork,Pt presented with hypotension, family requests not to return to [facility] Admission and Anticipated Discharge Date Admission Date: June 09, 2020 Subjective Patient seemed to have less issues with movement today however her biggest complaints is leaking Padilla catheter. In fact he pulled it out twice, after which Bladder scan did not show urinary retention He voided spontaneously later in the day, We will send a urine culture as his urinalysis is abnormal and it did grow colin albicans started on diflucan 06/15 Review of Systems Review of Systems: Mild distress and moderate fatigue, maybe some encephalopathy no headache, blurry or double vision improving speech no chest pain, pressure or palpitations no shortness of breath, cough or wheezes no abdominal pain, nausea or vomiting, diarrhea or constipation dysuria did pull out padilla no focal joint pain or swelling no back pain, CVA tenderness or radicular pain no bruising, bleeding or rashes Still complains of dizziness or lightheadedness remains without vertiginous symptoms Concerns for depression.. Physical Exam Physical Exam: The patient appeared chronically ill but improving, mild encephalopathy Vital signs as documented. Head exam is normocephalic atraumatic no scleral icterus Neck is without JVD, thyromegaly, or carotid bruits. Lungs are clear to auscultation, no focal loss of breath sounds Cardiac exam, Rhythm is regular.. Systolic ejection murmur is heard Abdominal exam reveals normal bowel sounds, soft non tender, no masses Extremities are nonedematous and both pedal pulses are present Neurologic exam is alert and orientedx3 still complaint of lightheadedness not vertigo has some dysmetria Skin is without bruises or rashes Psychologically is without concerns for anxiety or depression Results & Data Results & Data ([facility]) Vital Signs (Past 12 Hours) Vital Signs Temp Pulse Resp BP Pulse Ox 06/15/20 07:08 98.1 F 84 16 138/75 94 PG Care Time/CCT Total # of Minutes Spent Total Time Spent with Patient: Total time spent is greater than 50% in coordination of care (as documented) at patient's floor/unit and/or counseling patient: Coding Level of Care Code 04023 Subseq Hosp Care Lvl 3 Diagnoses Urinary retention R33.9 Hypotension I95.9 Atrial fibrillation I48.0 Atrial fibrillation type: paroxysmal Cardiomyopathy I25.5 Cardiomyopathy type: ischemic Diabetes mellitus, type II E11.65 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 insulin use: without superintendent marine oil terminal use Diabetes mellitus complication status: with hyperglycemia 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
[2020-06-16] MEDS: INSULIN ASPART 100 UNITS/ML 3 ML PEN SC SCH ×4 (08:49→22:30)
[2020-06-16] MEDS: MAGNESIUM OXIDE 400 MG TAB PO SCH (08:51)
[2020-06-16] MEDS: POTASSIUM CHLORIDE 10 MEQ TABCR PO SCH (08:51)
[2020-06-16] MEDS: ASPIRIN 81 MG ECTAB PO SCH (08:51)
[2020-06-16] MEDS: SODIUM CHLORIDE 1 GM TABLET PO SCH ×3 (08:51→22:40)
[2020-06-16] MEDS: FLUDROCORTISONE ACETATE 0.1 MG TAB PO SCH (08:51)
[2020-06-16] MEDS: AMIODARONE 200 MG TAB PO SCH (08:51)
[2020-06-16] MEDS: CEROVITE ADV FORMULA TAB PO SCH ×3 (08:51→22:40)
[2020-06-16] MEDS: THIAMINE HCL 100 MG TAB PO SCH (08:51)
[2020-06-16] MEDS: CHOLECALCIFEROL 1,000 UNITS 25 MCG TAB PO SCH (09:46)
[2020-06-16] MEDS: FLUCONAZOLE 100 MG TAB PO SCH (09:46)
--- NOTE | 2020-06-16 13:50 | Hospitalist Progress Note ---
Date of Service June 16, 2020 Assessment & Plan (1) Urinary retention: pt did have padilla that was uncomfortable and leaking, he self removed it on 06/15, is voiding without it, does have confirmed colin uti, started on diflucan complete 10-14 days of Diflucan (2) Hypotension: Patient returns with hypotension and general decline. Prior to going home last time he was given Florinef for orthostatic hypotension. His family corroborated this is been a problem for some time. concern for post covid pots syndrome, bp and heart rate along with dizziness complaint did improve with florinef and salt tablets suspect that he might have been getting metoprolol and lisinopril that he was not supposed to be getting (3) Atrial fibrillation: Patient continues to remain rate controlled without medications he was anticoagulated with Eliquis did develop some hematuria from that, since resolved (4) Cardiomyopathy: Once again the patient has an EF of 35 to 40% making him having chronic heart failure reduced ejection fraction need to be cautious with volume resuscitation and sodium orally. 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 to his Covid infection he will continue with PT OT while here limited by his complaints of lightneadedness on thiamine level sent and pending (7) Depressed: Patient has persistent depression he had some appetite reduction subsequently started on Remeron, however will stop due to concerns for med side affects (8) Orthostatic hypotension: As mentioned above the patient documented orthostatic hypotension Florinef will be maintained, in case this is POTS from post covid toleration sodium chloride 1 gm daily (9) Discharge planning issues: Pt was discharged to [facility] the last visit discharged 06/05, in er 06/08 and readmitted 06/09, family feels that pt was given metoprolol and lisinopril which were directed not to give on the d/c paperwork,Pt presented with hypotension, family requests not to return to [facility] plan for [facility] Admission and Anticipated Discharge Date Admission Date: June 09, 2020 Subjective patient acting a little confused this afternoon, said he could not tell what time it was despite staring at the clock continues to have difficulty urinating he is eating okay, very weak, looking into going to [facility] CM following no chest pain, no dyspnea, no fever/chills, no nausea/vomiting, no diarrhea reviewed chart Review of Systems Review of Systems: All systems reviewed & are unremarkable except as noted in Subjective Physical Exam Constitutional: well developed, + frail appearing and comfortable; no acute distress Neck: trachea midline, no thyromegaly Respiratory: normal respiratory effort, lungs clear to auscultation Cardiovascular: RRR, no murmur, no edema Gastrointestinal (Abdomen): normal bowel sounds, soft, nontender, no hepatosplenomegaly Musculoskeletal: no cyanosis or clubbing, extremities motor strength 5/5 Skin: no rashes, warm and dry Neurologic: patellar DTR's 2+ bilat, sensation intact and PERRL, EOMI, accommodation nl, no face palsy, no dysarthria Psychiatric: A+Ox3, euthymic affect Lymphatic: no cervical or axillary lymphadenopathy Results & Data Results & Data ([facility]) Vital Signs (Past 12 Hours) Vital Signs Temp Pulse Resp BP Pulse Ox 06/16/20 08:10 37.1 C 85 16 140/80 92 Laboratory Results Laboratory Results - last 24 hr 06/15/20 06/15/20 06/16/20 17:38 20:29 07:41 POC Glucose 201 H 158 H 194 H 06/16/20 11:32 POC Glucose 237 H Medications Administered Current Inpatient Medications Acetaminophen (Acetaminophen 325 Mg Tab) 650 mg PO Q4H PRN PRN Reason: Pain or Fever Stop: 07/09/20 11:05 Al Hydrox/Mg Hydrox/Simethicone (Aluminum/Magnesium Susp 30 Ml Udc) 15 ml PO Q4H PRN PRN Reason: Dyspepsia Stop: 07/09/20 11:05 Albuterol (Albut/Ipratrop 3mg/0.5mg Neb 3 Ml Vial) 3 ml NEB Q4R PRN PRN Reason: wheezing Stop: 07/14/20 02:59 Amiodarone HCl (Amiodarone 200 Mg Tab) 200 mg PO QAM [facility] Stop: 07/09/20 11:05 Last Admin: 06/16/20 08:51 Dose: 200 mg Documented by: Aspirin (Aspirin 81 Mg Ectab) 81 mg PO DAILY [facility] Stop: 07/09/20 11:05 Last Admin: 06/16/20 08:51 Dose: 81 mg Documented by: Dextrose (Dextrose 50% 50 Ml Syringe) 25 - 50 ml IV UD PRN; Protocol PRN Reason: Hypoglycemia Protocol Stop: 07/09/20 11:05 Fluconazole (Fluconazole 100 Mg Tab) 200 mg PO DAILY [facility] Stop: 06/26/20 08:59 Last Admin: 06/16/20 09:46 Dose: 200 mg Documented by: Fludrocortisone Acetate (Fludrocortisone Acetate 0.1 Mg Tab) 0.1 mg PO QAM [facility] Stop: 07/09/20 11:05 Last Admin: 06/16/20 08:51 Dose: 0.1 mg Documented by: Glucagon (Glucagon For Inj 1 Mg Vial) 1 mg SQ UD PRN; Protocol PRN Reason: Hypoglycemia Protocol Stop: 07/09/20 11:05 Glucose (Glucose 10 Tabs/Tube) 4 - 8 tabs PO UD PRN; Protocol PRN Reason: Hypoglycemia Protocol Stop: 07/09/20 11:05 Glucose (Glucose 40% Gel 15 Gm Tube) 15 - 30 gm PO UD PRN; Protocol PRN Reason: Hypoglycemia Protocol Stop: 07/09/20 11:05 Heparin Sodium (Porcine) (Heparin 100 Unit/Ml 5ml Flush) 5 ml FLUSH PRN PRN PRN Reason: Flush Stop: 07/15/20 10:52 Insulin Aspart (Insulin Aspart 100 Units/Ml 3 Ml Pen) 0 units SC ACHS [facility] Stop: 07/09/20 11:29 Last Admin: 06/16/20 12:56 Dose: 4 units Documented by: Lidocaine HCl (Lidocaine 2% Jelly 5 Ml Tube) 5 ml EXT PRN PRN PRN Reason: CATH INSERTION Stop: 07/14/20 12:32 Magnesium Hydroxide (Magnesium Hydroxide Susp 30 Ml Udc) 30 ml PO Q12H PRN PRN Reason: Constipation Stop: 07/09/20 11:05 Magnesium Oxide (Magnesium Oxide 400 Mg Tab) 400 mg PO QAM [facility] Stop: 07/09/20 11:05 Last Admin: 06/16/20 08:51 Dose: 400 mg Documented by: Miscellaneous (Carbohydrates For Hypoglycemia ) 15 - 30 gm PO UD PRN PRN Reason: Hypoglycemia Protocol Stop: 07/09/20 11:05 Multivitamins/Minerals (Cerovite Adv Formula Tab) 1 tab PO BID [facility] Stop: 07/09/20 11:05 Last Admin: 06/16/20 08:51 Dose: 1 tab Documented by: Ondansetron HCl (Ondansetron Inj 2 Mg/Ml 2 Ml Vial) 4 mg IV Q6H PRN PRN Reason: Nausea Stop: 07/09/20 11:05 Polyethylene Glycol (Polyethylene (Miralax) 17 Gm Pack) 17 gm PO DAILY PRN PRN Reason: Constipation Stop: 07/09/20 11:05 Potassium Chloride (Potassium Chloride 10 Meq Tabcr) 10 meq PO DAILY [facility] Stop: 07/09/20 11:05 Last Admin: 06/16/20 08:51 Dose: 10 meq Documented by: Sodium Chloride (Sodium Chloride 1 Gm Tablet) 1 gm PO BID [facility] Stop: 07/10/20 20:59 Last Admin: 06/16/20 08:51 Dose: 1 gm Documented by: Thiamine HCl (Thiamine Hcl 100 Mg Tab) 100 mg PO QAM [facility] Stop: 07/14/20 08:59 Last Admin: 06/16/20 08:51 Dose: 100 mg Documented by: Vitamin D (Cholecalciferol 1,000 Units 25 Mcg Tab) 2,000 units PO DAILY [facility] Stop: 07/09/20 11:05 Last Admin: 06/16/20 09:46 Dose: 2,000 units Documented by: PG Care Time/CCT Total # of Minutes Spent Total Time Spent with Patient: Total time spent is greater than 50% in coordination of care (as documented) at patient's floor/unit and/or counseling patient: Coding Level of Care Code 04362 Subseq Hosp Care Lvl 2 Diagnoses Urinary retention R33.9 Hypotension I95.9 Atrial fibrillation I48.0 Atrial fibrillation type: paroxysmal Cardiomyopathy I25.5 Cardiomyopathy type: ischemic Diabetes mellitus, type II [id number] Diabetes mellitus complication status: with hyperglycemia Diabetes mellitus halfway insulin use: without intermediate project manager use Gait apraxia R48.2 Depressed F32.9 Orthostatic hypotension I95.1 Discharge planning issues Z02.9 (1) Diabetes mellitus, type II Diabetes mellitus complication status: with hyperglycemia Diabetes mellitus intermediate project manager insulin use: without intermediate project manager use Qualified Code(s): E11.65 - Type 2 diabetes mellitus with hyperglycemia (2) Atrial fibrillation Atrial fibrillation type: paroxysmal Qualified Code(s): I48.0 - Paroxysmal atrial fibrillation (3) Cardiomyopathy Cardiomyopathy type: ischemic Qualified Code(s): I25.5 - Ischemic cardiomyopathy
[2020-06-17] MEDS: SODIUM CHLORIDE 1 GM TABLET PO SCH ×2 (09:40→21:13)
[2020-06-17] MEDS: THIAMINE HCL 100 MG TAB PO SCH (09:40)
[2020-06-17] MEDS: ASPIRIN 81 MG ECTAB PO SCH (09:40)
[2020-06-17] MEDS: AMIODARONE 200 MG TAB PO SCH (09:40)
[2020-06-17] MEDS: CEROVITE ADV FORMULA TAB PO SCH ×2 (09:40→21:13)
[2020-06-17] MEDS: CHOLECALCIFEROL 1,000 UNITS 25 MCG TAB PO SCH (09:41)
[2020-06-17] MEDS: FLUDROCORTISONE ACETATE 0.1 MG TAB PO SCH (09:41)
[2020-06-17] MEDS: FLUCONAZOLE 100 MG TAB PO SCH (09:41)
[2020-06-17] MEDS: POTASSIUM CHLORIDE 10 MEQ TABCR PO SCH (09:41)
[2020-06-17] MEDS: MAGNESIUM OXIDE 400 MG TAB PO SCH (09:41)
[2020-06-17] MEDS: INSULIN ASPART 100 UNITS/ML 3 ML PEN SC SCH ×4 (09:42→21:16)
--- NOTE | 2020-06-17 15:55 | Hospitalist Progress Note ---
Date of Service June 17, 2020 Assessment & Plan (1) Urinary retention: pt did have padilla that was uncomfortable and leaking, he self removed it on 06/15, is voiding without it, does have confirmed colin uti now on culture complete 10-14 days of Diflucan started 06/15/20 (2) Hypotension: Patient returns with hypotension and general decline. Prior to going home last time he was given Florinef for orthostatic hypotension. His family corroborated this is been a problem for some time. concern for post covid pots syndrome, bp and heart rate along with dizziness complaint did improve with florinef and salt tablets suspect that he might have been getting metoprolol and lisinopril that he was not supposed to be getting BP has been normal to elevated (3) Atrial fibrillation: Patient continues to remain rate controlled without medications he was anticoagulated with Eliquis did develop some hematuria from that, since resolved (4) Cardiomyopathy: Once again the patient has an EF of 35 to 40% making him having chronic heart failure reduced ejection fraction need to be cautious with volume resuscitation and sodium orally. 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 to his Covid infection he will continue with PT OT while here limited by his complaints of lightneadedness on thiamine level sent and pending (7) Depressed: Patient has persistent depression he had some appetite reduction subsequently started on Remeron, however will stop due to concerns for med side affects (8) Orthostatic hypotension: As mentioned above the patient documented orthostatic hypotension Florinef will be maintained, in case this is POTS from post covid toleration sodium chloride 1 gm daily (9) Discharge planning issues: Pt was discharged to [facility] the last visit discharged 06/05, in er 06/08 and readmitted 06/09, family feels that pt was given metoprolol and lisinopril which were directed not to give on the d/c paperwork,Pt presented with hypotension, family requests not to return to [facility] plan for [facility] Admission and Anticipated Discharge Date Admission Date: June 09, 2020 Subjective patient frustrated, every time he has to pee he has to wait for staff I told him he can use the urinal on his own if he needs to continues to only urinate a little at a time, he denies dysuria, hematuria he is eating well, no chest pain, no dyspnea, no cough he is frustrated about how weak he has become and that he cannot do what he needs to do he is hopeful that he will get better/stronger at [facility] so he can eventually get back home Review of Systems Review of Systems: All systems reviewed & are unremarkable except as noted in Subjective Constitutional: + fatigue and + weakness Genitourinary: + difficulty urinating, + urinary frequency, + post-void dribbling and + decreased urination; no dysuria and no hematuria Physical Exam Constitutional: well developed, + frail appearing and comfortable; no acute distress Neck: trachea midline, no thyromegaly Respiratory: normal respiratory effort, lungs clear to auscultation Cardiovascular: RRR, no murmur, no edema Gastrointestinal (Abdomen): normal bowel sounds, soft, nontender, no hepatosplenomegaly Musculoskeletal: no cyanosis or clubbing, extremities motor strength 5/5 Skin: no rashes, warm and dry Neurologic: patellar DTR's 2+ bilat, sensation intact and PERRL, EOMI, accommodation nl, no face palsy, no dysarthria Psychiatric: A+Ox3, euthymic affect Lymphatic: no cervical or axillary lymphadenopathy Results & Data Results & Data ([facility]) Vital Signs (Past 12 Hours) Vital Signs Temp Pulse Resp BP Pulse Ox 06/17/20 08:15 36.4 C L 77 16 155/85 H 91 Laboratory Results Laboratory Results - last 24 hr 06/16/20 06/16/20 06/17/20 16:23 20:52 07:58 POC Glucose 201 H 195 H 199 H 06/17/20 11:26 POC Glucose 218 H Medications Administered Current Inpatient Medications Acetaminophen (Acetaminophen 325 Mg Tab) 650 mg PO Q4H PRN PRN Reason: Pain or Fever Stop: 07/09/20 11:05 Al Hydrox/Mg Hydrox/Simethicone (Aluminum/Magnesium Susp 30 Ml Udc) 15 ml PO Q4H PRN PRN Reason: Dyspepsia Stop: 07/09/20 11:05 Albuterol (Albut/Ipratrop 3mg/0.5mg Neb 3 Ml Vial) 3 ml NEB Q4R PRN PRN Reason: wheezing Stop: 07/14/20 02:59 Amiodarone HCl (Amiodarone 200 Mg Tab) 200 mg PO QAM [facility] Stop: 07/09/20 11:05 Last Admin: 06/17/20 09:40 Dose: 200 mg Documented by: Aspirin (Aspirin 81 Mg Ectab) 81 mg PO DAILY [facility] Stop: 07/09/20 11:05 Last Admin: 06/17/20 09:40 Dose: 81 mg Documented by: Dextrose (Dextrose 50% 50 Ml Syringe) 25 - 50 ml IV UD PRN; Protocol PRN Reason: Hypoglycemia Protocol Stop: 07/09/20 11:05 Fluconazole (Fluconazole 100 Mg Tab) 200 mg PO DAILY [facility] Stop: 06/26/20 08:59 Last Admin: 06/17/20 09:41 Dose: 200 mg Documented by: Fludrocortisone Acetate (Fludrocortisone Acetate 0.1 Mg Tab) 0.1 mg PO QAM [facility] Stop: 07/09/20 11:05 Last Admin: 06/17/20 09:41 Dose: 0.1 mg Documented by: Glucagon (Glucagon For Inj 1 Mg Vial) 1 mg SQ UD PRN; Protocol PRN Reason: Hypoglycemia Protocol Stop: 07/09/20 11:05 Glucose (Glucose 10 Tabs/Tube) 4 - 8 tabs PO UD PRN; Protocol PRN Reason: Hypoglycemia Protocol Stop: 07/09/20 11:05 Glucose (Glucose 40% Gel 15 Gm Tube) 15 - 30 gm PO UD PRN; Protocol PRN Reason: Hypoglycemia Protocol Stop: 07/09/20 11:05 Heparin Sodium (Porcine) (Heparin 100 Unit/Ml 5ml Flush) 5 ml FLUSH PRN PRN PRN Reason: Flush Stop: 07/15/20 10:52 Insulin Aspart (Insulin Aspart 100 Units/Ml 3 Ml Pen) 0 units SC ACHS [facility] Stop: 07/09/20 11:29 Last Admin: 06/17/20 12:16 Dose: 3 units Documented by: Lidocaine HCl (Lidocaine 2% Jelly 5 Ml Tube) 5 ml EXT PRN PRN PRN Reason: CATH INSERTION Stop: 07/14/20 12:32 Magnesium Hydroxide (Magnesium Hydroxide Susp 30 Ml Udc) 30 ml PO Q12H PRN PRN Reason: Constipation Stop: 07/09/20 11:05 Magnesium Oxide (Magnesium Oxide 400 Mg Tab) 400 mg PO QAM [facility] Stop: 07/09/20 11:05 Last Admin: 06/17/20 09:41 Dose: 400 mg Documented by: Miscellaneous (Carbohydrates For Hypoglycemia ) 15 - 30 gm PO UD PRN PRN Reason: Hypoglycemia Protocol Stop: 07/09/20 11:05 Multivitamins/Minerals (Cerovite Adv Formula Tab) 1 tab PO BID [facility] Stop: 07/09/20 11:05 Last Admin: 06/17/20 09:40 Dose: 1 tab Documented by: Ondansetron HCl (Ondansetron Inj 2 Mg/Ml 2 Ml Vial) 4 mg IV Q6H PRN PRN Reason: Nausea Stop: 07/09/20 11:05 Polyethylene Glycol (Polyethylene (Miralax) 17 Gm Pack) 17 gm PO DAILY PRN PRN Reason: Constipation Stop: 07/09/20 11:05 Potassium Chloride (Potassium Chloride 10 Meq Tabcr) 10 meq PO DAILY [facility] Stop: 07/09/20 11:05 Last Admin: 06/17/20 09:41 Dose: 10 meq Documented by: Sodium Chloride (Sodium Chloride 1 Gm Tablet) 1 gm PO BID [facility] Stop: 07/10/20 20:59 Last Admin: 06/17/20 09:40 Dose: 1 gm Documented by: Thiamine HCl (Thiamine Hcl 100 Mg Tab) 100 mg PO QAM [facility] Stop: 07/14/20 08:59 Last Admin: 06/17/20 09:40 Dose: 100 mg Documented by: Vitamin D (Cholecalciferol 1,000 Units 25 Mcg Tab) 2,000 units PO DAILY [facility] Stop: 07/09/20 11:05 Last Admin: 06/17/20 09:41 Dose: 2,000 units Documented by: PG Care Time/CCT Total # of Minutes Spent Total Time Spent with Patient: Total time spent is greater than 50% in coordination of care (as documented) at patient's floor/unit and/or counseling patient: Coding Level of Care Code 99789 Subseq Hosp Care Lvl 2 Diagnoses Urinary retention R33.9 Hypotension I95.9 Atrial fibrillation I48.0 Atrial fibrillation type: paroxysmal Cardiomyopathy I25.5 Cardiomyopathy type: ischemic Diabetes mellitus, type II E11.65 Diabetes mellitus shelter insulin use: without shaft repairer use Diabetes mellitus complication status: with hyperglycemia Gait apraxia R48.2 Depressed F32.9 Orthostatic hypotension I95.1 Discharge planning issues Z02.9 (1) Atrial fibrillation Atrial fibrillation type: paroxysmal Qualified Code(s): I48.0 - Paroxysmal atrial fibrillation (2) Cardiomyopathy Cardiomyopathy type: ischemic Qualified Code(s): I25.5 - Ischemic cardiomyopathy (3) Diabetes mellitus, type II Diabetes mellitus shelter insulin use: without shelter use Diabetes mellitus complication status: with hyperglycemia Qualified Code(s): E11.65 - Type 2 diabetes mellitus with hyperglycemia
[2020-06-18] MEDS: CEROVITE ADV FORMULA TAB PO SCH ×2 (08:31→21:09)
[2020-06-18] MEDS: AMIODARONE 200 MG TAB PO SCH (08:31)
[2020-06-18] MEDS: POTASSIUM CHLORIDE 10 MEQ TABCR PO SCH (08:32)
[2020-06-18] MEDS: MAGNESIUM OXIDE 400 MG TAB PO SCH (08:32)
[2020-06-18] MEDS: FLUCONAZOLE 100 MG TAB PO SCH (08:32)
[2020-06-18] MEDS: CHOLECALCIFEROL 1,000 UNITS 25 MCG TAB PO SCH (08:32)
[2020-06-18] MEDS: THIAMINE HCL 100 MG TAB PO SCH (08:33)
[2020-06-18] MEDS: FLUDROCORTISONE ACETATE 0.1 MG TAB PO SCH (08:33)
[2020-06-18] MEDS: ASPIRIN 81 MG ECTAB PO SCH (08:33)
[2020-06-18] MEDS: SODIUM CHLORIDE 1 GM TABLET PO SCH ×2 (08:33→21:09)
[2020-06-18] MEDS: INSULIN ASPART 100 UNITS/ML 3 ML PEN SC SCH ×4 (08:34→21:13)
[2020-06-18] MEDS ORDERED: haloperidoL 5 MG TAB PO STA (12:55)
--- NOTE | 2020-06-18 22:35 | Hospitalist Progress Note ---
Date of Service June 18, 2020 Assessment & Plan (1) Delirium: hospital delirium, has been in the hospital for two weeks, getting weaker he does not have his glasses so his vision is poor, unclear if he is hallucinating he is convinced everyone here is trying to kill him not eating or drinking well, won't let us access port for fluids tried Haldol 5mg PO but he would not take it updated his daughter over the phone, she is at a loss on how to help him he cannot go home with his , too weak, needs to get stronger at SNF but at his point he won't participate with therapy, denied by insurance to go to SNF will probably need to improve/resolve delirium, get him to be cooperative, get updated PT/OT notes and try again try to maintain normal sleep wake cycles but he is very sleepy during the day, not sleeping well at night try Seroquel HS he is agitated by the urge to pee all the time but he cannot have a padilla, pulled out a padilla in the past (2) Urinary retention: pt did have padilla that was uncomfortable and leaking, he self removed it on 06/15, is voiding without it, does have confirmed colin uti now on culture complete 10-14 days of Diflucan started 06/15/20, day 4 today (3) Hypotension: Patient returns with hypotension and general decline. Prior to going home last time he was given Florinef for orthostatic hypotension. His family corroborated this is been a problem for some time. concern for post covid pots syndrome, bp and heart rate along with dizziness complaint did improve with florinef and salt tablets suspect that he might have been getting metoprolol and lisinopril that he was not supposed to be getting BP has been normal to elevated (4) Atrial fibrillation: Patient continues to remain rate controlled without medications he was anticoagulated with Eliquis did develop some hematuria from that, since resolved (5) Cardiomyopathy: Once again the patient has an EF of 35 to 40% making him having chronic heart failure reduced ejection fraction need to be cautious with volume resuscitation and sodium orally. 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 prior to his Covid infection he will continue with PT OT while here limited by his complaints of lightneadedness at baseline he could stand up and get in wheelchair he would move himself around in his wheelchair with his arms at this point he cannot get out of bed, cannot stand up, far weaker than normal his mental status is only complicating matters, he is paranoid, won't trust any one, won't participate (8) Depressed: Patient has persistent depression he had some appetite reduction subsequently started on Remeron, however will stop due to concerns for med side affects (9) Orthostatic hypotension: As mentioned above the patient documented orthostatic hypotension Florinef will be maintained, in case this is POTS from post covid toleration sodium chloride 1 gm daily (10) Discharge planning issues: Pt was discharged to [facility] the last visit discharged 06/05, in er 06/08 and readmitted 06/09, family feels that pt was given metoprolol and lisinopril which were directed not to give on the d/c paperwork,Pt presented with hypotension, family requests not to return to [facility] plan for [facility] Admission and Anticipated Discharge Date Admission Date: June 09, 2020 Subjective patient very confused and agitated today he is developing delirium, he is paranoid and delusional, claims staff is trying to kill him he says that if he could walk he would walk out of here but he is not strong enough I spoke with his daughter Jessy to provide update, she is an RN she understands the complexities of delirium, she mentioned that his glasses are missing so he probably cannot see very well that definitely is not helping, he has mentioned that he cannot read the clock and the TV is blurry and he mentioned looking at the vitals machine as a person who does not talk back tried to get him to take Haldol 5mg PO but he refused, swinging at staff at times he won't allow anyone to access his port for labs or fluids he was denied SNF for rehab, I called for peer to peer, spoke with medical officer psychiatry still denied, she claims he is at or better than his baseline from mobility perspective I assured her that he is far weaker than normal, that prior to this he was able to stand up, move himself around with a wheelchair he lives with his who cannot provide 24/7 care, she still claims he does not have any skilled needs she suggest and expedited appeal with updated PT/OT notes certainly the delirium is not helping the placement issues he would not even listen to his daughter on the phone, got very angry with her Review of Systems Review of Systems: Unobtainable due to cognitive status (confused, angry, delusional) Physical Exam Constitutional: well developed, + frail appearing and comfortable; no acute distress Neck: trachea midline, no thyromegaly Respiratory: normal respiratory effort, lungs clear to auscultation Cardiovascular: RRR, no murmur, no edema Gastrointestinal (Abdomen): normal bowel sounds, soft, nontender, no hepatosplenomegaly Musculoskeletal: no cyanosis or clubbing, extremities motor strength 5/5 Skin: no rashes, warm and dry Neurologic: patellar DTR's 2+ bilat, sensation intact and PERRL, EOMI, accommodation nl, no face palsy, no dysarthria Psychiatric: Orientation: alert, oriented to person, oriented to place and + guarded (agitated); + not oriented to time Thought Content: + paranoid, + delusions and + persecution Hallucinations: + visual hallucinations (cannot see well due to no glasses) Insight: + limited insight Judgement: + limited judgement Lymphatic: no cervical or axillary lymphadenopathy Results & Data Results & Data ([facility]) Vital Signs (Past 12 Hours) Vital Signs Temp Pulse Resp BP Pulse Ox 06/18/20 15:12 36.7 C 91 H 16 150/83 H 92 Medications Administered Current Inpatient Medications Acetaminophen (Acetaminophen 325 Mg Tab) 650 mg PO Q4H PRN PRN Reason: Pain or Fever Stop: 07/09/20 11:05 Al Hydrox/Mg Hydrox/Simethicone (Aluminum/Magnesium Susp 30 Ml Udc) 15 ml PO Q4H PRN PRN Reason: Dyspepsia Stop: 07/09/20 11:05 Albuterol (Albut/Ipratrop 3mg/0.5mg Neb 3 Ml Vial) 3 ml NEB Q4R PRN PRN Reason: wheezing Stop: 07/14/20 02:59 Amiodarone HCl (Amiodarone 200 Mg Tab) 200 mg PO QAM [facility] Stop: 07/09/20 11:05 Last Admin: 06/18/20 08:31 Dose: 200 mg Documented by: Aspirin (Aspirin 81 Mg Ectab) 81 mg PO DAILY [facility] Stop: 07/09/20 11:05 Last Admin: 04/28/21 08:33 Dose: 81 mg Documented by: Dextrose (Dextrose 50% 50 Ml Syringe) 25 - 50 ml IV UD PRN; Protocol PRN Reason: Hypoglycemia Protocol Stop: 07/09/20 11:05 Fluconazole (Fluconazole 100 Mg Tab) 200 mg PO DAILY [facility] Stop: 06/26/20 08:59 Last Admin: 06/18/20 08:32 Dose: 200 mg Documented by: Fludrocortisone Acetate (Fludrocortisone Acetate 0.1 Mg Tab) 0.1 mg PO QAM [facility] Stop: 07/09/20 11:05 Last Admin: 06/18/20 08:33 Dose: 0.1 mg Documented by: Glucagon (Glucagon For Inj 1 Mg Vial) 1 mg SQ UD PRN; Protocol PRN Reason: Hypoglycemia Protocol Stop: 07/09/20 11:05 Glucose (Glucose 10 Tabs/Tube) 4 - 8 tabs PO UD PRN; Protocol PRN Reason: Hypoglycemia Protocol Stop: 07/09/20 11:05 Glucose (Glucose 40% Gel 15 Gm Tube) 15 - 30 gm PO UD PRN; Protocol PRN Reason: Hypoglycemia Protocol Stop: 07/09/20 11:05 Heparin Sodium (Porcine) (Heparin 100 Unit/Ml 5ml Flush) 5 ml FLUSH PRN PRN PRN Reason: Flush Stop: 07/15/20 10:52 Insulin Aspart (Insulin Aspart 100 Units/Ml 3 Ml Pen) 0 units SC ACHS [facility] Stop: 07/09/20 11:29 Last Admin: 06/18/20 21:13 Dose: 4 units Documented by: Lidocaine HCl (Lidocaine 2% Jelly 5 Ml Tube) 5 ml EXT PRN PRN PRN Reason: CATH INSERTION Stop: 07/14/20 12:32 Magnesium Hydroxide (Magnesium Hydroxide Susp 30 Ml Udc) 30 ml PO Q12H PRN PRN Reason: Constipation Stop: 07/09/20 11:05 Magnesium Oxide (Magnesium Oxide 400 Mg Tab) 400 mg PO QAM [facility] Stop: 07/09/20 11:05 Last Admin: 06/18/20 08:32 Dose: 400 mg Documented by: Miscellaneous (Carbohydrates For Hypoglycemia ) 15 - 30 gm PO UD PRN PRN Reason: Hypoglycemia Protocol Stop: 07/09/20 11:05 Multivitamins/Minerals (Cerovite Adv Formula Tab) 1 tab PO BID [facility] Stop: 07/09/20 11:05 Last Admin: 06/18/20 21:09 Dose: 1 tab Documented by: Ondansetron HCl (Ondansetron Inj 2 Mg/Ml 2 Ml Vial) 4 mg IV Q6H PRN PRN Reason: Nausea Stop: 07/09/20 11:05 Polyethylene Glycol (Polyethylene (Miralax) 17 Gm Pack) 17 gm PO DAILY PRN PRN Reason: Constipation Stop: 07/09/20 11:05 Potassium Chloride (Potassium Chloride 10 Meq Tabcr) 10 meq PO DAILY [facility] Stop: 07/09/20 11:05 Last Admin: 06/18/20 08:32 Dose: 10 meq Documented by: Sodium Chloride (Sodium Chloride 1 Gm Tablet) 1 gm PO BID [facility] Stop: 07/10/20 20:59 Last Admin: 06/18/20 21:09 Dose: 1 gm Documented by: Thiamine HCl (Thiamine Hcl 100 Mg Tab) 100 mg PO QAM [facility] Stop: 07/14/20 08:59 Last Admin: 06/18/20 08:33 Dose: 100 mg Documented by: Vitamin D (Cholecalciferol 1,000 Units 25 Mcg Tab) 2,000 units PO DAILY [facility] Stop: 07/09/20 11:05 Last Admin: 06/18/20 08:32 Dose: 2,000 units Documented by: PG Care Time/CCT Total # of Minutes Spent Total Time Spent: 40 Total Time Spent with Patient: Total time spent is greater than 50% in coordination of care (as documented) at patient's floor/unit and/or counseling patient: 15 minutes on phone with daughter 10 minutes on phone with insurance company for peer to peer 15 minutes with patient, chart review, documentation Coding Level of Care Code 15915 Subseq Hosp Care Lvl 3 Diagnoses Delirium R41.0 Urinary retention R33.9 Hypotension I95.9 Atrial fibrillation I48.0 Atrial fibrillation type: paroxysmal Cardiomyopathy I25.5 Cardiomyopathy type: ischemic Diabetes mellitus, type II E11.65 Diabetes mellitus complication status: with hyperglycemia Diabetes mellitus alf insulin use: without alf use Gait apraxia R48.2 Depressed F32.9 Orthostatic hypotension I95.1 Discharge planning issues Z02.9 (1) Diabetes mellitus, type II Diabetes mellitus complication status: with hyperglycemia Diabetes mellitus alf insulin use: without lobsterman use Qualified Code(s): E11.65 - Type 2 diabetes mellitus with hyperglycemia (2) Atrial fibrillation Atrial fibrillation type: paroxysmal Qualified Code(s): I48.0 - Paroxysmal atrial fibrillation (3) Cardiomyopathy Cardiomyopathy type: ischemic Qualified Code(s): I25.5 - Ischemic cardiomyopathy
[2020-06-19] MEDS: THIAMINE HCL 100 MG TAB PO SCH (07:36)
[2020-06-19] MEDS: SODIUM CHLORIDE 1 GM TABLET PO SCH (08:43)
[2020-06-19] MEDS: AMIODARONE 200 MG TAB PO SCH (08:44)
[2020-06-19] MEDS: MAGNESIUM OXIDE 400 MG TAB PO SCH (08:44)
[2020-06-19] MEDS: POTASSIUM CHLORIDE 10 MEQ TABCR PO SCH (08:44)
[2020-06-19] MEDS: FLUDROCORTISONE ACETATE 0.1 MG TAB PO SCH (08:44)
[2020-06-19] MEDS: ASPIRIN 81 MG ECTAB PO SCH (08:44)
[2020-06-19] MEDS: CHOLECALCIFEROL 1,000 UNITS 25 MCG TAB PO SCH (08:44)
[2020-06-19] MEDS: CEROVITE ADV FORMULA TAB PO SCH (08:44)
[2020-06-19] MEDS: FLUCONAZOLE 100 MG TAB PO SCH (08:45)
[2020-06-19] MEDS: INSULIN ASPART 100 UNITS/ML 3 ML PEN SC SCH ×3 (08:46→21:03)
[2020-06-19] MEDS ORDERED: LORazepam 0.5 MG TAB PO STA (10:29)
[2020-06-19] MEDS ORDERED: D5W AND 1/2NSS 1,000 ML IV SCH (10:30)
[2020-06-19] MEDS ORDERED: QUEtiapine FUMARATE 25 MG TABLET PO ONE (10:33)
--- NOTE | 2020-06-19 10:51 | Hospitalist Progress Note ---
Date of Service June 19, 2020 Assessment & Plan (1) Delirium: hospital delirium, has been in the hospital for two weeks, getting weaker he does not have his glasses so his vision is poor, unclear if he is hallucinating his is working on getting a new pair he is convinced everyone here is trying to kill him not eating or drinking well, able to access port today to start gentle fluids updated his daughter over the phone, she is at a loss on how to help him he cannot go home with his , too weak, needs to get stronger at SNF but at his point he won't participate with therapy, denied by insurance to go to SNF will probably need to improve/resolve delirium, get him to be cooperative, get updated PT/OT notes and try again try to maintain normal sleep wake cycles but he is very sleepy during the day, not sleeping well at night try Seroquel 25mg BID, Haldol PO PRN, Ativan 0.5mg IV PRN (2) Urinary retention: pt did have padilla that was uncomfortable and leaking, he self removed it on 06/15, is voiding without it, does have confirmed colin uti now on culture complete 10-14 days of Diflucan started 06/15/20, day 5 today (3) Hypotension: Patient returns with hypotension and general decline. Prior to going home last time he was given Florinef for orthostatic hypotension. His family corroborated this is been a problem for some time. concern for post covid pots syndrome, bp and heart rate along with dizziness complaint did improve with florinef and salt tablets suspect that he might have been getting metoprolol and lisinopril that he was not supposed to be getting BP has been normal to elevated stop Florinef, stop sodium tablets, less PO to take (4) Atrial fibrillation: Patient continues to remain rate controlled without medications he was anticoagulated with Eliquis did develop some hematuria from that, since resolved (5) Cardiomyopathy: Once again the patient has an EF of 35 to 40% making him having chronic heart failure reduced ejection fraction need to be cautious with volume resuscitation and sodium orally. 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 prior to his Covid infection he will continue with PT OT while here limited by his complaints of lightneadedness at baseline he could stand up and get in wheelchair he would move himself around in his wheelchair with his arms at this point he cannot get out of bed, cannot stand up, far weaker than normal his mental status is only complicating matters, he is paranoid, won't trust any one, won't participate (8) Depressed: Patient has persistent depression he had some appetite reduction subsequently started on Remeron, however will stop due to concerns for med side affects (9) Orthostatic hypotension: As mentioned above the patient documented orthostatic hypotension Florinef will be maintained, in case this is POTS from post covid toleration sodium chloride 1 gm daily (10) Discharge planning issues: Pt was discharged to [facility] the last visit discharged 06/05, in er 06/08 and readmitted 06/09, family feels that pt was given metoprolol and lisinopril which were directed not to give on the d/c paperwork,Pt presented with hypotension, family requests not to return to [facility] plan for [facility] once his delirium resolves would need updated PT/OT notes, would need to re-apply for insurance auth Admission and Anticipated Discharge Date Admission Date: June 09, 2020 Subjective patient still very confused and aggressive, still claiming people trying to kill him still no luck finding his glasses still won't eat or drink well will try to get labs today and access port for fluids if he will allow us will try to get Seroquel 25mg and Ativan 0.5mg into him this morning to allow him to rest might have to resort to Haldol IM, Ativan 0.5mg IV if he won't take PO spoke with his daughter Emily, answered her questions she understands the difficulties of managing delirium, she is an RN his is working on getting him new glasses so he can see better able to get labs, WBC 10k, Hb 10.6, plts 257k, Cr 0.9, K 4.1, Na 145 started on some IV fluids since intake not great took a little bit of Ativan PO and Seroquel 25mg but might have spit some out still agitated, ordered Ativan 0.5mg IV x 2 doses, seeing if it will eventually help Review of Systems Review of Systems: Unobtainable due to cognitive status Physical Exam Constitutional: well developed, + frail appearing and comfortable; no acute distress Neck: trachea midline, no thyromegaly Respiratory: normal respiratory effort, lungs clear to auscultation Cardiovascular: RRR, no murmur, no edema Gastrointestinal (Abdomen): normal bowel sounds, soft, nontender, no hepatosplenomegaly Musculoskeletal: no cyanosis or clubbing, extremities motor strength 5/5 Skin: no rashes, warm and dry Neurologic: patellar DTR's 2+ bilat, sensation intact and PERRL, EOMI, accommo dation nl, no face palsy, no dysarthria Psychiatric: Orientation: alert, oriented to person, oriented to place and + guarded (agitated); + not oriented to time Thought Content: + paranoid, + delusions and + persecution Hallucinations: + visual hallucinations (cannot see well due to no glasses) Insight: + limited insight Judgement: + limited judgement Lymphatic: no cervical or axillary lymphadenopathy Results & Data Results & Data ([facility]) Vital Signs (Past 12 Hours) Vital Signs Temp Pulse Resp BP BP Pulse Ox 06/19/20 06:59 36.7 C 84 16 146/81 H 96 06/19/20 00:59 36.6 C 64 16 117/76 96 Laboratory Results Laboratory Results - last 24 hr 06/14/20 06/18/20 06/18/20 06:11 16:46 19:53 WBC RBC Hgb Hct MCV MCH MCHC RDW Std Deviation RDW Coeff of Petar Plt Count MPV Sodium Potassium Chloride Carbon Dioxide Anion Gap BUN Creatinine Est Cr Clr Drug Dosing Est GFR ( Amer) Est GFR (Non-Af Amer) BUN/Creatinine Ratio Glucose POC Glucose 187 H 240 H Calcium Magnesium Whole Bld Vitamin B1 525 H 06/19/20 06/19/20 06/19/20 07:57 11:00 11:00 WBC 10.56 RBC 3.27 L Hgb 10.6 L Hct 32.1 L MCV 98.2 MCH 32.4 MCHC 33.0 RDW Std Deviation 64.3 H RDW Coeff of Petar 18.9 H Plt Count 257 MPV 11.0 H Sodium 145 Potassium 4.1 Chloride 110 H Carbon Dioxide 33 H Anion Gap 3.0 BUN 35 H Creatinine 0.91 Est Cr Clr Drug Dosing 69.0 Est GFR ( Amer) 88.8 Est GFR (Non-Af Amer) 76.6 BUN/Creatinine Ratio 38.7 H Glucose 204 H POC Glucose 217 H Calcium 9.0 Magnesium 2.0 Whole Bld Vitamin B1 06/19/20 11:55 WBC RBC Hgb Hct MCV MCH MCHC RDW Std Deviation RDW Coeff of Petar Plt Count MPV Sodium Potassium Chloride Carbon Dioxide Anion Gap BUN Creatinine Est Cr Clr Drug Dosing Est GFR ( Amer) Est GFR (Non-Af Amer) BUN/Creatinine Ratio Glucose POC Glucose 225 H Calcium Magnesium Whole Bld Vitamin B1 Medications Administered Current Inpatient Medications Acetaminophen (Acetaminophen 325 Mg Tab) 650 mg PO Q4H PRN PRN Reason: Pain or Fever Stop: 07/09/20 11:05 Al Hydrox/Mg Hydrox/Simethicone (Aluminum/Magnesium Susp 30 Ml Udc) 15 ml PO Q4H PRN PRN Reason: Dyspepsia Stop: 07/09/20 11:05 Albuterol (Albut/Ipratrop 3mg/0.5mg Neb 3 Ml Vial) 3 ml NEB Q4R PRN PRN Reason: wheezing Stop: 07/14/20 02:59 Amiodarone HCl (Amiodarone 200 Mg Tab) [address] [facility] Stop: 07/09/20 11:05 Last Admin: 06/19/20 08:44 Dose: 200 mg Documented by: Aspirin (Aspirin 81 Mg Ectab) [address] [facility] Stop: 07/09/20 11:05 Last Admin: 06/19/20 08:44 Dose: 81 mg Documented by: Dextrose (Dextrose 50% 50 Ml Syringe) 25 - 50 ml IV UD PRN; Protocol PRN Reason: Hypoglycemia Protocol Stop: 07/09/20 11:05 Fluconazole (Fluconazole 100 Mg Tab) [address] [facility] Stop: 06/26/20 08:59 Last Admin: 06/19/20 08:45 Dose: 200 mg Documented by: Fludrocortisone Acetate (Fludrocortisone Acetate 0.1 Mg Tab) 0.[address] [facility] Stop: 07/09/20 11:05 Last Admin: 06/19/20 08:44 Dose: 0.1 mg Documented by: Glucagon (Glucagon For Inj 1 Mg Vial) 1 mg SQ UD PRN; Protocol PRN Reason: Hypoglycemia Protocol Stop: 07/09/20 11:05 Glucose (Glucose 10 Tabs/Tube) 4 - 8 tabs PO UD PRN; Protocol PRN Reason: Hypoglycemia Protocol Stop: 07/09/20 11:05 Glucose (Glucose 40% Gel 15 Gm Tube) 15 - 30 gm PO UD PRN; Protocol PRN Reason: Hypoglycemia Protocol Stop: 07/09/20 11:05 Heparin Sodium (Porcine) (Heparin 100 Unit/Ml 5ml Flush) 5 ml FLUSH PRN PRN PRN Reason: Flush Stop: 07/15/20 10:52 Dextrose/Sodium Chloride (D5w And 1/2nss) 1,000 mls @ 80 mls/hr IV .[id number] [facility] Stop: 07/19/20 10:29 Last Admin: 06/19/20 10:56 Dose: 80 mls/hr Documented by: Insulin Aspart (Insulin Aspart 100 Units/Ml 3 Ml Pen) 0 units SC ACHS [facility] Stop: 07/09/20 11:29 Last Admin: 06/19/20 12:16 Dose: 3 units Documented by: Lidocaine HCl (Lidocaine 2% Jelly 5 Ml Tube) 5 ml EXT PRN PRN PRN Reason: CATH INSERTION Stop: 07/14/20 12:32 Magnesium Hydroxide (Magnesium Hydroxide Susp 30 Ml Udc) 30 ml PO Q12H PRN PRN Reason: Constipation Stop: 07/09/20 11:05 Magnesium Oxide (Magnesium Oxide 400 Mg Tab) [address] [facility] Stop: 07/09/20 11:05 Last Admin: 06/19/20 08:44 Dose: 400 mg Documented by: Miscellaneous (Carbohydrates For Hypoglycemia ) 15 - 30 gm PO UD PRN PRN Reason: Hypoglycemia Protocol Stop: 07/09/20 11:05 Multivitamins/Minerals (Cerovite Adv Formula Tab) 1 tab PO BID [facility] Stop: 07/09/20 11:05 Last Admin: 06/19/20 08:44 Dose: 1 tab Documented by: Ondansetron HCl (Ondansetron Inj 2 Mg/Ml 2 Ml Vial) 4 mg IV Q6H PRN PRN Reason: Nausea Stop: 07/09/20 11:05 Polyethylene Glycol (Polyethylene (Miralax) 17 Gm Pack) 17 gm PO DAILY PRN PRN Reason: Constipation Stop: 07/09/20 11:05 Potassium Chloride (Potassium Chloride 10 Meq Tabcr) 10 meq PO DAILY [facility] Stop: 07/09/20 11:05 Last Admin: 06/19/20 08:44 Dose: 10 meq Documented by: Sodium Chloride (Sodium Chloride 1 Gm Tablet) 1 gm PO BID [facility] Stop: 07/10/20 20:59 Last Admin: 06/19/20 08:43 Dose: 1 gm Documented by: Thiamine HCl (Thiamine Hcl 100 Mg Tab) 100 mg PO QAM [facility] Stop: 07/14/20 08:59 Last Admin: 06/19/20 07:36 Dose: Not Given Documented by: Vitamin D (Cholecalciferol 1,000 Units 25 Mcg Tab) 2,000 units PO DAILY [facility] Stop: 07/09/20 11:05 Last Admin: 06/19/20 08:44 Dose: 2,000 units Documented by: PG Care Time/CCT Total # of Minutes Spent Total Time Spent: 45 Total Time Spent with Patient: Total time spent is greater than 50% in coordination of care (as documented) at patient's floor/unit and/or counseling patient: Coding Level of Care Code 60807 Subseq Hosp Care Lvl 3 Diagnoses Delirium R41.0 Urinary retention R33.9 Hypotension I95.9 Atrial fibrillation I48.0 Atrial fibrillation type: paroxysmal Cardiomyopathy I25.5 Cardiomyopathy type: ischemic Diabetes mellitus, type II E11.65 Diabetes mellitus complication status: with hyperglycemia Diabetes mellitus buttermaker helper insulin use: without nursing home use Gait apraxia R48.2 Depressed F32.9 Orthostatic hypotension I95.1 Discharge planning issues Z02.9 (1) Diabetes mellitus, type II Diabetes mellitus complication status: with hyperglycemia Diabetes mellitus nursing home insulin use: without buttermaker helper use Qualified Code(s): E11.65 - Type 2 diabetes mellitus with hyperglycemia (2) Atrial fibrillation Atrial fibrillation type: paroxysmal Qualified Code(s): I48.0 - Paroxysmal atrial fibrillation (3) Cardiomyopathy Cardiomyopathy type: ischemic Qualified Code(s): I25.5 - Ischemic cardiomyopathy
[2020-06-19 11:14] LABS: Hematocrit (blood only) 32.1 % (42-52); Hemoglobin 10.6 g/dL (14.0-18.0); Mean Corpuscular Hemoglobin 32.4 pg (25-34); Mean Corpuscular Volume 98.2 fL (80-100); Platelet Count 257 K/uL (130-400); RDW Coefficient of Variation 18.9 % (11.5-14.5); RDW Standard Deviation 64.3 fL (36.4-46.3); Red Blood Count 3.27 M/uL (4.7-6.1); White Blood Count 10.56 K/uL (4.8-10.8)
[2020-06-19 11:42] LABS: BUN Creatinine Ratio 38.7 (10-20); Est GFR (African American) 88.8; Est GFR (Non-African American) 76.6; Potassium 4.1 mmol/L (3.5-5.1)
[2020-06-19] MEDS ORDERED: LORazepam 0.5 MG/1 ML VIAL IV ONE (12:15)
[2020-06-19] MEDS ORDERED: LORazepam 0.25 MG/0.5 ML VIAL IV STA (13:30)
[2020-06-19] MEDS ORDERED: MAGNESIUM SULFATE / D5W 1 GM/100 ML BAG IV SCH (17:45)
[2020-06-19] MEDS ORDERED: FLUMAZENIL 0.1 MG/1 ML 10 ML VIAL IV STA (17:46)
[2020-06-19 18:04] LABS: Base Excess ABG 4.3 mEq/L (-9-1.8); HCO3 ABG 29 mmol/L (19-24); Oxygen Saturation ABG 81.7 % (90-95); PCO2 ABG 44 mmHg (35-46); PO2 ABG 47 mmHg (80-95); pH ABG 7.44 (7.35-7.45)
[2020-06-19 18:06] LABS: Allen Test Pos (Pos)
[2020-06-19] MEDS ORDERED: RAPID SEQUENCE INDUCTION BAG ONE (18:24)
[2020-06-19] MEDS ORDERED: FUROSEMIDE 40 MG/4 ML VIAL IV ONE (18:31)
[2020-06-19] MEDS: NOREPINEPHRINE/D5W 8 MG/508 ML BAG IV SCH (18:45)
--- NOTE | 2020-06-19 18:49 | XRay Report ---
XR chest 1V portable CLINICAL HISTORY: hypoxemia COMPARISON STUDY: 06/09/2020 FINDINGS: The cardiac and mediastinal contours remain stable. There is a right-sided A-Port catheter. There are progressive bilateral pulmonary airspace opacities. There is a right pleural effusion.[ IMPRESSION: Progressive bilateral pulmonary airspace opacities. Right pleural effusion. ACT 112: Negative or not required by law. Electronically signed by: Jakub Almonte M.D. 06/19/2020 6:48 PM
[2020-06-19] MEDS ORDERED: NOREPINEPHRINE/D5W 8 MG/508 ML IV ONE (18:57)
[2020-06-19 19:34] LABS: iSTAT Arterial Blood Gas HCO3 30 meg/L (19-24); iSTAT Arterial Blood Gas pCO2 44 mmHg (35-46); iSTAT Arterial Blood Gas pH 7.44 (7.35-7.45); iSTAT Arterial Blood Gas pO2 120 mmHg (80-95); iSTAT Carbon Dioxide 31 mmol/L (24-31); iSTAT Hematocrit 31 % (42-52); iSTAT Hemoglobin 10.5 g/dl (14.0-18.0); iSTAT Potassium 4.2 mmol/L (3.3-5.0); iSTAT Sodium 144 mmol/L (135-144)
[2020-06-19] MEDS ORDERED: CEFEPIME CONSULT ACTIVE PRN (20:08)
[2020-06-19] MEDS ORDERED: VANCOMYCIN CONSULT ACTIVE PRN (20:08)
--- NOTE | 2020-06-19 20:10 | Critical Care Consultation ---
Date of Consultation June 19, 2020 Assessment & Plan (1) Acute hypoxemic respiratory failure: 84-year-old male with recent COVID-19 illness, cardiomyopathy, dementia and atrial fibrillation now with evidence of acute hypoxemic respiratory failure and metabolic encephalopathy. Neurologic: Analgesics and sedation: Patient is severely encephalopathic with likely acute delirium. We intubated the patient due to hypoxic respiratory failure and airway protection. We will continue with fentanyl and consider addition of low- dose Versed if further sedation is required to promote ventilator synchrony and patient comfort. Will obtain an urgent CT head to evaluate for acute pathology. Delirium precautions Pulmonary: Patient intubated due to acute hypoxemic respiratory failure. Continue lung protective ventilation strategy. We will obtain a sputum culture. Cannot rule out infection at this time. I have started patient on vancomycin and cefepime. He does have bilateral effusions. Received 20 mg of IV Lasix. We will continue to diurese blood pressure will tolerate. Cardiovascular: Has a history of atrial fibrillation. He is not currently anticoagulated. If no evidence of head bleed is noted on CT head, will start him on a heparin drip without a bolus. Continue norepinephrine to maintain mean arterial pressures above 65. Will consider dobutamine. Trend troponins. Continue amiodarone. Patient is currently hypotensive likely related to sedation. Septic shock is difficult to rule out at this time. Gastrointestinal: OG tube placed. Consider addition of tube feeds tomorrow. Renal: 20 mg IV Lasix given as noted previously. Monitor urine output closely. We will obtain a BMP. Infectious disease: Sputum cultures, urinalysis and blood cultures ordered. Vancomycin and cefepime started. Procalcitonin ordered. MRSA screen ordered. Initial MRSA screen admission with negative. He did have recent COVID-19 illness and appears to have residual infiltrates from COVID-19. Currently off isolation. Hematologic: We will start heparin drip as noted above for atrial fibrillation no evidence of bleed on CT head. Hemoglobin stable. Endocrine: TSH checked on within normal limits. No other issues. Lines and tubes: Intubated 06/19/2020. Right radial arterial line placed 06/19/2020. 1 peripheral IV placed. Right-sided implanted port present. VTE prophylaxis: We will likely start heparin drip without bolus. CODE STATUS: Full code at this time. We will consult palliative care. Family at bedside: None present at bedside due to COVID-19 pandemic. And is updated by the hospitalist. Disposition: Remain in the ICU. I have personally spent 69 minutes of critical care time in the direct management of this patient. This is a life/limb threatening event. This includes time spent evaluating patient, direct bedside care, chart review, placing orders, interpretation of diagnostic studies, discussion with consultants, patient, and family members, as well as other required patient management activities. This time is exclusive of all separately billable procedures, and teaching time and separate from and in addition to any other critical care service time. Thank you for allowing us to participate in the care of this patient. (2) Acute systolic heart failure: (3) Acute metabolic encephalopathy: (4) Atrial fibrillation: (5) Shock circulatory: History of Present Illness Attending Physician: Pablo Hager DO History of Present Illness 84-year-old male with a past medical history of diabetes mellitus type 2, diabetic peripheral neuropathy, cardiomyopathy (EF of 35 to 40%), recent COVID-19 illness and atrial fibrillation who presented to the hospital on 06/09/2020 due to hypotension. ICU was called due to worsening encephalopathy and hypoxemia on the floor. He received Ativan earlier today due to agitated delirium. On presentation to the room, the patient was on BiPAP with intermi ttent hypoxia and severe encephalopathy. I was unable to get any history from the patient. I was able to talk to the hospitalist and the bedside nurse who were able to update me. I was also able to get history from the chart. An ABG was completed which demonstrated hypoxia. No significant hypercapnia was noted. We brought the patient down to the ICU and placed a Virgen catheter. I performed a bedside ultrasound which demonstrated evidence of B-lines and bilateral pleural effusions with a large effusion noted on the left. IVC was dilated. 20 mg of IV Lasix were given with increased urine output. I then emergently intubated the patient due to increasing altered mental status and hypoxia. Chest x-ray demonstrated bilateral infiltrates concerning for pulmonary edema and possible pneumonia. I reviewed the chest CTA from 06/12 which demonstrated bilateral groundglass opacities consistent with his COVID-19 illness. Patient was hypotensive after intubation and we started Levophed. I urgently placed a right radial arterial line. Of note the patient's Eliquis has been held during this hospitalization due to concerns of materia. He has not been on chemical DVT prophylaxis. John tionally, flumazenil was given while he was on the floor due to concerns of benzodiazepine induced sedation. Allergies Allergy/AdvReac Type Severity Reaction Status Date / Time Sulfa (Sulfonamide Allergy Intermediate RASH Verified 06/09/20 07:34 Antibiotics) adhesive Allergy Mild RASH Verified 06/09/20 07:34 bee venom protein (honey bee) Allergy Unknown Unknown Verified 06/09/20 07:34 Home Medications Medication Instructions Recorded Confirmed Type cholecalciferol (vitamin D3) 50 2,000 units PO DAILY #30 cap 08/21/18 06/09/20 Rx mcg (2,000 unit) capsule vitamin B complex 1 tab PO DAILY #30 tab 08/21/18 06/09/20 Rx cyanocobalamin (vitamin B-12) 2,000 mcg PO DAILY tab 11/22/18 06/09/20 History 2,000 mcg tablet vit C 250 mg-vit E 90 mg-zinc 40 1 tab PO BID 11/22/18 06/09/20 History mg-copper 1 nm-inetnp-jxpzmg capsule metformin 500 mg tablet 500 mg PO BID #180 tab 05/19/20 06/09/20 Rx fludrocortisone 0.1 mg PO QAM 30 Days #30 tab 06/04/20 06/09/20 Rx mirtazapine 15 mg PO HS 30 Days #30 tab 06/04/20 06/09/20 Rx acetaminophen 650 mg PO Q6 PRN MDD 3g 06/08/20 06/09/20 History acetaminophen 650 mg PO Q6 PRN MDD 3g 06/08/20 06/09/20 History amiodarone 200 mg PO QAM 06/08/20 06/09/20 History apixaban [Eliquis] 5 mg PO UD 06/08/20 06/09/20 History aspirin [Adult Low Dose Aspirin] 81 mg PO UD 06/08/20 06/09/20 History cephalexin 500 mg PO Q6H 5 Days #20 cap 06/08/20 06/09/20 Rx lisinopril 5 mg PO QAM 06/08/20 06/09/20 History magnesium 250 mg PO QAM 06/08/20 06/09/20 History metoprolol tartrate 25 mg PO BID 04/18/21 04/19/21 History phenazopyridine [Pyridium] 200 mg PO TID PRN #6 tab 06/08/20 06/09/20 Rx potassium chloride 10 meq PO DAILY 06/08/20 06/09/20 History Patient History Medical History Cardiomyopathy Diabetes mellitus, type II Gait apraxia Hyperlipidemia Hypoxia Low vision of left eye Pneumonia due to COVID-19 virus Vitamin D insufficiency Surgical History H/O heart artery stent (~2002) History of cholecystectomy History of PTCA (~2013) Family History Father Leukemia Mother Sick sinus syndrome S/P placement of cardiac pacemaker Sister Macular degeneration Brother Macular degeneration Denies family history of Ovarian cancer Prostate cancer Breast cancer Lung cancer Colorectal cancer Social History Smoking Status: Former smoker Second Hand Exposure: No; Hx Alcohol Use: No Hx Substance Use: No Preferred Language: Wolof Communication Ability: Effective Visual Impairment: No Limitations Hearing Ability: Normal Molded Good[employer] 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 Required: No Beliefs That Will Affect Care: None marital status: Current Living Situation: Intermediate Current Living Situation Comment: Lives with and nephew How many Children do You have: 4 Feels Safe at Home: Yes Safety Concerns: Feels Safe At This Time Assistive Devices: Oxygen - Continuous Review of Systems Review of Systems: Unobtainable due to cognitive status Physical Exam Constitutional: + acute distress, + ill appearing, + frail appearing and + lethargic ENMT: Ears: + hearing impairment Neck: normal visual inspection Respiratory: Coarse crackles bilaterally with diminished lung sounds. Cardiovascular: Heart Sounds: normal S1, normal S2 and + murmur Extremities: + edema Gastrointestinal (Abdomen): normal bowel sounds, soft, nontender, no hepatosplenomegaly Musculoskeletal: no cyanosis or clubbing, extremities motor strength 5/5 Skin: no rashes, warm and dry Neurologic: PERRL, EOMI, accommodation nl, no face palsy, no dysarthria Psychiatric: A+Ox3, euthymic affect Results & Data Results & Data ([facility]) Vital Signs (Past 12 Hours) Vital Signs Pulse Resp Pulse Ox 06/19/20 18:45 67 27 H 98 I reviewed the vital signs, labs and imaging Coding Level of Care Code Critical Care 1st 30-74 mins Diagnoses Acute hypoxemic respiratory failure J96.01 Acute systolic heart failure I50.21 Acute metabolic encephalopathy G93.41 Atrial fibrillation I48.0 Atrial fibrillation type: paroxysmal Shock circulatory R57.9 Time Spent (min) 69 (1) Atrial fibrillation Atrial fibrillation type: paroxysmal Qualified Code(s): I48.0 - Paroxysmal atrial fibrillation
[2020-06-19] MEDS ORDERED: PROPOFOL BOLUS FROM BAG IV PRN (20:28)
[2020-06-19] MEDS ORDERED: STAT IV Infusion **Titration per Protocol STA ×2 (20:28→21:05)
[2020-06-19] MEDS ORDERED: VANCOMYCIN HCL 2,000 MG in SODIUM CHLORIDE 0.9% 500 ML IV ONE (20:30)
[2020-06-19] MEDS ORDERED: CEFEPIME 2,000 MG in SYRINGE 0 ML IV ONE (20:30)
[2020-06-19] MEDS ORDERED: propofoL 1,000 MG/100 ML VIAL IV SCH (20:30)
--- NOTE | 2020-06-19 20:37 | Procedure Note ---
Procedure Note Date of Service June 19, 2020 Note INTUBATION PROCEDURE NOTE: Dr. Lj Pandey A time-out was completed verifying correct patient, procedure, site, positioning. Patient was evaluated and required intubation for altered mental status and hypoxemic respiratory failure. Sedative agent used: 20 mg etomidate Paralysis agent used: 50 mg rocuronium Emergent consent was implied given patients rapidly declining clinical status and need for airway protection. Number of attempts: 1 Grade view: The patient was prepared in the appropriate fashion. Sedation was achieved utilizing etomidate and rocuronium. The patient was easily ventilated using [id number] to achieve adequate oxygenation. A 7.5 [place] endotracheal tube was placed under glide scope guidance to 23 cm at the lip. The stylette was removed and balloon was inflated with 10mL of air. Appropriate Colorimetric change was appreciated. Bilateral breath sounds were heard without air sounds in the abdomen. Post Intubation Chest X-ray ordered Patient tolerated the procedure well and there were no immediate complications. Coding CPT Codes Resuscitation - Resuscitation: 93756 Endotracheal Intubation, emergency ([id number]) [facility] Procedure Codes (Charges) Resuscitation Resuscitation: 25150 Endotracheal Intubation, emergency
--- NOTE | 2020-06-19 20:39 | Procedure Note ---
Procedure Note Date of Service June 19, 2020 Note ARTERIAL LINE PROCEDURE NOTE: Procedure: Arterial Line Placement Indication: Monitoring on Pressors Procedure was done emergently as patient was in shock and intubated. A time-out was completed verifying correct patient, procedure, site, positioning, and implant(s) or special equipment if applicable. Patients right wrist was prepped and draped in the usual sterile fashion. Ultrasound guidance was used to aid needle placement. A 20g Arrow arterial line was introduced into the right radial artery. Catheter was threaded, and the needle was removed with appropriate blood return. Good waveform was observed. The patient tolerated the procedure well. Blood Loss: Minimal Complications: None Coding CPT Codes Tubes, Drains, and Vasc Access - Tubes, Drains, and Vasc Access: [id number] Insertion Catheter, Artery ([id number]) Tubes, Drains, and Vasc Access - Tubes, Drains, and Vasc Access: [id number] Ultrasound Guidance For Vascular ([id number]) [facility] [place] Procedure Codes (Charges) Tubes, Drains, and Vasc Access Procedure 1: Tubes, Drains, and Vasc Access: [id number] Insertion Catheter, Artery Procedure 2: Tubes, Drains, and Vasc Access: [id number] Ultrasound Guidance For Vascular
--- NOTE | 2020-06-19 20:40 | XRay Report ---
XR chest 1V portable CLINICAL HISTORY: Respiratory failure COMPARISON STUDY: 03/21/2020 FINDINGS: There is been interval insertion of an endotracheal tube 4 cm above the melanie. There is no change in position the right-sided Mediport catheter. There is an enteric tube which passes into the stomach. There are persistent extensive bilateral pulmonary airspace opacities. Small pleural effusi ons are suspected. IMPRESSION: 1. Interval placement of an endotracheal tube 4 cm above the melanie 2. Interval placement of an enteric tube which passes into the stomach 3. Persistent bilateral pulmonary airspace opacities. Small bilateral pleural effusions. ACT 112: Negative or not required by law. Electronically signed by: Jakub Almonte M.D. 06/19/2020 8:39 PM
[2020-06-19 20:41] LABS: Basophils # (auto) 0.03 K/uL (0-0.2); Basophils % (auto) 0.2 %; Eosinophils # (auto) 0.04 K/uL (0-0.5); Eosinophils % (auto) 0.3 %; Hematocrit (blood only) 33.2 % (42-52); Hemoglobin 10.8 g/dL (14.0-18.0); Immature Granulocytes # (auto) 0.12 K/uL (0.00-0.02); Immature Granulocytes % (auto) 0.9 %; Lymphocytes # (auto) 0.63 K/uL (1.2-3.4); Lymphocytes % (auto) 4.9 %; Mean Corpuscular Hemoglobin 32.1 pg (25-34); Mean Corpuscular Hgb Conc 32.5 g/dL (32-36); Mean Corpuscular Volume 98.8 fL (80-100); Mean Platelet Volume 11.1 fL (7.4-10.4); Monocytes # (auto) 1.09 K/uL (0.11-0.59); Monocytes % (auto) 8.5 %; Neutrophils # (auto) 10.85 K/uL (1.4-6.5); Neutrophils % (auto) 85.2 %; Platelet Count 246 K/uL (130-400); RDW Coefficient of Variation 19.4 % (11.5-14.5); RDW Standard Deviation 65.4 fL (36.4-46.3); Red Blood Count 3.36 M/uL (4.7-6.1); White Blood Count 12.76 K/uL (4.8-10.8)
--- NOTE | 2020-06-19 20:53 | CT Scan Report ---
CT head/brain wo con CLINICAL HISTORY: Acute change in mental status COMPARISON STUDY: 06/12/2020 TECHNIQUE: Axial CT of the brain is performed from the vertex to the skull base. IV contrast was not administered for this examination. A dose lowering technique was utilized adhering to the principles of ALARA. CT DOSE: 614.27 mGy.cm FINDINGS: No intra or extra-axial mass lesions are visualized. There is no CT evidence of acute cortical infarc tion. There is no evidence of midline shift. There is no acute hemorrhage. No calvarial fractures ar e visualized. There are patchy white matter hypodensities likely on a small vessel basis. 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 There is a new right maxillary sinus air-fluid level. IMPRESSION: 1. New right maxillary sinus air-fluid level. Clinical correlation with regards to sinusitis recommen ded 2. Otherwise no change from the preceding study. No acute intracranial findings. ACT 112: Negative or not required by law. Electronically signed by: Jakub Almonte M.D. 06/19/2020 8:52 PM
[2020-06-19] MEDS ORDERED: QUEtiapine FUMARATE 25 MG TABLET PO SCH (21:00)
[2020-06-19] MEDS ORDERED: ICU PROTOCOL FOR HYPERGLYCEMIA PRN (21:05)
[2020-06-19 21:12] LABS: Albumin Level 2.3 gm/dl (3.4-5.0); Calcium 8.9 mg/dl (8.5-10.1); Creatinine Clr Calc Pharmacy 66.8 ml/min; Est GFR (African American) 85.3; Est GFR (Non-African American) 73.6; Magnesium 1.9 mg/dl (1.8-2.4); Potassium 4.2 mmol/L (3.5-5.1)
[2020-06-19] MEDS ORDERED: fentaNYL DRIP 1,250 MCG/250 ML BAG IV SCH (21:15)
--- NOTE | 2020-06-19 21:19 | Pharmacy Report ---
Pharmacy Abx Initial Consult - Date of Service June 19, 2020 - Pharmacy Dosing Scope Date of Consult: 06/19/20 Consultation requested by: Dr. Pandey Pharmacy is consulted to initiate IV Cefepime and Vancomycin dosing therapy, order appropriate labs and adjust drug dose/frequency. - Subjective The patient is a 84 year old M admitted on 06/09/20 07:56 from [facility]. He had previous admission x 2 weeks for Covid. Today he was intubated in the ICU due to respiratory failure. Dr. Pandey immediately ordered broad spectrum abx therapy consisting of Cefepime and Vancomycin. MRSA swab was previously negative but will be re-checked per his notes. - Objective Height: 6 ft 2 in Weight: 83 kg Vital Signs (Past 12hrs): Vital Signs Pulse Resp Pulse Ox 06/19/20 18:59 83 20 96 06/19/20 18:45 67 27 H 98 Lab Results (24hrs): Laboratory Tests (24 Hours) 06/19/20 06/19/20 06/19/20 20:24 11:00 11:00 WBC 12.76 H 10.56 Neut # (Auto) 10.85 H Creatinine 0.91 Est Cr Clr Drug Dosing 69.0 Micro Results: 06/19/20 20:24 Aerobic Blood Culture - Pending Blood Anaerobic Blood Culture - Pending 06/14/20 Unknown Urine Culture - Final Urine,Clean Catch Maude albicans/dubliniensis 06/09/20 11:23 Aerobic Blood Culture - Final Blood No growth in Aerobic bottle after 5 days. Anaerobic Blood Culture - Final No growth in Anaerobic bottle after 5 days. 06/09/20 11:41 Aerobic Blood Culture - Final Blood No growth in Aerobic bottle after 5 days. Anaerobic Blood Culture - Final No growth in Anaerobic bottle after 5 days. 06/09/20 13:09 Urine Culture - Final Urine,Indwelling Cath No growth - less than 1,000 colonies/mL. - Risk Factors for Resistance * Resident in a longterm or extended-care facility * Hospitalization for 48 hours or more within the past 90 days * Current hospitalization > 5 days * Antimicrobial use within the last 90 days: Keflex, Rocephin, Diflucan - Assessment & Plan Assessment 84 year old M with respiratory failure started on Vancomycin and Cefepime Plan Vancomycin IV * Estimated PK Parameters: Vd 0.7 L/kg, Noel 0.062hr-1, t1/2 11.1 hr * Loading dose: 2000mg (~25 mg/kg) * Maintenance dose: 1250mg IV (~15 mg/kg) every 12 hours * Goal trough level: 15-20 mcg/mL * Trough level ordered prior to noon dose on 06/21/20 * Used AUC nomogram to schedule maintenance dosing Cefepime: 2gm iv q8h started for est crcl greater than 60ml/min Pharmacy will continue to follow and will adjust dose/frequency as necessary. Thank you.
[2020-06-19 21:40] LABS: Albumin Globulin Ratio 0.7 (0.9-2); Bilirubin,Total 1.2 mg/dl (0.2-1); Globulin 3.4 gm/dl (2.5-4.0); Phosphorus 4.1 mg/dl (2.5-4.9); Total Protein 5.7 gm/dl (6.4-8.2); Troponin I 0.061 ng/ml (0-0.045)
[2020-06-19 22:10] LABS: Appearance Urine Clear (Clear); Bacteria Urine Automated Negative (Negative); Bilirubin Urine Negative (Negative); Blood Urine 1+ (Negative); Color Urine Yellow; Epithelial Cell Urine Auto 20-30 /lpf (0-5); Glucose Urine UA Negative (Negative); Ketones Urine Negative (Negative); Leukocyte Esterase Urine Trace (Negative); Nitrite Urine Negative (Negative); Protein Urine Negative (Negative); RBC Urine Automated 0-4 /hpf (0-4); Specific Gravity Urine 1.013 (1.000-1.030); Urobilinogen Urine Negative (Negative)
[2020-06-19] MEDS ORDERED: FUROSEMIDE 20 MG in SYRINGE 0 ML IV ONE (22:18)
[2020-06-19 22:34] LABS: INR 1.5 (0.9-1.1); Partial Thromboplastin Time 26.5 Seconds (21.0-31.0); Prothrombin Time 15.1 Seconds (9.0-12.0)
[2020-06-19] MEDS: Heparin IV Adult Wt-Based Standard *NO* Bolus Protocol IV SCH ×4 (22:57→23:43)
[2020-06-19] MEDS: HEPARIN SODIUM/DEXTROSE 25,000 UNITS/500 ML BAG IV SCH (23:10)
[2020-06-19] MEDS ORDERED: PHARMACY GLYCEMIC MGMT CONSULT PRN (23:31)
[2020-06-20] MEDS: Heparin IV Adult Wt-Based Standard *NO* Bolus Protocol IV SCH (00:43)
[2020-06-20] MEDS ORDERED: INSULIN ASPART 100 UNITS/ML 3 ML PEN SC SCH ×2 (04:00)
[2020-06-20] MEDS ORDERED: MIDAZOLAM BOLUS FROM BAG IV PRN (04:19)
[2020-06-20] MEDS ORDERED: STAT IV Infusion **Titration per Protocol STA (04:19)
[2020-06-20] MEDS ORDERED: MIDAZOLAM HCL 125 MG/250 ML BAG IV PRN (04:19)
[2020-06-20 04:37] LABS: iSTAT Arterial Blood Gas HCO3 32 meg/L (19-24); iSTAT Arterial Blood Gas pCO2 41 mmHg (35-46); iSTAT Arterial Blood Gas pO2 95 mmHg (80-95); iSTAT Carbon Dioxide 33 mmol/L (24-31); iSTAT Hematocrit 30 % (42-52); iSTAT Hemoglobin 10.2 g/dl (14.0-18.0); iSTAT Potassium 3.9 mmol/L (3.3-5.0); iSTAT Sodium 144 mmol/L (135-144)
[2020-06-20 05:08] LABS: Basophils # (auto) 0.02 K/uL (0-0.2); Basophils % (auto) 0.2 %; Eosinophils # (auto) 0.25 K/uL (0-0.5); Eosinophils % (auto) 2.2 %; Hematocrit (blood only) 31.2 % (42-52); Hemoglobin 10.3 g/dL (14.0-18.0); Immature Granulocytes # (auto) 0.12 K/uL (0.00-0.02); Lymphocytes # (auto) 1.69 K/uL (1.2-3.4); Lymphocytes % (auto) 14.8 %; Mean Corpuscular Hemoglobin 32.5 pg (25-34); Mean Corpuscular Volume 98.4 fL (80-100); Mean Platelet Volume 10.9 fL (7.4-10.4); Monocytes # (auto) 1.05 K/uL (0.11-0.59); Monocytes % (auto) 9.2 %; Neutrophils % (auto) 72.6 %; Nucleated RBC # (auto) 0.06 K/uL (0-0); Nucleated RBC % (auto) 0.5 %; Platelet Count 225 K/uL (130-400); RDW Coefficient of Variation 19.6 % (11.5-14.5); RDW Standard Deviation 65.6 fL (36.4-46.3); Red Blood Count 3.17 M/uL (4.7-6.1); White Blood Count 11.43 K/uL (4.8-10.8)
[2020-06-20 05:17] LABS: INR 1.5 (0.9-1.1)
[2020-06-20 05:27] LABS: Partial Thromboplastin Ratio 3.9
[2020-06-20 05:30] LABS: Partial Thromboplastin Time 101.7 Seconds (21.0-31.0)
[2020-06-20 05:33] LABS: BUN Creatinine Ratio 37.1 (10-20); Bilirubin Direct 0.4 mg/dl (0-0.2); Calcium 7.8 mg/dl (8.5-10.1); Creatinine Clr Calc Pharmacy 70.6 ml/min; Est GFR (African American) 90.4; Magnesium 1.8 mg/dl (1.8-2.4); Potassium 3.8 mmol/L (3.5-5.1)
[2020-06-20 05:56] LABS: Phosphorus 3.2 mg/dl (2.5-4.9); Total Protein 5.4 gm/dl (6.4-8.2)
[2020-06-20] MEDS ORDERED: CEFEPIME 2,000 MG in SYRINGE 0 ML IV SCH (06:00)
[2020-06-20] MEDS ORDERED: FUROSEMIDE 40 MG/4 ML VIAL IV ONE (06:15)
[2020-06-20] MEDS ORDERED: FUROSEMIDE 20 MG in SYRINGE 0 ML IV ONE ×2 (06:16→15:00)
--- NOTE | 2020-06-20 08:05 | XRay Report ---
XR chest 1V portable HISTORY: Respiratory distress. Follow-up. COMPARISON: 06/19/2020. FINDINGS: The lines and tubes remain unchanged in position. The heart is normal in size. No pneumotho rax. Bilateral diffuse airspace opacities have slightly improved. Small bilateral pleural effusions p ersist. IMPRESSION: 1. Slight improvement in bilateral airspace opacities. 2. Small bilateral pleural effusions, unchanged. 3. Satisfactory support line placement. ACT 112: Negative or not required by law. Electronically signed by: Perico Schaefer M.D. 06/20/2020 8:04 AM
[2020-06-20] MEDS: ASPIRIN 81 MG ECTAB PO SCH (08:18)
[2020-06-20] MEDS: CHOLECALCIFEROL 1,000 UNITS 25 MCG TAB PO SCH (08:18)
[2020-06-20] MEDS: AMIODARONE 200 MG TAB PO SCH (08:19)
[2020-06-20] MEDS: THIAMINE HCL 100 MG TAB PO SCH (08:19)
[2020-06-20] MEDS: INSULIN ASPART 100 UNITS/ML 3 ML PEN SC SCH ×5 (08:41→23:40)
[2020-06-20] MEDS ORDERED: ASPIRIN 81 MG CHEW ONE (08:54)
[2020-06-20] MEDS: ASPIRIN 81 MG CHEW PO SCH (09:07)
--- NOTE | 2020-06-20 11:19 | Pharmacy Report ---
Pharmacy Glycemic Short Note 2 - Date of Service June 20, 2020 - Glycemic Short BSG Results (Last 24 hours): 06/19/20 06/19/20 06/19/20 11:00 11:55 16:57 Glucose 204 H POC Glucose 225 H 260 H 06/19/20 06/19/20 06/19/20 19:21 20:24 23:21 Glucose 253 H POC Glucose 245 H 243 H 06/20/20 06/20/20 06/20/20 04:12 04:55 08:25 Glucose 178 H POC Glucose 183 H 166 H OUTPATIENT ANTIDIABETIC REGIMEN: * Metformin 500mg PO BID * A1c = 6.5% 05/20/20 ASSESSMENT: * Patient transferred to ICU secondary to acute resp failure requiring intubation * BSGs were acutely elevated yesterday, likely stress induced * BSGs have fallen to goal range with minimal intervention * Usually well controlled on metformin monotherapy * Will initiate SQ Novolog Q 4 hrs alone - but use this regimen to provide a portion of "basal" insulin. Will omit basal insulin at this time. * Of note, pt may be extubated today. No plans for continuous tube feeds at this time. PLAN FOR INPATIENT GLYCEMIC CONTROL: * Hold outpatient oral diabetes medications (metformin) * Basal insulin * None at this time * Bolus insulin * NovoLog per scale Q4hrs: PLAN FOR DISCHARGE: * may resume home regimen of metformin if no contraindication present at time of discharge * A1c of 6.5% is at goal
--- NOTE | 2020-06-20 11:53 | Palliative Care Consultation ---
Date of Consultation June 20, 2020 Assessment & Plan (1) Palliative care encounter: Booker is currently a full code. His daughter, Emily, is a trauma/ICU nurse at [employer]. She has spoken with him multiple times about what his wishes are for his medical care. They talked about this most recently prior to his hospitalization for covid. He told her that he was not ready to go. He indicated that he would want full code and full treatment. He does have an advance directive which indicates that he would not want aggressive interventions if he were in a terminal condition. Emily tells me that she is realistic and is certain that she would not want him to have tracheostomy or peg tube, however, she does want him to remain full code at this time. I updated her that he had been extubated and she said that she would be reintubated if needed. She is approaching this on a day to day basis and would want full care as long as there are signs that he may improve. Palliative medicine will follow. (2) Acute hypoxemic respiratory failure: (3) Acute systolic heart failure: (4) Delirium: (5) Atrial fibrillation: Atrial fibrillation type: paroxysmal Qualified Code(s): I48.0 - Paroxysmal atrial fibrillation (6) COPD (chronic obstructive pulmonary disease): COPD type: unspecified COPD Qualified Code(s): J44.9 - Chronic obstructive pulmonary disease, unspecified (7) Cardiomyopathy: Cardiomyopathy type: ischemic Qualified Code(s): I25.5 - Ischemic cardiomyopathy History of Present Illness Reason for Consultation: goals of care Requesting Physician: Dr. Pandey Attending Physician: Pablo Hager DO History of Present Illness 84 yo gentleman admitted for hypotension and bradycardia from [facility] after a three day stay for rehab. He was hospitalized for two weeks prior to that with covid. On this admission, he did have a right pleural effusion and bilateral ground glass opacities on chest xray. He has known cardiomyopathy with EF of 35-40%. He is being diuresed. Last night he became acutely hypoxic and was intubated and transferred to ICU. He remains intubated and on pressor support. He is not sedated and is able to follow simple commands at times. He does become agitated without sedation. He has twice pulled out his padilla catheter due to agitation in the last few weeks and has had significant hospital delirium for the last several days. Allergies Allergy/AdvReac Type Severity Reaction Status Date / Time Sulfa (Sulfonamide Allergy Intermediate RASH Verified 06/09/20 07:34 Antibiotics) adhesive Allergy Mild RASH Verified 06/09/20 07:34 bee venom protein (honey bee) Allergy Unknown Unknown Verified 06/09/20 07:34 Home Medications Medication Instructions Recorded Confirmed Type cholecalciferol (vitamin D3) 50 2,000 units PO DAILY #30 cap 08/21/18 06/09/20 Rx mcg (2,000 unit) capsule vitamin B complex 1 tab PO DAILY #30 tab 08/21/18 06/09/20 Rx cyanocobalamin (vitamin B-12) 2,000 mcg PO DAILY tab 11/22/18 06/09/20 History 2,000 mcg tablet vit C 250 mg-vit E 90 mg-zinc 40 1 tab PO BID 11/22/18 06/09/20 History mg-copper 1 [id number] capsule metformin 500 mg tablet 500 mg PO BID #180 tab 05/19/20 06/09/20 Rx fludrocortisone 0.1 mg PO QAM 30 Days #30 tab 06/04/20 06/09/20 Rx mirtazapine 15 mg PO HS 30 Days #30 tab 06/04/20 06/09/20 Rx acetaminophen 650 mg PO Q6 PRN MDD 3g 06/08/20 06/09/20 History acetaminophen 650 mg PO Q6 PRN MDD 3g 06/08/20 06/09/20 History amiodarone 200 mg PO QAM 06/08/20 06/09/20 History apixaban [Eliquis] 5 mg PO UD 06/08/20 06/09/20 History aspirin [Adult Low Dose Aspirin] 81 mg PO UD 06/08/20 06/09/20 History cephalexin 500 mg PO Q6H 5 Days #20 cap 06/08/20 06/09/20 Rx lisinopril 5 mg PO QAM 06/08/20 06/09/20 History magnesium 250 mg PO QAM 06/08/20 06/09/20 History metoprolol tartrate 25 mg PO BID 06/08/20 06/09/20 History phenazopyridine [Pyridium] 200 mg PO TID PRN #6 tab 06/08/20 06/09/20 Rx potassium chloride 10 meq PO DAILY 06/08/20 06/09/20 History Patient History Medical History Acute hypoxemic respiratory failure Acute metabolic encephalopathy Acute systolic heart failure Cardiomyopathy Diabetes mellitus, type II Gait apraxia Hyperlipidemia Hypoxia Low vision of left eye Pneumonia due to COVID-19 virus Shock circulatory Shock circulatory Vitamin D insufficiency Surgical History H/O heart artery stent (~2002) History of cholecystectomy History of PTCA (~2013) Family History Father Leukemia Mother Sick sinus syndrome S/P placement of cardiac pacemaker Sister Macular degeneration Brother Macular degeneration Denies family history of Ovarian cancer Prostate cancer Breast cancer Lung cancer Colorectal cancer Social History Smoking Status: Former smoker Second Hand Exposure: No; Hx Alcohol Use: No Hx Substance Use: No Preferred Language: Bulgarian Communication Ability: Effective Visual Impairment: No Limitations Hearing Ability: Normal 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 Beliefs That Will Affect Care: None marital status: Current Living Situation: Halfway Current Living Situation Comment: Lives with and nephew How many Children do You have: 4 Feels Safe at Home: Yes Safety Concerns: Feels Safe At This Time Assistive Devices: Oxygen - Continuous Review of Systems Review of Systems: Unobtainable due to endotracheal tube Physical Exam Constitutional: + thin, + frail appearing and + mechanically ventilated Respiratory: breathing above vent, FiO2 30% with peep of 5mm Cardiovascular: Rate/Rhythm: regular rate and + bradycardic Gastrointestinal (Abdomen): Percussion/Palpation: abdomen nontender Musculoskeletal: Extremities: + muscle atrophy Skin: vascular skin changes LEs Genitourinary: Padilla draining clear yellow urine Results & Data ([facility]) Vital Signs (Past 12 Hours) Vital Signs Temp Pulse Resp BP Pulse Ox 06/20/20 11:39 60 12 99 06/20/20 08:37 98.1 F 57 L 101/49 L 100 06/20/20 08:05 97.9 F 51 L 120/69 100 06/20/20 08:04 97.9 F 51 L 119/66 100 06/20/20 08:01 97.9 F 51 L 117/67 100 06/20/20 08:00 97.9 F 50 L 100 06/20/20 07:59 97.9 F 49 L 112/63 100 06/20/20 07:57 97.9 F 51 L 117/63 100 06/20/20 07:55 97.9 F 50 L 109/66 100 06/20/20 07:53 97.9 F 50 L 115/64 100 06/20/20 07:51 97.9 F 52 L 116/62 100 06/20/20 07:49 97.9 F 50 L 113/64 100 06/20/20 07:47 97.9 F 46 L 117/65 100 06/20/20 07:45 97.9 F 50 L 20 118/64 100 06/20/20 07:43 97.9 F 49 L 118/64 100 06/20/20 07:41 97.9 F 52 L 116/65 100 06/20/20 07:39 97.9 F 49 L 114/66 100 06/20/20 07:37 97.9 F 49 L 115/65 100 06/20/20 07:35 97.9 F 49 L 114/64 100 06/20/20 07:33 97.9 F 49 L 113/65 100 06/20/20 07:31 97.9 F 49 L 116/64 100 06/20/20 07:29 97.9 F 49 L 115/65 100 06/20/20 07:27 97.9 F 49 L 111/62 100 06/20/20 07:25 97.9 F 49 L 108/64 100 06/20/20 07:23 97.9 F 49 L 110/63 100 06/20/20 07:21 97.9 F 50 L 112/60 100 06/20/20 07:19 98.1 F 49 L 109/64 100 06/20/20 07:17 98.1 F 49 L 110/62 100 06/20/20 07:15 98.1 F 49 L 110/62 100 06/20/20 07:13 98.1 F 50 L 108/62 100 06/20/20 07:11 98.1 F 51 L 107/61 100 06/20/20 07:09 98.1 F 49 L 109/61 100 06/20/20 07:07 98.1 F 49 L 106/61 100 06/20/20 07:05 98.1 F 50 L 108/59 L 100 06/20/20 07:03 98.1 F 49 L 105/59 L 100 06/20/20 07:01 98.1 F 51 L 105/60 100 06/20/20 07:00 98.1 F 49 L 100 06/20/20 06:59 98.1 F 51 L 105/61 100 06/20/20 06:57 98.1 F 49 L 109/61 100 06/20/20 06:55 98.1 F 49 L 106/62 100 06/20/20 06:53 98.1 F 49 L 109/61 100 06/20/20 06:51 97.9 F 51 L 106/61 100 06/20/20 06:49 97.9 F 50 L 111/62 100 06/20/20 06:46 97.7 F 49 L 114/63 100 06/20/20 06:44 97.7 F 49 L 107/62 99 06/20/20 06:42 97.7 F 50 L 108/62 98 06/20/20 06:40 97.7 F 50 L 107/62 97 06/20/20 06:39 97.7 F 49 L 106/61 98 06/20/20 06:36 97.7 F 49 L 112/61 98 06/20/20 06:34 97.9 F 51 L 111/58 L 98 06/20/20 06:32 97.9 F 50 L 110/63 98 06/20/20 06:31 97.9 F 51 L 97 06/20/20 06:30 97.9 F 49 L 117/63 98 06/20/20 06:28 97.9 F 50 L 111/64 98 06/20/20 06:26 97.9 F 54 L 111/64 97 06/20/20 06:24 97.7 F 51 L 113/64 98 06/20/20 06:22 97.9 F 52 L 116/63 97 06/20/20 06:20 97.9 F 53 L 120/63 96 06/20/20 06:18 97.9 F 47 L 122/61 88 L 06/20/20 06:16 97.7 F 49 L 119/65 100 06/20/20 06:15 97.7 F 49 L 100 06/20/20 06:14 97.7 F 50 L 116/65 100 06/20/20 06:12 97.7 F 49 L 115/66 100 06/20/20 06:10 97.7 F 49 L 118/62 100 06/20/20 06:08 97.7 F 49 L 115/67 99 06/20/20 06:06 97.7 F 52 L 116/65 99 06/20/20 06:04 97.7 F 51 L 113/66 100 06/20/20 06:02 97.7 F 50 L 114/66 99 06/20/20 06:01 97.7 F 49 L 99 06/20/20 06:00 97.7 F 51 L 115/65 100 06/20/20 05:58 97.7 F 50 L 116/65 100 06/20/20 05:56 97.7 F 50 L 114/67 100 06/20/20 05:54 97.7 F 49 L 114/65 100 06/20/20 05:52 97.7 F 49 L 112/66 100 06/20/20 05:51 97.7 F 52 L 100 06/20/20 05:50 97.7 F 51 L 113/66 100 06/20/20 05:48 97.7 F 50 L 115/64 100 06/20/20 05:46 97.7 F 49 L 114/65 100 06/20/20 05:45 97.7 F 50 L 99 06/20/20 05:44 97.7 F 49 L 116/66 99 06/20/20 05:42 97.7 F 49 L 115/65 100 06/20/20 05:40 97.7 F 49 L 112/64 99 06/20/20 05:38 97.7 F 51 L 111/65 99 06/20/20 05:36 97.7 F 49 L 114/65 99 06/20/20 05:34 97.7 F 48 L 114/64 100 06/20/20 05:32 97.7 F 50 L 111/66 99 06/20/20 05:31 97.7 F 49 L 100 06/20/20 05:30 97.7 F 50 L 113/65 99 06/20/20 05:28 97.7 F 49 L 113/63 99 06/20/20 05:26 97.7 F 49 L 110/64 100 06/20/20 05:24 97.7 F 50 L 110/65 99 06/20/20 05:22 97.7 F 49 L 114/63 98 06/20/20 05:20 97.7 F 49 L 110/63 100 06/20/20 05:18 97.7 F 49 L 110/62 97 06/20/20 05:16 97.7 F 49 L 109/65 99 06/20/20 05:15 97.7 F 50 L 99 06/20/20 05:14 97.7 F 49 L 109/65 98 06/20/20 05:12 97.7 F 52 L 111/67 98 06/20/20 05:10 97.7 F 49 L 114/62 99 06/20/20 05:08 97.7 F 49 L 109/65 98 06/20/20 05:06 97.7 F 48 L 109/63 98 06/20/20 05:04 97.7 F 49 L 111/62 98 06/20/20 05:02 97.7 F 49 L 108/65 97 06/20/20 05:01 97.7 F 48 L 100 06/20/20 05:00 97.7 F 49 L 111/63 98 06/20/20 04:58 97.7 F 49 L 109/65 98 06/20/20 04:56 97.7 F 48 L 110/66 99 06/20/20 04:54 97.7 F 48 L 115/64 98 06/20/20 04:52 97.7 F 49 L 111/66 98 06/20/20 04:50 97.7 F 49 L 118/64 100 06/20/20 04:48 97.7 F 49 L 118/68 100 06/20/20 04:46 97.7 F 51 L 122/66 99 06/20/20 04:45 97.7 F 49 L 99 06/20/20 04:44 97.7 F 49 L 121/68 99 06/20/20 04:42 97.7 F 50 L 119/64 98 06/20/20 04:40 97.7 F 49 L 118/68 100 06/20/20 04:37 97.7 F 48 L 119/68 98 06/20/20 04:35 97.7 F 50 L 120/70 98 06/20/20 04:33 97.7 F 46 L 118/65 98 06/20/20 04:31 97.7 F 52 L 119/68 99 06/20/20 04:30 97.7 F 50 L 99 06/20/20 04:29 97.7 F 49 L 120/68 98 06/20/20 04:27 97.7 F 49 L 121/67 99 06/20/20 04:25 97.7 F 50 L 119/65 97 06/20/20 04:23 97.7 F 51 L 119/66 98 06/20/20 03:12 51 L 20 99 06/20/20 02:22 98.1 F 56 L 117/67 98 06/20/20 02:20 98.1 F 53 L 115/68 99 06/20/20 02:18 98.1 F 53 L 114/68 99 06/20/20 02:16 98.1 F 52 L 116/70 99 06/20/20 02:15 98.1 F 52 L 99 06/20/20 02:14 98.1 F 53 L 114/67 100 06/20/20 02:12 98.1 F 53 L 116/68 100 06/20/20 02:10 98.1 F 53 L 114/66 100 06/20/20 02:08 98.1 F 53 L 110/67 99 06/20/20 02:06 98.1 F 53 L 114/68 99 06/20/20 02:04 98.1 F 53 L 113/65 99 06/20/20 02:02 98.1 F 52 L 109/67 100 06/20/20 02:01 98.1 F 54 L 98 06/20/20 02:00 98.1 F 54 L 113/65 99 06/20/20 01:58 98.1 F 54 L 101/65 100 06/20/20 01:56 98.1 F 54 L 109/64 99 06/20/20 01:54 98.1 F 54 L 113/66 100 06/20/20 01:52 98.1 F 54 L 98/64 L 99 06/20/20 01:50 98.1 F 55 L 105/61 99 06/20/20 01:48 98.1 F 55 L 107/67 99 06/20/20 01:46 98.1 F 55 L 108/64 100 06/20/20 01:45 98.1 F 56 L 98 06/20/20 01:44 98.1 F 56 L 105/66 99 06/20/20 01:42 98.1 F 60 104/65 99 06/20/20 01:40 98.1 F 55 L 104/61 100 06/20/20 01:38 98.1 F 56 L 107/66 99 06/20/20 01:36 98.1 F 55 L 106/69 100 06/20/20 01:34 98.1 F 58 L 108/63 99 06/20/20 01:32 98.1 F 56 L 101/61 98 06/20/20 01:31 98.1 F 56 L 99 06/20/20 01:30 98.1 F 55 L 102/61 99 06/20/20 01:28 98.1 F 57 L 97/59 L 97 06/20/20 01:26 98.1 F 56 L 97/59 L 97 06/20/20 01:24 98.1 F 56 L 98/59 L 97 06/20/20 01:22 98.1 F 56 L 101/58 L 97 06/20/20 01:20 98.1 F 56 L 99/63 L 97 06/20/20 01:18 98.1 F 56 L 102/60 96 06/20/20 01:16 98.1 F 56 L 103/60 97 06/20/20 01:15 98.1 F 57 L 97 06/20/20 01:14 98.1 F 56 L 102/60 97 06/20/20 01:12 98.1 F 56 L 104/60 97 06/20/20 01:10 98.1 F 57 L 105/60 96 06/20/20 01:08 98.1 F 57 L 108/63 96 06/20/20 01:06 98.1 F 57 L 107/61 97 06/20/20 01:04 98.1 F 56 L 110/64 98 06/20/20 01:02 98.1 F 57 L 109/60 97 06/20/20 01:01 98.1 F 57 L 98 06/20/20 01:00 98.1 F 55 L 111/61 97 06/20/20 00:58 98.1 F 57 L 109/64 98 06/20/20 00:56 98.1 F 58 L 111/64 98 06/20/20 00:35 59 L PG Care Time/CCT Total # of Minutes Spent Total Time Spent with Patient: Total time spent is greater than 50% in coordination of care (as documented) at patient's floor/unit and/or counseling patient:total time spent is 60 minutes with more than 50% of time spent on goals of care, coordination of care. Coding Level of Care Code 44421 Inpt Consult Level 3 Diagnoses Palliative care encounter Z51.5 Acute hypoxemic respiratory failure J96.01 Acute systolic heart failure I50.21 Delirium R41.0 Atrial fibrillation I48.0 Atrial fibrillation type: paroxysmal COPD (chronic obstructive pulmonary disease) J44.9 COPD type: unspecified COPD Cardiomyopathy I25.5 Cardiomyopathy type: ischemic
[2020-06-20] MEDS ORDERED: VANCOMYCIN HCL 1,250 MG in SODIUM CHLORIDE 0.9% 250 ML IV SCH (12:00)
--- NOTE | 2020-06-20 12:51 | Electrocardiogram Report ---
Test Reason : Blood Pressure : / mmHG Vent. Rate : 103 BPM Atrial Rate : 103 BPM P-R Int : 176 ms QRS Dur : 096 ms QT Int : 384 ms P-R-T Axes : 046 -81 145 degrees QTc Int : 503 ms Sinus tachycardia Left axis deviation Low voltage QRS Inferior infarct (cited on or before 09-JUN-2020) Anterior infarct (cited on or before 09-JUN-2020) T wave abnormality, consider lateral ischemia Abnormal ECG When compared with ECG of 09-JUN-2020 05:29, Premature ventricular complexes are no longer Present Vent. rate has increased BY 41 BPM Confirmed by Kain Clements ([id number]) on 06/20/2020 12:51:19 PM Referred By: Bev Pradojacqueline Confirmed By:Kain Clements
[2020-06-20 12:58] LABS: Partial Thromboplastin Ratio 3.3
--- NOTE | 2020-06-20 13:02 | Critical Care Progress Note ---
Date of Service June 20, 2020 Assessment & Plan (1) Acute hypoxemic respiratory failure: 84-year-old male with recent COVID-19 illness, cardiomyopathy, dementia and atrial fibrillation now with evidence of acute hypoxemic respiratory failure and metabolic encephalopathy. Neurologic: Encephalopathy is clearing. This is likely related to Ativan received on the floor. CT head was negative for any acute intracranial process. Pulmonary: Patient on minimal vent support at this time. We will extubate to nasal cannula. Has findings of post COVID-19 illness on chest x-ray and CT chest obtained earlier this hospitalization. Cardiovascular: Off of vasoactive medications at this time. We will hold antihypertensives. Continue heparin drip given history of atrial fibrillation. Will defer to hospitalist with regards to oral anticoagulation. Received IV diuretics for volume overload. Gastrointestinal: We will evaluate swallowing function after extubation. Renal: Renal function and electrolytes are stable. Infectious disease: No active signs of infection at this time. Procalcitonin within normal limits. Will discontinue antibiotics. Has a history of recent COVID-19 illness. Off isolation. He received Diflucan for 5 days earlier in the hospitalization due to concerns of Maude urinary tract infection. Virgen catheter was placed yesterday. We will discontinue Diflucan at this time. Hematologic: Continue heparin drip. Hemoglobin stable. Endocrine: TSH checked on within normal limits. No other issues. Lines and tubes: Intubated 06/19/2020. Right radial arterial line placed 06/19/2020. 1 peripheral IV placed. Right-sided implanted port present. VTE prophylaxis: Continue heparin drip CODE STATUS: Full code at this time. Palliative care is assisting with goals of care discussion with the family. Family at bedside: None present at bedside due to COVID-19 pandemic. Palliative care is assisting as noted above. Disposition: Possible transfer to the floor if he continues to improve with a hemodynamic perspective and encephalopathy perspective. I have personally spent 35 minutes of critical care time in the direct management of this patient. This is a life/limb threatening event. This includes time spent evaluating patient, direct bedside care, chart review, placing orders, interpretation of diagnostic studies, discussion with consultants, patient, and family members, as well as other required patient management activities. This time is exclusive of all separately billable procedures, and teaching time and separate from and in addition to any other critical care service time. Thank you for allowing us to participate in the care of this patient. (2) Acute systolic heart failure: (3) Acute metabolic encephalopathy: (4) Atrial fibrillation: (5) Shock circulatory: Admission and Anticipated Discharge Date Admission Date: June 09, 2020 Subjective Patient seen examined numerous times during today. He is on spontaneous breathing trial and off all sedation. He is now following commands and nodding his head appropriately. He is on minimal FiO2 and PEEP settings. No significant events overnight. He is off of Levophed at this time. Review of Systems Review of Systems: Unobtainable due to endotracheal tube Physical Exam Constitutional: Frail and elderly appearing male. Muscle atrophy noted diffusely Eyes: PERRL, conjunctivae normal, anicteric sclerae ENMT: Currently intubated Neck: normal visual inspection Respiratory: Coarse breath sounds on the ventilator. Diminishment at the lung bases. Cardiovascular: Heart Sounds: normal S1, normal S2 and + murmur Extremities: + edema Gastrointestinal (Abdomen): normal bowel sounds, soft, nontender, no hepatosplenomegaly Musculoskeletal: no cyanosis or clubbing, extremities motor strength 5/5 Skin: no rashes, warm and dry Neurologic: PERRL, EOMI, accommodation nl, no face palsy, no dysarthria Psychiatric: A+Ox3, euthymic affect Results & Data Results & Data ([facility]) Vital Signs (Past 12 Hours) Vital Signs Temp Pulse Resp BP Pulse Ox 06/20/20 12:07 98.4 F 55 L 117/60 100 06/20/20 11:39 60 12 99 06/20/20 11:37 98.4 F 58 L 110/65 100 06/20/20 11:07 98.4 F 53 L 107/58 L 98 06/20/20 10:37 98.4 F 56 L 103/60 97 06/20/20 10:07 98.2 F 63 129/72 96 06/20/20 09:37 98.4 F 50 L 112/59 L 100 06/20/20 09:07 98.2 F 53 L 92/53 L 100 06/20/20 08:37 98.1 F 57 L 101/49 L 100 06/20/20 08:05 97.9 F 51 L 120/69 100 06/20/20 08:04 97.9 F 51 L 119/66 100 06/20/20 08:01 97.9 F 51 L 117/67 100 06/20/20 08:00 97.9 F 50 L 100 06/20/20 07:59 97.9 F 49 L 112/63 100 06/20/20 07:57 97.9 F 51 L 117/63 100 06/20/20 07:55 97.9 F 50 L 109/66 100 06/20/20 07:53 97.9 F 50 L 115/64 100 06/20/20 07:51 97.9 F 52 L 116/62 100 06/20/20 07:49 97.9 F 50 L 113/64 100 06/20/20 07:47 97.9 F 46 L 117/65 100 06/20/20 07:45 97.9 F 50 L 20 118/64 100 06/20/20 07:43 97.9 F 49 L 118/64 100 06/20/20 07:41 97.9 F 52 L 116/65 100 06/20/20 07:39 97.9 F 49 L 114/66 100 06/20/20 07:37 97.9 F 49 L 115/65 100 06/20/20 07:35 97.9 F 49 L 114/64 100 06/20/20 07:33 97.9 F 49 L 113/65 100 06/20/20 07:31 97.9 F 49 L 116/64 100 06/20/20 07:29 97.9 F 49 L 115/65 100 06/20/20 07:27 97.9 F 49 L 111/62 100 06/20/20 07:25 97.9 F 49 L 108/64 100 06/20/20 07:23 97.9 F 49 L 110/63 100 06/20/20 07:21 97.9 F 50 L 112/60 100 06/20/20 07:19 98.1 F 49 L 109/64 100 06/20/20 07:17 98.1 F 49 L 110/62 100 06/20/20 07:15 98.1 F 49 L 110/62 100 06/20/20 07:13 98.1 F 50 L 108/62 100 06/20/20 07:11 98.1 F 51 L 107/61 100 06/20/20 07:09 98.1 F 49 L 109/61 100 06/20/20 07:07 98.1 F 49 L 106/61 100 06/20/20 07:05 98.1 F 50 L 108/59 L 100 06/20/20 07:03 98.1 F 49 L 105/59 L 100 06/20/20 07:01 98.1 F 51 L 105/60 100 06/20/20 07:00 98.1 F 49 L 100 06/20/20 06:59 98.1 F 51 L 105/61 100 06/20/20 06:57 98.1 F 49 L 109/61 100 06/20/20 06:55 98.1 F 49 L 106/62 100 06/20/20 06:53 98.1 F 49 L 109/61 100 06/20/20 06:51 97.9 F 51 L 106/61 100 06/20/20 06:49 97.9 F 50 L 111/62 100 06/20/20 06:46 97.7 F 49 L 114/63 100 06/20/20 06:44 97.7 F 49 L 107/62 99 06/20/20 06:42 97.7 F 50 L 108/62 98 06/20/20 06:40 97.7 F 50 L 107/62 97 06/20/20 06:39 97.7 F 49 L 106/61 98 06/20/20 06:36 97.7 F 49 L 112/61 98 06/20/20 06:34 97.9 F 51 L 111/58 L 98 06/20/20 06:32 97.9 F 50 L 110/63 98 06/20/20 06:31 97.9 F 51 L 97 06/20/20 06:30 97.9 F 49 L 117/63 98 06/20/20 06:28 97.9 F 50 L 111/64 98 06/20/20 06:26 97.9 F 54 L 111/64 97 06/20/20 06:24 97.7 F 51 L 113/64 98 06/20/20 06:22 97.9 F 52 L 116/63 97 06/20/20 06:20 97.9 F 53 L 120/63 96 06/20/20 06:18 97.9 F 47 L 122/61 88 L 06/20/20 06:16 97.7 F 49 L 119/65 100 06/20/20 06:15 97.7 F 49 L 100 06/20/20 06:14 97.7 F 50 L 116/65 100 06/20/20 06:12 97.7 F 49 L 115/66 100 06/20/20 06:10 97.7 F 49 L 118/62 100 06/20/20 06:08 97.7 F 49 L 115/67 99 06/20/20 06:06 97.7 F 52 L 116/65 99 06/20/20 06:04 97.7 F 51 L 113/66 100 06/20/20 06:02 97.7 F 50 L 114/66 99 06/20/20 06:01 97.7 F 49 L 99 06/20/20 06:00 97.7 F 51 L 115/65 100 06/20/20 05:58 97.7 F 50 L 116/65 100 06/20/20 05:56 97.7 F 50 L 114/67 100 06/20/20 05:54 97.7 F 49 L 114/65 100 06/20/20 05:52 97.7 F 49 L 112/66 100 06/20/20 05:51 97.7 F 52 L 100 06/20/20 05:50 97.7 F 51 L 113/66 100 06/20/20 05:48 97.7 F 50 L 115/64 100 06/20/20 05:46 97.7 F 49 L 114/65 100 06/20/20 05:45 97.7 F 50 L 99 06/20/20 05:44 97.7 F 49 L 116/66 99 06/20/20 05:42 97.7 F 49 L 115/65 100 06/20/20 05:40 97.7 F 49 L 112/64 99 06/20/20 05:38 97.7 F 51 L 111/65 99 06/20/20 05:36 97.7 F 49 L 114/65 99 06/20/20 05:34 97.7 F 48 L 114/64 100 06/20/20 05:32 97.7 F 50 L 111/66 99 06/20/20 05:31 97.7 F 49 L 100 06/20/20 05:30 97.7 F 50 L 113/65 99 06/20/20 05:28 97.7 F 49 L 113/63 99 06/20/20 05:26 97.7 F 49 L 110/64 100 06/20/20 05:24 97.7 F 50 L 110/65 99 06/20/20 05:22 97.7 F 49 L 114/63 98 06/20/20 05:20 97.7 F 49 L 110/63 100 06/20/20 05:18 97.7 F 49 L 110/62 97 06/20/20 05:16 97.7 F 49 L 109/65 99 06/20/20 05:15 97.7 F 50 L 99 06/20/20 05:14 97.7 F 49 L 109/65 98 06/20/20 05:12 97.7 F 52 L 111/67 98 06/20/20 05:10 97.7 F 49 L 114/62 99 06/20/20 05:08 97.7 F 49 L 109/65 98 06/20/20 05:06 97.7 F 48 L 109/63 98 06/20/20 05:04 97.7 F 49 L 111/62 98 06/20/20 05:02 97.7 F 49 L 108/65 97 06/20/20 05:01 97.7 F 48 L 100 06/20/20 05:00 97.7 F 49 L 111/63 98 06/20/20 04:58 97.7 F 49 L 109/65 98 06/20/20 04:56 97.7 F 48 L 110/66 99 06/20/20 04:54 97.7 F 48 L 115/64 98 06/20/20 04:52 97.7 F 49 L 111/66 98 06/20/20 04:50 97.7 F 49 L 118/64 100 06/20/20 04:48 97.7 F 49 L 118/68 100 06/20/20 04:46 97.7 F 51 L 122/66 99 06/20/20 04:45 97.7 F 49 L 99 06/20/20 04:44 97.7 F 49 L 121/68 99 06/20/20 04:42 97.7 F 50 L 119/64 98 06/20/20 04:40 97.7 F 49 L 118/68 100 06/20/20 04:37 97.7 F 48 L 119/68 98 06/20/20 04:35 97.7 F 50 L 120/70 98 06/20/20 04:33 97.7 F 46 L 118/65 98 06/20/20 04:31 97.7 F 52 L 119/68 99 06/20/20 04:30 97.7 F 50 L 99 06/20/20 04:29 97.7 F 49 L 120/68 98 06/20/20 04:27 97.7 F 49 L 121/67 99 06/20/20 04:25 97.7 F 50 L 119/65 97 06/20/20 04:23 97.7 F 51 L 119/66 98 06/20/20 03:12 51 L 20 99 06/20/20 02:22 98.1 F 56 L 117/67 98 06/20/20 02:20 98.1 F 53 L 115/68 99 06/20/20 02:18 98.1 F 53 L 114/68 99 06/20/20 02:16 98.1 F 52 L 116/70 99 06/20/20 02:15 98.1 F 52 L 99 06/20/20 02:14 98.1 F 53 L 114/67 100 06/20/20 02:12 98.1 F 53 L 116/68 100 06/20/20 02:10 98.1 F 53 L 114/66 100 06/20/20 02:08 98.1 F 53 L 110/67 99 06/20/20 02:06 98.1 F 53 L 114/68 99 06/20/20 02:04 98.1 F 53 L 113/65 99 06/20/20 02:02 98.1 F 52 L 109/67 100 06/20/20 02:01 98.1 F 54 L 98 06/20/20 02:00 98.1 F 54 L 113/65 99 06/20/20 01:58 98.1 F 54 L 101/65 100 06/20/20 01:56 98.1 F 54 L 109/64 99 06/20/20 01:54 98.1 F 54 L 113/66 100 06/20/20 01:52 98.1 F 54 L 98/64 L 99 06/20/20 01:50 98.1 F 55 L 105/61 99 06/20/20 01:48 98.1 F 55 L 107/67 99 06/20/20 01:46 98.1 F 55 L 108/64 100 06/20/20 01:45 98.1 F 56 L 98 06/20/20 01:44 98.1 F 56 L 105/66 99 06/20/20 01:42 98.1 F 60 104/65 99 06/20/20 01:40 98.1 F 55 L 104/61 100 06/20/20 01:38 98.1 F 56 L 107/66 99 06/20/20 01:36 98.1 F 55 L 106/69 100 06/20/20 01:34 98.1 F 58 L 108/63 99 06/20/20 01:32 98.1 F 56 L 101/61 98 06/20/20 01:31 98.1 F 56 L 99 06/20/20 01:30 98.1 F 55 L 102/61 99 06/20/20 01:28 98.1 F 57 L 97/59 L 97 06/20/20 01:26 98.1 F 56 L 97/59 L 97 06/20/20 01:24 98.1 F 56 L 98/59 L 97 06/20/20 01:22 98.1 F 56 L 101/58 L 97 06/20/20 01:20 98.1 F 56 L 99/63 L 97 06/20/20 01:18 98.1 F 56 L 102/60 96 06/20/20 01:16 98.1 F 56 L 103/60 97 06/20/20 01:15 98.1 F 57 L 97 06/20/20 01:14 98.1 F 56 L 102/60 97 06/20/20 01:12 98.1 F 56 L 104/60 97 06/20/20 01:10 98.1 F 57 L 105/60 96 06/20/20 01:08 98.1 F 57 L 108/63 96 06/20/20 01:06 98.1 F 57 L 107/61 97 06/20/20 01:04 98.1 F 56 L 110/64 98 06/20/20 01:02 98.1 F 57 L 109/60 97 06/20/20 01:01 98.1 F 57 L 98 06/20/20 01:00 98.1 F 55 L 111/61 97 06/20/20 00:58 98.1 F 57 L 109/64 98 06/20/20 00:56 98.1 F 58 L 111/64 98 Vital signs, labs and imaging reviewed. Coding Level of Care Code Critical Care 1st 30-74 mins Diagnoses Acute hypoxemic respiratory failure J96.01 Acute systolic heart failure I50.21 Acute metabolic encephalopathy G93.41 Atrial fibrillation I48.0 Atrial fibrillation type: paroxysmal Shock circulatory R57.9 Time Spent (min) 35 (1) Atrial fibrillation Atrial fibrillation type: paroxysmal Qualified Code(s): I48.0 - Paroxysmal atrial fibrillation
[2020-06-20 13:06] LABS: Partial Thromboplastin Time 85.6 Seconds (21.0-31.0)
--- NOTE | 2020-06-20 14:05 | Hospitalist Progress Note ---
Date of Service June 20, 2020 Assessment & Plan (1) Acute hypoxemic respiratory failure: combination of sedation, central nervous system suppression with hypoventilation, sleep apnea, acute heart failure intubated 06/19 to protect airway extubated on 06/20, more alert, following commands diuresing well with Lasix 20mg IV q12, CXR improving mental status still poor, requiring restraints so he does not pull out padilla, take off oxygen stable on 4L mask (2) Acute systolic heart failure: pulmonary edema on 06/19, appeared to happen suddenly he was 96% on room air in afternoon then 51% on room air in evening responded well to Lasix 20mg IV q12, negative fluid balance, CXR improved known systolic dysfunction in the past had been on metoprolol but this was stopped due to hypotension recently (3) Delirium: hospital delirium, has been in the hospital for two weeks, getting weaker he does not have his glasses so his vision is poor, unclear if he is hallucinating his is working on getting a new pair he is convinced everyone here is trying to kill him not eating or drinking well attempted to sedate him so he would comply with IV fluids and he was hypervigilant, not sleeping well for days gave him Seroquel 25mg and Ativan 0.5mg PO in the morning on 06/19, spit out some of the applesauce so unsure how much he got gave him Ativan 0.5mg IV, still yelling out 2 hours later, pulled out his port a ccess, gave additional 0.5mg IV had a bad reaction with sedation, apnea later that night avoid all benzodiazepines (4) Urinary retention: pt did have padilla that was uncomfortable and leaking, he self removed it on 06/15 was constantly yelling that he needed to pee placed padilla catheter on 06/19, draining urine with Lasix (5) Hypotension: Patient returns with hypotension and general decline. Prior to going home last time he was given Florinef for orthostatic hypotension. His family corroborated this is been a problem for some time. 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 Mcneil metoprolol was stopped for low BP, Amiodarone was continued, 200mg daily resume anticoagulation with heparin drip (7) Cardiomyopathy: Once again the patient has an EF of 35 to 40% making him having chronic heart failure reduced ejection fraction need to be cautious with volume resuscitation and sodium orally. 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 declining ambulation prior to his Covid infection he will continue with PT OT while here limited by his complaints of lightneadedness at baseline he could stand up and get in wheelchair he would move himself around in his wheelchair with his arms at this point he cannot get out of bed, cannot stand up, far weaker than normal his mental status is only complicating matters, he is paranoid, won't trust anyone, won't participate (10) Depressed: Patient has persistent depression he had some appetite reduction subsequently started on Remeron, however will stop due to concerns for med side affects (11) Orthostatic hypotension: As mentioned above the patient documented orthostatic hypotension Florinef will be maintained, in case this is POTS from post covid toleration sodium chloride 1 gm daily (12) Discharge planning issues: Pt was discharged to [facility] the last visit discharged 06/05, in er 06/08 and readmitted 06/09, family feels that pt was given metoprolol and lisinopril which were directed not to give on the d/c paperwork,Pt presented with hypotension, family requests not to return to [facility] plan for [facility] once his delirium resolves would need updated PT/OT notes, would need to re-apply for insurance auth Admission and Anticipated Discharge Date Admission Date: June 09, 2020 Subjective patient was intubated last night for airway protection after he became hypoxemic and was having apnea CXR showed acute heart failure, he responded well to two doses of Lasix 20mg IV this morning he was biting on the tube, trying to pull it out, he was following commands and Dr. Pandey extubated him currently stable on 4L oxymask, no distress reviewed labs this morning, WBC 11k, Hb 10, plts 225, Cr 0.89, Na 145, K 3.8 procalcitonin 0.08, UA with 10-30 WBC CXR this morning showed improvement in opacities bilaterally after Milagros discussed ongoing care and plan with his daughter Emily over the phone she agrees that he likely does not have rehab potential, she is leaning towards home hospice she really needs to have her mother come and see him, we will plan for a family meeting at the bedside at 2pm tomorrow appreciate help from Dr. Carter with palliative care Review of Systems Review of Systems: Unobtainable due to cognitive status (lethargic after extubation, confused) Physical Exam Constitutional: well developed, + frail appearing and comfortable; no acute distress Neck: trachea midline, no thyromegaly Respiratory: + abnormal respiratory pattern and + prolonged expiratory phase Auscultation: + diminished lung sounds and + rales Cardiovascular: Rate/Rhythm: regular rhythm and + bradycardic Heart Sounds: normal S1 and normal S2; no murmur Gastrointestinal (Abdomen): normal bowel sounds, soft, nontender, no hepatosplenomegaly Musculoskeletal: no cyanosis or clubbing, extremities motor strength 5/5 Skin: no rashes, warm and dry Neurologic: patellar DTR's 2+ bilat, sensation intact and PERRL, EOMI, accommodation nl, no face palsy, no dysarthria Psychiatric: Orientation: oriented to person and + guarded (agitated); + not oriented to place and + not oriented to time Thought Content: + delusions Hallucinations: + visual hallucinations (cannot see well due to no glasses) Insight: + limited insight Judgement: + limited judgement Lymphatic: no cervical or axillary lymphadenopathy Results & Data Results & Data ([facility]) Vital Signs (Past 12 Hours) Vital Signs Temp Pulse Resp BP Pulse Ox 06/20/20 12:07 36.9 C 55 L 117/60 100 06/20/20 11:39 60 12 99 06/20/20 11:37 36.9 C 58 L 110/65 100 06/20/20 11:07 36.9 C 53 L 107/58 L 98 06/20/20 10:37 36.9 C 56 L 103/60 97 06/20/20 10:07 36.8 C 63 129/72 96 06/20/20 09:37 36.9 C 50 L 112/59 L 100 06/20/20 09:07 36.8 C 53 L 92/53 L 100 06/20/20 08:37 36.7 C 57 L 101/49 L 100 06/20/20 08:05 36.6 C 51 L 120/69 100 06/20/20 08:04 36.6 C 51 L 119/66 100 06/20/20 08:01 36.6 C 51 L 117/67 100 06/20/20 08:00 36.6 C 50 L 100 06/20/20 07:59 36.6 C 49 L 112/63 100 06/20/20 07:57 36.6 C 51 L 117/63 100 06/20/20 07:55 36.6 C 50 L 109/66 100 06/20/20 07:53 36.6 C 50 L 115/64 100 06/20/20 07:51 36.6 C 52 L 116/62 100 06/20/20 07:49 36.6 C 50 L 113/64 100 06/20/20 07:47 36.6 C 46 L 117/65 100 06/20/20 07:45 36.6 C 50 L 20 118/64 100 06/20/20 07:43 36.6 C 49 L 118/64 100 06/20/20 07:41 36.6 C 52 L 116/65 100 06/20/20 07:39 36.6 C 49 L 114/66 100 06/20/20 07:37 36.6 C 49 L 115/65 100 06/20/20 07:35 36.6 C 49 L 114/64 100 06/20/20 07:33 36.6 C 49 L 113/65 100 06/20/20 07:31 36.6 C 49 L 116/64 100 06/20/20 07:29 36.6 C 49 L 115/65 100 06/20/20 07:27 36.6 C 49 L 111/62 100 06/20/20 07:25 36.6 C 49 L 108/64 100 06/20/20 07:23 36.6 C 49 L 110/63 100 06/20/20 07:21 36.6 C 50 L 112/60 100 06/20/20 07:19 36.7 C 49 L 109/64 100 06/20/20 07:17 36.7 C 49 L 110/62 100 06/20/20 07:15 36.7 C 49 L 110/62 100 06/20/20 07:13 36.7 C 50 L 108/62 100 06/20/20 07:11 36.7 C 51 L 107/61 100 06/20/20 07:09 36.7 C 49 L 109/61 100 06/20/20 07:07 36.7 C 49 L 106/61 100 06/20/20 07:05 36.7 C 50 L 108/59 L 100 06/20/20 07:03 36.7 C 49 L 105/59 L 100 06/20/20 07:01 36.7 C 51 L 105/60 100 06/20/20 07:00 36.7 C 49 L 100 06/20/20 06:59 36.7 C 51 L 105/61 100 06/20/20 06:57 36.7 C 49 L 109/61 100 06/20/20 06:55 36.7 C 49 L 106/62 100 06/20/20 06:53 36.7 C 49 L 109/61 100 06/20/20 06:51 36.6 C 51 L 106/61 100 06/20/20 06:49 36.6 C 50 L 111/62 100 06/20/20 06:46 36.5 C 49 L 114/63 100 06/20/20 06:44 36.5 C 49 L 107/62 99 06/20/20 06:42 36.5 C 50 L 108/62 98 06/20/20 06:40 36.5 C 50 L 107/62 97 06/20/20 06:39 36.5 C 49 L 106/61 98 06/20/20 06:36 36.5 C 49 L 112/61 98 06/20/20 06:34 36.6 C 51 L 111/58 L 98 06/20/20 06:32 36.6 C 50 L 110/63 98 06/20/20 06:31 36.6 C 51 L 97 06/20/20 06:30 36.6 C 49 L 117/63 98 06/20/20 06:28 36.6 C 50 L 111/64 98 06/20/20 06:26 36.6 C 54 L 111/64 97 06/20/20 06:24 36.5 C 51 L 113/64 98 06/20/20 06:22 36.6 C 52 L 116/63 97 06/20/20 06:20 36.6 C 53 L 120/63 96 06/20/20 06:18 36.6 C 47 L 122/61 88 L 06/20/20 06:16 36.5 C 49 L 119/65 100 06/20/20 06:15 36.5 C 49 L 100 06/20/20 06:14 36.5 C 50 L 116/65 100 06/20/20 06:12 36.5 C 49 L 115/66 100 06/20/20 06:10 36.5 C 49 L 118/62 100 06/20/20 06:08 36.5 C 49 L 115/67 99 06/20/20 06:06 36.5 C 52 L 116/65 99 06/20/20 06:04 36.5 C 51 L 113/66 100 06/20/20 06:02 36.5 C 50 L 114/66 99 06/20/20 06:01 36.5 C 49 L 99 06/20/20 06:00 36.5 C 51 L 115/65 100 06/20/20 05:58 36.5 C 50 L 116/65 100 06/20/20 05:56 36.5 C 50 L 114/67 100 06/20/20 05:54 36.5 C 49 L 114/65 100 06/20/20 05:52 36.5 C 49 L 112/66 100 06/20/20 05:51 36.5 C 52 L 100 06/20/20 05:50 36.5 C 51 L 113/66 100 06/20/20 05:48 36.5 C 50 L 115/64 100 06/20/20 05:46 36.5 C 49 L 114/65 100 06/20/20 05:45 36.5 C 50 L 99 06/20/20 05:44 36.5 C 49 L 116/66 99 06/20/20 05:42 36.5 C 49 L 115/65 100 06/20/20 05:40 36.5 C 49 L 112/64 99 06/20/20 05:38 36.5 C 51 L 111/65 99 06/20/20 05:36 36.5 C 49 L 114/65 99 06/20/20 05:34 36.5 C 48 L 114/64 100 06/20/20 05:32 36.5 C 50 L 111/66 99 06/20/20 05:31 36.5 C 49 L 100 06/20/20 05:30 36.5 C 50 L 113/65 99 06/20/20 05:28 36.5 C 49 L 113/63 99 06/20/20 05:26 36.5 C 49 L 110/64 100 06/20/20 05:24 36.5 C 50 L 110/65 99 06/20/20 05:22 36.5 C 49 L 114/63 98 06/20/20 05:20 36.5 C 49 L 110/63 100 06/20/20 05:18 36.5 C 49 L 110/62 97 06/20/20 05:16 36.5 C 49 L 109/65 99 06/20/20 05:15 36.5 C 50 L 99 06/20/20 05:14 36.5 C 49 L 109/65 98 06/20/20 05:12 36.5 C 52 L 111/67 98 06/20/20 05:10 36.5 C 49 L 114/62 99 06/20/20 05:08 36.5 C 49 L 109/65 98 06/20/20 05:06 36.5 C 48 L 109/63 98 06/20/20 05:04 36.5 C 49 L 111/62 98 06/20/20 05:02 36.5 C 49 L 108/65 97 06/20/20 05:01 36.5 C 48 L 100 06/20/20 05:00 36.5 C 49 L 111/63 98 06/20/20 04:58 36.5 C 49 L 109/65 98 06/20/20 04:56 36.5 C 48 L 110/66 99 06/20/20 04:54 36.5 C 48 L 115/64 98 06/20/20 04:52 36.5 C 49 L 111/66 98 06/20/20 04:50 36.5 C 49 L 118/64 100 06/20/20 04:48 36.5 C 49 L 118/68 100 06/20/20 04:46 36.5 C 51 L 122/66 99 06/20/20 04:45 36.5 C 49 L 99 06/20/20 04:44 36.5 C 49 L 121/68 99 06/20/20 04:42 36.5 C 50 L 119/64 98 06/20/20 04:40 36.5 C 49 L 118/68 100 06/20/20 04:37 36.5 C 48 L 119/68 98 06/20/20 04:35 36.5 C 50 L 120/70 98 06/20/20 04:33 36.5 C 46 L 118/65 98 06/20/20 04:31 36.5 C 52 L 119/68 99 06/20/20 04:30 36.5 C 50 L 99 06/20/20 04:29 36.5 C 49 L 120/68 98 06/20/20 04:27 36.5 C 49 L 121/67 99 06/20/20 04:25 36.5 C 50 L 119/65 97 06/20/20 04:23 36.5 C 51 L 119/66 98 06/20/20 03:12 51 L 20 99 06/20/20 02:22 36.7 C 56 L 117/67 98 06/20/20 02:20 36.7 C 53 L 115/68 99 06/20/20 02:18 36.7 C 53 L 114/68 99 06/20/20 02:16 36.7 C 52 L 116/70 99 06/20/20 02:15 36.7 C 52 L 99 06/20/20 02:14 36.7 C 53 L 114/67 100 06/20/20 02:12 36.7 C 53 L 116/68 100 06/20/20 02:10 36.7 C 53 L 114/66 100 06/20/20 02:08 36.7 C 53 L 110/67 99 06/20/20 02:06 36.7 C 53 L 114/68 99 06/20/20 02:04 36.7 C 53 L 113/65 99 06/20/20 02:02 36.7 C 52 L 109/67 100 06/20/20 02:01 36.7 C 54 L 98 06/20/20 02:00 36.7 C 54 L 113/65 99 Laboratory Results Laboratory Results - last 24 hr 06/19/20 06/19/20 06/19/20 16:57 17:46 17:46 WBC RBC Hgb POC Hgb Hct POC Hct MCV MCH MCHC RDW Std Deviation RDW Coeff of Petar Plt Count MPV Immature Gran % (Auto) Neut % (Auto) Lymph % (Auto) [place] % (Auto) Eos % (Auto) Baso % (Auto) Neut # (Auto) Lymph # (Auto) [place] # (Auto) Eos # (Auto) Baso # (Auto) Immature Gran # (Auto) Absolute Nucleated RBC Nucleated RBC % (auto) PT INR APTT PTT Ratio POC pH POC pCO2 POC pO2 POC HCO3 POC Total CO2 POC Base Excess ABG pH ABG pCO2 ABG pO2 ABG HCO3 POC ABG O2 Sat ABG O2 Saturation ABG Base Excess Jair Test Barometric Pressure Oxygen Given POC Sodium Sodium POC Potassium Potassium Chloride Carbon Dioxide Anion Gap BUN Creatinine Est Cr Clr Drug Dosing Est GFR ( Amer) Est GFR (Non-Af Amer) BUN/Creatinine Ratio Glucose POC Glucose 260 H Lactate 4.0 H* Calcium Phosphorus Magnesium Total Bilirubin Direct Bilirubin AST ALT Alkaline Phosphatase Troponin I 0.054 H* Total Protein Albumin Globulin Albumin/Globulin Ratio Procalcitonin Random Cortisol Urine Color Urine Appearance Urine pH Ur Specific [place] Urine Protein Urine Glucose (UA) Urine Ketones Urine Blood Urine Nitrite Urine Bilirubin Urine Urobilinogen Ur Leukocyte Esterase Urine WBC (Auto) Urine RBC (Auto) U Hyaline Cast (Auto) U Epithel Cells (Auto) Urine Bacteria (Auto) Nasal Screen MRSA (PCR) 06/19/20 06/19/20 06/19/20 17:46 19:18 19:21 WBC RBC Hgb POC Hgb 10.5 L Hct POC Hct 31 L MCV MCH MCHC RDW Std Deviation RDW Coeff of Petar Plt Count MPV Immature Gran % (Auto) Neut % (Auto) Lymph % (Auto) [place] % (Auto) Eos % (Auto) Baso % (Auto) Neut # (Auto) Lymph # (Auto) [place] # (Auto) Eos # (Auto) Baso # (Auto) Immature Gran # (Auto) Absolute Nucleated RBC Nucleated RBC % (auto) PT INR APTT PTT Ratio POC pH 7.44 POC pCO2 44 POC pO2 120 H POC HCO3 30 H POC Total CO2 31 POC Base Excess 6.0 H ABG pH 7.44 ABG pCO2 44 ABG pO2 47 L ABG HCO3 29 H POC ABG O2 Sat 99.0 H ABG O2 Saturation 81.7 L ABG Base Excess 4.3 H Jair Test Pos Barometric Pressure 720.3 Oxygen Given 6 L POC Sodium 144 Sodium POC Potassium 4.2 Potassium Chloride Carbon Dioxide Anion Gap BUN Creatinine Est Cr Clr Drug Dosing Est GFR ( Amer) Est GFR (Non-Af Amer) BUN/Creatinine Ratio Glucose POC Glucose 245 H Lactate Calcium Phosphorus Magnesium Total Bilirubin Direct Bilirubin AST ALT Alkaline Phosphatase Troponin I Total Protein Albumin Globulin Albumin/Globulin Ratio Procalcitonin Random Cortisol Urine Color Urine Appearance Urine pH Ur Specific [place] Urine Protein Urine Glucose (UA) Urine Ketones Urine Blood Urine Nitrite Urine Bilirubin Urine Urobilinogen Ur Leukocyte Esterase Urine WBC (Auto) Urine RBC (Auto) U Hyaline Cast (Auto) U Epithel Cells (Auto) Urine Bacteria (Auto) Nasal Screen MRSA (PCR) 06/19/20 06/19/20 06/19/20 20:24 20:24 20:24 WBC 12.76 H RBC 3.36 L Hgb 10.8 L POC Hgb Hct 33.2 L POC Hct MCV 98.8 MCH 32.1 MCHC 32.5 RDW Std Deviation 65.4 H RDW Coeff of Petar 19.4 H Plt Count 246 MPV 11.1 H Immature Gran % (Auto) 0.9 Neut % (Auto) 85.2 Lymph % (Auto) 4.9 [place] % (Auto) 8.5 Eos % (Auto) 0.3 Baso % (Auto) 0.2 Neut # (Auto) 10.85 H Lymph # (Auto) 0.63 L [place] # (Auto) 1.09 H Eos # (Auto) 0.04 Baso # (Auto) 0.03 Immature Gran # (Auto) 0.12 H Absolute Nucleated RBC Nucleated RBC % (auto) PT INR APTT PTT Ratio POC pH POC pCO2 POC pO2 POC HCO3 POC Total CO2 POC Base Excess ABG pH ABG pCO2 ABG pO2 ABG HCO3 POC ABG O2 Sat ABG O2 Saturation ABG Base Excess Jair Test Barometric Pressure Oxygen Given POC Sodium Sodium 143 POC Potassium Potassium 4.2 Chloride 108 H Carbon Dioxide 30 Anion Gap 5.0 BUN 36 H Creatinine 0.94 Est Cr Clr Drug Dosing 66.8 Est GFR ( Amer) 85.3 Est GFR (Non-Af Amer) 73.6 BUN/Creatinine Ratio 38.0 H Glucose 253 H POC Glucose Lactate 2.1 H* Calcium 8.9 Phosphorus 4.1 Magnesium 1.9 Total Bilirubin 1.2 H Direct Bilirubin AST 159 H ALT 118 H Alkaline Phosphatase 78 Troponin I 0.061 H* Total Protein 5.7 L Albumin 2.3 L Globulin 3.4 Albumin/Globulin Ratio 0.7 L Procalcitonin Random Cortisol Urine Color Urine Appearance Urine pH Ur Specific [place] Urine Protein Urine Glucose (UA) Urine Ketones Urine Blood Urine Nitrite Urine Bilirubin Urine Urobilinogen Ur Leukocyte Esterase Urine WBC (Auto) Urine RBC (Auto) U Hyaline Cast (Auto) U Epithel Cells (Auto) Urine Bacteria (Auto) Nasal Screen MRSA (PCR) 06/19/20 06/19/20 06/19/20 21:09 21:30 21:30 WBC RBC Hgb POC Hgb Hct POC Hct MCV MCH MCHC RDW Std Deviation RDW Coeff of Petar Plt Count MPV Immature Gran % (Auto) Neut % (Auto) Lymph % (Auto) [place] % (Auto) Eos % (Auto) Baso % (Auto) Neut # (Auto) Lymph # (Auto) [place] # (Auto) Eos # (Auto) Baso # (Auto) Immature Gran # (Auto) Absolute Nucleated RBC Nucleated RBC % (auto) PT INR APTT PTT Ratio POC pH POC pCO2 POC pO2 POC HCO3 POC Total CO2 POC Base Excess ABG pH ABG pCO2 ABG pO2 ABG HCO3 POC ABG O2 Sat ABG O2 Saturation ABG Base Excess Jair Test Barometric Pressure Oxygen Given POC Sodium Sodium POC Potassium Potassium Chloride Carbon Dioxide Anion Gap BUN Creatinine Est Cr Clr Drug Dosing Est GFR ( Amer) Est GFR (Non-Af Amer) BUN/Creatinine Ratio Glucose POC Glucose Lactate Calcium Phosphorus Magnesium Total Bilirubin Direct Bilirubin AST ALT Alkaline Phosphatase Troponin I Total Protein Albumin Globulin Albumin/Globulin Ratio Procalcitonin Random Cortisol 41.73 Urine Color Yellow Urine Appearance Clear Urine pH 5.0 Ur Specific [place] 1.013 Urine Protein Negative Urine Glucose (UA) Negative Urine Ketones Negative Urine Blood 1+ H Urine Nitrite Negative Urine Bilirubin Negative Urine Urobilinogen Negative Ur Leukocyte Esterase Trace H Urine WBC (Auto) 10-30 H Urine RBC (Auto) 0-4 U Hyaline Cast (Auto) 5-10 H U Epithel Cells (Auto) 20-30 H Urine Bacteria (Auto) Negative Nasal Screen MRSA (PCR) Negative 06/19/20 06/19/20 06/19/20 22:12 22:13 23:21 WBC RBC Hgb POC Hgb Hct POC Hct MCV MCH MCHC RDW Std Deviation RDW Coeff of Petar Plt Count MPV Immature Gran % (Auto) Neut % (Auto) Lymph % (Auto) [place] % (Auto) Eos % (Auto) Baso % (Auto) Neut # (Auto) Lymph # (Auto) [place] # (Auto) Eos # (Auto) Baso # (Auto) Immature Gran # (Auto) Absolute Nucleated RBC Nucleated RBC % (auto) PT 15.1 H INR 1.5 H APTT 26.5 PTT Ratio 1.0 POC pH POC pCO2 POC pO2 POC HCO3 POC Total CO2 POC Base Excess ABG pH ABG pCO2 ABG pO2 ABG HCO3 POC ABG O2 Sat ABG O2 Saturation ABG Base Excess Jair Test Barometric Pressure Oxygen Given POC Sodium Sodium POC Potassium Potassium Chloride Carbon Dioxide Anion Gap BUN Creatinine Est Cr Clr Drug Dosing Est GFR ( Amer) Est GFR (Non-Af Amer) BUN/Creatinine Ratio Glucose POC Glucose 243 H Lactate 2.0 Calcium Phosphorus Magnesium Total Bilirubin Direct Bilirubin AST ALT Alkaline Phosphatase Troponin I Total Protein Albumin Globulin Albumin/Globulin Ratio Procalcitonin Random Cortisol Urine Color Urine Appearance Urine pH Ur Specific [place] Urine Protein Urine Glucose (UA) Urine Ketones Urine Blood Urine Nitrite Urine Bilirubin Urine Urobilinogen Ur Leukocyte Esterase Urine WBC (Auto) Urine RBC (Auto) U Hyaline Cast (Auto) U Epithel Cells (Auto) Urine Bacteria (Auto) Nasal Screen MRSA (PCR) 06/20/20 06/20/20 06/20/20 02:14 04:12 04:22 WBC RBC Hgb POC Hgb 10.2 L Hct POC Hct 30 L MCV MCH MCHC RDW Std Deviation RDW Coeff of Petar Plt Count MPV Immature Gran % (Auto) Neut % (Auto) Lymph % (Auto) [place] % (Auto) Eos % (Auto) Baso % (Auto) Neut # (Auto) Lymph # (Auto) [place] # (Auto) Eos # (Auto) Baso # (Auto) Immature Gran # (Auto) Absolute Nucleated RBC Nucleated RBC % (auto) PT INR APTT PTT Ratio POC pH 7.50 H POC pCO2 41 POC pO2 95 POC HCO3 32 H POC Total CO2 33 H POC Base Excess 8.0 H ABG pH ABG pCO2 ABG pO2 ABG HCO3 POC ABG O2 Sat 98.0 H ABG O2 Saturation ABG Base Excess Jair Test Barometric Pressure Oxygen Given POC Sodium 144 Sodium POC Potassium 3.9 Potassium Chloride Carbon Dioxide Anion Gap BUN Creatinine Est Cr Clr Drug Dosing Est GFR ( Amer) Est GFR (Non-Af Amer) BUN/Creatinine Ratio Glucose POC Glucose 183 H Lactate Calcium Phosphorus Magnesium Total Bilirubin Direct Bilirubin AST ALT Alkaline Phosphatase Troponin I 0.063 H* Total Protein Albumin Globulin Albumin/Globulin Ratio Procalcitonin Random Cortisol Urine Color Urine Appearance Urine pH Ur Specific [place] Urine Protein Urine Glucose (UA) Urine Ketones Urine Blood Urine Nitrite Urine Bilirubin Urine Urobilinogen Ur Leukocyte Esterase Urine WBC (Auto) Urine RBC (Auto) U Hyaline Cast (Auto) U Epithel Cells (Auto) Urine Bacteria (Auto) Nasal Screen MRSA (PCR) 06/20/20 06/20/20 06/20/20 04:55 04:55 04:55 WBC 11.43 H RBC 3.17 L Hgb 10.3 L POC Hgb Hct 31.2 L POC Hct MCV 98.4 MCH 32.5 MCHC 33.0 RDW Std Deviation 65.6 H RDW Coeff of Petar 19.6 H Plt Count 225 MPV 10.9 H Immature Gran % (Auto) 1.0 Neut % (Auto) 72.6 Lymph % (Auto) 14.8 [place] % (Auto) 9.2 Eos % (Auto) 2.2 Baso % (Auto) 0.2 Neut # (Auto) 8.30 H Lymph # (Auto) 1.69 [place] # (Auto) 1.05 H Eos # (Auto) 0.25 Baso # (Auto) 0.02 Immature Gran # (Auto) 0.12 H Absolute Nucleated RBC 0.06 H Nucleated RBC % (auto) 0.5 PT 15.0 H INR 1.5 H APTT 101.7 H* PTT Ratio 3.9 POC pH POC pCO2 POC pO2 POC HCO3 POC Total CO2 POC Base Excess ABG pH ABG pCO2 ABG pO2 ABG HCO3 POC ABG O2 Sat ABG O2 Saturation ABG Base Excess Jair Test Barometric Pressure Oxygen Given POC Sodium Sodium POC Potassium Potassium Chloride Carbon Dioxide Anion Gap BUN Creatinine Est Cr Clr Drug Dosing Est GFR ( Amer) Est GFR (Non-Af Amer) BUN/Creatinine Ratio Glucose POC Glucose Lactate Calcium Phosphorus Magnesium Total Bilirubin Direct Bilirubin AST ALT Alkaline Phosphatase Troponin I Total Protein Albumin Globulin Albumin/Globulin Ratio Procalcitonin Random Cortisol Urine Color Urine Appearance Urine pH Ur Specific [place] Urine Protein Urine Glucose (UA) Urine Ketones Urine Blood Urine Nitrite Urine Bilirubin Urine Urobilinogen Ur Leukocyte Esterase Urine WBC (Auto) Urine RBC (Auto) U Hyaline Cast (Auto) U Epithel Cells (Auto) Urine Bacteria (Auto) Nasal Screen MRSA (PCR) 06/20/20 06/20/20 06/20/20 04:55 04:55 08:21 WBC RBC Hgb POC Hgb Hct POC Hct MCV MCH MCHC RDW Std Deviation RDW Coeff of Petar Plt Count MPV Immature Gran % (Auto) Neut % (Auto) Lymph % (Auto) [place] % (Auto) Eos % (Auto) Baso % (Auto) Neut # (Auto) Lymph # (Auto) [place] # (Auto) Eos # (Auto) Baso # (Auto) Immature Gran # (Auto) Absolute Nucleated RBC Nucleated RBC % (auto) PT INR APTT PTT Ratio POC pH POC pCO2 POC pO2 POC HCO3 POC Total CO2 POC Base Excess ABG pH ABG pCO2 ABG pO2 ABG HCO3 POC ABG O2 Sat ABG O2 Saturation ABG Base Excess Jair Test Barometric Pressure Oxygen Given POC Sodium Sodium 145 POC Potassium Potassium 3.8 Chloride 111 H Carbon Dioxide 33 H Anion Gap 1.0 L BUN 33 H Creatinine 0.89 Est Cr Clr Drug Dosing 70.6 Est GFR ( Amer) 90.4 Est GFR (Non-Af Amer) 78.0 BUN/Creatinine Ratio 37.1 H Glucose 178 H POC Glucose Lactate Calcium 7.8 L Phosphorus 3.2 Magnesium 1.8 Total Bilirubin 1.0 Direct Bilirubin 0.4 H AST 119 H ALT 105 H Alkaline Phosphatase 72 Troponin I 0.051 H* Total Protein 5.4 L Albumin 2.0 L Globulin Albumin/Globulin Ratio Procalcitonin 0.08 Random Cortisol Urine Color Urine Appearance Urine pH Ur Specific [place] Urine Protein Urine Glucose (UA) Urine Ketones Urine Blood Urine Nitrite Urine Bilirubin Urine Urobilinogen Ur Leukocyte Esterase Urine WBC (Auto) Urine RBC (Auto) U Hyaline Cast (Auto) U Epithel Cells (Auto) Urine Bacteria (Auto) Nasal Screen MRSA (PCR) 06/20/20 06/20/20 06/20/20 08:25 12:28 12:31 WBC RBC Hgb POC Hgb Hct POC Hct MCV MCH MCHC RDW Std Deviation RDW Coeff of Petar Plt Count MPV Immature Gran % (Auto) Neut % (Auto) Lymph % (Auto) [place] % (Auto) Eos % (Auto) Baso % (Auto) Neut # (Auto) Lymph # (Auto) [place] # (Auto) Eos # (Auto) Baso # (Auto) Immature Gran # (Auto) Absolute Nucleated RBC Nucleated RBC % (auto) PT INR APTT 85.6 H* PTT Ratio 3.3 POC pH POC pCO2 POC pO2 POC HCO3 POC Total CO2 POC Base Excess ABG pH ABG pCO2 ABG pO2 ABG HCO3 POC ABG O2 Sat ABG O2 Saturation ABG Base Excess Jair Test Barometric Pressure Oxygen Given POC Sodium Sodium POC Potassium Potassium Chloride Carbon Dioxide Anion Gap BUN Creatinine Est Cr Clr Drug Dosing Est GFR ( Amer) Est GFR (Non-Af Amer) BUN/Creatinine Ratio Glucose POC Glucose 166 H 116 H Lactate Calcium Phosphorus Magnesium Total Bilirubin Direct Bilirubin AST ALT Alkaline Phosphatase Troponin I Total Protein Albumin Globulin Albumin/Globulin Ratio Procalcitonin Random Cortisol Urine Color Urine Appearance Urine pH Ur Specific Noble Urine Protein Urine Glucose (UA) Urine Ketones Urine Blood Urine Nitrite Urine Bilirubin Urine Urobilinogen Ur Leukocyte Esterase Urine WBC (Auto) Urine RBC (Auto) U Hyaline Cast (Auto) U Epithel Cells (Auto) Urine Bacteria (Auto) Nasal Screen MRSA (PCR) Medications Administered Current Inpatient Medications Albuterol (Albut/Ipratrop 3mg/0.5mg Neb 3 Ml Vial) 3 ml NEB Q4R PRN PRN Reason: wheezing Stop: 07/14/20 02:59 Amiodarone HCl (Amiodarone 200 Mg Tab) 200 mg PO QAM [facility] Stop: 07/09/20 11:05 Last Admin: 06/20/20 08:19 Dose: 200 mg Documented by: Aspirin (Aspirin 81 Mg Ectab) 81 mg PO DAILY [facility] Stop: 07/09/20 11:05 Last Admin: 06/19/20 08:44 Dose: 81 mg Documented by: Aspirin (Aspirin 81 Mg Chew) 81 mg PO QAM [facility] Stop: 07/20/20 08:59 Last Admin: 06/20/20 09:07 Dose: 81 mg Documented by: Dextrose (Dextrose 50% 50 Ml Syringe) 25 - 50 ml IV UD PRN; Protocol PRN Reason: Hypoglycemia Protocol Stop: 07/09/20 11:05 Famotidine (Famotidine Susp 20 Mg/2.5 Ml Udp) 20 mg NG BID DANIKA Stop: 07/20/20 20:59 Fentanyl Citrate (Fentanyl Bolus From Bag) 50 mcg IV Q60M PRN PRN Reason: Pain or Agitation Stop: 07/03/20 21:04 Last Admin: 06/19/20 19:45 Dose: 50 mcg Documented by: Glucagon (Glucagon For Inj 1 Mg Vial) 1 mg SQ UD PRN; Protocol PRN Reason: Hypoglycemia Protocol Stop: 07/09/20 11:05 Glucose (Glucose 10 Tabs/Tube) 4 - 8 tabs PO UD PRN; Protocol PRN Reason: Hypoglycemia Protocol Stop: 07/09/20 11:05 Glucose (Glucose 40% Gel 15 Gm Tube) 15 - 30 gm PO UD PRN; Protocol PRN Reason: Hypoglycemia Protocol Stop: 07/09/20 11:05 Heparin Sodium (Porcine) (Heparin 100 Unit/Ml 5ml Flush) 5 ml FLUSH PRN PRN PRN Reason: Flush Stop: 07/15/20 10:52 Dextrose/Sodium Chloride (D5w And 1/2nss) 1,000 mls @ 80 mls/hr IV .[id number] DANIKA Stop: 07/19/20 10:29 Last Infusion: 06/19/20 18:38 Dose: Infused Documented by: Propofol (Diprivan) 1,000 mg in 100 mls @ 4.98 mls/hr IV .Q20H5M DANIKA; Protocol Stop: 06/22/20 20:29 Last Titration: 06/20/20 04:35 Dose: Infused Documented by: Norepinephrine Bitartrate (Levophed/D5w) 8 mg in 508 mls @ 6.325 mls/hr IV .Q24H DANIKA; Protocol Stop: 07/19/20 21:14 Last Titration: 06/20/20 12:22 Dose: 0.02 mcg/kg/min, 6.3 mls/hr Documented by: Fentanyl Citrate (Fentanyl Drip) 1,250 mcg in 250 mls @ 0 mls/hr IV .Q0M DANIKA; Protocol Stop: 07/03/20 21:14 Last Titration: 06/20/20 08:40 Dose: 0 mcg/hr, 0 mls/hr Documented by: Heparin Sodium/Dextrose (Heparin Sodium/Dextrose) 25,000 units in 500 mls @ 27 mls/hr IV .[id number] DANIKA; Protocol Stop: 07/19/20 22:19 Last Titration: 06/20/20 07:21 Dose: 1,350 units/hr, 27 mls/hr Documented by: Midazolam HCl (Versed) 125 mg in 250 mls @ 0 mls/hr IV .Q0M PRN; Protocol PRN Reason: agitation Stop: 07/20/20 04:18 Last Titration: 06/20/20 08:20 Dose: 0 mg/hr, 0 mls/hr Documented by: Insulin Aspart (Insulin Aspart 100 Units/Ml 3 Ml Pen) 0 units SC Q4 DANIKA; Protocol Stop: 07/20/20 07:59 Last Admin: 06/20/20 08:41 Dose: 3 units Documented by: Lidocaine HCl (Lidocaine 2% Jelly 5 Ml Tube) 5 ml EXT PRN PRN PRN Reason: CATH INSERTION Stop: 07/14/20 12:32 Magnesium Hydroxide (Magnesium Hydroxide Susp 30 Ml Udc) 30 ml PO Q12H PRN PRN Reason: Constipation Stop: 07/09/20 11:05 Midazolam HCl (Midazolam Bolus From Bag) 2 mg IV Q60M PRN PRN Reason: Sedation Stop: 07/20/20 04:18 Miscellaneous (Carbohydrates For Hypoglycemia ) 15 - 30 gm PO UD PRN PRN Reason: Hypoglycemia Protocol Stop: 07/09/20 11:05 Miscellaneous Information (Pharmacy Glycemic Mgmt Consult) 1 ea N/A UD PRN PRN Reason: Consult Stop: 07/19/20 23:30 Ondansetron HCl (Ondansetron Inj 2 Mg/Ml 2 Ml Vial) 4 mg IV Q6H PRN PRN Reason: Nausea Stop: 07/09/20 11:05 Polyethylene Glycol (Polyethylene (Miralax) 17 Gm Pack) 17 gm PO DAILY PRN PRN Reason: Constipation Stop: 07/09/20 11:05 Propofol (Propofol Bolus From Bag) 20 mg IV Q5M PRN PRN Reason: Sedation Stop: 06/22/20 20:27 Thiamine HCl (Thiamine Hcl 100 Mg Tab) 100 mg PO QAM DANIKA Stop: 07/14/20 08:59 Last Admin: 04/30/21 08:19 Dose: 100 mg Documented by: Vitamin D (Cholecalciferol 1,000 Units 25 Mcg Tab) 2,000 units PO DAILY DANIKA Stop: 07/09/20 11:05 Last Admin: 06/20/20 08:18 Dose: 2,000 units Documented by: PG Care Time/CCT Total # of Minutes Spent Total Time Spent: 40 Total Time Spent with Patient: Total time spent is greater than 50% in coordination of care (as documented) at patient's floor/unit and/or counseling patient: 15 minutes speaking with daughter on phone [address] Pandey, Dr. 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
[2020-06-20] MEDS: HEPARIN SODIUM/DEXTROSE 25,000 UNITS/500 ML BAG IV SCH ×2 (16:13→19:21)
[2020-06-20 17:46] LABS: BUN Creatinine Ratio 29.6 (10-20); Calcium 8.6 mg/dl (8.5-10.1); Creatinine Clr Calc Pharmacy 56.1 ml/min; Est GFR (African American) 69.1; Est GFR (Non-African American) 59.6; Potassium 3.5 mmol/L (3.5-5.1)
[2020-06-20] MEDS: POTASSIUM CHLORIDE / WTR 10 MEQ/100 ML PLCT IV SCH ×4 (19:22→22:15)
[2020-06-20 20:19] LABS: Partial Thromboplastin Ratio 2.1
[2020-06-20 20:22] LABS: Partial Thromboplastin Time 55.4 Seconds (21.0-31.0)
[2020-06-20] MEDS: FAMOTIDINE SUSP 20 MG/2.5 ML UDP NG SCH ×2 (20:39→20:40)
[2020-06-20] MEDS: NOREPINEPHRINE/D5W 8 MG/508 ML BAG IV SCH (22:16)
[2020-06-21] MEDS: INSULIN ASPART 100 UNITS/ML 3 ML PEN SC SCH ×6 (04:59→23:45)
[2020-06-21 05:16] LABS: Basophils # (auto) 0.02 K/uL (0-0.2); Basophils % (auto) 0.2 %; Eosinophils # (auto) 0.31 K/uL (0-0.5); Eosinophils % (auto) 2.9 %; Hemoglobin 11.6 g/dL (14.0-18.0); Lymphocytes # (auto) 0.76 K/uL (1.2-3.4); Lymphocytes % (auto) 7.2 %; Mean Corpuscular Hemoglobin 32.5 pg (25-34); Mean Corpuscular Hgb Conc 33.1 g/dL (32-36); Mean Platelet Volume 11.3 fL (7.4-10.4); Monocytes # (auto) 1.08 K/uL (0.11-0.59); Monocytes % (auto) 10.3 %; Neutrophils # (auto) 8.24 K/uL (1.4-6.5); Neutrophils % (auto) 78.4 %; Platelet Count 173 K/uL (130-400); RDW Coefficient of Variation 19.3 % (11.5-14.5); RDW Standard Deviation 65.6 fL (36.4-46.3); Red Blood Count 3.57 M/uL (4.7-6.1); White Blood Count 10.51 K/uL (4.8-10.8)
[2020-06-21 05:37] LABS: BUN Creatinine Ratio 27.2 (10-20); Calcium 7.7 mg/dl (8.5-10.1); Est GFR (African American) 88.8; Est GFR (Non-African American) 76.6; Magnesium 1.7 mg/dl (1.8-2.4); Partial Thromboplastin Ratio 2.4; Phosphorus 2.9 mg/dl (2.5-4.9); Potassium 3.5 mmol/L (3.5-5.1)
[2020-06-21 05:41] LABS: Partial Thromboplastin Time 62.4 Seconds (21.0-31.0)
[2020-06-21] MEDS ORDERED: MAGNESIUM SULFATE / D5W 1 GM/100 ML BAG IV ONE (06:13)
[2020-06-21] MEDS: POTASSIUM CHLORIDE / WTR 10 MEQ/100 ML PLCT IV SCH ×4 (06:37→11:20)
[2020-06-21] MEDS: FAMOTIDINE SUSP 20 MG/2.5 ML UDP NG SCH (07:39)
[2020-06-21] MEDS: CHOLECALCIFEROL 1,000 UNITS 25 MCG TAB PO SCH (07:44)
[2020-06-21] MEDS: AMIODARONE 200 MG TAB PO SCH (07:44)
[2020-06-21] MEDS: THIAMINE HCL 100 MG TAB PO SCH (07:44)
[2020-06-21] MEDS: ASPIRIN 81 MG CHEW PO SCH (07:45)
--- NOTE | 2020-06-21 08:50 | XRay Report ---
XR chest 1V portable CLINICAL HISTORY: Respiratory failure. Follow-up study COMPARISON STUDY: 06/20/2020 FINDINGS: There has been interval removal of the endotracheal tube and enteric tube. There is a right -sided A-Port catheter unchanged in position. There are persistent multifocal pulmonary airspace opac ities. Small pleural effusions are suspected. IMPRESSION: 1. Persistent extensive bilateral pulmonary airspace opacities 2. Suspected small pleural effusions 3. Interval removal of the endotracheal tube and nasogastric tubes. ACT 112: Negative or not required by law. Electronically signed by: Jakub Almonte M.D. 06/21/2020 8:49 AM
--- NOTE | 2020-06-21 09:43 | Critical Care Progress Note ---
Date of Service June 21, 2020 Assessment & Plan (1) Acute hypoxemic respiratory failure: 84-year-old male with recent COVID-19 illness, cardiomyopathy, dementia and atrial fibrillation now with evidence of acute hypoxemic respiratory failure and metabolic encephalopathy. Neurologic: Waxing waning delirium. Avoid sedative medications at this time. Pulmonary: Continues to have dyspnea. Extubated yesterday. We will give 20 mg of IV Lasix today. Findings consistent with CHF and post Covid illness. Cardiovascular: Off of vasoactive medications at this time. We will hold antihypertensives. Continue heparin drip given history of atrial fibrillation. Will defer to hospitalist with regards to oral anticoagulation. IV diuretics for CHF. Gastrointestinal: Currently n.p.o. as he is too weak to eat. Renal: Renal function and electrolytes are stable. Replacing electrolytes per protocol. Infectious disease: No active signs of infection at this time. Procalcitonin within normal limits. Antibiotics discontinued. Has a history of recent COVID-19 illness. Off isolation. He received Diflucan for 5 days earlier in the hospitalization due to concerns of Maude urinary tract infection. Virgen catheter was placed yesterday. Hematologic: Continue heparin drip. Hemoglobin stable. Endocrine: TSH checked on within normal limits. No other issues. VTE prophylaxis: Continue heparin drip CODE STATUS: Full code at this time. Palliative care is assisting with goals of care discussion with the family. Family at bedside: None present at bedside due to COVID-19 pandemic. Palliative care is assisting as noted above. Disposition: Possible transfer to the floor if he continues to improve with a hemodynamic perspective and encephalopathy perspective. (2) Acute systolic heart failure: (3) Acute metabolic encephalopathy: (4) Atrial fibrillation: (5) Shock circulatory: Admission and Anticipated Discharge Date Admission Date: June 09, 2020 Subjective Patient continues to have shortness of breath with occasional delirium. Requiring 3 L of oxygen. Review of Systems Review of Systems: Review of systems limited due to confusion. Physical Exam Constitutional: Frail and elderly appearing male. Muscle atrophy noted diffusely Eyes: PERRL, conjunctivae normal, anicteric sclerae ENMT: Currently intubated Neck: normal visual inspection Respiratory: Diminished lung sounds at the bases bilaterally. Cardiovascular: Heart Sounds: normal S1, normal S2 and + murmur Extremities: + edema Gastrointestinal (Abdomen): normal bowel sounds, soft, nontender, no hepatosplenomegaly Musculoskeletal: no cyanosis or clubbing, extremities motor strength 5/5 Skin: no rashes, warm and dry Neurologic: PERRL, EOMI, accommodation nl, no face palsy, no dysarthria Psychiatric: A+Ox3, euthymic affect Results & Data Results & Data ([facility]) Vital Signs (Past 12 Hours) Vital Signs Temp Pulse Resp BP Pulse Ox 06/21/20 04:10 99.0 F 71 20 134/85 98 06/21/20 03:07 73 12 130/69 99 06/21/20 02:07 98.8 F 64 17 130/78 99 06/21/20 01:07 98.6 F 68 19 124/62 97 06/21/20 00:07 98.6 F 64 17 124/65 98 06/21/20 00:00 66 06/20/20 23:07 98.6 F 66 17 121/63 98 06/20/20 22:07 98.4 F 70 16 129/59 L 98 Reviewed vital signs, labs and imaging Coding Level of Care Code 46941 Subseq Hosp Care Lv 3 Diagnoses Acute hypoxemic respiratory failure J96.01 Acute systolic heart failure I50.21 Acute metabolic encephalopathy G93.41 Atrial fibrillation I48.0 Atrial fibrillation type: paroxysmal Shock circulatory R57.9 (1) Atrial fibrillation Atrial fibrillation type: paroxysmal Qualified Code(s): I48.0 - Paroxysmal atrial fibrillation
[2020-06-21] MEDS ORDERED: FUROSEMIDE 20 MG in SYRINGE 0 ML IV ONE (10:15)
[2020-06-21] MEDS ORDERED: VANCOMYCIN TROUGH ONE (11:30)
--- NOTE | 2020-06-21 14:22 | Hospitalist Progress Note ---
Date of Service June 21, 2020 Assessment & Plan (1) Goals of care, counseling/discussion: 30 minute discussion with patient, his and his daughter and then further discussion with daughter outside of the room will remain level 1 for now in the patient's own words, all he wants is "to get out of here, go home" the option that would give him the most time with family at home would be home with hospital bed, care givers discussed with daughter that I think he is appropriate for hospice he has had COVID, might have some COVID delirium, now with heart failure, required urgent intubation two days ago, very frail limited to no rehab potential very high risk for readmission and each time he comes to the hospital it would make him weaker, would mean more time away from family his daughter understands all of these issues the patient stated that he "wants to live" when I asked him about code status I feel he lacks true understanding of what that entails his daughter states that he would never want a trach or PEG and would not want prolonged life support (2) Acute hypoxemic respiratory failure: combination of sedation, central nervous system suppression with hypoventilation, sleep apnea, acute heart failure intubated 06/19 to protect airway extubated on 06/20, more alert, following commands diuresing well with Lasix 20mg IV q12, CXR improving mental status better, restraints off move to [facility] stable on 4L mask (3) Acute systolic heart failure: pulmonary edema on 06/19, appeared to happen suddenly he was 96% on room air in afternoon then 51% on room air in evening known systolic dysfunction in the past had been on metoprolol but this was stopped due to hypotension recently continue Lasix 20mg IV qAM, weight going down, negative fluid balance (4) Delirium: hospital delirium, has been in the hospital for two weeks, getting weaker he does not have his glasses so his vision is poor, unclear if he is hallucinating his is working on getting a new pair he is convinced everyone here is trying to kill him not eating or drinking well attempted to sedate him so he would comply with IV fluids and he was hypervigilant, not sleeping well for days gave him Seroquel 25mg and Ativan 0.5mg PO in the morning on 06/19, spit out some of the applesauce so unsure how much he got gave him Ativan 0.5mg IV, still yelling out 2 hours later, pulled out his port access, gave additional 0.5mg IV had a bad reaction with sedation, apnea later that night avoid all benzodiazepines he is calm, oriented to person/place, responded well to family visit today (5) Urinary retention: pt did have padilla that was uncomfortable and leaking, he self removed it on 06/15 was constantly yelling that he needed to pee placed padilla catheter on 06/19, draining urine with Lasix (6) Hypotension: Patient returns with hypotension and general decline. Prior to going home last time he was given Florinef for orthostatic hypotension. His family corroborated this is been a problem for some time. 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 Mcneil metoprolol was stopped for low BP, Amiodarone was continued, 200mg daily resume anticoagulation with heparin drip (8) Cardiomyopathy: Once again the patient has an EF of 35 to 40% making him having chronic heart failure reduced ejection fraction need to be cautious with volume resuscitation and sodium orally. 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 with declining ambulation prior to his Covid infection he will continue with PT OT while here limited by his complaints of lightneadedness at baseline he could stand up and get in wheelchair he would move himself around in his wheelchair with his arms at this point he cannot get out of bed, cannot stand up, far weaker than normal his mental status is only complicating matters, he is paranoid, won't trust anyone, won't participate (11) Depressed: Patient has persistent depression he had some appetite reduction subsequently started on Remeron, however will stop due to concerns for med side affects (12) Orthostatic hypotension: As mentioned above the patient documented orthostatic hypotension Florinef will be maintained, in case this is POTS from post covid toleration sodium chloride 1 gm daily (13) Discharge planning issues: see above Admission and Anticipated Discharge Date Admission Date: June 09, 2020 Subjective patient doing a lot better today, he is alert and oriented to person, knows he is in the hospital restraints removed HR, BP stable, breathing comfortably on 4L mask his and daughter were able to visit at the bedside for a long time, he responded well to them, very happy I explained that his heart failure is improving with Lasix, breathing better best his mental status has been for days I asked him what he wants more than anything, he said "to get out of here, go home" I asked him specifically if he would get into distress again and need intubated, would he want intubated at first he seemed indifferent and then he yelled and said "I want to live" we discussed that goals can be different, to "live" can mean different things, but he and his family agreed that being together would be most important discussed that he is very weak and deconditioned, that he has been in the hospital for 4 weeks due to COVID initially, has had several setbacks discussed that he has very limited to no rehab potential, even prior to hospitalization he could not walk, was getting into wheelchair to move about home discussed that going to SNF for rehab would mean more time away from family and that he might have another setback that would send him back to the hospital encouraged the patient, his daughter and his to discuss goals of care spoke with his daughter outside of the room, she is leaning towards home with hospital bed, care givers as best option to have him home discussed that prior to discharge we should revisit code status, hopeful his mental status will clear up a little more plan for palliative care to speak with them again on Tuesday, help with discharge planning for now will stay level 1 can move to medical tele floor spoke with Laisha ROBERTS, no issues taking medications, will give him a diet reviewed labs, CBC and BMP stable Review of Systems Review of Systems: All systems reviewed & are unremarkable except as noted in Subjective Physical Exam Constitutional: well developed, + frail appearing and comfortable; no acute distress Neck: trachea midline, no thyromegaly Respiratory: + abnormal respiratory pattern and + prolonged expiratory phase Auscultation: + diminished lung sounds Cardiovascular: Rate/Rhythm: regular rate and regular rhythm Heart Sounds: normal S1 and normal S2; no murmur Gastrointestinal (Abdomen): normal bowel sounds, soft, nontender, no hepatosplenomegaly Musculoskeletal: no cyanosis or clubbing, extremities motor strength 5/5 Skin: no rashes, warm and dry Neurologic: patellar DTR's 2+ bilat, sensation intact and PERRL, EOMI, accommodation nl, no face palsy, no dysarthria Psychiatric: Orientation: alert, oriented to person, oriented to place and cooperative; + not oriented to time Insight: + limited insight Judgement: + limited judgement Lymphatic: no cervical or axillary lymphadenopathy Results & Data Results & Data ([facility]) Vital Signs (Past 12 Hours) Vital Signs Temp Pulse Resp BP Pulse Ox 06/21/20 13:07 37.2 C 72 23 125/64 96 06/21/20 12:08 37.0 C 79 22 93/80 L 86 L 06/21/20 11:08 37.1 C 75 21 138/61 94 06/21/20 10:07 37.1 C 69 18 131/64 98 06/21/20 09:07 36.9 C 75 37 H 123/87 91 06/21/20 08:08 36.9 C 58 L 16 135/69 100 06/21/20 07:08 37.0 C 74 21 121/58 L 97 06/21/20 06:08 37.1 C 62 28 H 124/83 96 06/21/20 05:08 37.1 C 54 L 20 136/69 96 06/21/20 04:10 37.2 C 71 20 134/85 98 06/21/20 03:07 73 12 130/69 99 Laboratory Results Laboratory Results - last 24 hr 06/20/20 06/20/20 06/20/20 16:11 17:23 19:35 WBC RBC Hgb Hct MCV MCH MCHC RDW Std Deviation RDW Coeff of Petar Plt Count MPV Immature Gran % (Auto) Neut % (Auto) Lymph % (Auto) Nelson % (Auto) Eos % (Auto) Baso % (Auto) Neut # (Auto) Lymph # (Auto) Nelson # (Auto) Eos # (Auto) Baso # (Auto) Immature Gran # (Auto) APTT 55.4 H* PTT Ratio 2.1 Sodium 144 Potassium 3.5 Chloride 107 Carbon Dioxide 32 Anion Gap 5.0 BUN 33 H Creatinine 1.12 Est Cr Clr Drug Dosing 56.1 Est GFR ( Amer) 69.1 Est GFR (Non-Af Amer) 59.6 BUN/Creatinine Ratio 29.6 H Glucose 90 POC Glucose 85 Calcium 8.6 Phosphorus Magnesium 06/20/20 06/20/20 06/21/20 20:18 23:39 04:02 WBC RBC Hgb Hct MCV MCH MCHC RDW Std Deviation RDW Coeff of Petar Plt Count MPV Immature Gran % (Auto) Neut % (Auto) Lymph % (Auto) Nelson % (Auto) Eos % (Auto) Baso % (Auto) Neut # (Auto) Lymph # (Auto) Nelson # (Auto) Eos # (Auto) Baso # (Auto) Immature Gran # (Auto) APTT PTT Ratio Sodium Potassium Chloride Carbon Dioxide Anion Gap BUN Creatinine Est Cr Clr Drug Dosing Est GFR ( Amer) Est GFR (Non-Af Amer) BUN/Creatinine Ratio Glucose POC Glucose 137 H 118 H 118 H Calcium Phosphorus Magnesium 06/21/20 06/21/20 06/21/20 05:01 05:01 05:01 WBC 10.51 RBC 3.57 L Hgb 11.6 L Hct 35.0 L MCV 98.0 MCH 32.5 MCHC 33.1 RDW Std Deviation 65.6 H RDW Coeff of Petar 19.3 H Plt Count 173 MPV 11.3 H Immature Gran % (Auto) 1.0 Neut % (Auto) 78.4 Lymph % (Auto) 7.2 Nelson % (Auto) 10.3 Eos % (Auto) 2.9 Baso % (Auto) 0.2 Neut # (Auto) 8.24 H Lymph # (Auto) 0.76 L Nelson # (Auto) 1.08 H Eos # (Auto) 0.31 Baso # (Auto) 0.02 Immature Gran # (Auto) 0.10 H APTT 62.4 H* PTT Ratio 2.4 Sodium 142 Potassium 3.5 Chloride 106 Carbon Dioxide 33 H Anion Gap 3.0 BUN 25 H Creatinine 0.91 Est Cr Clr Drug Dosing 69.0 Est GFR ( Amer) 88.8 Est GFR (Non-Af Amer) 76.6 BUN/Creatinine Ratio 27.2 H Glucose 142 H POC Glucose Calcium 7.7 L Phosphorus 2.9 Magnesium 1.7 L 06/21/20 06/21/20 07:35 11:43 WBC RBC Hgb Hct MCV MCH MCHC RDW Std Deviation RDW Coeff of Petar Plt Count MPV Immature Gran % (Auto) Neut % (Auto) Lymph % (Auto) Nelson % (Auto) Eos % (Auto) Baso % (Auto) Neut # (Auto) Lymph # (Auto) Nelson # (Auto) Eos # (Auto) Baso # (Auto) Immature Gran # (Auto) APTT PTT Ratio Sodium Potassium Chloride Carbon Dioxide Anion Gap BUN Creatinine Est Cr Clr Drug Dosing Est GFR ( Amer) Est GFR (Non-Af Amer) BUN/Creatinine Ratio Glucose POC Glucose 138 H 128 H Calcium Phosphorus Magnesium Medications Administered Current Inpatient Medications Albuterol (Albut/Ipratrop 3mg/0.5mg Neb 3 Ml Vial) 3 ml NEB Q4R PRN PRN Reason: wheezing Stop: 07/14/20 02:59 Amiodarone HCl (Amiodarone 200 Mg Tab) 200 mg PO QAM [facility] Stop: 07/09/20 11:05 Last Admin: 06/21/20 07:44 Dose: 200 mg Documented by: Aspirin (Aspirin 81 Mg Ectab) 81 mg PO DAILY [facility] Stop: 07/09/20 11:05 Last Admin: 06/19/20 08:44 Dose: 81 mg Documented by: Aspirin (Aspirin 81 Mg Chew) 81 mg PO QAM [facility] Stop: 07/20/20 08:59 Last Admin: 06/21/20 07:45 Dose: 81 mg Documented by: Dextrose (Dextrose 50% 50 Ml Syringe) 25 - 50 ml IV UD PRN; Protocol PRN Reason: Hypoglycemia Protocol Stop: 07/09/20 11:05 Famotidine (Famotidine Susp 20 Mg/2.5 Ml Udp) 20 mg NG BID [facility] Stop: 07/20/20 20:59 Last Admin: 06/21/20 07:39 Dose: 20 mg Documented by: Glucagon (Glucagon For Inj 1 Mg Vial) 1 mg SQ UD PRN; Protocol PRN Reason: Hypoglycemia Protocol Stop: 07/09/20 11:05 Glucose (Glucose 10 Tabs/Tube) 4 - 8 tabs PO UD PRN; Protocol PRN Reason: Hypoglycemia Protocol Stop: 07/09/20 11:05 Glucose (Glucose 40% Gel 15 Gm Tube) 15 - 30 gm PO UD PRN; Protocol PRN Reason: Hypoglycemia Protocol Stop: 07/09/20 11:05 Heparin Sodium (Porcine) (Heparin 100 Unit/Ml 5ml Flush) 5 ml FLUSH PRN PRN PRN Reason: Flush Stop: 07/15/20 10:52 Dextrose/Sodium Chloride (D5w And 1/2nss) 1,000 mls @ 80 mls/hr IV .[id number] [facility] Stop: 07/19/20 10:29 Last Infusion: 06/19/20 18:38 Dose: Infused Documented by: Norepinephrine Bitartrate (Levophed/D5w) 8 mg in 508 mls @ 0 mls/hr IV .Q0M [facility]; Protocol Stop: 07/19/20 21:14 Last Admin: 06/20/20 22:16 Dose: Not Given Documented by: Heparin Sodium/Dextrose (Heparin Sodium/Dextrose) 25,000 units in 500 mls @ 24 mls/hr IV .[id number] [facility]; Protocol Stop: 07/19/20 22:19 Last Titration: 06/21/20 06:51 Dose: 1,200 units/hr, 24 mls/hr Documented by: Insulin Aspart (Insulin Aspart 100 Units/Ml 3 Ml Pen) 0 units SC Q4 [facility]; Protocol Stop: 07/20/20 07:59 Last Admin: 06/21/20 12:14 Dose: 1 units Documented by: Lidocaine HCl (Lidocaine 2% Jelly 5 Ml Tube) 5 ml EXT PRN PRN PRN Reason: CATH INSERTION Stop: 07/14/20 12:32 Magnesium Hydroxide (Magnesium Hydroxide Susp 30 Ml Udc) 30 ml PO Q12H PRN PRN Reason: Constipation Stop: 07/09/20 11:05 Miscellaneous (Carbohydrates For Hypoglycemia ) 15 - 30 gm PO UD PRN PRN Reason: Hypoglycemia Protocol Stop: 07/09/20 11:05 Miscellaneous Information (Pharmacy Glycemic Mgmt Consult) 1 ea N/A UD PRN PRN Reason: Consult Stop: 07/19/20 23:30 Ondansetron HCl (Ondansetron Inj 2 Mg/Ml 2 Ml Vial) 4 mg IV Q6H PRN PRN Reason: Nausea Stop: 07/09/20 11:05 Polyethylene Glycol (Polyethylene (Miralax) 17 Gm Pack) 17 gm PO DAILY PRN PRN Reason: Constipation Stop: 07/09/20 11:05 Thiamine HCl (Thiamine Hcl 100 Mg Tab) 100 mg PO QAM [facility] Stop: 07/14/20 08:59 Last Admin: 06/21/20 07:44 Dose: 100 mg Documented by: Vitamin D (Cholecalciferol 1,000 Units 25 Mcg Tab) 2,000 units PO DAILY [facility] Stop: 07/09/20 11:05 Last Admin: 06/21/20 07:44 Dose: 2,000 units Documented by: PG Care Time/CCT Total # of Minutes Spent Total Time Spent: 65 Total Time Spent with Patient: Total time spent is greater than 50% in coordination of care (as documented) at patient's floor/unit and/or counseling patient: 30 minutes on exam, chart review, documentation, d/w Laisha Rivera RN 35 minutes on discussion at bedside, goals of care, see below Prolonged Care Time Prolonged Care Time: Yes Total Prolonged Care Time: 35 35 minutes spent with family discussion with patient, goals of care Coding Level of Care Code 65310 Subseq Hosp Care Lvl 3 Diagnoses Goals of care, counseling/discussion Z71.89 Acute hypoxemic respiratory failure J96.01 Acute systolic heart failure I50.21 Delirium R41.0 Urinary retention R33.9 Hypotension I95.9 Atrial fibrillation I48.0 Atrial fibrillation type: paroxysmal Cardiomyopathy I25.5 Cardiomyopathy type: ischemic Diabetes mellitus, type II E11.65 Diabetes mellitus complication status: with hyperglycemia Diabetes mellitus intermediate card tender insulin use: without intermediate card tender use Gait apraxia R48.2 Depressed F32.9 Orthostatic hypotension I95.1 Discharge planning issues Z02.9 Additional Codes Prolonged Care Time - Prolonged Care Time: Yes ([id number]) (1) Diabetes mellitus, type II Diabetes mellitus complication status: with hyperglycemia Diabetes mellitus intermediate card tender insulin use: without penitentiary use Qualified Code(s): E11.65 - Type 2 diabetes mellitus with hyperglycemia (2) Atrial fibrillation Atrial fibrillation type: paroxysmal Qualified Code(s): I48.0 - Paroxysmal atrial fibrillation (3) Cardiomyopathy Cardiomyopathy type: ischemic Qualified Code(s): I25.5 - Ischemic cardiomyopathy
[2020-06-21] MEDS: HEPARIN SODIUM/DEXTROSE 25,000 UNITS/500 ML BAG IV SCH (17:34)
[2020-06-22] MEDS: INSULIN ASPART 100 UNITS/ML 3 ML PEN SC SCH ×5 (05:30→21:00)
[2020-06-22 07:20] LABS: Basophils # (auto) 0.01 K/uL (0-0.2); Basophils % (auto) 0.1 %; Eosinophils # (auto) 0.15 K/uL (0-0.5); Eosinophils % (auto) 1.6 %; Hematocrit (blood only) 37.7 % (42-52); Hemoglobin 12.3 g/dL (14.0-18.0); Immature Granulocytes # (auto) 0.11 K/uL (0.00-0.02); Immature Granulocytes % (auto) 1.1 %; Lymphocytes # (auto) 0.86 K/uL (1.2-3.4); Lymphocytes % (auto) 8.9 %; Mean Corpuscular Hemoglobin 31.8 pg (25-34); Mean Corpuscular Hgb Conc 32.6 g/dL (32-36); Mean Corpuscular Volume 97.4 fL (80-100); Mean Platelet Volume 11.1 fL (7.4-10.4); Monocytes # (auto) 0.98 K/uL (0.11-0.59); Monocytes % (auto) 10.2 %; Neutrophils % (auto) 78.1 %; Platelet Count 168 K/uL (130-400); RDW Coefficient of Variation 19.6 % (11.5-14.5); Red Blood Count 3.87 M/uL (4.7-6.1); White Blood Count 9.61 K/uL (4.8-10.8)
[2020-06-22 07:36] LABS: BUN Creatinine Ratio 20.3 (10-20); Creatinine Clr Calc Pharmacy 73.5 ml/min; Est GFR (African American) 92.5; Est GFR (Non-African American) 79.8; Magnesium 1.9 mg/dl (1.8-2.4); Potassium 3.4 mmol/L (3.5-5.1)
[2020-06-22 07:37] LABS: Phosphorus 2.9 mg/dl (2.5-4.9)
[2020-06-22 07:42] LABS: Partial Thromboplastin Ratio 2.5
[2020-06-22 07:53] LABS: Partial Thromboplastin Time 66.3 Seconds (21.0-31.0)
[2020-06-22] MEDS: THIAMINE HCL 100 MG TAB PO SCH (08:11)
[2020-06-22] MEDS: CHOLECALCIFEROL 1,000 UNITS 25 MCG TAB PO SCH (08:12)
[2020-06-22] MEDS: ASPIRIN 81 MG CHEW PO SCH (08:12)
[2020-06-22] MEDS: AMIODARONE 200 MG TAB PO SCH (08:12)
[2020-06-22] MEDS ORDERED: FUROSEMIDE 20 MG in SYRINGE 0 ML IV SCH (09:00)
[2020-06-22] MEDS: HEPARIN 100 UNIT/ML 5ML FLUSH FLUSH PRN (09:32)
--- NOTE | 2020-06-22 09:32 | Hospitalist Progress Note ---
Date of Service June 22, 2020 Assessment & Plan (1) Goals of care, counseling/discussion: 30 minute discussion with patient, his and his daughter and then further discussion with daughter outside of the room on 06/21/20 will remain level 1 in the patient's own words, all he wants is "to get out of here, go home" the option that would give him the most time with family at home would be home with hospital bed, care givers discussed with daughter that I think he is appropriate for hospice he has had COVID, might have some COVID delirium, now with heart failure, required urgent intubation two days ago, very frail limited to no rehab potential very high risk for readmission and each time he comes to the hospital it would make him weaker, would mean more time away from family his daughter understands all of these issues the patient stated that he "wants to live" when I asked him about code status I feel he lacks true understanding of what that entails his daughter states that he would never want a trach or PEG and would not want prolonged life support will ask palliative care to see again on Friday 06/23 to help discuss goals of care, work on discharge plan that will best address his goals (2) Acute hypoxemic respiratory failure: combination of sedation, central nervous system suppression with hypoventilation, sleep apnea, acute heart failure intubated 06/19 to protect airway extubated on 06/20, more alert, following commands diuresing well with Lasix 20mg IV q12, CXR improving mental status better, restraints off moved to med tele stable on 3L NC today, could probably be weaned to 1-2L or even room air gave Lasix 20mg IV this morning, hold on further dosing check CXR tomorrow (3) Acute systolic heart failure: pulmonary edema on 06/19, appeared to happen suddenly he was 96% on room air in afternoon then 51% on room air in evening known systolic dysfunction in the past had been on metoprolol but this was stopped due to hypotension recently continue Lasix 20mg IV qAM, weight going down, negative fluid balance hold on dosing tomorrow, check CXR will get echocardiogram today to assess LV function (4) Delirium: hospital delirium developed and got worse from 06/17 to 06/19 had been in the hospital/SNF for four weeks, getting weaker he still does not have his glasses so his vision is poor, unclear if he is hallucinating his is working on getting a new pair he was convinced everyone here is trying to kill him was not eating or drinking well attempted to sedate him so he would comply with IV fluids and he was hypervigilant, not sleeping well for days gave him Seroquel 25mg and Ativan 0.5mg PO in the morning on 06/19, spit out some of the applesauce so unsure how much he got gave him Ativan 0.5mg IV, still yelling out 2 hours later, pulled out his port access, gave additional 0.5mg IV had a bad reaction with sedation, apnea later that night he is calm, oriented to person/place, responded well to family visit on 06/21 and will have another visit today as this is what will help him the most plan: proper sleep wake cycles, 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 (5) Urinary retention: pt did have padilla that was uncomfortable and leaking, he self removed it on 06/15 was constantly yelling that he needed to pee, made his delirium and agitation worse placed padilla catheter on 06/19, draining urine with Lasix he is compliant with the padilla, no longer irritated, keep it for time being (6) Colin UTI: urine culture from 06/15 with colin started on Diflucan, did not help mental status, actually got worse after starting treatment but that could have been multifactorial held when he went to ICU and was NPO I will start 200mg PO daily today, check a UA and repeat culture (7) Hypotension: Patient returned with hypotension and general decline. Prior to last discharge he was given Florinef for orthostatic hypotension. His family corroborated this is been a problem for some time. 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 prior to his Covid infection he will continue with PT OT while here limited by his complaints of lightneadedness at baseline he could stand up and get in wheelchair he would move himself around in his wheelchair with his arms at this point he cannot get out of bed, cannot stand up, far weaker than normal his mental status is only complicating matters at this point he has been in hospital or SNF for 4 weeks, much weaker that he was prior to admission I feel he has limited to no rehab potential all he wants is to go home and be with family, going to rehab would keep him away from family and I think he would be high risk for readmission (12) Depressed: mood is much better after seeing family on 06/21 will have them visit again today to help mood and mental status and work on discharge plan (13) Orthostatic hypotension: As mentioned above he is too weak to get OOB today, holding Florinef and salt tablets BP stable while in bed (14) Discharge planning issues: see above Admission and Anticipated Discharge Date Admission Date: June 09, 2020 Subjective patient continues to improve today, he is alert, oriented to person and place he is cooperative, not yelling out, he is eating and drinking better, stable on 3L NC, could probably be on 1-2 L gave him Lasix 20mg IV this morning, might not need further dosing will get Echo and CT head today his family is requesting visit again, I agree that he needs to see them, seems to help mental status more than anything I think it will facilitate getting him out of the hospital more than any other treatment labs reviewed, WBC 9k, Hb 12, K 3.4, Cr 0.8 added KCl replacement BID spoke with RN, told her to stop heparin drip and start on Eliquis will get another UA and send for culture to see if he still has Colin UTI Review of Systems Review of Systems: All systems reviewed & are unremarkable except as noted in Subjective Constitutional: + fatigue and + weakness Musculoskeletal: + muscle weakness (generalized) Neurologic: + gait abnormality, + unsteadiness and + generalized weakness Psychiatric: + abnormal sleep pattern (wants to sleep today) and + irritability Physical Exam Constitutional: well developed, + frail appearing and comfortable; no acute distress Neck: trachea midline, no thyromegaly Respiratory: normal respiratory effort, lungs clear to auscultation Auscultation: + diminished lung sounds Cardiovascular: RRR, no murmur, no edema Gastrointestinal (Abdomen): normal bowel sounds, soft, nontender, no hepatosplenomegaly Musculoskeletal: no cyanosis or clubbing, extremities motor strength 5/5 Skin: no rashes, warm and dry Neurologic: patellar DTR's 2+ bilat, sensation intact and PERRL, EOMI, accommodation nl, no face palsy, no dysarthria Psychiatric: Orientation: alert, oriented to person, oriented to place and cooperative; + not oriented to time Lymphatic: no cervical or axillary lymphadenopathy Results & Data Results & Data ([facility]) Vital Signs (Past 12 Hours) Vital Signs Temp Pulse Pulse Resp BP Pulse Ox 06/22/20 07:24 36.6 C 70 20 135/68 100 06/22/20 03:12 36.3 C L 65 18 118/67 98 06/22/20 01:15 84 06/21/20 22:44 36.2 C L 66 20 125/62 98 Laboratory Results Laboratory Results - last 24 hr 06/21/20 06/21/20 06/21/20 11:43 21:04 23:31 WBC RBC Hgb Hct MCV MCH MCHC RDW Std Deviation RDW Coeff of Petar Plt Count MPV Immature Gran % (Auto) Neut % (Auto) Lymph % (Auto) [place] % (Auto) Eos % (Auto) Baso % (Auto) Neut # (Auto) Lymph # (Auto) [place] # (Auto) Eos # (Auto) Baso # (Auto) Immature Gran # (Auto) APTT PTT Ratio Sodium Potassium Chloride Carbon Dioxide Anion Gap BUN Creatinine Est Cr Clr Drug Dosing Est GFR ( Amer) Est GFR (Non-Af Amer) BUN/Creatinine Ratio Glucose POC Glucose 128 H 128 H 143 H Calcium Phosphorus Magnesium 0502/21 05/02/21 05/02/21 04:33 06:59 06:59 WBC 9.61 RBC 3.87 L Hgb 12.3 L Hct 37.7 L MCV 97.4 MCH 31.8 MCHC 32.6 RDW Std Deviation 66.0 H RDW Coeff of Petar 19.6 H Plt Count 168 MPV 11.1 H Immature Gran % (Auto) 1.1 Neut % (Auto) 78.1 Lymph % (Auto) 8.9 [place] % (Auto) 10.2 Eos % (Auto) 1.6 Baso % (Auto) 0.1 Neut # (Auto) 7.50 H Lymph # (Auto) 0.86 L [place] # (Auto) 0.98 H Eos # (Auto) 0.15 Baso # (Auto) 0.01 Immature Gran # (Auto) 0.11 H APTT PTT Ratio Sodium 140 Potassium 3.4 L Chloride 102 Carbon Dioxide 34 H Anion Gap 4.0 BUN 17 Creatinine 0.84 Est Cr Clr Drug Dosing 73.5 Est GFR ( Amer) 92.5 Est GFR (Non-Af Amer) 79.8 BUN/Creatinine Ratio 20.3 H Glucose 138 H POC Glucose 123 H Calcium 8.0 L Phosphorus 2.9 Magnesium 1.9 06/22/20 06/22/20 06:59 07:07 WBC RBC Hgb Hct MCV MCH MCHC RDW Std Deviation RDW Coeff of Petar Plt Count MPV Immature Gran % (Auto) Neut % (Auto) Lymph % (Auto) [place] % (Auto) Eos % (Auto) Baso % (Auto) Neut # (Auto) Lymph # (Auto) [place] # (Auto) Eos # (Auto) Baso # (Auto) Immature Gran # (Auto) APTT 66.3 H* PTT Ratio 2.5 Sodium Potassium Chloride Carbon Dioxide Anion Gap BUN Creatinine Est Cr Clr Drug Dosing Est GFR ( Amer) Est GFR (Non-Af Amer) BUN/Creatinine Ratio Glucose POC Glucose 147 H Calcium Phosphorus Magnesium Medications Administered Current Inpatient Medications Albuterol (Albut/Ipratrop 3mg/0.5mg Neb 3 Ml Vial) 3 ml NEB Q4R PRN PRN Reason: wheezing Stop: 07/14/20 02:59 Amiodarone HCl (Amiodarone 200 Mg Tab) 200 mg PO QAM DANIKA Stop: 07/09/20 11:05 Last Admin: 06/22/20 08:12 Dose: 200 mg Documented by: Apixaban (Apixaban 2.5 Mg Tab) 5 mg PO BID [facility] Stop: 07/22/20 09:29 Aspirin (Aspirin 81 Mg Chew) 81 mg PO QAM [facility] Stop: 07/20/20 08:59 Last Admin: 06/22/20 08:12 Dose: 81 mg Documented by: Dextrose (Dextrose 50% 50 Ml Syringe) 25 - 50 ml IV UD PRN; Protocol PRN Reason: Hypoglycemia Protocol Stop: 07/09/20 11:05 Glucagon (Glucagon For Inj 1 Mg Vial) 1 mg SQ UD PRN; Protocol PRN Reason: Hypoglycemia Protocol Stop: 07/09/20 11:05 Glucose (Glucose 10 Tabs/Tube) 4 - 8 tabs PO UD PRN; Protocol PRN Reason: Hypoglycemia Protocol Stop: 07/09/20 11:05 Glucose (Glucose 40% Gel 15 Gm Tube) 15 - 30 gm PO UD PRN; Protocol PRN Reason: Hypoglycemia Protocol Stop: 07/09/20 11:05 Heparin Sodium (Porcine) (Heparin 100 Unit/Ml 5ml Flush) 5 ml FLUSH PRN PRN PRN Reason: Flush Stop: 07/15/20 10:52 Furosemide 20 mg/ Syringe 2 mls [facility] [place] Stop: 07/22/20 08:59 Last Admin: 06/22/20 08:11 Dose: 4 mls/min Documented by: Insulin Aspart (Insulin Aspart 100 Units/Ml 3 Ml Pen) 0 units SC Q4 [facility]; Protocol Stop: 07/20/20 07:59 Last Admin: 06/22/20 08:10 Dose: 3 units Documented by: Lidocaine HCl (Lidocaine 2% Jelly 5 Ml Tube) 5 ml EXT PRN PRN PRN Reason: CATH INSERTION Stop: 07/14/20 12:32 Magnesium Hydroxide (Magnesium Hydroxide Susp 30 Ml Udc) 30 ml PO Q12H PRN PRN Reason: Constipation Stop: 07/09/20 11:05 Miscellaneous (Carbohydrates For Hypoglycemia ) 15 - 30 gm PO UD PRN PRN Reason: Hypoglycemia Protocol Stop: 07/09/20 11:05 Miscellaneous Information (Pharmacy Glycemic Mgmt Consult) 1 ea N/A UD PRN PRN Reason: Consult Stop: 07/19/20 23:30 Ondansetron HCl (Ondansetron Inj 2 Mg/Ml 2 Ml Vial) 4 mg IV Q6H PRN PRN Reason: Nausea Stop: 07/09/20 11:05 Polyethylene Glycol (Polyethylene (Miralax) 17 Gm Pack) 17 gm PO DAILY PRN PRN Reason: Constipation Stop: 07/09/20 11:05 Potassium Chloride (Potassium Chloride Crtab 20 Meq Tabcr) 20 meq PO BID [facility] Stop: 07/22/20 09:29 Thiamine HCl (Thiamine Hcl 100 Mg Tab) 100 mg PO QAM [facility] Stop: 07/14/20 08:59 Last Admin: 06/22/20 08:11 Dose: 100 mg Documented by: Vitamin D (Cholecalciferol 1,000 Units 25 Mcg Tab) 2,000 units PO DAILY [facility] Stop: 07/09/20 11:05 Last Admin: 06/22/20 08:12 Dose: 2,000 units Documented by: PG Care Time/CCT Total # of Minutes Spent Total Time Spent with Patient: Total time spent is greater than 50% in coordination of care (as documented) at patient's floor/unit and/or counseling patient: Coding Level of Care Code 85260 Subseq Hosp Care Lvl 3 Diagnoses Goals of care, counseling/discussion Z71.89 Acute hypoxemic respiratory failure J96.01 Acute systolic heart failure I50.21 Delirium R41.0 Urinary retention R33.9 Colin UTI B37.49 Hypotension I95.9 Atrial fibrillation I48.0 Atrial fibrillation type: paroxysmal Cardiomyopathy I25.5 Cardiomyopathy type: ischemic Diabetes mellitus, type II E11.65 Diabetes mellitus nursing home insulin use: without terminal gauger supervisor use Diabetes mellitus complication status: with hyperglycemia Gait apraxia R48.2 Depressed F32.9 Orthostatic hypotension I95.1 Discharge planning issues Z02.9 (1) Atrial fibrillation Atrial fibrillation type: paroxysmal Qualified Code(s): I48.0 - Paroxysmal atrial fibrillation (2) Cardiomyopathy Cardiomyopathy type: ischemic Qualified Code(s): I25.5 - Ischemic cardiomyopathy (3) Diabetes mellitus, type II Diabetes mellitus terminal gauger supervisor insulin use: without terminal gauger supervisor use Diabetes mellitus complication status: with hyperglycemia Qualified Code(s): E11.65 - Type 2 diabetes mellitus with hyperglycemia
--- NOTE | 2020-06-22 09:48 | XCELERA ---
[id number]
[2020-06-22] MEDS: APIXABAN 5 MG TABLET PO SCH ×2 (10:30→21:03)
[2020-06-22] MEDS: POTASSIUM CHLORIDE CRTAB 20 MEQ TABCR PO SCH ×2 (10:30→21:03)
--- NOTE | 2020-06-22 10:46 | CT Scan Report ---
CT head/brain wo con CLINICAL HISTORY: 84 years-old Male with delirium, confusion. Acutely altered mental status with con fusion TECHNIQUE: Multiple axial CT images of the head were obtained without contrast. A dose lowering tech nique was utilized adhering to the principles of ALARA. CT DOSE: 614.27 mGy.cm COMPARISON: Head CT 06/19/2020, 06/12/2020 FINDINGS: No acute intracranial hemorrhage, midline shift, intracranial mass, hydrocephalus, territorial ischem ia or abnormal extra-axial collection. Age-related involutional changes with white matter hypodensiti es suggestive of chronic microvascular ischemic disease. 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 Cerebral vascular calcifications. Ill-defined density involving the left aspect of the nestor on image 12 series 2 is favored to be artifactual. The calvarium is intact. Right mastoid air cells are clear. Trace left effusion. Clear paranasal sin uses. Unremarkable soft tissues. Prior bilateral lens repair. IMPRESSION: No acute intracranial abnormality. ACT 112: Negative or not required by law. The above report was generated using voice recognition software. It may contain grammatical, syntax o r spelling errors. Electronically signed by: Tyson Garcia M.D. 06/22/2020 10:45 AM
[2020-06-22] MEDS: FLUCONAZOLE 100 MG TAB PO SCH (11:00)
[2020-06-22 11:15] LABS: Appearance Urine Clear (Clear); Bacteria Urine Automated Negative (Negative); Bilirubin Urine Negative (Negative); Blood Urine 1+ (Negative); Color Urine Yellow; Glucose Urine UA Negative (Negative); Ketones Urine Negative (Negative); Leukocyte Esterase Urine 1+ (Negative); Nitrite Urine Negative (Negative); Protein Urine Negative (Negative); RBC Urine Automated 0-4 /hpf (0-4); Specific Gravity Urine 1.011 (1.000-1.030); Urobilinogen Urine Negative (Negative)
--- NOTE | 2020-06-22 13:33 | Pharmacy Report ---
Pharmacy Glycemic Short Note 2 - Date of Service June 22, 2020 - Glycemic Short BSG Results (Last 24 hours): 06/21/20 06/21/20 06/22/20 21:04 23:31 04:33 Glucose POC Glucose 128 H 143 H 123 H 06/22/20 06/22/20 06/22/20 06:59 07:07 11:19 Glucose 138 H POC Glucose 147 H 172 H OUTPATIENT ANTIDIABETIC REGIMEN: * Metformin 500mg PO BID * A1c = 6.5% 05/20/20 ASSESSMENT: 06/22/20 * Patient transferred to medical floor * Blood sugars well controlled on Novolog scale + carb coverage q4h, continue regimen 06/20/20 * Patient transferred to ICU secondary to acute resp failure requiring intubation * BSGs were acutely elevated yesterday, likely stress induced * BSGs have fallen to goal range with minimal intervention * Usually well controlled on metformin monotherapy * Will initiate SQ Novolog Q 4 hrs alone - but use this regimen to provide a portion of "basal" insulin. Will omit basal insulin at this time. * Of note, pt may be extubated today. No plans for continuous tube feeds at this time. PLAN FOR INPATIENT GLYCEMIC CONTROL: * Hold outpatient oral diabetes medications (metformin) * Basal insulin * None at this time * Bolus insulin * NovoLog per scale Q4hrs: PLAN FOR DISCHARGE: * may resume home regimen of metformin if no contraindication present at time of discharge * A1c of 6.5% is at goal
[2020-06-23] MEDS: THIAMINE HCL 100 MG TAB PO SCH (08:19)
[2020-06-23] MEDS: POTASSIUM CHLORIDE CRTAB 20 MEQ TABCR PO SCH ×2 (08:19→20:32)
[2020-06-23] MEDS: CHOLECALCIFEROL 1,000 UNITS 25 MCG TAB PO SCH (08:19)
[2020-06-23] MEDS: FLUCONAZOLE 100 MG TAB PO SCH (08:19)
[2020-06-23] MEDS: AMIODARONE 200 MG TAB PO SCH (08:19)
[2020-06-23] MEDS: APIXABAN 5 MG TABLET PO SCH ×2 (08:19→20:32)
[2020-06-23] MEDS: FUROSEMIDE 20 MG TAB PO SCH (08:19)
[2020-06-23] MEDS: INSULIN ASPART 100 UNITS/ML 3 ML PEN SC SCH ×4 (08:29→21:12)
[2020-06-23] MEDS: ASPIRIN 81 MG CHEW PO SCH (08:35)
[2020-06-23 09:44] LABS: BUN Creatinine Ratio 19.8 (10-20); Calcium 8.3 mg/dl (8.5-10.1); Creatinine Clr Calc Pharmacy 82.3 ml/min; Est GFR (African American) 97.5; Est GFR (Non-African American) 84.1; Potassium 3.9 mmol/L (3.5-5.1)
[2020-06-23] MEDS ORDERED: INSULIN GLARGINE SOLOSTAR 100 UNITS/ML 3 ML PEN SC STA (11:53)
--- NOTE | 2020-06-23 11:57 | Pharmacy Report ---
Pharmacy Glycemic Short Note 2 - Date of Service June 23, 2020 - Glycemic Short BSG Results (Last 24 hours): 06/22/20 06/22/20 06/23/20 16:11 20:20 07:34 Glucose POC Glucose 219 H 112 H 131 H 06/23/20 06/23/20 09:16 11:42 Glucose 168 H POC Glucose 236 H OUTPATIENT ANTIDIABETIC REGIMEN: * Metformin 500mg PO BID * HbA1c = 6.5% (05/20/20) ASSESSMENT: 06/23/20 * Patient received 10 units of insulin yesterday, all bolus * BSGs were [phone] mg/dL * Fasting BSG was 131 mg/dL this AM * Lunch BSG was elevated at 236 mg/dL * Appetite beginning to increase * Will add a one time basal dose at lunch along with tightening Novolog 06/22/20 * Patient transferred to medical floor * Blood sugars well controlled on Novolog scale + carb coverage q4h, continue regimen 06/20/20 * Patient transferred to ICU secondary to acute resp failure requiring intubation * BSGs were acutely elevated yesterday, likely stress induced * BSGs have fallen to goal range with minimal intervention * Usually well controlled on metformin monotherapy * Will initiate SQ Novolog Q 4 hrs alone - but use this regimen to provide a portion of "basal" insulin. Will omit basal insulin at this time. * Of note, pt may be extubated today. No plans for continuous tube feeds at this time. PLAN FOR INPATIENT GLYCEMIC CONTROL: * Hold outpatient oral diabetes medications * Basal insulin * Lantus 10 units SC x 1 * Bolus insulin - tightened CF/CR * NovoLog per scale ACHS * Goal Range = 110 - 140 mg/dL * Correction Factor: 25 * Carb Ratio: 8 PLAN FOR DISCHARGE: * HbA1c of 6.5% is at goal for this patient. * No changes recommended to outpatient regimen upon discharge.
--- NOTE | 2020-06-23 13:01 | Palliative Care Progress Note ---
Date of Service June 23, 2020 Assessment & Plan (1) Palliative care encounter: I talked with Booker about his desire to go home. He tells me that is the most important thing to him. He would want to remain at home if at all possible. He tells me that being with his family and watching baseball are the things that bring him hubert. We discussed whether he would want to remain at home if he became more ill or return to the hospital. He says that he would want to be at home for his dying time. I met with Mrs. Torres and their daughter, Emily, along with Dr. Kennedy and case management to discuss goals of care. We reviewed the discussion that I had with Booker earlier in the day and discussed options for care at home. We reviewed results of his swallowing evaluation and recommendations for thickened liquids and moist, minced diet. We did also discuss allowing a more liberal diet with the understanding of possible aspiration and focus on comfort directed care. We discussed home care vs hospice and what would be included in hospice benefit. We discussed medications, DME, nursing support. Mrs Torres would need additional help with caregivers at home and they were provided with a list of paid caregiver agencies. They have decided on hospice care at home. We did address code status, given shift of focus to comfort, full code would not be consistent with their current goals. They have decided to change code status to DNR/DNI and the order was changed to reflect this. Admission and Anticipated Discharge Date Admission Date: June 09, 2020 Subjective Awake. Just completed swallowing evaluation. He does cough with thin liquids. He denies pain or discomfort. Saying that he wants to go home. Review of Systems Review of Systems: Independence Symptom Assessment Scale Pain 0/3 Dyspnea 0/3 Anxiety 1/3 Anorexia 1/3 Fatigue 2/3 Palliative Performance Score 30% Physical Exam Constitutional: + thin and + frail appearing; no acute distress ENMT: Mouth: oral mucous membranes not dry Respiratory: normal respiratory effort; no labored breathing Cardiovascular: Extremities: no edema Gastrointestinal (Abdomen): Percussion/Palpation: abdomen nontender Musculoskeletal: Extremities: + muscle atrophy Neurologic: awake; not confused Results & Data ([facility]) Vital Signs (Past 12 Hours) Vital Signs Temp Pulse Pulse Resp BP Pulse Ox 06/23/20 11:26 97.7 F 76 16 116/71 96 06/23/20 07:58 98.1 F 71 16 143/81 H 91 06/23/20 07:36 67 06/23/20 03:38 97.3 F L 68 18 136/77 91 PG Care Time/CCT Total # of Minutes Spent Total Time Spent with Patient: Total time spent is greater than 50% in coordination of care (as documented) at patient's floor/unit and/or counseling patient: total time spent 70 minutes with more than 50% of time spent on family education and support, hospice care, code status, goals of care and coordination of care. Coding Level of Care Code 29388 Subseq Hosp Care Lvl 3 Diagnoses Palliative care encounter Z51.5 Time Spent (min) 70
--- NOTE | 2020-06-23 21:24 | Hospitalist Progress Note ---
Date of Service June 23, 2020 Assessment & Plan (1) Goals of care, counseling/discussion: Met with pt's daughter (who is trauma nurse at [facility]), pt's , Rochelle Sue (case finishing machine adjuster) and Dr Carter from palliative care. I updated them with CT head results from weekend (?L pontine stroke), echo (severely depressed EF), speech bedside swallow eval (failed), and overall medical status. They understand and acknowledge how poorly he has done since his COVID illness. They do think his mental status is somewhat better over the last 2 days. [id number] his baseline health was poor even before vivian COVID - was wheelchair dependent, severely visually impaired, etc. They recognize that his wish is to go home. They want to honor his wishes and will have him go home with hospice. They will probably need to hire private duty nurses as well - social work discussed this with family today. Appreciate Dr Carter's assistance. Appreciate social work assistance. Conversation with family was about 30 minutes. (2) Acute hypoxemic respiratory failure: 2nd to aspiration + decompensated CHF. intubated 06/19 to protect airway. extubated on 06/20. has diuresed well last few days. EF markedly depressed on echo. will need standing lasix - 20mg to 40mg daily - to maintain euvolemia. (3) Acute systolic heart failure: EF 20-25%. Cont lasix 20mg daily. Ultimately would place back on low-dose BB. Hold TABATHA/ARB. (4) Delirium: severe, intermittent throughout stay 2nd to prior COVID illness, +/-UTI, +/-?stroke (CT head this weekend with ?L pontine stroke), along with hospital delirium. All antipsychotics, etc stopped. Mental status relatively stable today - family agrees. 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 either way at discharge likely to remain largely bed-bound (12) Depressed: consider SSRI (13) Orthostatic hypotension: 2nd to recent COVID infection Admission and Anticipated Discharge Date Admission Date: June 09, 2020 Subjective during bedside rounds patient initially thought he was in [facility] then realized he was not and said [place] knew it was 2020 he denied any pain in any location watching [employer] on TV enjoys sports "I just want to go home." I spoke with speech therapy via [place] Text -- failed bedside swallow eval still with slurry speech tele - NSR overnight Review of Systems Respiratory: no cough Cardiovascular: no chest pain Gastrointestinal: no abdominal pain Physical Exam Constitutional: + ill appearing, + altered mental status and + frail appearing; no acute distress dysarthric, slurry speech ENMT: Mouth: + dry oral mucous membranes (no thrush noted ) Respiratory: no respiratory distress Auscultation: + diminished lung sounds (bases) and + crackles (occasional b/l ); no wheezes Cardiovascular: Rate/Rhythm: regular rate and regular rhythm Heart Sounds: normal S1 and normal S2 Vessels: posterior tibial pulses present and dorsalis pedis pulses present; no JVD Extremities: no edema Gastrointestinal (Abdomen): normal bowel sounds, soft, nontender, no hepatosplenomegaly Neurologic: moves all extremities (strength 5/5 x 4 exts; no facial droop ); no focal motor deficits Speech / Cognition: + abnormal speech (slurred, dysarthric ) Psychiatric: Orientation: alert and oriented to person; + not oriented to place and + not oriented to time Results & Data Results & Data ([facility]) Vital Signs (Past 12 Hours) Vital Signs Temp Pulse Resp BP Pulse Ox 06/23/20 19:00 36.8 C 75 20 125/72 91 06/23/20 16:00 36.6 C 75 20 127/69 93 06/23/20 11:26 36.5 C 76 16 116/71 96 Laboratory Results Laboratory Results - last 24 hr 06/23/20 06/23/20 06/23/20 07:34 09:16 11:42 Sodium 142 Potassium 3.9 Chloride 103 Carbon Dioxide 35 H Anion Gap 4.0 BUN 15 Creatinine 0.74 Est Cr Clr Drug Dosing 82.3 Est GFR ( Amer) 97.5 Est GFR (Non-Af Amer) 84.1 BUN/Creatinine Ratio 19.8 Glucose 168 H POC Glucose 131 H 236 H Calcium 8.3 L 06/23/20 06/23/20 16:34 20:11 Sodium Potassium Chloride Carbon Dioxide Anion Gap BUN Creatinine Est Cr Clr Drug Dosing Est GFR ( Amer) Est GFR (Non-Af Amer) BUN/Creatinine Ratio Glucose POC Glucose 159 H 106 H Calcium PG Care Time/CCT Total # of Minutes Spent Total Time Spent with Patient: Total time spent is greater than 50% in coordination of care (as documented) at patient's floor/unit and/or counseling patient: Coding Level of Care Code 91282 Subseq Hosp Care Lvl 3 Diagnoses Goals of care, counseling/discussion Z71.89 Acute hypoxemic respiratory failure J96.01 Acute systolic heart failure I50.21 Delirium R41.0 Urinary retention R33.9 Colin UTI B37.49 Hypotension I95.9 Atrial fibrillation I48.0 Atrial fibrillation type: paroxysmal Cardiomyopathy I25.5 Cardiomyopathy type: ischemic Diabetes mellitus, type II E11.65 Diabetes mellitus complication status: with hyperglycemia Diabetes mellitus intermediate frame tender insulin use: without fpc use Gait apraxia R48.2 Depressed F32.9 Orthostatic hypotension I95.1 (1) Diabetes mellitus, type II Diabetes mellitus complication status: with hyperglycemia Diabetes mellitus fpc insulin use: without fpc use Qualified Code(s): E11.65 - Type 2 diabetes mellitus with hyperglycemia (2) Atrial fibrillation Atrial fibrillation type: paroxysmal Qualified Code(s): I48.0 - Paroxysmal atrial fibrillation (3) Cardiomyopathy Cardiomyopathy type: ischemic Qualified Code(s): I25.5 - Ischemic cardiomyopathy
[2020-06-24] MEDS: APIXABAN 5 MG TABLET PO SCH ×2 (07:57→20:31)
[2020-06-24] MEDS: FUROSEMIDE 20 MG TAB PO SCH (07:57)
[2020-06-24] MEDS: POTASSIUM CHLORIDE CRTAB 20 MEQ TABCR PO SCH ×2 (07:57→20:31)
[2020-06-24] MEDS: CHOLECALCIFEROL 1,000 UNITS 25 MCG TAB PO SCH (07:57)
[2020-06-24] MEDS: AMIODARONE 200 MG TAB PO SCH (07:58)
[2020-06-24] MEDS: THIAMINE HCL 100 MG TAB PO SCH (07:58)
[2020-06-24] MEDS: FLUCONAZOLE 100 MG TAB PO SCH (07:58)
[2020-06-24] MEDS: ASPIRIN 81 MG CHEW PO SCH (08:04)
[2020-06-24] MEDS: INSULIN ASPART 100 UNITS/ML 3 ML PEN SC SCH ×4 (08:05→22:17)
[2020-06-24] MEDS: INSULIN GLARGINE SOLOSTAR 100 UNITS/ML 3 ML PEN SC SCH (09:27)
[2020-06-24] MEDS ORDERED: ROCURONIUM BROMIDE 10 MG/ML 5 ML VIAL IV ONE (18:47)
[2020-06-24] MEDS ORDERED: ETOMIDATE 2 MG/ML 20 ML VIAL IV ONE (18:47)
--- NOTE | 2020-06-25 06:35 | Hospitalist Progress Note ---
Date of Service June 24, 2020 Assessment & Plan (1) Goals of care, counseling/discussion: 06/23 - in-person discussion between pt's , pt's daughter, SW, and Dr Carter from palliative. plan - DNR/DNI. home with hospice - likely tomorrow. family to hire private care duty nursing. (2) Acute hypoxemic respiratory failure: 2nd to aspiration + decompensated CHF. intubated 06/19 to protect airway. extubated on 06/20. diuresed well last few days. EF markedly depressed on echo. continue daily standing lasix - 20mg daily to maintain euvolemia. (3) Acute systolic heart failure: EF 20-25%. Cont lasix 20mg daily. Ultimately would place back on low-dose BB - metoprolol xl 12.5mg daily Hold TABATHA/ARB at d/c. (4) Delirium: severe, intermittent throughout stay IMPROVED 2nd to prior COVID illness, +/-UTI, +/-?stroke (CT head this weekend with ?L pontine stroke), along with hospital delirium. All antipsychotics, etc stopped. 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 hospital bed at d/c (12) Depressed: consider SSRI (13) Orthostatic hypotension: 2nd to recent COVID infection BPs now improved Admission and Anticipated Discharge Date Admission Date: June 09, 2020 Subjective no acute events overnight again watching [employer] on TV during the visit he was surprisingly sharp this am - knew where he was, year, etc denied c/o pain in any location voiced he was excited to go home mild cough at times only appetite fair only Review of Systems Respiratory: no dyspnea Cardiovascular: no chest pain Gastrointestinal: no abdominal pain Physical Exam Constitutional: + ill appearing, + altered mental status (slight only today; improved from / visit ) and + frail appearing; no acute distress ENMT: Mouth: + dry oral mucous membranes (no thrush noted ) Respiratory: no respiratory distress Auscultation: + diminished lung sounds (bases) and + crackles (right base ); no wheezes Cardiovascular: Rate/Rhythm: regular rate and regular rhythm Heart Sounds: normal S1 and normal S2 Vessels: posterior tibial pulses present and dorsalis pedis pulses present; no JVD Extremities: no edema Gastrointestinal (Abdomen): normal bowel sounds, soft, nontender, no hepatosplenomegaly Neurologic: no focal motor deficits Speech / Cognition: + abnormal speech (slurred, dysarthric ) Psychiatric: Orientation: alert, oriented to person, oriented to place and oriented to time Results & Data Results & [facility] ([facility]) Vital Signs (Past 12 Hours) Vital Signs Temp Pulse Pulse Resp BP Pulse Ox 06/25/20 03:00 36.3 C L 74 20 133/70 94 06/25/20 00:23 69 06/24/20 23:13 36.7 C 70 20 129/68 94 06/24/20 19:00 36.3 C L 71 20 128/72 94 Laboratory Results Laboratory Results - last 24 hr 06/24/20 06/24/20 06/24/20 07:46 11:55 12:04 POC Glucose 119 H 139 H 149 H 06/24/20 06/24/20 16:22 20:10 POC Glucose 82 79 PG Care Time/CCT Total # of Minutes Spent Total Time Spent with Patient: Total time spent is greater than 50% in coordination of care (as documented) at patient's floor/unit and/or counseling patient: Coding Level of Care Code 38512 Subseq Hosp Care Lvl 2 Diagnoses Goals of care, counseling/discussion Z71.89 Acute hypoxemic respiratory failure J96.01 Acute systolic heart failure I50.21 Delirium R41.0 Urinary retention R33.9 Maude UTI B37.49 Hypotension I95.9 Atrial fibrillation I48.0 Atrial fibrillation type: paroxysmal Cardiomyopathy I25.5 Cardiomyopathy type: ischemic Diabetes mellitus, type II E11.65 Diabetes mellitus alf insulin use: without terminal block assembler use Diabetes mellitus complication status: with hyperglycemia Gait apraxia R48.2 Depressed F32.9 Orthostatic hypotension I95.1 (1) Atrial fibrillation Atrial fibrillation type: paroxysmal Qualified Code(s): I48.0 - Paroxysmal atrial fibrillation (2) Cardiomyopathy Cardiomyopathy type: ischemic Qualified Code(s): I25.5 - Ischemic c ardiomyopathy (3) Diabetes mellitus, type II Diabetes mellitus terminal block assembler insulin use: without terminal block assembler use Diabetes mellitus complication status: with hyperglycemia Qualified Code(s): E11.65 - Type 2 diabetes mellitus with hyperglycemia
[2020-06-25 07:30] VITALS: BP 124/72; TEMP 97.5; O2SAT 97
[2020-06-25] MEDS: CHOLECALCIFEROL 1,000 UNITS 25 MCG TAB PO SCH (08:08)
[2020-06-25] MEDS: AMIODARONE 200 MG TAB PO SCH (08:08)
[2020-06-25] MEDS: APIXABAN 5 MG TABLET PO SCH (08:08)
[2020-06-25] MEDS: THIAMINE HCL 100 MG TAB PO SCH (08:08)
[2020-06-25] MEDS: FUROSEMIDE 20 MG TAB PO SCH (08:08)
[2020-06-25] MEDS: POTASSIUM CHLORIDE CRTAB 20 MEQ TABCR PO SCH (08:08)
[2020-06-25] MEDS: FLUCONAZOLE 100 MG TAB PO SCH (08:11)
[2020-06-25] MEDS: INSULIN ASPART 100 UNITS/ML 3 ML PEN SC SCH ×2 (08:12→12:09)
[2020-06-25] MEDS: INSULIN GLARGINE SOLOSTAR 100 UNITS/ML 3 ML PEN SC SCH (08:14)
[2020-06-25] MEDS: ASPIRIN 81 MG CHEW PO SCH (08:17)
--- NOTE | 2020-06-25 11:04 | Pharmacy Report ---
Pharmacy Glycemic Short Note 2 - Date of Service June 25, 2020 - Glycemic Short BSG Results (Last 24 hours): 06/24/20 06/24/20 06/24/20 11:55 12:04 16:22 POC Glucose 139 H 149 H 82 06/24/20 06/25/20 20:10 07:06 POC Glucose 79 100 H OUTPATIENT ANTIDIABETIC REGIMEN: * Metformin 500mg PO BID * HbA1c = 6.5% (05/20/20) ASSESSMENT: 06/25: * Mr. Torres received a total of 27 units of insulin yesterday * 8 units basal + 19 units bolus * BSGs were: [phone] mg/dL, well controlled * Fasting BSG was 100 mg/dL this AM, controlled * Discontinued Lantus at 0745 but 8 units was still given around 0815 * Expect patient to be below goal for most of today since he received too much basal * Will reduce Novolog to account for this 06/23: * Patient received 10 units of insulin yesterday, all bolus * BSGs were [phone] mg/dL * Fasting BSG was 131 mg/dL this AM * Lunch BSG was elevated at 236 mg/dL * Appetite beginning to increase * Will add a one time basal dose at lunch along with tightening Novolog PLAN FOR INPATIENT GLYCEMIC CONTROL: * Hold outpatient oral diabetes medications * Basal insulin - discontinued but still given * Lantus 8 units SC x 1 * Bolus insulin - loosened CF/CR * NovoLog per scale ACHS * Goal Range = 110 - 140 mg/dL * Correction Factor: 30 * Carb Ratio: 10 PLAN FOR DISCHARGE: * HbA1c of 6.5% is at goal for this patient. * No changes recommended to outpatient regimen upon discharge.
[2020-06-25] MEDS ORDERED: PHENAZOPYRIDINE HCL 200 MG TAB PO STA (11:55)
[2020-06-25] MEDS: HEPARIN 100 UNIT/ML 5ML FLUSH FLUSH PRN (12:22)
[2020-06-25 12:44] VITALS: PULSE 72
--- NOTE | 2020-06-25 12:58 | Discharge Summary ---
Date of Service date of admission - June 09, 2020 date of discharge - June 25, 2020 Admission HPI Per Admitting Provider 84 yr old male from [facility] who has been there the last 3 days after a 2- week hospitalization for COVID complicated by Afib RVR and Urinary Retention (May 19 to June 05). He was seen in the [facility] ED on 06/08 after his padilla came out. This was replaced and he was started on keflex for possible UTI. (culture not confirming). He was discharged back to [facility] on 06/08. He returned 06/09 with hypotension, bradycardia (30s per [facility]), and hypoxia (60s per [facility]). On evaluation in the ER he was found to be hypotensive and severely malnourished/weak and dehydrated. His sats are mid 90s on Room air and his HR is in the 60s with many PVCs/PACs. He is described as being orthopneic. When he falls asleep O2 sats are noted to drop in to 80s thus he was put on NC with good result. CXR with bilateral L>R new effusions and bilateral congestion/infiltrates. His daughter (Emily Dyson [phone]) who is Trauma/CCM nurse at [employer] was updated by the ER attending. CTA PE study to further evaluate chest. Trop is positive which is new, along with some diffuse EKG changes which may be due hypoxia/hypotension, or even evolving cardiomyopathy he had from covid. He fortunately describes no chest pain With new effusions, hematuria and new mild thrombocytopenia will hold off on anticoagulation at this time. Principal Diagnosis acute hypoxic respiratory failure requiring intubation/mech ventilation, acute systolic CHF, candidal UTI, severe delirium/encephalopathy, recent h/o COVID-19 pneumonia, dysphagia, a.fib, failure to thrive; TRANSITION TO HOME HOSPICE Discharge Exam Constitutional + ill appearing and + frail appearing; no acute distress ENMT Mouth: + dry oral mucous membranes (no thrush noted ) Respiratory no respiratory distress Auscultation: + diminished lung sounds (bases) and + crackles (right base ); no wheezes Cardiovascular Rate/Rhythm: regular rate and regular rhythm Heart Sounds: normal S1 and normal S2 Vessels: posterior tibial pulses present and dorsalis pedis pulses present; no JVD Extremities: no edema Gastrointestinal (Abdomen) normal bowel sounds, soft, nontender, no hepatosplenomegaly Neurologic no focal motor deficits Speech / Cognition: + abnormal speech (slurred, dysarthric ) Psychiatric Orientation: alert, oriented to person, oriented to place and oriented to time Discharge Data Allergies Allergy/AdvReac Type Severity Reaction Status Date / Time Sulfa (Sulfonamide Allergy Intermediate RASH Verified 06/09/20 07:34 Antibiotics) adhesive Allergy Mild RASH Verified 06/09/20 07:34 bee venom protein (honey bee) Allergy Unknown Unknown Verified 06/09/20 07:34 Consultations 06/19/20 19:11 Consult Casing Machine Operator 06/19/20 20:16 Consult Palliative Care PT, OT Speech therapy Procedures Performed 1. intubation/mech ventilation 2. echocardiogram - * EF 20-25% * global hypokinesis 3. arterial line placement Ordered Studies Chest X-Ray 06/09/20 05:33 SINGLE VIEW CHEST CLINICAL HISTORY: Hypoxia. Covid. FINDINGS: An AP, portable, upright chest radiograph is compared to study dated 05/19/2020. A right-sided central venous infusion port is unchanged in position. The heart is enlarged noting atherosclerotic calcification of the thoracic aorta. Multifocal airspace consolidation is seen throughout both lungs. There are layering pleural effusions. No pneumothorax is seen. The skeletal structures are osteopenic. There are healed left-sided rib fractures. IMPRESSION: 1. Multifocal airspace consolidation is seen throughout both lungs and consistent with the reported history of a viral pneumonia. 2. Layering pleural effusions. 3. Cardiomegaly. ACT 112: Negative or not required by law. Electronically signed by: Maurice Garrison M.D. 06/09/2020 7:24 AM Chest CTA 06/09/20 05:54 CT ANGIOGRAM OF THE CHEST CLINICAL HISTORY: Hypoxia, shortness of breath, COVID positive patient COMPARISON STUDY: 05/23/2015 TECHNIQUE: Following the IV administration of 109 mL of Optiray, CT angiogram of the thorax was performed from the thoracic inlet to the lung bases utilizing the pulmonary embolus protocol. Images are reviewed in the axial, sagittal, and coronal planes. IV contrast was administered without complication. MIP imaging was performed. A dose lowering technique was utilized adhering to the principles of ALARA. CT DOSE: 782.10 mGy.cm FINDINGS: There is mild mediastinal and hilar lymphadenopathy possibly reactive. There was no evidence of thoracic aortic dilatation. There were no pulmonary artery filling defects to indicate acute pulmonary embolism. There are moderate bilateral pleural effusions There are multifocal groundglass pulmonary opacities consistent with a multifocal pneumonia. The examination is motion compromised. IMPRESSION: 1. No evidence of acute pulmonary embolism 2. Multifocal groundglass opacities consistent with a multifocal pneumonia 3. Moderate bilateral pleural effusions 4. Nonspecific mediastinal and hilar lymphadenopathy possibly reactive ACT 112: Negative or not required by law. Electronically signed by: Jakub Almonte M.D. 06/09/2020 8:[address] 06/12/20 02:[address] DOSE: 614.27 mGy.cm HISTORY: fall on elliquis TECHNIQUE: Multiaxial CT images of the head were performed without the use of intravenous contrast. Automated exposure control was utilized for this study. A dose lowering technique was utilized adhering to the principles of ALARA. Comparison: Head CT 05/31/2020. Findings: The paranasal sinuses and mastoid air cells are clear. The calvarium and skull base are intact. There is no mass, hematoma, midline shift, acute infarct. White matter hypodensity is nonspecific but suggestive of microvascular ischemic change. The ventricles and sulci demonstrate mild age-related involutional changes. 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 Impression: No significant change compared to the prior study. No acute intracranial abnormality. ACT 112: Negative or not required by law. Electronically signed by: Perico Schaefer M.D. 06/12/2020 7:14 AM Chest X-Ray 06/19/20 18:08 XR chest 1V portable CLINICAL HISTORY: hypoxemia COMPARISON STUDY: 06/09/2020 FINDINGS: The cardiac and mediastinal contours remain stable. There is a right- sided A-Port catheter. There are progressive bilateral pulmonary airspace opacities. There is a right pleural effusion.[ IMPRESSION: Progressive bilateral pulmonary airspace opacities. Right pleural effusion. ACT 112: Negative or not required by law. Electronically signed by: Jakub Almonte M.D. 06/19/2020 6:[address] 06/19/20 20:01 CT head/brain wo con CLINICAL HISTORY: Acute change in mental status COMPARISON STUDY: 06/12/2020 TECHNIQUE: Axial CT of the brain is performed from the vertex to the skull base. IV contrast was not administered for this examination. A dose lowering technique was utilized adhering to the principles of ALARA. CT DOSE: 614.27 mGy.cm FINDINGS: No intra or extra-axial mass lesions are visualized. There is no CT evidence of acute cortical infarction. There is no evidence of midline shift. There is no acute hemorrhage. No calvarial fractures are visualized. There are patchy white matter hypodensities likely on a small vessel basis. Is an old left basal ganglia lacunar infarct There is no evidence of pathologic ventricular dilatation. There is a new right maxillary sinus air-fluid level. IMPRESSION: 1. New right maxillary sinus air-fluid level. Clinical correlation with regards to sinusitis recommended 2. Otherwise no change from the preceding study. No acute intracranial findings. ACT 112: Negative or not required by law. Electronically signed by: Jakub Almonte M.D. 06/19/2020 8:52 PM Chest X-Ray 06/19/20 20:12 XR chest 1V portable CLINICAL HISTORY: Respiratory failure COMPARISON STUDY: 03/21/2020 FINDINGS: There is been interval insertion of an endotracheal tube 4 cm above the melanie. There is no change in position the right-sided Mediport catheter. There is an enteric tube which passes into the stomach. There are persistent extensive bilateral pulmonary airspace opacities. Small pleural effusions are suspected. IMPRESSION: 1. Interval placement of an endotracheal tube 4 cm above the melanie 2. Interval placement of an enteric tube which passes into the stomach 3. Persistent bilateral pulmonary airspace opacities. Small bilateral pleural effusions. ACT 112: Negative or not required by law. Electronically signed by: Jakub Almonte M.D. 06/19/2020 8:39 PM Chest X-Ray 06/20/20 07:00 XR chest 1V portable HISTORY: Respiratory distress. Follow-up. COMPARISON: 06/19/2020. FINDINGS: The lines and tubes remain unchanged in position. The heart is normal in size. No pneumothorax. Bilateral diffuse airspace opacities have slightly improved. Small bilateral pleural effusions persist. IMPRESSION: 1. Slight improvement in bilateral airspace opacities. 2. Small bilateral pleural effusions, unchanged. 3. Satisfactory support line placement. ACT 112: Negative or not required by law. Electronically signed by: Perico Schaefer M.D. 06/20/2020 8:04 AM Chest X-Ray 06/21/20 07:00 XR chest 1V portable CLINICAL HISTORY: Respiratory failure. Follow-up study COMPARISON STUDY: 06/20/2020 FINDINGS: There has been interval removal of the endotracheal tube and enteric tube. There is a right-sided A-Port catheter unchanged in position. There are persistent multifocal pulmonary airspace opacities. Small pleural effusions are suspected. IMPRESSION: 1. Persistent extensive bilateral pulmonary airspace opacities 2. Suspected small pleural effusions 3. Interval removal of the endotracheal tube and nasogastric tubes. ACT 112: Negative or not required by law. Electronically signed by: Jakub Almonte M.D. 06/21/2020 8:[address] 06/22/20 09:40 CT head/brain wo con CLINICAL HISTORY: 84 years-old Male with delirium, confusion. Acutely altered mental status with confusion TECHNIQUE: Multiple axial CT images of the head were obtained without contrast. A dose lowering technique was utilized adhering to the principles of ALARA. CT DOSE: 614.27 mGy.cm COMPARISON: Head CT 06/19/2020, 06/12/2020 FINDINGS: No acute intracranial hemorrhage, midline shift, intracranial mass, hydroce phalus, territorial ischemia or abnormal extra-axial collection. Age-related involutional changes with white matter hypodensities suggestive of chronic microvascular ischemic disease. 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 Cerebral vascular calcifications. Ill-defined density involving the left aspect of the nestor on image 12 series 2 is favored to be artifactual. The calvarium is intact. Right mastoid air cells are clear. Trace left effusion. Clear paranasal sinuses. Unremarkable soft tissues. Prior bilateral lens repair. IMPRESSION: No acute intracranial abnormality. ACT 112: Negative or not required by law. The above report was generated using voice recognition software. It may contain grammatical, syntax or spelling errors. Electronically signed by: Tyson Garcia M.D. 06/22/2020 10:45 AM Hospital Course (1) Acute hypoxemic respiratory failure: 2nd to aspiration + decompensated CHF. intubated 06/19/20 to protect airway with subsequent admission to ICU. extubated on 06/20/20. transferred out of ICU on 06/21/20. following extubation remained on NC O2 for the rest of his stay. d/c to home with 4 liters NC O2. (2) Acute systolic heart failure: EF 20-25% on echo this admission. Previous echo with EF 45% just 1 month prior. Uncertain if decrease was due to viral effects from COVID-19, or ischemic in nature. Given transition to hospice at discharge will continue lasix 20mg daily only. Beta paula, TABATHA, and ARB were all deferred. (3) Delirium: severe metabolic encephalopathy. intermittent throughout the stay. IMPROVED in the 2-3 days leading up to discharge. 2nd to prior COVID illness, +/-UTI, +/-?stroke (CT head with ?Left pontine stroke), along with hospital delirium. All antipsychotics stopped at discharge. (4) Urinary retention: s/p padilla insertion leave padilla at d/c due to transition to hospice (5) Colin UTI: urine culture from 06/15 with colin albicans cont dilfucan plan 7 days of Rx (6) Hypotension: orthostasis / POTs=like state in setting of prior COVID infection low BP not uncommon with severe systolic CHF as well beta paula, TABATHA, ARB and other BP meds all discontinued (7) Atrial fibrillation: continue amiodarone would stop anticoagulation at discharge as patient is transitioning to hospice (8) Cardiomyopathy: EF 20-25% see above in "systolic HF" (9) Diabetes mellitus, type II: stop all Rx at discharge; last a1c 6.5%, and glycemic control was very good during this protracted hospital stay (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 hospital bed at d/c (11) Depressed: remeron 15mg HS (12) Orthostatic hypotension: 2nd to recent COVID infection BPs now improved off of metoprolol, etc (13) Pneumonia due to COVID-19 virus: initial diagnosis in April 2020 (14) Diabetic peripheral neuropathy: severe (15) Failure to thrive in adult: (16) Goals of care, counseling/discussion: 06/23/20 - in-person discussion between pt's , pt's daughter, social work, and Dr Johanna Carter from palliative care team. plan - DNR/DNI, home with hospice. family to hire private care duty nursing to augment his care at home. Total Time Total Time Spent Total Time Spent (In Minutes): 50 Total Time Includes: Examination of the Patient, Discharge Planning, Medication Reconciliation and Communication With Other Providers Discharge Plan Discharge Items Patient Disposition: Hospice - Home Reason For Visit: HYPOTENSION Discharge Diagnosis: 1. recent COVID-19 infection with resulting acute respiratory failure 2. cardiomyopathy / severe congestive heart failure 3. atrial fibrillation 4. concern for stroke while hospitalized 5. dysphagia (difficulty swallowing) 6. yeast urinary tract infectioni 7. delirium (confusion) 8. wheel-chair dependency (unable to walk) 9. low blood pressure Activity: As commented below Activity Comment: activity as desired Non-emergency contact: Primary Care Provider Call non-emergency contact if: you have any medication questions, your symptoms worsen, your pain is not controlled, your pain is worsening and your pain is concerning for you Follow-up/Referrals: [facility] [Outside] Diet: Regular Diet Texture: Easy to Chew Liquid Consistency: [place] thick Addtl Attending Provider Instructions: Mr Torres, You were treated for the problems listed above in "discharge diagnoses." It was a long hospital stay complicated by numerous problems including a stay in the ICU as well as time on the ventilator. Much of the last 6 weeks was instigated by the COVID illness/COVID pneumonia. We have been concerned that your recovery from the last 2 hospital stays would be very challenging. Our social workers and the palliative care doctor, Dr Carter, met with your family to determine the next best steps. You had voiced consistently that you simply wanted to go home and be with your . Therefore, we are going to initiate hospice at your home. [facility] will be the hospice agency that cares for you at home. We have tried to stop unnecessary medications and/or medications that would not provide comfort or benefit. Recommendations - 1. continue on your oxygen 4 liters continuously 2. padilla catheter was exchanged by [facility] nursing staff on 06/25/20; would have this changed every 30 days at home 3. for pain or difficulty breathing - * may use liquid morphine 5mg every 6 hours as needed * this dose can be increased and/or made more frequent by Hospice 4. for sleep, or anxiety - * lorazepam 0.25mg every 8 hours as needed 5. for nausea or vomiting - * ondansetron 4mg every 6 hours as needed 6. for urinary pain - * pyridium 200mg every 8 hours as needed 7. would continue furosemide (lasix) water pill, amiodarone, and mirtazapine - these are for the heart and depression/mood/eating, respectively 8. four more days of oral fluconazole anti-fungal for yeast urinary infection; start this tomorrow 9. you can stop checking blood sugars at home If you have any needs, concerns, questions, problems, uncontrolled symptoms, etc -- always call [facility] first. They will be able to address most if not all of your concerns by phone or by a visit to your home. It was my pleasure meeting you and your family. God bless and enjoy being at home, -Dr Kennedy Pending Studies at Discharge: No Stand-Alone Forms: My [facility] Medications and DC Order Prescriptions: New furosemide 20 mg Tablet 20 mg PO QAM Qty: 30 RF: 5 lorazepam [Ativan] 0.5 mg tablet 0.25 mg PO Q8H PRN (Reason: anxiety or sleep) Qty: 30 RF: 0 morphine 20 mg/5 mL (4 mg/mL) solution 5 mg PO Q6H PRN (Reason: pain or difficulty breathing) Qty: 100 RF: 0 ondansetron 4 mg tablet,disintegrating 4 mg PO Q6H PRN (Reason: nausea and vomiting) Qty: 14 RF: 0 (DME) Oxygen Home Liters Per Minute See Rx Instructions .ROUTE .MEDSUPPLY Qty: 1 RF: 0 Continued acetaminophen 325 mg Tablet 650 mg PO Q6 MDD 3g PRN (Reason: fever or pain) Qty: 0 RF: 0 amiodarone 200 mg tablet 200 mg PO QAM Qty: 30 RF: 2 phenazopyridine [Pyridium] 200 mg tablet 200 mg PO TID PRN (Reason: urinary pain) Qty: 30 RF: 0 mirtazapine 15 mg Tablet 15 mg PO HS 30 Days Qty: 30 RF: 3 Discontinued vitamin B complex [B Complex-Vitamin B12] tablet 1 tab PO DAILY Qty: 30 RF: 0 cholecalciferol (vitamin D3) 2,000 unit capsule 2,000 units PO DAILY Qty: 30 RF: 0 metformin 500 mg tablet 500 mg PO BID Qty: 180 RF: 3 cyanocobalamin (vitamin B-12) 2,000 mcg tablet 2,000 mcg PO DAILY RF: 0 PreserVision AREDS-2 [phone] tw-foyi-ax-mg capsule 1 tab PO BID RF: 0 acetaminophen 325 mg Tablet 650 mg PO Q6 MDD 3g PRN (Reason: Pain) RF: 0 metoprolol tartrate 25 mg Tablet 25 mg PO BID RF: 0 Eliquis 5 mg tablet 5 mg PO UD RF: 0 lisinopril 5 mg tablet 5 mg PO QAM RF: 0 magnesium 250 mg tablet 250 mg PO QAM RF: 0 aspirin [Adult Low Dose Aspirin] 81 mg tablet,delayed release (DR/EC) 81 mg PO UD RF: 0 potassium chloride 10 mEq Tablet Extended Release 10 meq PO DAILY RF: 0 cephalexin 500 mg capsule 500 mg PO Q6H 5 Days Qty: 20 RF: 0 fludrocortisone 0.1 mg Tablet 0.1 mg PO QAM 30 Days Qty: 30 RF: 3 Discharge Orders: Discharge Order (Routine); Ordered 06/25/20 Ordered By: Norris Kennedy Admission Data Admit Date/Time: 06/09/20 07:56 Attending Provider: Norris Kennedy Admit Provider: Madan Wood Primary Care Provider: Bev Elkins Other Providers: Brandin Presley at [place] ; [place] ; Madan Wood ; Lj Pandey ; Johanna Carter ; [facility] Other Interventions: Discharge Summary Assessment (RN) Last Done: 06/25/20 12:49 Coding Level of Care Code D/C Day Management >30 mins Diagnoses Acute hypoxemic respiratory failure J96.01 Acute systolic heart failure I50.21 Delirium R41.0 Urinary retention R33.9 Colin UTI B37.49 Hypotension I95.9 Atrial fibrillation I48.0 Atrial fibrillation type: paroxysmal Cardiomyopathy I25.5 Cardiomyopathy type: ischemic Diabetes mellitus, type II E11.65 Diabetes mellitus complication status: with hyperglycemia Diabetes mellitus bread icer insulin use: without senior living use Gait apraxia R48.2 Depressed F32.9 Orthostatic hypotension I95.1 Pneumonia due to COVID-19 virus U07.1; J12.82 Diabetic peripheral neuropathy E11.42 Failure to thrive in adult R62.7 Goals of care, counseling/discussion Z71.89
== END 2020-06-25 13:34 | disposition hospice, home (50) | DRG 314 ==
LOC: ED 05:20 → 2S 07:56 → SUATTDRO 07:56 → 2S 10:55 → 3W 06-13 18:44 → 1E 06-19 18:18 → 2N 06-21 16:15

== ENCOUNTER 2023-01-16 19:56 | Observation (INO) ==
--- NOTE | 2023-01-16 20:11 | Emergency Department Note ---
History of Present Illness General Chief complaint: Abdominal Pain Stated complaint: ABDOMINAL PAIN Time Seen by Provider: 01/16/23 20:06 Source: patient, family (Son who is at the bed. I also talked to his daughter who is a nurse on the telephone), EMS (I did talk to EMS provider), RN notes reviewed and old records reviewed (I did review a primary care office note from 11-05-2022 when he was there for chronic medical problems) Mode of arrival: EMS Limitations: no limitations History of Present Illness This patient 87-year-old male who is brought in by EMS after having abdominal pain and nausea. He was in his usual state of health and he ate Nicola and ice cream which she typically eats and had significant abdominal pain. they gave him Zofran he is feeling a lot better he points to epigastric area no chest pain. he may have been short of breath with the pain but denies any shortness of breath now. no recent illness orfever chills cough. No fall or trauma. No focal numbness weakness no urinary symptoms. He has multiple medical problems he is bedbound at home and requires full care he does have a port from previous malignancy looking through his records he does have a lot of medical issues and had actually been on hospice at 1 point. He does have baseline dementia. Son is at the bedside and provides history Home Medications Medication Instructions Recorded Confirmed Type acetaminophen 325 mg tablet 650 mg (2 x 325 mg) PO Q6 PRN 06/25/20 01/16/23 Rx fever or pain #0 tabs Oxygen Home #4 ea 12/20/20 01/16/23 Rx bedside table #1 ea 12/20/20 01/16/23 Rx Hospital Bed Homecare #1 ea 01/06/21 01/16/23 Rx furosemide 20 mg tablet 20 mg PO QAM #30 tabs 09/29/22 01/16/23 Rx levothyroxine 25 mcg tablet 25 mcg PO DAILY #90 tabs 09/29/22 01/16/23 Rx meclizine 25 mg tablet 25 mg PO TID PRN vertigo #50 tabs 09/29/22 01/16/23 Rx ondansetron 4 mg disintegrating 4 mg PO Q6H PRN nausea and 09/29/22 01/16/23 Rx tablet vomiting #50 tabs mirtazapine 7.5 mg tablet 7.5 mg PO DAILY #30 tabs 12/17/22 01/16/23 Rx aspirin 81 mg tablet,delayed 81 mg PO DAILY 01/16/23 01/16/23 History release Allergies Allergy/AdvReac Type Severity Reaction Status Date / Time Sulfa (Sulfonamide Allergy Intermediate RASH Verified 01/16/23 23:21 Antibiotics) adhesive Allergy Mild RASH Verified 01/16/23 23:21 bee venom protein (honey bee) Allergy Unknown Unknown Verified 01/16/23 23:21 Past Med/Surg History Medical History Cardiomyopathy Hypothyroidism Urinary incontinence 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 Following with Heme/Onc q6 months. Surgical History H/O heart artery stent (~2002) History of cholecystectomy History of PTCA (~2013) Family History Father Leukemia Mother Sick sinus syndrome S/P placement of cardiac pacemaker Sister Macular degeneration Brother Macular degeneration Denies family history of Ovarian cancer Prostate cancer Breast cancer Lung cancer Colorectal cancer Social History Smoking Status: Former smoker Tobacco Type: Cigarettes Second Hand Exposure: No; Do You Dip or Chew Tobacco: No; Hx Alcohol Use: No Hx Substance Use: No Preferred Language: Citizen Of [place] Communication Ability: Effective Visual Impairment: No Limitations Hearing Ability: Normal Fsr Required: No Beliefs That Will Affect Care: None marital status: Current Living Situation: Alf Current Living Situation Comment: Lives with and nephew How many Children do You have: 4 Feels Safe at Home: Yes Assistive Devices: Hospital Bed, Oxygen - at Night, Walker and Wheelchair Review of Systems A total of 10 systems reviewed and were otherwise negative Physical Exam Vital Signs Vital Signs - 24 hr 01/16/23 20:21 01/16/23 20:21 01/16/23 21:30 Temperature 36.5 C Temperature Source Oral Pulse Rate 63 62 Pulse Rate [Apical] Pulse Rhythm [Apical] Respiratory Rate 18 Respiratory Effort / Characteristics Non-Labored Spontaneous Respiratory Depth Normal Respiratory Pattern Regular Blood Pressure 140/72 Blood Pressure [Right Arm] Blood Pressure Mean 94 Blood Pressure Mean [Right Arm] Blood Pressure Position Lying Blood Pressure Position [Right Arm] Pulse Oximetry 100 100 Oxygen Delivery Method Nasal Cannula Nasal Cannula Oxygen Flow Rate 4 4 Sepsis Recent Fever Within 48 Hours No Sepsis New/Unexplained Change in Mental Status No Sepsis Action Taken by Nursing No Action Required 01/16/23 22:46 01/17/23 00:00 Temperature Temperature Source Pulse Rate Pulse Rate [Apical] 64 63 Pulse Rhythm [Apical] Regular Respiratory Rate 20 16 Respiratory Effort / Characteristics Non-Labored Spontaneous Non-Labored Spontaneous Respiratory Depth Normal Normal Respiratory Pattern Regular Regular Blood Pressure Blood Pressure [Right Arm] 127/75 105/65 Blood Pressure Mean Blood Pressure Mean [Right Arm] 92 78 Blood Pressure Position Blood Pressure Position [Right Arm] Lying Pulse Oximetry 100 100 Oxygen Delivery Method Nasal Cannula Nasal Cannula Oxygen Flow Rate 4 4 Sepsis Recent Fever Within 48 Hours Sepsis New/Unexplained Change in Mental Status Sepsis Action Taken by Nursing General: Well developed well nourished somewhat cachectic older male who is hard of hearing but answers questions appropriately in no acute distress, breathing comfortably on room air. Normal speech HEENT: Normal cephalic atraumatic. Pupils are equal round and reactive to light. Extraocular movements are intact. Oropharynx is pink with moist mucous membranes. No swelling of the mouth lips or tongue. He does have some dysarthria when he talks which is baseline according to the son Neck: Supple with a midline trachea. No meningeal signs or stiffness, no JVD or bruits. No Stridor. Chest: Clear to auscultation bilaterally. No wheezes or rhonchi. No increased work of breathing. Heart: Regular rate and rhythm without murmurs or gallops. Abdomen: Soft, minimally tender in the epigastric area, nondistended without rebound guarding or rigidity. Extremities: No cyanosis clubbing or edema. No calf tenderness or assymetry Spine/Back. Non tender to palpation. No CVA tenderness Skin: Good turgor without rashes. Neurologic exam: Cranial nerves two through 12 are intact. Motor and sensation are intact and symmetrical throughout. Course Administered Medications Discontinued Medications Ceftriaxone Sodium 2,000 mg/ (Dextrose) 50 mls @ 100 mls/hr IV NOW STA; Protocol Stop: 01/16/23 22:48 Last Infusion: 01/16/23 23:17 Dose: Infused Documented By: Admin: 01/16/23 22:39 Dose: 100 mls/hr Documented By: MIN Sodium Chloride (Nss) 250 mls @ 999 mls/hr IV .Q16M ONE Stop: 01/16/23 22:38 Last Infusion: 01/16/23 23:02 Dose: Infused Documented By: Admin: 01/16/23 22:44 Dose: 999 mls/hr Documented By: MIN Ioversol (Optiray 320 500ml) 88 ml IV ONCE ONE Stop: 01/16/23 21:10 Last Admin: 01/16/23 21:09 Dose: 88 ml Documented By: YARON Pantoprazole Sodium (Pantoprazole 40 Mg Tab) 40 mg PO NOW STA Stop: 01/17/23 00:29 Last Admin: 01/17/23 00:52 Dose: 40 mg Documented By: ELO Tamsulosin HCl (Tamsulosin Hcl 0.4 Mg Cap) 0.4 mg PO NOW ONE Stop: 01/17/23 00:29 Last Admin: 01/17/23 00:49 Dose: 0.4 mg Documented By: Admin: 01/17/23 00:48 Dose: 0.4 mg Documented By: ELO Medical Decision Making Differential Diagnosis Intra-abdominal process, infection, acute coronary syndrome, arrhythmia, pancreatitis, liver or gallbladder disease, bowel obstruction Medical Records Attestation: I reviewed the patient's medical records. Home Medications Current Medication List: was personally reviewed by me Laboratory Data Attestation: I reviewed the patient's lab results. 01/16/23 20:17 01/16/23 20:17 Lab Results 01/16/23 01/16/23 01/16/23 Range/Units 20:17 22:05 23:14 WBC 9.58 (4.8-10.8) K/ul RBC 4.20 L (4.70-6.10) M/uL Hgb 13.3 L (14.0-18.0) g/dl Hct 39.1 L (42.0-52.0) % MCV 93.1 (80.0-100.0) fL MCH 31.7 (25.0-34.0) pg MCHC 34.0 (32.0-36.0) g/dL RDW Std Deviation 48.3 H (36.4-46.3) fL RDW Coeff of Petar 14.4 (11.5-14.5) % Plt Count 242 (130-400) K/uL MPV 8.7 L (9.4-12.4) fL Neutrophils % (Manual) 41 % Lymphocytes % (Manual) 23 % Monocytes % (Manual) 6 % Eosinophils % (Manual) 4 % Basophils % (Manual) 1 % Neutrophils # (Manual) 3.93 (1.40-6.50) K/uL Total Absolute Neuts 3.93 (1.4-6.5) K/uL Lymphocytes # (Manual) 2.20 (1.2-3.4) K/uL Total Abs Lymphocytes 4.60 H (1.2-3.4) K/uL Monocytes # (Manual) 0.57 (0.11-0.59) K/uL Eosinophils # (Manual) 0.38 (0-0.50) K/uL Basophils # (Manual) 0.10 (0-0.2) K/uL Large Granular Lymphs 25 % # Lrg Granular Lymphs 2.40 K/uL Sodium 137 (136-145) mmol/L Potassium 3.5 (3.5-5.1) mmol/L Chloride 98 (98-107) mmol/L Carbon Dioxide 33 H (21-32) mmol/L Anion Gap 6 (3-11) BUN 11 (6-23) mg/dl Creatinine 1.03 (0.6-1.4) mg/dl Est Cr Clr Drug Dosing 57.6 ml/min Est GFR ( Amer) 74.8 ml/min Est GFR (Non-Af Amer) 64.6 ml/min BUN/Creatinine Ratio 10.7 (10-20) Glucose 110 H (70-99(Fasting)) mg/dl Lactate 1.4 (0.4-2.0) mmol/L Calcium 9.4 (8.6-10.3) mg/dl Total Bilirubin 1.0 (0.2-1.0) mg/dl AST 49 H (13-39) U/L ALT 16 (7-52) U/L Alkaline Phosphatase 157 H (34-104) U/L Troponin I High Sens 12.5 (0-20) pg/ml Total Protein 7.9 (6.0-8.3) gm/dl Albumin 4.1 (3.4-5.0) gm/dl Globulin 3.8 (2.5-4.0) gm/dl Albumin/Globulin Ratio 1.1 (0.9-2) Lipase 17 (11-82) U/L Urine Color Yellow Urine Appearance Turbid A (Clear) Urine pH 5.5 (4.5-7.5) Ur Specific [place] 1.017 (1.000-1.030) Urine Protein 1+ H (Negative) Urine Glucose (UA) Negative (Negative) Urine Ketones Negative (Negative) Urine Blood 3+ H (Negative) Urine Nitrite Positive A (Negative) Urine Bilirubin Negative (Negative) Urine Urobilinogen Negative (Negative) Ur Leukocyte Esterase 3+ H (Negative) Urine WBC (Auto) >30 H (0-5) /hpf Urine RBC (Auto) 0-4 (0-4) /hpf U Hyaline Cast (Auto) 0 (0-5) /lpf U Epithel Cells (Auto) >30 H (0-5) /lpf Urine Bacteria (Auto) 4+ H (Negative) Urine Yeast Not Reportable Imaging Data Attestation: I personally reviewed and interpreted this imaging study as follows: My Impression: Chest x-rayaccording to my interpretation no acute infiltrate, failure, pneumothorax seen. No free air. He has an a port in place. He has a large amount of gas seen in the stomach bubble. Mild central bronchial thickening Radiologist's Impression: Abdomen/Pelvis CT 01/16/23 20:11 Exam(s): CT ABDOMEN + PELVIS With Contrast IV Amt: 87 ml optiray 320 EXAM: CT Abdomen and Pelvis With Intravenous Contrast CLINICAL HISTORY: Reason for exam: epigastric pain, vomiting. TECHNIQUE: Axial computed tomography images of the abdomen and pelvis with intravenous contrast. CTDI is 12.13 mGy and DLP is 634.29 mGy-cm. Automated exposure control was utilized for the study. A dose lowering technique was utilized adhering to the principles of ALARA. CONTRAST: Patient received 87 ml optiray 320 of IV contrast COMPARISON: No relevant prior studies available. FINDINGS: Lung bases: Moderate coronary vascular calcifications are seen.. No mass. No consolidation. ABDOMEN: Liver: Unremarkable. No mass. Gallbladder and bile ducts: Cholecystectomy. No ductal dilation. Pancreas: Unremarkable. No mass. No ductal dilation. Spleen: Unremarkable. No splenomegaly. Adrenals: Unremarkable. No mass. Kidneys and ureters: Unremarkable. No solid mass. No hydronephrosis. Stomach and bowel: Unremarkable. No obstruction. No mucosal thickening. PELVIS: Appendix: No findings to suggest acute appendicitis. Bladder: Mild diffuse urinary bladder wall hypertrophy. 3 cm diameter right posterior urinary bladder diverticulum is seen, containing a 9 mm diameter calculus. Reproductive: Marked prostatomegaly. ABDOMEN and PELVIS: Intraperitoneal space: Unremarkable. No free air. No significant fluid collection. Bones/joints: No acute fracture. No dislocation. There is L1 and L2 chronic anterior wedge compression deformity seen.. Vasculature: Unremarkable. No abdominal aortic aneurysm. Lymph nodes: Unremarkable. No enlarged lymph nodes. IMPRESSION: 1. No acute abdominal process identified 2. Prostatomegaly and urinary bladder wall hypertrophy. Urinary bladder diverticulum containing calculus. Electronically signed by: Sam Tuttle MD 01/16/23 21:28 PM ECG Data Attestation: I personally reviewed and interpreted this ECG as follows: Indication: + abdominal pain Rate (beats per minute): 62 Rhythm: + normal sinus ECG Intervals/blocks: + First degree AV block, + Left bundle branch block, + Normal QT and + Normal AK ECG [place]: + Normal ECG ST segments: + Normal ST segments ECG Findings: no PACs or no PVCs Comparison ECG Date: from (03/01/2022) [facility] Narrative This patient comes in with epigastric pain and nausea . he is feeling better after receiving the Zofran. he has minimal tenderness. he has stable vital signs. IV access was established and blood work was obtained. I did an EKG and chest x-ray as well as cardiac biomarker multiple blood testing in order to CAT scan the abdomen and pelvis. He was reassessed frequently. His son is at the bedside talked to him at length as well. I reviewed old records as outlined above. He was feeling significantly better. EKG shows baseline left bundle branch block is no elevation of troponin. His labs were unremarkable with no elevation of his white count or lactic acid. Chest x-ray does not show any pneumonia or any definite free air. CAT scan of his abdomen was unremarkable. He is feeling better I was in concerned however as when we got his urine sample it looked like pus. He definitely has UTI and on urinalysis it looks infected. He was given IV Rocephin and was cultured. I do think he needs to be admitted/observed. I talked to his daughter at length about this and she feels he should stay in the hospital and does not feel he can be handled at home tonight. I discussed case with Dr. Beasley who saw the patient in ER and will admit/observe him for these measures Continuous cafeteria monitor: Orders placed in EMR for continuous cardiac monitoring: Upon evaluation , the patient noted to be normal sinus rhythm the rate is 65 he has baseline left bundle branch block Impression & Plan Epigastric abdominal pain, Nausea, Weakness generalized, LBBB (left bundle branch block), Urinary tract infection Discharge Plan Visit Data Chief Complaint: Abdominal Pain Stated Complaint: ABDOMINAL PAIN ED Provider: Gilberto Yost Discharge Problem: Epigastric abdominal pain, Nausea, Weakness generalized, LBBB (left bundle branch block), Urinary tract infection Discharge Instructions Interventions: ED Discharge Assessment Last Done: 01/17/23 01:31 Forms Stand Alone Forms: My [facility] [employer] Prescriptions Prescriptions: No Action (DME) [facility] .Route Qty: 1 0RF Rx Instructions: semi electric hospital bed with mattress and side rails furosemide 20 mg tablet 20 mg PO QAM Qty: 30 5RF levothyroxine 25 mcg tablet 25 mcg PO DAILY Qty: 90 3RF meclizine 25 mg tablet 25 mg PO TID PRN (Reason: vertigo) Qty: 50 5RF ondansetron 4 mg tablet,disintegrating 4 mg PO Q6H PRN (Reason: nausea and vomiting) Qty: 50 1RF mirtazapine 7.5 mg tablet 7.5 mg PO DAILY Qty: 30 2RF (DME) bedside table See Rx Instructions .Route .MEDSUPPLY Qty: 1 0RF Rx Instructions: As directed (DME) Oxygen Home Liters Per Minute See Rx Instructions .ROUTE .MEDSUPPLY Qty: 4 0RF Rx Instructions: concentrator 4 liters via NC continuous hs and prn during the day acetaminophen 325 mg Tablet 650 mg PO Q6 MDD 3g PRN (Reason: fever or pain) Qty: 0 0RF aspirin [Aspir-Low] 81 mg Tablet,Delayed Release (Dr/Ec) 81 mg PO DAILY Referrals Referrals: Gilberto Locke DO [Primary Care Provider] - Discharge Problem: Urinary tract infection Qualifiers: Urinary tract infection type: acute cystitis Hematuria presence: without hematuria Qualified Code(s): N30.00 - Acute cystitis without hematuria
[2023-01-16 20:38] LABS: Hematocrit (blood only) 39.1 % (42.0-52.0); Hemoglobin 13.3 g/dl (14.0-18.0); Mean Corpuscular Hemoglobin 31.7 pg (25.0-34.0); Mean Corpuscular Volume 93.1 fL (80.0-100.0); Mean Platelet Volume 8.7 fL (9.4-12.4); Platelet Count 242 K/uL (130-400); RDW Coefficient of Variation 14.4 % (11.5-14.5); RDW Standard Deviation 48.3 fL (36.4-46.3); White Blood Count 9.58 K/ul (4.8-10.8)
[2023-01-16 20:53] LABS: Albumin Globulin Ratio 1.1 (0.9-2); Albumin Level 4.1 gm/dl (3.4-5.0); BUN Creatinine Ratio 10.7 (10-20); Calcium 9.4 mg/dl (8.6-10.3); Creatinine Clr Calc Pharmacy 57.6 ml/min; Est GFR (African American) 74.8 ml/min; Est GFR (Non-African American) 64.6 ml/min; Globulin 3.8 gm/dl (2.5-4.0); Potassium 3.5 mmol/L (3.5-5.1); Total Protein 7.9 gm/dl (6.0-8.3)
[2023-01-16 20:59] LABS: Troponin I High Sensitivity 12.5 pg/ml (0-20)
[2023-01-16 21:02] LABS: ANC (manual) 3.93 K/uL (1.4-6.5); Basophils % (manual) 1 %; Eosinophils # (manual) 0.38 K/uL (0-0.50); Eosinophils % (manual) 4 %; Large Granular Lymph % (manual) 25 %; Lymphocytes % (manual) 23 %; Monocytes # (manual) 0.57 K/uL (0.11-0.59); Monocytes % (manual) 6 %; Neutrophils # (manual) 3.93 K/uL (1.40-6.50); Neutrophils % (manual) 41 %
[2023-01-16] MEDS ORDERED: OPTIRAY 320 500ml IV ONE (21:09)
--- NOTE | 2023-01-16 21:30 | CT Scan Report ---
Exam(s): CT ABDOMEN + PELVIS With Contrast IV Amt: 87 ml optiray 320 EXAM: CT Abdomen and Pelvis With Intravenous Contrast CLINICAL HISTORY: Reason for exam: epigastric pain, vomiting. TECHNIQUE: Axial computed tomography images of the abdomen and pelvis with intravenous contrast. CTDI is 12.13 mGy and DLP is 634.29 mGy-cm. Automated exposure control was utilized for the study. A dose lowering technique was utilized adhering to the principles of ALARA. CONTRAST: Patient received 87 ml optiray 320 of IV contrast COMPARISON: No relevant prior studies available. FINDINGS: Lung bases: Moderate coronary vascular calcifications are seen.. No mass. No consolidation. ABDOMEN: Liver: Unremarkable. No mass. Gallbladder and bile ducts: Cholecystectomy. No ductal dilation. Pancreas: Unremarkable. No mass. No ductal dilation. Spleen: Unremarkable. No splenomegaly. Adrenals: Unremarkable. No mass. Kidneys and ureters: Unremarkable. No solid mass. No hydronephrosis. Stomach and bowel: Unremarkable. No obstruction. No mucosal thickening. PELVIS: Appendix: No findings to suggest acute appendicitis. Bladder: Mild diffuse urinary bladder wall hypertrophy. 3 cm diameter right posterior urinary bladder diverticulum is seen, containing a 9 mm diameter calculus. Reproductive: Marked prostatomegaly. ABDOMEN and PELVIS: Intraperitoneal space: Unremarkable. No free air. No significant fluid collection. Bones/joints: No acute fracture. No dislocation. There is L1 and L2 chronic anterior wedge compression deformity seen.. Vasculature: Unremarkable. No abdominal aortic aneurysm. Lymph nodes: Unremarkable. No enlarged lymph nodes. IMPRESSION: 1. No acute abdominal process identified 2. Prostatomegaly and urinary bladder wall hypertrophy. Urinary bladder diverticulum containing calculus. Electronically signed by: Sam Tuttle MD 01/16/23 21:28 PM
[2023-01-16] MEDS ORDERED: cefTRIAXone SODIUM 2,000 MG in DEXTROSE 5 % MINI-B 50 ML IV STA (22:19)
[2023-01-16] MEDS ORDERED: SODIUM CHLORIDE 0.9% 250 ML IV ONE (22:23)
[2023-01-16 22:29] LABS: Appearance Urine Turbid (Clear); Bacteria Urine Automated 4+ (Negative); Bilirubin Urine Negative (Negative); Blood Urine 3+ (Negative); Color Urine Yellow; Epithelial Cell Urine Auto >30 /lpf (0-5); Glucose Urine UA Negative (Negative); Ketones Urine Negative (Negative); Leukocyte Esterase Urine 3+ (Negative); Nitrite Urine Positive (Negative); Protein Urine 1+ (Negative); RBC Urine Automated 0-4 /hpf (0-4); Specific Gravity Urine 1.017 (1.000-1.030); Urobilinogen Urine Negative (Negative); WBC Urine Automated >30 /hpf (0-5); pH Urine 5.5 (4.5-7.5)
[2023-01-16 22:46] LABS: Cast Urine Automated 0 /lpf (0-5)
[2023-01-17] MEDS ORDERED: PANTOprazole 40 MG TAB PO STA (00:28)
--- NOTE | 2023-01-17 00:31 | History & Physical Report ---
Date of Service January 17, 2023 Assessment & Plan (1) Urinary tract infection: (2) Weakness generalized: (3) BPH w urinary obs/LUTS: (4) Dementia with behavioral disturbance: (5) Urinary incontinence: (6) GERD (gastroesophageal reflux disease): Plan BPH with LUTS/prostatitis/UTI/urinary incontinence- Start tamsulosin 0.4 mg at bedtime, with first dose now Follow urine culture and sensitivity Continue ceftriaxone 2 g IV daily begun in the ED GERD- Part of the patient's symptoms of epigastric discomfort, may have been aggravated by his ice cream, pumpkin pie and shoe fly pie from Thanksgiving dinner Do a trial of pantoprazole 40 mg daily, with first dose this evening History of Present Illness Chief Complaint: The patient was brought to the emergency department by EMS after reporting abdominal pain and nausea after eating pumpkin pie, shoe fly pie and ice cream Primary Care Provider: Gilberto Locke DO The patient is an 87-year-old male with a past medical history including left bundle branch block, long-term anticoagulant use, cardiomyopathy, dementia with behavioral disturbance, atrial fibrillation, diabetes mellitus type 2 in remission, generalized weakness, diabetic peripheral neuropathy, macular degeneration, and hyperlipidemia. While in the emergency department, he reports the symptoms had significantly improved, however, he does relate persistent issues and ongoing issues with urinary tract infection symptoms, with increased frequency of urination with smaller volumes. Allergies Allergy/AdvReac Type Severity Reaction Status Date / Time Sulfa (Sulfonamide Allergy Intermediate RASH Verified 01/16/23 23:21 Antibiotics) adhesive Allergy Mild RASH Verified 01/16/23 23:21 bee venom protein (honey bee) Allergy Unknown Unknown Verified 01/16/23 23:21 Home Medications Medication Instructions Recorded Confirmed Type acetaminophen 325 mg tablet 650 mg (2 x 325 mg) PO Q6 PRN 06/25/20 01/16/23 Rx fever or pain #0 tabs Oxygen Home #4 ea 12/20/20 01/16/23 Rx bedside table #1 ea 12/20/20 01/16/23 Rx Hospital Bed Homecare #1 ea 01/06/21 01/16/23 Rx furosemide 20 mg tablet 20 mg PO QAM #30 tabs 09/29/22 01/16/23 Rx levothyroxine 25 mcg tablet 25 mcg PO DAILY #90 tabs 09/29/22 01/16/23 Rx meclizine 25 mg tablet 25 mg PO TID PRN vertigo #50 tabs 09/29/22 01/16/23 Rx ondansetron 4 mg disintegrating 4 mg PO Q6H PRN nausea and 09/29/22 01/16/23 Rx tablet vomiting #50 tabs mirtazapine 7.5 mg tablet 7.5 mg PO DAILY #30 tabs 12/17/22 01/16/23 Rx aspirin 81 mg tablet,delayed 81 mg PO DAILY 01/16/23 01/16/23 History release Past Med/Surg History Medical History (Updated 01/17/23 @ 06:05 by Robert Ross MD) BPH w urinary obs/LUTS Cardiomyopathy Hypothyroidism Urinary incontinence 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 Following with Heme/Onc q6 months. Surgical History H/O heart artery stent (~2002) History of cholecystectomy History of PTCA (~2013) Family History Father Leukemia Mother Sick sinus syndrome S/P placement of cardiac pacemaker Sister Macular degeneration Brother Macular degeneration Denies family history of Ovarian cancer Prostate cancer Breast cancer Lung cancer Colorectal cancer Social History Smoking Status: Former smoker Tobacco Type: Cigarettes Second Hand Exposure: No; Do You Dip or Chew Tobacco: No; Hx Alcohol Use: No Hx Substance Use: No Preferred Language: [place]araguan Communication Ability: Effective Visual Impairment: No Limitations Hearing Ability: Normal Casing Running Machine Tender Required: No Beliefs That Will Affect Care: None marital status: Current Living Situation: Spouse Current Living Situation Comment: Lives with and nephew How many Children do You have: 4 Other Information That Helps Us Care for You: No Feels Safe at Home: Yes Safety Concerns: Feels Safe At This Time Assistive Devices: Denture - Upper, Glasses, Oxygen - Continuous and Wheelchair Review of Systems Review of Systems: The patient denies chest pain, palpitations, shortness of breath, dyspnea on exertion, cough, lower extremity swelling, sore throat, fevers, chills, sweats, nausea, vomiting, diarrhea , constipation, blood in urine or stool, lightheadedness, dizziness, headache, loss of consciousness, rash, abnormal bruising or bleeding, focal or generalized weakness, numbness or tingling in arms or legs, generalized arthralgias or myalgias, back or neck pain, or night sweats. The review of systems is otherwise negative other than for that already noted above, and at least 10 systems have been reviewed. Physical Exam Physical Exam: The patient is awake, alert and oriented 3, well developed and well nourished, normocephalic and atraumatic, lying in bed and in no acute distress. HEENT--PERRL, EOMI, mucous membranes and oropharynx dry. Neck--supple. No JVD. No bruits. Thyroid normal, trachea midline, no adenopathy. Heart--normal S1 and S2. No murmurs, rubs or gallops. Lungs--clear bilaterally, no respiratory distress, no accessory muscle use. Abdomen--normal bowel sounds and soft. Nontender. Bladder is easily palpable Extremities--no cyanosis or clubbing. No edema. Dermatologic--normal skin turgor, normal color, no abnormal lymph nodes, no rash. Neurologic--cranial nerves II through XII grossly intact. Rheumatologic--normal range of motion. Psychiatric--normal affect. Results & Data Results & Data Vital Signs (Past 12 Hours) Vital Signs Temp Pulse Pulse Resp BP BP Pulse Ox 01/17/23 00:00 63 16 105/65 100 01/16/23 22:46 64 20 127/75 100 01/16/23 21:30 62 01/16/23 20:21 100 01/16/23 20:21 36.5 C 63 18 140/72 100 O2 Del Method O2 Flow Rate 01/17/23 00:00 Room Air 01/16/23 22:46 Nasal Cannula 4 01/16/23 21:30 01/16/23 20:21 Nasal Cannula 4 01/16/23 20:21 Nasal Cannula 4 Laboratory Results Laboratory Results WBC 9.58 K/ul (4.8-10.8) 01/16/23 20:17 RBC 4.20 M/uL (4.70-6.10) L 01/16/23 20:17 Hgb 13.3 g/dl (14.0-18.0) L 01/16/23 20:17 Hct 39.1 % (42.0-52.0) L 01/16/23 20:17 MCV 93.1 fL (80.0-100.0) 01/16/23 20:17 MCH 31.7 pg (25.0-34.0) 01/16/23 20:17 MCHC 34.0 g/dL (32.0-36.0) 01/16/23 20:17 RDW Std Deviation 48.3 fL (36.4-46.3) H 01/16/23 20:17 RDW Coeff of Petar 14.4 % (11.5-14.5) 01/16/23 20:17 Plt Count 242 K/uL (130-400) 01/16/23 20:17 MPV 8.7 fL (9.4-12.4) L 01/16/23 20:17 Neutrophils % (Manual) 41 % 01/16/23 20:17 Lymphocytes % (Manual) 23 % 01/16/23 20:17 Monocytes % (Manual) 6 % 01/16/23 20:17 Eosinophils % (Manual) 4 % 01/16/23 20:17 Basophils % (Manual) 1 % 01/16/23 20:17 Neutrophils # (Manual) 3.93 K/uL (1.40-6.50) 01/16/23 20:17 Total Absolute Neuts 3.93 K/uL (1.4-6.5) 01/16/23 20:17 Lymphocytes # (Manual) 2.20 K/uL (1.2-3.4) 01/16/23 20:17 Total Abs Lymphocytes 4.60 K/uL (1.2-3.4) H 01/16/23 20:17 Monocytes # (Manual) 0.57 K/uL (0.11-0.59) 01/16/23 20:17 Eosinophils # (Manual) 0.38 K/uL (0-0.50) 01/16/23 20:17 Basophils # (Manual) 0.10 K/uL (0-0.2) 01/16/23 20:17 Large Granular Lymphs 25 % 01/16/23 20:17 # Lrg Granular Lymphs 2.40 K/uL 01/16/23 20:17 Sodium 137 mmol/L (136-145) 01/16/23 20:17 Potassium 3.5 mmol/L (3.5-5.1) 01/16/23 20:17 Chloride 98 mmol/L (98-107) 01/16/23 20:17 Carbon Dioxide 33 mmol/L (21-32) H 01/16/23 20:17 Anion Gap 6 (3-11) 01/16/23 20:17 BUN 11 mg/dl (6-23) 01/16/23 20:17 Creatinine 1.03 mg/dl (0.6-1.4) 01/16/23 20:17 Est Cr Clr Drug Dosing 57.6 ml/min 01/16/23 20:17 Est GFR ( Amer) 74.8 ml/min 01/16/23 20:17 Est GFR (Non-Af Amer) 64.6 ml/min 01/16/23 20:17 BUN/Creatinine Ratio 10.7 (10-20) 01/16/23 20:17 Glucose 110 mg/dl (70-99(Fasting)) H 01/16/23 20:17 Lactate 1.4 mmol/L (0.4-2.0) 01/16/23 23:14 Calcium 9.4 mg/dl (8.6-10.3) 01/16/23 20:17 Total Bilirubin 1.0 mg/dl (0.2-1.0) 01/16/23 20:17 AST 49 U/L (13-39) H 01/16/23 20:17 ALT 16 U/L (7-52) 01/16/23 20:17 Alkaline Phosphatase 157 U/L (34-104) H 01/16/23 20:17 Troponin I High Sens 12.5 pg/ml (0-20) 01/16/23 20:17 Total Protein 7.9 gm/dl (6.0-8.3) 01/16/23 20:17 Albumin 4.1 gm/dl (3.4-5.0) 01/16/23 20:17 Globulin 3.8 gm/dl (2.5-4.0) 01/16/23 20:17 Albumin/Globulin Ratio 1.1 (0.9-2) 01/16/23 20:17 Lipase 17 U/L (11-82) 01/16/23 20:17 Urine Color Yellow 01/16/23 22:05 Urine Appearance Turbid (Clear) A 01/16/23 22:05 Urine pH 5.5 (4.5-7.5) 01/16/23 22:05 Ur Specific Howard 1.017 (1.000-1.030) 01/16/23 22:05 Urine Protein 1+ (Negative) H 01/16/23 22:05 Urine Glucose (UA) Negative (Negative) 01/16/23 22:05 Urine Ketones Negative (Negative) 01/16/23 22:05 Urine Blood 3+ (Negative) H 01/16/23 22:05 Urine Nitrite Positive (Negative) A 01/16/23 22:05 Urine Bilirubin Negative (Negative) 01/16/23 22:05 Urine Urobilinogen Negative (Negative) 01/16/23 22:05 Ur Leukocyte Esterase 3+ (Negative) H 01/16/23 22:05 Urine WBC (Auto) >30 /hpf (0-5) H 01/16/23 22:05 Urine RBC (Auto) 0-4 /hpf (0-4) 01/16/23 22:05 U Hyaline Cast (Auto) 0 /lpf (0-5) 01/16/23 22:05 U Epithel Cells (Auto) >30 /lpf (0-5) H 01/16/23 22:05 Urine Bacteria (Auto) 4+ (Negative) H 01/16/23 22:05 Urine Yeast Not Reportable 01/16/23 22:05 Impressions Abdomen/Pelvis CT 01/16/23 20:11 Exam(s): CT ABDOMEN + PELVIS With Contrast IV Amt: 87 ml optiray 320 EXAM: CT Abdomen and Pelvis With Intravenous Contrast CLINICAL HISTORY: Reason for exam: epigastric pain, vomiting. TECHNIQUE: Axial computed tomography images of the abdomen and pelvis with intravenous contrast. CTDI is 12.13 mGy and DLP is 634.29 mGy-cm. Automated exposure control was utilized for the study. A dose lowering technique was utilized adhering to the principles of ALARA. CONTRAST: Patient received 87 ml optiray 320 of IV contrast COMPARISON: No relevant prior studies available. FINDINGS: Lung bases: Moderate coronary vascular calcifications are seen.. No mass. No consolidation. ABDOMEN: Liver: Unremarkable. No mass. Gallbladder and bile ducts: Cholecystectomy. No ductal dilation. Pancreas: Unremarkable. No mass. No ductal dilation. Spleen: Unremarkable. No splenomegaly. Adrenals: Unremarkable. No mass. Kidneys and ureters: Unremarkable. No solid mass. No hydronephrosis. Stomach and bowel: Unremarkable. No obstruction. No mucosal thickening. PELVIS: Appendix: No findings to suggest acute appendicitis. Bladder: Mild diffuse urinary bladder wall hypertrophy. 3 cm diameter right posterior urinary bladder diverticulum is seen, containing a 9 mm diameter calculus. Reproductive: Marked prostatomegaly. ABDOMEN and PELVIS: Intraperitoneal space: Unremarkable. No free air. No significant fluid collection. Bones/joints: No acute fracture. No dislocation. There is L1 and L2 chronic anterior wedge compression deformity seen.. Vasculature: Unremarkable. No abdominal aortic aneurysm. Lymph nodes: Unremarkable. No enlarged lymph nodes. IMPRESSION: 1. No acute abdominal process identified 2. Prostatomegaly and urinary bladder wall hypertrophy. Urinary bladder diverticulum containing calculus. Electronically signed by: Sam Tuttle MD 01/16/23 21:28 PM Code Status & VTE Plan Code Status Full code VTE Prophylaxis Plan VTE Prophylaxis will be ordered: Yes PG Care Time/CCT Total # of Minutes Spent Total Time Spent with Patient: Total time spent is greater than 50% in coordination of care (as documented) at patient's floor/unit and/or counseling patient: Coding Level of Care Code 04026 INT INP/OBS CARE 2/55MIN Diagnoses Urinary tract infection N30.00 Hematuria presence: without hematuria Urinary tract infection type: acute cystitis Weakness generalized R53.1 BPH w urinary obs/LUTS N40.1; N13.8 Dementia with behavioral disturbance F03.918 Urinary incontinence R32 GERD (gastroesophageal reflux disease) K21.9 (1) Urinary tract infection Hematuria presence: without hematuria Urinary tract infection type: acute cystitis Qualified Code(s): N30.00 - Acute cystitis without hematuria
[2023-01-17] MEDS: TAMSULOSIN HCL 0.4 MG CAP PO ONE ×2 (00:48→00:49)
[2023-01-17] MEDS ORDERED: MECLIZINE HCL 25 MG TAB PO PRN (02:06)
[2023-01-17] MEDS ORDERED: ONDANSETRON 4 MG OD TAB PO PRN (02:06)
[2023-01-17] MEDS: LEVOTHYROXINE SODIUM 25 MCG TABLET PO SCH (05:34)
[2023-01-17 08:14] LABS: Basophils # (auto) 0.03 K/uL (0.00-0.20); Basophils % (auto) 0.5 %; Eosinophils # (auto) 0.22 K/uL (0.00-0.50); Eosinophils % (auto) 3.6 %; Hematocrit (blood only) 31.2 % (42.0-52.0); Hemoglobin 10.7 g/dl (14.0-18.0); Immature Granulocytes # (auto) 0.04 K/uL (0.01-0.20); Immature Granulocytes % (auto) 0.7 %; Lymphocytes # (auto) 1.83 K/uL (1.20-3.40); Mean Corpuscular Hemoglobin 32.1 pg (25.0-34.0); Mean Corpuscular Hgb Conc 34.3 g/dL (32.0-36.0); Mean Corpuscular Volume 93.7 fL (80.0-100.0); Mean Platelet Volume 8.7 fL (9.4-12.4); Monocytes # (auto) 0.86 K/uL (0.11-0.59); Monocytes % (auto) 14.1 %; Neutrophils # (auto) 3.11 K/uL (1.40-6.50); Neutrophils % (auto) 51.1 %; Platelet Count 169 K/uL (130-400); RDW Coefficient of Variation 14.2 % (11.5-14.5); RDW Standard Deviation 48.4 fL (36.4-46.3); Red Blood Count 3.33 M/uL (4.70-6.10); White Blood Count 6.09 K/ul (4.8-10.8)
--- NOTE | 2023-01-17 08:15 | XRay Report ---
SINGLE VIEW CHEST CLINICAL HISTORY: Epigastric abdominal pain. FINDINGS: An AP, portable, upright chest radiograph is compared to study dated 06/15/2022 there correl ation is made with chest CT dated 06/09/2020. A right internal jugular central venous infusion port is unchanged in position. The cardiomediastinal silhouette is top normal for projection and noting athe rosclerotic calcification of the thoracic aorta. Chronic interstitial thickening is similar to previo us. Foci of parenchymal scarring are seen throughout both lungs. No superimposed airspace consolidati on or large pleural effusion is identified. No pneumothorax is seen. The skeletal structures are oste openic. There is chronic deformity of the distal right clavicle. IMPRESSION: No acute cardiopulmonary abnormality. ACT 112: Negative or not required by law. Electronically signed by: Maurice Garrison M.D. 01/17/2023 8:13 AM
[2023-01-17 08:38] LABS: Albumin Globulin Ratio 1.1 (0.9-2); Albumin Level 3.3 gm/dl (3.4-5.0); BUN Creatinine Ratio 10.8 (10-20); Bilirubin,Total 0.6 mg/dl (0.2-1.0); Calcium 8.9 mg/dl (8.6-10.3); Creatinine Clr Calc Pharmacy 63.8 ml/min; Est GFR (African American) 84.7 ml/min; Potassium 3.7 mmol/L (3.5-5.1); Total Protein 6.3 gm/dl (6.0-8.3)
[2023-01-17] MEDS: MIRTAZAPINE TAB 15 MG TAB PO SCH (08:58)
[2023-01-17] MEDS: FUROSEMIDE 20 MG TAB PO SCH (08:58)
[2023-01-17] MEDS: ASPIRIN 81 MG ECTAB PO SCH (08:59)
[2023-01-17] MEDS: PANTOprazole 40 MG TAB PO SCH (08:59)
[2023-01-17] MEDS: cefTRIAXone SODIUM 2,000 MG in DEXTROSE 5 % MINI-B 50 ML IV SCH (09:20)
[2023-01-17] MEDS: HEPARIN SOD 5,000 UNIT/0.5 ML VIAL SQ SCH ×2 (09:25→22:37)
--- NOTE | 2023-01-17 09:31 | Hospitalist Progress Note ---
Date of Service January 17, 2023 Assessment & Plan (1) Urinary tract infection: Plan: BPH with LUTS/prostatitis/UTI/urinary incontinence- CT with bladder diverticulae and stone BPH with LUTS< Start tamsulosin 0.4 mg at bedtime, with first dose now Follow urine culture and sensitivity Continue ceftriaxone 2 g IV daily begun in the ED (2) Weakness generalized: Plan: metabolic encephalopathy secondary to uti poa, with baseline poor functional status (3) Dementia with behavioral disturbance: Plan: remains on mirtazapine (4) GERD (gastroesophageal reflux disease): Plan: GERD-after holiday meal trial of pantoprazole 40 mg daily Admission and Anticipated Discharge Date Admission Date: January 17, 2023 Subjective pt presented with confusion has gram neg >100,000 in urine. has bladder diverticula and stone Pt has been functionally immobile since covid with intractable vertigo and limited ambulation at home Physical Exam Physical Exam: pt has some functional limitations and weakness is awake and conversant, talkative cardiac is regular, no murmur lungs are clear Results & Data Results & Data Vital Signs (Past 12 Hours) Vital Signs Temp Pulse Pulse Pulse Resp BP Pulse Ox 01/17/23 08:09 97.7 F 62 16 120/64 97 01/17/23 02:08 01/17/23 02:08 97.5 F L 67 18 124/72 100 01/17/23 00:00 63 16 105/65 100 01/16/23 22:46 64 20 127/75 100 01/16/23 21:30 62 O2 Del Method O2 Flow Rate 01/17/23 08:09 Nasal Cannula 4 01/17/23 02:08 Nasal Cannula 4 01/17/23 02:08 Nasal Cannula 4 01/17/23 00:00 Nasal Cannula 4 01/16/23 22:46 Nasal Cannula 4 01/16/23 21:30 Laboratory Results reviewed CBC reviewed chemistry PG Care Time/CCT Total # of Minutes Spent Total Time Spent with Patient: Total time spent is greater than 50% in coordination of care (as documented) at patient's floor/unit and/or counseling patient: Coding Level of Care Code 76972 SUB INP/OBS CARE 2/35MIN Diagnoses Urinary tract infection N30.00 Hematuria presence: without hematuria Urinary tract infection type: acute cystitis Weakness generalized R53.1 Dementia with behavioral disturbance F03.918 GERD (gastroesophageal reflux disease) K21.9 (1) Urinary tract infection Hematuria presence: without hematuria Urinary tract infection type: acute cystitis Qualified Code(s): N30.00 - Acute cystitis without hematuria
[2023-01-17] MEDS: AMIODARONE 200 MG TAB PO SCH (15:16)
--- NOTE | 2023-01-17 19:31 | Electrocardiogram Report ---
Test Reason : Blood Pressure : / mmHG Vent. Rate : 062 BPM Atrial Rate : 062 BPM P-R Int : 212 ms QRS Dur : 146 ms QT Int : 516 ms P-R-T Axes : 080 -50 128 degrees QTc Int : 523 ms Sinus rhythm with 1st degree A-V block Left axis deviation Non-specific intra-ventricular conduction delay Abnormal ECG When compared with ECG of 30-DEC-2022 13:20, (unconfirmed) No significant change was found Confirmed by Darwin Hoyt ([id number]) on 01/17/2023 7:31:08 PM Referred By: REFERRED SELF Confirmed By:Christian Hoyt
[2023-01-17] MEDS: TAMSULOSIN HCL 0.4 MG CAP PO SCH (22:37)
[2023-01-18] MEDS: LEVOTHYROXINE SODIUM 25 MCG TABLET PO SCH (05:54)
[2023-01-18 07:37] LABS: Basophils # (auto) 0.03 K/uL (0.00-0.20); Basophils % (auto) 0.4 %; Eosinophils # (auto) 0.18 K/uL (0.00-0.50); Eosinophils % (auto) 2.4 %; Hematocrit (blood only) 29.3 % (42.0-52.0); Hemoglobin 10.4 g/dl (14.0-18.0); Immature Granulocytes # (auto) 0.03 K/uL (0.01-0.20); Immature Granulocytes % (auto) 0.4 %; Lymphocytes # (auto) 1.36 K/uL (1.20-3.40); Lymphocytes % (auto) 18.4 %; Mean Corpuscular Hemoglobin 32.2 pg (25.0-34.0); Mean Corpuscular Hgb Conc 35.5 g/dL (32.0-36.0); Mean Corpuscular Volume 90.7 fL (80.0-100.0); Mean Platelet Volume 8.9 fL (9.4-12.4); Monocytes # (auto) 0.69 K/uL (0.11-0.59); Monocytes % (auto) 9.3 %; Neutrophils # (auto) 5.12 K/uL (1.40-6.50); Neutrophils % (auto) 69.1 %; Platelet Count 150 K/uL (130-400); RDW Coefficient of Variation 14.2 % (11.5-14.5); RDW Standard Deviation 47.5 fL (36.4-46.3); Red Blood Count 3.23 M/uL (4.70-6.10); White Blood Count 7.41 K/ul (4.8-10.8)
--- NOTE | 2023-01-18 07:50 | Hospitalist Progress Note ---
Date of Service January 18, 2023 Assessment & Plan (1) Urinary tract infection: Plan: BPH with LUTS/prostatitis/UTI/urinary incontinence- CT with bladder diverticulae and stone BPH with LUTS< Start tamsulosin 0.4 mg at bedtime, with first dose now E coli quinolone and gent resistant Continue ceftriaxone 2 g IV daily begun in the ED (2) Weakness generalized: Plan: metabolic encephalopathy secondary to uti poa, with baseline poor functional status (3) Dementia with behavioral disturbance: Plan: remains on mirtazapine (4) GERD (gastroesophageal reflux disease): Plan: GERD-after holiday meal trial of pantoprazole 40 mg daily (5) Atrial fibrillation: Plan: family states pts was supposed to be on amiodarone 200mg once a day, this is cross referenced with Dr Mena rocha from 12/30, at that time he discussed Anticoagulation with the pt, family declines full AC but wishes aspirin at this time currently in sinus rhythm Admission and Anticipated Discharge Date Admission Date: January 17, 2023 Subjective pt presented with confusion has gram neg >100,000 in urine. has bladder diverticula and stone Pt has been functionally immobile since covid with intractable vertigo and limited ambulation at home Physical Exam Physical Exam: pt has some functional limitations and weakness is awake and conversant, talkative cardiac is regular, no murmur lungs are clear Results & Data Results & Data Vital Signs (Past 12 Hours) Vital Signs Temp Pulse Resp BP Pulse Ox O2 Del Method O2 Flow Rate 01/17/23 22:01 98.2 F 68 18 114/65 100 Nasal Cannula 01/17/23 20:00 Nasal Cannula 4 PG Care Time/CCT Total # of Minutes Spent Total Time Spent with Patient: Total time spent is greater than 50% in coordination of care (as documented) at patient's floor/unit and/or counseling patient: Coding Level of Care Code 94221 SUB INP/OBS CARE 2/35MIN Diagnoses Urinary tract infection N30.00 Hematuria presence: without hematuria Urinary tract infection type: acute cystitis Weakness generalized R53.1 Dementia with behavioral disturbance F03.918 GERD (gastroesophageal reflux disease) K21.9 Paroxysmal atrial fibrillation I48.0 Atrial fibrillation type: paroxysmal (1) Urinary tract infection Hematuria presence: without hematuria Urinary tract infection type: acute cystitis Qualified Code(s): N30.00 - Acute cystitis without hematuria (5) Atrial fibrillation Atrial fibrillation type: paroxysmal Qualified Code(s): I48.0 - Paroxysmal atrial fibrillation
[2023-01-18 08:07] LABS: Albumin Globulin Ratio 1.2 (0.9-2); Albumin Level 3.3 gm/dl (3.4-5.0); BUN Creatinine Ratio 10.9 (10-20); Bilirubin,Total 0.8 mg/dl (0.2-1.0); Calcium 8.5 mg/dl (8.6-10.3); Est GFR (African American) 69.1 ml/min; Est GFR (Non-African American) 59.6 ml/min; Globulin 2.8 gm/dl (2.5-4.0); Magnesium 1.7 mg/dl (1.7-2.4); Potassium 4.1 mmol/L (3.5-5.1); Total Protein 6.1 gm/dl (6.0-8.3)
[2023-01-18] MEDS: PANTOprazole 40 MG TAB PO SCH (08:24)
[2023-01-18] MEDS: MIRTAZAPINE TAB 15 MG TAB PO SCH (08:24)
[2023-01-18] MEDS: cefTRIAXone SODIUM 2,000 MG in DEXTROSE 5 % MINI-B 50 ML IV SCH (08:25)
[2023-01-18] MEDS: AMIODARONE 200 MG TAB PO SCH (08:25)
[2023-01-18] MEDS: HEPARIN SOD 5,000 UNIT/0.5 ML VIAL SQ SCH ×2 (08:25→21:31)
[2023-01-18] MEDS: ASPIRIN 81 MG ECTAB PO SCH (08:25)
[2023-01-18] MEDS: FUROSEMIDE 20 MG TAB PO SCH (08:25)
[2023-01-18] MEDS: ACETAMINOPHEN 325 MG TAB PO PRN (14:53)
[2023-01-18] MEDS: TAMSULOSIN HCL 0.4 MG CAP PO SCH (21:31)
[2023-01-19] MEDS: LEVOTHYROXINE SODIUM 25 MCG TABLET PO SCH (05:15)
[2023-01-19 07:34] LABS: Basophils # (auto) 0.02 K/uL (0.00-0.20); Basophils % (auto) 0.4 %; Eosinophils # (auto) 0.17 K/uL (0.00-0.50); Eosinophils % (auto) 3.3 %; Hemoglobin 10.3 g/dl (14.0-18.0); Immature Granulocytes # (auto) 0.04 K/uL (0.01-0.20); Immature Granulocytes % (auto) 0.8 %; Lymphocytes # (auto) 1.09 K/uL (1.20-3.40); Mean Corpuscular Hemoglobin 32.1 pg (25.0-34.0); Mean Corpuscular Hgb Conc 35.5 g/dL (32.0-36.0); Mean Corpuscular Volume 90.3 fL (80.0-100.0); Mean Platelet Volume 8.8 fL (9.4-12.4); Monocytes # (auto) 0.57 K/uL (0.11-0.59); Neutrophils # (auto) 3.29 K/uL (1.40-6.50); Neutrophils % (auto) 63.5 %; Platelet Count 144 K/uL (130-400); RDW Standard Deviation 46.1 fL (36.4-46.3); Red Blood Count 3.21 M/uL (4.70-6.10); White Blood Count 5.18 K/ul (4.8-10.8)
[2023-01-19 08:03] LABS: Albumin Globulin Ratio 1.2 (0.9-2); Albumin Level 3.3 gm/dl (3.4-5.0); BUN Creatinine Ratio 15.4 (10-20); Bilirubin,Total 0.7 mg/dl (0.2-1.0); Calcium 8.6 mg/dl (8.6-10.3); Creatinine Clr Calc Pharmacy 65.2 ml/min; Est GFR (African American) 86.9 ml/min; Globulin 2.8 gm/dl (2.5-4.0); Magnesium 1.6 mg/dl (1.7-2.4); Potassium 4.1 mmol/L (3.5-5.1); Total Protein 6.1 gm/dl (6.0-8.3)
[2023-01-19] MEDS: FUROSEMIDE 20 MG TAB PO SCH (09:28)
[2023-01-19] MEDS: HEPARIN SOD 5,000 UNIT/0.5 ML VIAL SQ SCH ×2 (09:28→21:12)
[2023-01-19] MEDS: cefTRIAXone SODIUM 2,000 MG in DEXTROSE 5 % MINI-B 50 ML IV SCH (09:28)
[2023-01-19] MEDS: ASPIRIN 81 MG ECTAB PO SCH (09:29)
[2023-01-19] MEDS: PANTOprazole 40 MG TAB PO SCH (09:29)
[2023-01-19] MEDS: AMIODARONE 200 MG TAB PO SCH (09:29)
[2023-01-19] MEDS: MIRTAZAPINE TAB 15 MG TAB PO SCH (09:29)
[2023-01-19] MEDS ORDERED: MAGNESIUM OXIDE 400 MG TAB PO ONE (13:54)
--- NOTE | 2023-01-19 14:00 | Discharge Summary ---
Date of Service January 19, 2023 Admission HPI Per Admitting Provider The patient is an 87-year-old male with a past medical history including left bundle branch block, long-term anticoagulant use, cardiomyopathy, dementia with behavioral disturbance, atrial fibrillation, diabetes mellitus type 2 in remission, generalized weakness, diabetic peripheral neuropathy, macular degeneration, and hyperlipidemia. While in the emergency department, he reports the symptoms had significantly improved, however, he does relate persistent issues and ongoing issues with urinary tract infection symptoms, with increased frequency of urination with smaller volumes. Principal Diagnosis METABOLIC ENCEPHALOPATHY FROM UTI POA INTRACTABLE VERTIGO Discharge Exam Pt is awake and alert cardiac is regular and rate controlled (h/o afib) lungs are clear Discharge Data Allergies Allergy/AdvReac Type Severity Reaction Status Date / Time Sulfa (Sulfonamide Allergy Intermediate RASH Verified 01/16/23 23:21 Antibiotics) adhesive Allergy Mild RASH Verified 01/16/23 23:21 bee venom protein (honey bee) Allergy Unknown Unknown Verified 01/16/23 23:21 Consultations 01/17/23 00:08 ED Decision to Admit Stat Ordered Studies 01/16/23 20:11 CT abd pelvis IV con only Stat Hospital Course (1) Urinary tract infection: BPH with LUTS/prostatitis/UTI/urinary incontinence- CT with bladder diverticulae and stone BPH with LUTS< Start tamsulosin 0.4 mg at bedtime, with first dose now E coli quinolone and gent resistant Ceftriaxone 2 g IV daily, revcieved 3 days here, by sensitivities home on Keflex 500mg bid for another week (2) Weakness generalized: metabolic encephalopathy secondary to uti poa, with baseline poor functional status, improved family has support to care at home (3) Dementia with behavioral disturbance: remains on mirtazapine (4) GERD (gastroesophageal reflux disease): GERD-after holiday meal trial of pantoprazole 40 mg daily (5) Atrial fibrillation: family states pts was supposed to be on amiodarone 200mg once a day, this is cross referenced with Dr San notes from 12/30, at that time he discussed Anticoagulation with the pt, family declines full AC but wishes aspirin at this time currently in sinus rhythm Discharge Plan Discharge Items Patient Disposition: Home - Self-Care Reason For Visit: UTI Discharge Diagnosis: weakness from uti present on admission intractable vertigo Activity: Resume your previous activity Non-emergency contact: Primary Care Provider Call non-emergency contact if: your symptoms worsen Follow-up/Referrals: Gilberto Locke, [Primary Care Provider] - 01/25/23 11:00 am Diet: Regular Addtl Attending Provider Instructions: please complete antibiotics please continue medication for your prostate to help you urinate-> tamsulosin(flomax) please take amiodarone 200mg once a day and aspirin a day Pending Studies at Discharge: No Stand-Alone Forms: My [facility] [place], Smoking Cessation Medications and DC Order Prescriptions: New amiodarone 200 mg Tablet 200 mg PO QAM Qty: 30 4RF tamsulosin 0.4 mg Capsule 0.4 mg PO HS Qty: 30 4RF cephalexin 500 mg capsule 500 mg PO BID 7 Days Qty: 14 0RF Continued furosemide 20 mg tablet 20 mg PO QAM Qty: 30 5RF levothyroxine 25 mcg tablet 25 mcg PO DAILY Qty: 90 3RF meclizine 25 mg tablet 25 mg PO TID PRN (Reason: vertigo) Qty: 50 5RF ondansetron 4 mg tablet,disintegrating 4 mg PO Q6H PRN (Reason: nausea and vomiting) Qty: 50 1RF mirtazapine 7.5 mg tablet 7.5 mg PO DAILY Qty: 30 2RF acetaminophen 325 mg Tablet 650 mg PO Q6 MDD 3g PRN (Reason: fever or pain) Qty: 0 0RF aspirin 81 mg Tablet,Delayed Release (Dr/Ec) 81 mg PO DAILY No Action (DME) Hospital Bed Homecare [facility] See Rx Instructions .Route Qty: 1 0RF Rx Instructions: semi electric hospital bed with mattress and side rails (DME) bedside table See Rx Instructions .Route .MEDSUPPLY Qty: 1 0RF Rx Instructions: As directed (DME) Oxygen Home Liters Per Minute See Rx Instructions .ROUTE .MEDSUPPLY Qty: 4 0RF Rx Instructions: concentrator 4 liters via NC continuous hs and prn during the day Discharge Orders: Discharge Order (Routine); Ordered 01/19/23 Ordered By: Madan Wood Admission Data Admit Date/Time: 01/17/23 00:30 Attending Provider: Madan Wood Admit Provider: Robert Ross Primary Care Provider: Gilberto Locke Other Providers: Robert Ross Other Interventions: Discharge Summary Assessment (RN) Last Done: 01/19/23 13:26 Coding Diagnoses Urinary tract infection N30.00 Hematuria presence: without hematuria Urinary tract infection type: acute cystitis Weakness generalized R53.1 Dementia with behavioral disturbance F03.918 GERD (gastroesophageal reflux disease) K21.9 Paroxysmal atrial fibrillation I48.0 Atrial fibrillation type: paroxysmal
[2023-01-19] MEDS ORDERED: MAGNESIUM SULFATE / D5W 1 GM/100 ML BAG IV ONE (14:03)
--- NOTE | 2023-01-19 14:08 | Hospitalist Progress Note ---
Date of Service January 19, 2023 Assessment & Plan (1) Urinary tract infection: Plan: BPH with LUTS/prostatitis/UTI/urinary incontinence- CT with bladder diverticulae and stone BPH with LUTS< Start tamsulosin 0.4 mg at bedtime, with first dose now E coli quinolone and gent resistant Ceftriaxone 2 g IV daily, revcieved 3 days here, by sensitivities home on Keflex 500mg bid for another week (2) Weakness generalized: Plan: metabolic encephalopathy secondary to uti poa, with baseline poor functional status, improved family has support to care at home (3) Dementia with behavioral disturbance: Plan: remains on mirtazapine (4) GERD (gastroesophageal reflux disease): Plan: GERD-after holiday meal trial of pantoprazole 40 mg daily (5) Atrial fibrillation: Plan: family states pts was supposed to be on amiodarone 200mg once a day, this is cross referenced with Dr San notes from 12/30, at that time he discussed Anticoagulation with the pt, family declines full AC but wishes aspirin at this time currently in sinus rhythm replete magnesium 01/19/2023 Admission and Anticipated Discharge Date Admission Date: January 17, 2023 Subjective pt is in his usual state he has limitations and did poorly on PT eval, initally family wanted home and now they feel that they cannot care for him given elderly has recently had surgery Physical Exam Physical Exam: Pt is awake and alert cardiac is regular and rate controlled (h/o afib) lungs are clear Results & Data Results & Data Vital Signs (Past 12 Hours) Vital Signs Temp Pulse Resp BP Pulse Ox O2 Del Method O2 Flow Rate 01/19/23 11:36 Nasal Cannula 4 01/19/23 07:24 98.1 F 62 16 109/64 100 Nasal Cannula 4 Laboratory Results reviewed CBC reviewed chemistry PG Care Time/CCT Total # of Minutes Spent Total Time Spent with Patient: Total time spent is greater than 50% in coordination of care (as documented) at patient's floor/unit and/or counseling patient: Coding Level of Care Code 70591 SUB INP/OBS CARE 2/35MIN Diagnoses Urinary tract infection N30.00 Hematuria presence: without hematuria Urinary tract infection type: acute cystitis Weakness generalized R53.1 Dementia with behavioral disturbance F03.918 GERD (gastroesophageal reflux disease) K21.9 Paroxysmal atrial fibrillation I48.0 Atrial fibrillation type: paroxysmal (1) Urinary tract infection Hematuria presence: without hematuria Urinary tract infection type: acute cystitis Qualified Code(s): N30.00 - Acute cystitis without hematuria (5) Atrial fibrillation Atrial fibrillation type: paroxysmal Qualified Code(s): I48.0 - Paroxysmal atrial fibrillation
[2023-01-19] MEDS: TAMSULOSIN HCL 0.4 MG CAP PO SCH (21:12)
[2023-01-19] MEDS: ACETAMINOPHEN 325 MG TAB PO PRN (21:13)
[2023-01-20] MEDS: LEVOTHYROXINE SODIUM 25 MCG TABLET PO SCH (06:00)
[2023-01-20] MEDS: cefTRIAXone SODIUM 2,000 MG in DEXTROSE 5 % MINI-B 50 ML IV SCH (09:30)
[2023-01-20] MEDS: ASPIRIN 81 MG ECTAB PO SCH (09:32)
[2023-01-20] MEDS: FUROSEMIDE 20 MG TAB PO SCH (09:32)
[2023-01-20] MEDS: MIRTAZAPINE TAB 15 MG TAB PO SCH (09:32)
[2023-01-20] MEDS: PANTOprazole 40 MG TAB PO SCH (09:32)
[2023-01-20] MEDS: AMIODARONE 200 MG TAB PO SCH (09:32)
[2023-01-20] MEDS: HEPARIN SOD 5,000 UNIT/0.5 ML VIAL SQ SCH (09:33)
--- NOTE | 2023-01-20 14:05 | Discharge Summary ---
Date of Service January 20, 2023 Principal Diagnosis UTI Discharge Exam pt has some functional limitations and weakness is awake and conversant, talkative cardiac is regular, no murmur lungs are clear Discharge Data Allergies Allergy/AdvReac Type Severity Reaction Status Date / Time Sulfa (Sulfonamide Allergy Intermediate RASH Verified 01/16/23 23:21 Antibiotics) adhesive Allergy Mild RASH Verified 01/16/23 23:21 bee venom protein (honey bee) Allergy Unknown Unknown Verified 01/16/23 23:21 Consultations 01/17/23 00:08 ED Decision to Admit Stat Ordered Studies 01/16/23 20:11 CT abd pelvis IV con only Stat Hospital Course (1) Urinary tract infection: BPH with LUTS/prostatitis/UTI/urinary incontinence- CT with bladder diverticulae and stone BPH with LUTS< Start tamsulosin 0.4 mg at bedtime, with first dose now E coli quinolone and gent resistant Ceftriaxone 2 g IV daily, received 3 days here, by sensitivities home on Keflex 500mg bid for another week (2) Weakness generalized: metabolic encephalopathy secondary to uti poa, with baseline poor functional status, improved family has support to care at home (3) Dementia with behavioral disturbance: remains on mirtazapine (4) GERD (gastroesophageal reflux disease): GERD-after holiday meal trial of pantoprazole 40 mg daily (5) Atrial fibrillation: family states pts was supposed to be on amiodarone 200mg once a day, this is cross referenced with Dr San notes from 12/30, at that time he discussed Anticoagulation with the pt, family declines full AC but wishes aspirin at this time currently in sinus rhythm replete magnesium 01/19/2023 Total Time Total Time Spent Total Time Spent (In Minutes): 32 Discharge Plan Discharge Items Patient Disposition: Home - Self-Care Reason For Visit: UTI Discharge Diagnosis: weakness from uti present on admission intractable vertigo Activity: Resume your previous activity Non-emergency contact: Primary Care Provider Call non-emergency contact if: your symptoms worsen Follow-up/Referrals: Gilberto Locke DO [Primary Care Provider] - 01/25/23 11:00 am Diet: Regular Addtl Attending Provider Instructions: please complete antibiotics please continue medication for your prostate to help you urinate-> tamsulosin(flomax) please take amiodarone 200mg once a day and aspirin a day Pending Studies at Discharge: No Stand-Alone Forms: [facility], Smoking Cessation Medications and DC Order Prescriptions: New amiodarone 200 mg Tablet 200 mg PO QAM Qty: 30 4RF tamsulosin 0.4 mg Capsule 0.4 mg PO HS Qty: 30 4RF cephalexin 500 mg capsule 500 mg PO BID 7 Days Qty: 14 0RF Continued furosemide 20 mg tablet 20 mg PO QAM Qty: 30 5RF levothyroxine 25 mcg tablet 25 mcg PO DAILY Qty: 90 3RF meclizine 25 mg tablet 25 mg PO TID PRN (Reason: vertigo) Qty: 50 5RF ondansetron 4 mg tablet,disintegrating 4 mg PO Q6H PRN (Reason: nausea and vomiting) Qty: 50 1RF mirtazapine 7.5 mg tablet 7.5 mg PO DAILY Qty: 30 2RF acetaminophen 325 mg Tablet 650 mg PO Q6 MDD 3g PRN (Reason: fever or pain) Qty: 0 0RF aspirin 81 mg Tablet,Delayed Release (Dr/Ec) 81 mg PO DAILY No Action (DME) Hospital Bed [facility] See Rx Instructions .Route Qty: 1 0RF Rx Instructions: semi electric hospital bed with mattress and side rails (DME) bedside table See Rx Instructions .Route .MEDSUPPLY Qty: 1 0RF Rx Instructions: As directed (DME) Oxygen Home Liters Per Minute See Rx Instructions .ROUTE .MEDSUPPLY Qty: 4 0RF Rx Instructions: concentrator 4 liters via NC continuous hs and prn during the day Discharge Orders: Discharge Order (Routine); Ordered 01/20/23 Ordered By: Bryson Rosas Admission Data Admit Date/Time: 01/17/23 00:30 Attending Provider: Bryson Rosas Admit Provider: Robert Ross Primary Care Provider: Gilberto Locke Other Providers: Robert Ross; [facility] Other Interventions: Discharge Summary Assessment (RN) Last Done: 01/20/23 13:51 Coding Level of Care Code 37845 INP/OBS DISCH >30 MIN Diagnoses Urinary tract infection N30.00 Hematuria presence: without hematuria Urinary tract infection type: acute cystitis Weakness generalized R53.1 Dementia with behavioral disturbance F03.918 GERD (gastroesophageal reflux disease) K21.9 Paroxysmal atrial fibrillation I48.0 Atrial fibrillation type: paroxysmal
== END 2023-01-20 15:18 | disposition home or self-care (01) ==
LOC: ED 19:56 → INTOOBSV 01-17 00:30 → SUATTDRO 01-17 00:30 → 3W 01-17 00:30

== ENCOUNTER 2023-03-28 15:02 | Inpatient (IN) ==
--- NOTE | 2023-03-28 15:59 | Emergency Department Note ---
Impression & Plan Acute UTI (urinary tract infection), Generalized weakness ED Provider Note HISTORY OF PRESENT ILLNESS: Patient is an 87-year-old male presenting discolored urine and worsening confusion. Granddaughter and certified first assistant provides history. Reports the patient has been bedridden for a number of years. Reports that in the last few days the patient has been more confused than normal. His urine has been an ruddy color and she is worried he has a urinary tract infection. No reported fevers. No abdominal pain, nausea or vomiting. He has not been on any antibiotics or steroids recently. His has been sick with an upper respiratory infection. ROS: as above PHYSICAL EXAM: Constitutional: Patient appears in no acute distress. HENT: Head: Normocephalic and atraumatic. Eyes: EOMI, PERRL Mouth/Throat: Mucous membranes moist. Neck: Trachea midline. Neck supple. Cardiovascular: RRR, No murmurs, rubs or gallops. Intact distal pulses. Pulmonary/Chest: No respiratory distress. Breath sounds clear and equal bilaterally. No wheezes or rales. Abdominal: Abdomen soft, no tenderness, rebound or guarding. Musculoskeletal: No edema, tenderness or deformity noted. Skin: Warm and dry. No rash, erythema, pallor or cyanosis Psychiatric: Appropriate mood and affect for situation. Neurological: Alert and keenly responsive. CN II-XII grossly intact MDM: - Vitals signs showed hypertension. - History obtained via patient's family, given patient's dementia. Patient presents with worsening confusion and generalized weakness. Granddaughter reports that patient is been bedridden for a number of years. His is his primary certified first assistant and she has been sick recently. Reports patient's been more confused than normal. His urine has a strong smell to it has been ruddy in color. No reported fevers, abdominal pain, nausea or vomiting. No upper respiratory symptoms. - Chronic conditions affecting care: HTN; HLD; Afib; COPD; CHF - Differential diagnoses include, but are not limited to: pneumonia; UTI; ACS; intracranial hemorrhage; CVA - Order placed for continuous cardiac monitoring. At this time, monitor showed rate of 60 bpm with normal sinus rhythm, per my interpretation. - External medical records reviewed. EMS run sheet was reviewed. Patient was vitally stable and route. He was given approximately 250 cc of fluid prehospital. - Laboratory workup interpreted by myself showed normal WBC; stable electrolytes; slightly elevated total bilirubin (1.2); normal procalcitonin; normal lactate - Blood cultures obtained - UA obtained via straight cath showed evidence of UTI. Given 2g IV rocephin - COVID/flu/RSV negative - Patient's daughter who lives out of town called in to supply more history. Patient's is his primary certified first assistant and she is currently in the hospital sick. Patient is bedbound and daughter has been trying to work on getting placement in the outpatient setting as they are unable to be cared for at home. Patient is reportedly on the waiting list at [facility] and daughter is also called out to [facility]. No plans for immediate placement at this time. - Discussion was had with care management about patient's case and need for admission - Hospitalist consulted for admission - Patient admitted to [facility]ist service for further evaluation and management. 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 Following with Heme/Onc q6 months. Surgical History H/O heart artery stent (~2002) History of cholecystectomy History of PTCA (~2013) Family History Father Leukemia Mother Sick sinus syndrome S/P placement of cardiac pacemaker Sister Macular degeneration Brother Macular degeneration Denies family history of Ovarian cancer Prostate cancer Breast cancer Lung cancer Colorectal cancer Social History Smoking Status: Never smoker Tobacco Type: Cigarettes Second Hand Exposure: No; Do You Dip or Chew Tobacco: No; Hx Alcohol Use: No Hx Substance Use: No Preferred Language: Nauruan Communication Ability: Effective Visual Impairment: No Limitations Hearing Ability: Normal Heavy Media Operator Required: No Beliefs That Will Affect Care: None marital status: Current Living Situation: Spouse Current Living Situation Comment: Lives with and nephew How many Children do You have: 4 Feels Safe at Home: Yes Assistive Devices: Oxygen - Continuous and Wheelchair Allergies Allergies Allergy/AdvReac Type Severity Reaction Status Date / Time Sulfa (Sulfonamide Allergy Intermediate RASH Verified 03/28/23 19:11 Antibiotics) adhesive Allergy Mild RASH Verified 03/28/23 19:11 bee venom protein (honey bee) Allergy Unknown Unknown Verified 03/28/23 19:11 Home Meds Home Medications Medication Instructions Recorded Confirmed aspirin 81 mg tablet,delayed 81 mg PO DAILY 01/16/23 03/28/23 release Previous Rx's Medication Instructions Recorded acetaminophen 325 mg tablet 650 mg (2 x 325 mg) PO Q6 PRN 06/25/20 fever or pain #0 tabs furosemide 20 mg tablet 20 mg PO QAM #30 tabs 09/29/22 levothyroxine 25 mcg tablet 25 mcg PO DAILY #90 tabs 09/29/22 meclizine 25 mg tablet 25 mg PO TID PRN vertigo #50 tabs 09/29/22 ondansetron 4 mg disintegrating 4 mg PO Q6H PRN nausea and 09/29/22 tablet vomiting #50 tabs amiodarone 200 mg tablet 200 mg PO QAM #30 tabs 01/19/23 tamsulosin 0.4 mg capsule 0.4 mg PO HS #30 caps 01/19/23 mirtazapine 7.5 mg tablet 7.5 mg PO DAILY #90 tabs 03/28/23 Results & Data (ED) Vital Signs Vital Signs - 24 hr 03/28/23 16:18 03/28/23 16:18 03/28/23 16:18 Temperature 36.5 C Temperature Source Oral Pulse Rate 64 Pulse Rate [Apical] 64 Respiratory Rate 20 20 Respiratory Effort / Characteristics Non-Labored Non-Labored Respiratory Depth Normal Normal Blood Pressure 132/107 H Blood Pressure Mean 115 Pulse Oximetry 100 100 100 Oxygen Delivery Method Room Air Room Air Room Air Sepsis Recent Fever Within 48 Hours Yes Sepsis New/Unexplained Change in Mental Status No Sepsis Action Taken by Nursing No Action Required 03/28/23 16:30 02/05/24 16:45 03/28/23 17:00 Temperature Temperature Source Pulse Rate 62 57 L 59 L Pulse Rate [Apical] Respiratory Rate 16 20 Respiratory Effort / Characteristics Respiratory Depth Blood Pressure 161/76 H 145/71 H Blood Pressure Mean 104 95 Pulse Oximetry 96 Oxygen Delivery Method Sepsis Recent Fever Within 48 Hours Sepsis New/Unexplained Change in Mental Status Sepsis Action Taken by Nursing Laboratory Data 03/28/23 16:15 03/28/23 16:15 Lab Results 03/28/23 03/28/23 03/28/23 Range/Units 16:09 16:15 16:25 WBC 5.43 (4.8-10.8) K/ul RBC 3.85 L (4.70-6.10) M/uL Hgb 11.9 L (14.0-18.0) g/dl Hct 35.4 L (42.0-52.0) % MCV 91.9 (80.0-100.0) fL MCH 30.9 (25.0-34.0) pg MCHC 33.6 (32.0-36.0) g/dL RDW Std Deviation 46.5 H (36.4-46.3) fL RDW Coeff of Petar 14.0 (11.5-14.5) % Plt Count 169 (130-400) K/uL MPV 8.9 L (9.4-12.4) fL Immature Gran % (Auto) 0.2 % Neut % (Auto) 46.2 % Lymph % (Auto) 36.5 % [place] % (Auto) 12.3 % Eos % (Auto) 4.2 % Baso % (Auto) 0.6 % Neut # (Auto) 2.51 (1.40-6.50) K/uL Lymph # (Auto) 1.98 (1.20-3.40) K/uL [place] # (Auto) 0.67 H (0.11-0.59) K/uL Eos # (Auto) 0.23 (0.00-0.50) K/uL Baso # (Auto) 0.03 (0.00-0.20) K/uL Immature Gran # (Auto) 0.01 (0.01-0.20) K/uL Sodium 138 (136-145) mmol/L Potassium 4.1 (3.5-5.1) mmol/L Chloride 102 (98-107) mmol/L Carbon Dioxide 32 (21-32) mmol/L Anion Gap 4 (3-11) BUN 12 (6-23) mg/dl Creatinine 0.84 (0.6-1.4) mg/dl Est Cr Clr Drug Dosing 59.8 ml/min Est GFR ( Amer) 90.6 ml/min Est GFR (Non-Af Amer) 78.2 ml/min BUN/Creatinine Ratio 14.3 (10-20) Glucose 102 H (70-99(Fasting)) mg/dl Lactate 1.2 (0.4-2.0) mmol/L Calcium 9.1 (8.6-10.3) mg/dl Total Bilirubin 1.2 H (0.2-1.0) mg/dl AST 13 (13-39) U/L ALT 6 L (7-52) U/L Alkaline Phosphatase 100 (34-104) U/L Total Protein 7.0 (6.0-8.3) gm/dl Albumin 3.6 (3.4-5.0) gm/dl Globulin 3.4 (2.5-4.0) gm/dl Albumin/Globulin Ratio 1.1 (0.9-2) Lipase 7 L (11-82) U/L Procalcitonin 0.14 (0-0.5) ng/ml Urine Color Yellow Urine Appearance Cloudy A (Clear) Urine pH 5.5 (4.5-7.5) Ur Specific [place] 1.009 (1.000-1.030) Urine Protein Negative (Negative) Urine Glucose (UA) Negative (Negative) Urine Ketones Negative (Negative) Urine Blood 2+ H (Negative) Urine Nitrite Positive A (Negative) Urine Bilirubin Negative (Negative) Urine Urobilinogen Negative (Negative) Ur Leukocyte Esterase 3+ H (Negative) Urine WBC (Auto) >30 H (0-5) /hpf Urine RBC (Auto) 0-4 (0-4) /hpf U Hyaline Cast (Auto) 0 (0-5) /lpf U Epithel Cells (Auto) 0-5 (0-5) /lpf Urine Bacteria (Auto) 1+ H (Negative) SARS-CoV-2 (PCR) NEGATIVE (Negative) Influenza Type A (PCR) Negative (Neg) Influenza Type B (PCR) Negative (Neg) RSV (RT-PCR) Negative (Neg) Administered Medications Discontinued Medications Sodium Chloride (Nss) 1,000 mls @ 999 mls/hr IV .Q1H1M ONE Stop: 03/28/23 16:57 Last Infusion: 03/28/23 19:12 Dose: Infused Documented By: Admin: 03/28/23 16:17 Dose: 999 mls/hr Documented By: GOVIND Ceftriaxone Sodium (Rocephin) 2,000 mg in 50 mls @ 100 mls/hr IV NOW STA Stop: 03/28/23 17:29 Last Infusion: 03/28/23 19:12 Dose: Infused Documented By: Admin: 03/28/23 18:21 Dose: 100 mls/hr Documented By: CPB Discharge Plan Visit Data Chief Complaint: Urinary Symptoms ED Provider: Kari Navarro Discharge Problem: Acute UTI (urinary tract infection), Generalized weakness Forms Stand Alone Forms: [facility] Prescriptions Prescriptions: No Action furosemide 20 mg tablet 20 mg PO QAM Qty: 30 5RF levothyroxine 25 mcg tablet 25 mcg PO DAILY Qty: 90 3RF meclizine 25 mg tablet 25 mg PO TID PRN (Reason: vertigo) Qty: 50 5RF ondansetron 4 mg tablet,disintegrating 4 mg PO Q6H PRN (Reason: nausea and vomiting) Qty: 50 1RF mirtazapine 7.5 mg tablet 7.5 mg PO DAILY Qty: 90 1RF acetaminophen 325 mg Tablet 650 mg PO Q6 MDD 3g PRN (Reason: fever or pain) Qty: 0 0RF aspirin 81 mg Tablet,Delayed Release (Dr/Ec) 81 mg PO DAILY amiodarone 200 mg Tablet 200 mg PO QAM Qty: 30 4RF tamsulosin 0.4 mg Capsule 0.4 mg PO HS Qty: 30 4RF Referrals Referrals: Gilberto Locke DO [Primary Care Provider] -
[2023-03-28] MEDS: SODIUM CHLORIDE 0.9% 1,000 ML IV ONE (16:17)
[2023-03-28 16:43] LABS: Basophils # (auto) 0.03 K/uL (0.00-0.20); Basophils % (auto) 0.6 %; Eosinophils # (auto) 0.23 K/uL (0.00-0.50); Eosinophils % (auto) 4.2 %; Hematocrit (blood only) 35.4 % (42.0-52.0); Hemoglobin 11.9 g/dl (14.0-18.0); Immature Granulocytes # (auto) 0.01 K/uL (0.01-0.20); Immature Granulocytes % (auto) 0.2 %; Lymphocytes # (auto) 1.98 K/uL (1.20-3.40); Lymphocytes % (auto) 36.5 %; Mean Corpuscular Hemoglobin 30.9 pg (25.0-34.0); Mean Corpuscular Hgb Conc 33.6 g/dL (32.0-36.0); Mean Corpuscular Volume 91.9 fL (80.0-100.0); Mean Platelet Volume 8.9 fL (9.4-12.4); Monocytes # (auto) 0.67 K/uL (0.11-0.59); Monocytes % (auto) 12.3 %; Neutrophils # (auto) 2.51 K/uL (1.40-6.50); Neutrophils % (auto) 46.2 %; Platelet Count 169 K/uL (130-400); RDW Standard Deviation 46.5 fL (36.4-46.3); Red Blood Count 3.85 M/uL (4.70-6.10); White Blood Count 5.43 K/ul (4.8-10.8)
[2023-03-28 16:49] LABS: Appearance Urine Cloudy (Clear); Bacteria Urine Automated 1+ (Negative); Bilirubin Urine Negative (Negative); Blood Urine 2+ (Negative); Cast Urine Automated 0 /lpf (0-5); Color Urine Yellow; Epithelial Cell Urine Auto 0-5 /lpf (0-5); Glucose Urine UA Negative (Negative); Ketones Urine Negative (Negative); Leukocyte Esterase Urine 3+ (Negative); Nitrite Urine Positive (Negative); Protein Urine Negative (Negative); RBC Urine Automated 0-4 /hpf (0-4); Specific Gravity Urine 1.009 (1.000-1.030); Urobilinogen Urine Negative (Negative); WBC Urine Automated >30 /hpf (0-5); pH Urine 5.5 (4.5-7.5)
[2023-03-28 16:58] LABS: Albumin Globulin Ratio 1.1 (0.9-2); Albumin Level 3.6 gm/dl (3.4-5.0); BUN Creatinine Ratio 14.3 (10-20); Bilirubin,Total 1.2 mg/dl (0.2-1.0); Calcium 9.1 mg/dl (8.6-10.3); Creatinine Clr Calc Pharmacy 59.8 ml/min; Est GFR (African American) 90.6 ml/min; Est GFR (Non-African American) 78.2 ml/min; Globulin 3.4 gm/dl (2.5-4.0); Potassium 4.1 mmol/L (3.5-5.1)
[2023-03-28 17:21] LABS: Influenza A virus by PCR Negative (Neg); Influenza B virus by PCR Negative (Neg); RSV by PCR Negative (Neg); SARS CoV2 RNA(COVID-19) Ceph NEGATIVE (Negative)
[2023-03-28] MEDS: cefTRIAXone SODIUM 2,000 MG/50 ML BAG IV STA (18:21)
--- NOTE | 2023-03-28 18:30 | History & Physical Report ---
Date of Service March 28, 2023 Assessment & Plan (1) Acute UTI (urinary tract infection): Plan: UA: +nitrites, leuk esterase, bacteria Rocephin 2g q24h f/u urine cultures, last UCx in 2022 E. 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 Will need prison placement at discharge (3) Atrial fibrillation: Plan: Chronic Continue ASA, amiodarone (4) Hypothyroidism: Plan: Chronic Continue levothyroxine (5) Dementia with behavioral disturbance: Plan: Continue mirtazapine (6) BPH w urinary obs/LUTS: Plan: Chronic Continue tamsulosin (7) GERD (gastroesophageal reflux disease): (8) LBBB (left bundle branch block): (9) Type 2 diabetes mellitus in remission: (10) Macular degeneration: (11) Diabetic peripheral neuropathy: (12) Urinary incontinence: Plan FENGI: heart healthy Code status: full code DVT prophylaxis: lovenox Isolation: none Disposition: med/surg History of Present Illness Primary Care Provider: Gilberto Locke, 87 yo male PMHx afib on alf anticoagulation, L bundle branch block, cardiomyopathy, dementia with behavioral disturbance, T2DM in remission, generalized weakness in bedbound state, peripheral neuropathy, HLD, macular degeneration presents with increased confusion and discolored/malodorous urine. Confusion increased from baseline over the last few days. He has a history of multiple urinary tract infections. His is his primary occupational therapy professor and she is also sick and hospitalized. The patient's daughter states that they have been working on placement because he is no longer able to be cared for at home. Denies fevers, chills, CP, SOB, N/V/D. Endorses increased urinary frequency and smaller volumes/incomplete bladder emptying. Patient was hospitalized in late 2022 with similar symptoms. On CT at that time prostatomegaly, urinary bladder diverticulum containing calculous were note. ED course: UA appears infected UCx and Blood Cx obtained 1 dose 2g Rocephin 1L NSS Allergies Allergy/AdvReac Type Severity Reaction Status Date / Time Sulfa (Sulfonamide Allergy Intermediate RASH Verified 03/28/23 19:11 Antibiotics) adhesive Allergy Mild RASH Verified 03/28/23 19:11 bee venom protein (honey bee) Allergy Unknown Unknown Verified 03/28/23 19:11 Home Medications Medication Instructions Recorded Confirmed Type acetaminophen 325 mg tablet 650 mg (2 x 325 mg) PO Q6 PRN 06/25/20 03/28/23 Rx fever or pain #0 tabs furosemide 20 mg tablet 20 mg PO QAM #30 tabs 09/29/22 03/28/23 Rx levothyroxine 25 mcg tablet 25 mcg PO DAILY #90 tabs 09/29/22 03/28/23 Rx meclizine 25 mg tablet 25 mg PO TID PRN vertigo #50 tabs 09/29/22 03/28/23 Rx ondansetron 4 mg disintegrating 4 mg PO Q6H PRN nausea and 09/29/22 03/28/23 Rx tablet vomiting #50 tabs aspirin 81 mg tablet,delayed 81 mg PO DAILY 01/16/23 03/28/23 History release amiodarone 200 mg tablet 200 mg PO QAM #30 tabs 01/19/23 03/28/23 Rx tamsulosin 0.4 mg capsule 0.4 mg PO HS #30 caps 01/19/23 03/28/23 Rx mirtazapine 7.5 mg tablet 7.5 mg PO DAILY #90 tabs 03/28/23 03/28/23 Rx Past Med/Surg History Medical History (Updated 03/28/23 @ 17:49 by Kari Navarro MD) BPH w urinary obs/LUTS Cardiomyopathy Hypothyroidism Urinary incontinence 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 Following with Heme/Onc q6 months. Surgical History H/O heart artery stent (~2002) History of cholecystectomy History of PTCA (~2013) Family History Father Leukemia Mother Sick sinus syndrome S/P placement of cardiac pacemaker Sister Macular degeneration Brother Macular degeneration Denies family history of Ovarian cancer Prostate cancer Breast cancer Lung cancer Colorectal cancer Social History Smoking Status: Never smoker Tobacco Type: Cigarettes Second Hand Exposure: No; Do You Dip or Chew Tobacco: No; Hx Alcohol Use: No Hx Substance Use: No Preferred Language: Mongolian Communication Ability: Effective Visual Impairment: No Limitations Hearing Ability: Normal Doctor Of [place]rap[place] Required: No Beliefs That Will Affect Care: None marital status: Current Living Situation: Spouse Current Living Situation Comment: Lives with and nephew How many Children do You have: 4 Feels Safe at Home: Yes Assistive Devices: Oxygen - Continuous and Wheelchair Review of Systems Review of Systems: reviewed, per HPI Physical Exam Physical Exam: Constitutional: Frail appearing, NAD HEENT: NCAT, no conjunctival injection CV: regular rhythm, no murmur appreciated, extremities well-perfused, no LE edema Resp: CTABL, no wheezes/rales/rhonchi appreciated, no increased work of breathing GI: soft, nondistended, nontender, BS normoactive MSK: no gross deformities appreciated Skin: warm, dry, rash/itching to b/l lower back Neuro: alert, no focal neurologic deficit appreciated Results & Data Results & Data Vital Signs (Past 12 Hours) Vital Signs Temp Pulse Pulse Resp BP Pulse Ox O2 Del Method 03/28/23 17:00 59 L 20 145/71 H 96 03/28/23 16:45 57 L 03/28/23 16:30 62 16 161/76 H 03/28/23 16:18 100 Room Air 03/28/23 16:18 64 20 100 Room Air 03/28/23 16:18 36.5 C 64 20 132/107 H 100 Room Air Supervising Physician Co-Signing Physician Notes Patient seen and examined, chart reviewed, case discussed with Max Berger DO and I agree with the assessment and plan as above except as otherwise noted Labs and images reviewed Booker is an 87-year-old male with past medical history of GERD, BPH with LUTS, dementia, type 2 diabetes, hypothyroidism, neuropathy for whom his is primary caregiver and who has had chronic progressive decline pending placement evaluation for [facility]. He presents to the ER with his who concurrently has a lobar pneumonia who also requires concurrent admission. Booker has had an acute on chronic decline with urinary symptoms for approximately 1 week and an infected appearing UA. Otherwise no acute distress and appears nontoxic/does not appear septic on admission. No history of resistant infections abdomen is benign/soft on admission. Agree with admission, treatment with Rocephin for UTI and following cultures, consult PT/OT/CM for placement needs. Otherwise agree with assessment and management as above (3) Atrial fibrillation Atrial fibrillation type: paroxysmal Qualified Code(s): I48.0 - Paroxysmal atrial fibrillation
--- NOTE | 2023-03-28 18:58 | Billing Data ---
Date of Service March 28, 2023 Coding Level of Care Code 54250 INT INP/OBS CARE
[2023-03-28] MEDS ORDERED: ALUMINUM/MAGNESIUM SUSP 30 ML UDC PO PRN (22:14)
[2023-03-28] MEDS ORDERED: ACETAMINOPHEN 325 MG TAB PO PRN (22:14)
[2023-03-28] MEDS: TAMSULOSIN HCL 0.4 MG CAP PO SCH (23:36)
[2023-03-29] MEDS: LEVOTHYROXINE SODIUM 25 MCG TABLET PO SCH (05:31)
[2023-03-29 06:33] LABS: Basophils # (auto) 0.03 K/uL (0.00-0.20); Basophils % (auto) 0.5 %; Eosinophils # (auto) 0.24 K/uL (0.00-0.50); Eosinophils % (auto) 4.4 %; Hematocrit (blood only) 31.2 % (42.0-52.0); Immature Granulocytes # (auto) 0.01 K/uL (0.01-0.20); Immature Granulocytes % (auto) 0.2 %; Lymphocytes # (auto) 1.47 K/uL (1.20-3.40); Lymphocytes % (auto) 26.8 %; Mean Corpuscular Hemoglobin 32.1 pg (25.0-34.0); Mean Corpuscular Hgb Conc 35.3 g/dL (32.0-36.0); Monocytes # (auto) 0.64 K/uL (0.11-0.59); Monocytes % (auto) 11.7 %; Neutrophils # (auto) 3.09 K/uL (1.40-6.50); Neutrophils % (auto) 56.4 %; Platelet Count 159 K/uL (130-400); RDW Coefficient of Variation 14.1 % (11.5-14.5); RDW Standard Deviation 46.3 fL (36.4-46.3); Red Blood Count 3.43 M/uL (4.70-6.10); White Blood Count 5.48 K/ul (4.8-10.8)
[2023-03-29 06:50] LABS: Albumin Globulin Ratio 1.2 (0.9-2); Albumin Level 3.4 gm/dl (3.4-5.0); BUN Creatinine Ratio 13.6 (10-20); Bilirubin,Total 0.9 mg/dl (0.2-1.0); Calcium 8.6 mg/dl (8.6-10.3); Creatinine Clr Calc Pharmacy 62.6 ml/min; Est GFR (Non-African American) 79.4 ml/min; Globulin 2.8 gm/dl (2.5-4.0); Magnesium 1.7 mg/dl (1.7-2.4); Potassium 3.6 mmol/L (3.5-5.1); Total Protein 6.2 gm/dl (6.0-8.3)
[2023-03-29] MEDS: AMIODARONE 200 MG TAB PO SCH (08:13)
[2023-03-29] MEDS: FUROSEMIDE 20 MG TAB PO SCH (08:14)
[2023-03-29] MEDS: ASPIRIN 81 MG ECTAB PO SCH (08:14)
[2023-03-29] MEDS: MIRTAZAPINE TAB 15 MG TAB PO SCH (08:14)
[2023-03-29] MEDS: ENOXAPARIN INJ 40 MG/0.4 ML SYR SQ SCH (08:15)
--- NOTE | 2023-03-29 16:43 | Hospitalist Progress Note ---
Date of Service March 29, 2023 Assessment & Plan (1) Acute UTI (urinary tract infection): Plan: Urinalysis suggestive Urine culture growing gram-negative shari, awaiting further identification and sensitivities Continue Rocephin 2 g IV daily for now (2) Metabolic encephalopathy: Plan: Per H&P, patient's confusion increased over the last few days. 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 Will need longterm placement at discharge PT and OT on board (4) Atrial fibrillation: Plan: Chronic Continue ASA, amiodarone (5) Hypothyroidism: Plan: Chronic Continue levothyroxine (6) Dementia with behavioral disturbance: Plan: Continue mirtazapine (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 Continue tamsulosin (8) GERD (gastroesophageal reflux disease): (9) LBBB (left bundle branch block): (10) Type 2 diabetes mellitus in remission: (11) Macular degeneration: (12) Diabetic peripheral neuropathy: (13) Urinary incontinence: Plan FENGI: heart healthy Code status: full code DVT prophylaxis: lovenox Isolation: none Disposition: med/surg Admission and Anticipated Discharge Date Admission Date: March 28, 2023 Subjective Patient feels well. Denies chest pain or shortness of breath. Review of Systems Review of Systems: All systems reviewed & are unremarkable except as noted in Subjective Physical Exam Physical Exam: General: Awake, conversant. Slightly and pleasantly confused. AO x 2. Heart: S1, S2/regular rate and rhythm, no murmur rubs or gallops Lungs: Clear to auscultation bilaterally. Normal effort Abdomen: Soft/nontender/nondistended. No hepatosplenomegaly Extremities: No clubbing/cyanosis. No edema Behavior: Appropriate, cooperative Results & Data Results & Data Vital Signs (Past 12 Hours) Vital Signs Temp Pulse Pulse Resp BP Pulse Ox O2 Del Method 03/29/23 14:52 36.8 C 88 18 119/73 97 Room Air 03/29/23 07:46 36.6 C 63 17 129/69 99 Room Air 03/29/23 07:08 36.6 C 61 18 145/69 H 97 Room Air Laboratory Results Abnormal lab results 03/28/23 03/28/2324 Range/Units 16:15 16:25 22:01 RBC 3.85 L (4.70-6.10) M/uL Hgb 11.9 L (14.0-18.0) g/dl Hct 35.4 L (42.0-52.0) % RDW Std Deviation 46.5 H (36.4-46.3) fL MPV 8.9 L (9.4-12.4) fL Brooke # (Auto) 0.67 H (0.11-0.59) K/uL Glucose 102 H (70-99(Fasting)) mg/dl POC Glucose 118 H (70-99) mg/dl Total Bilirubin 1.2 H (0.2-1.0) mg/dl AST (13-39) U/L ALT 6 L (7-52) U/L Lipase 7 L (11-82) U/L Urine Appearance Cloudy A (Clear) Urine Blood 2+ H (Negative) Urine Nitrite Positive A (Negative) Ur Leukocyte Esterase 3+ H (Negative) Urine WBC (Auto) >30 H (0-5) /hpf Urine Bacteria (Auto) 1+ H (Negative) 03/29/23 Range/Units 05:31 RBC 3.43 L (4.70-6.10) M/uL Hgb 11.0 L (14.0-18.0) g/dl Hct 31.2 L (42.0-52.0) % RDW Std Deviation (36.4-46.3) fL MPV 9.0 L (9.4-12.4) fL Brooke # (Auto) 0.64 H (0.11-0.59) K/uL Glucose (70-99(Fasting)) mg/dl POC Glucose (70-99) mg/dl Total Bilirubin (0.2-1.0) mg/dl AST 12 L (13-39) U/L ALT 6 L (7-52) U/L Lipase (11-82) U/L Urine Appearance (Clear) Urine Blood (Negative) Urine Nitrite (Negative) Ur Leukocyte Esterase (Negative) Urine WBC (Auto) (0-5) /hpf Urine Bacteria (Auto) (Negative) PG Care Time/CCT Total # of Minutes Spent Total Time Spent with Patient: Total time spent is greater than 50% in coordination of care (as documented) at patient's floor/unit and/or counseling patient: Coding Level of Care Code 24975 SUB INP/OBS CARE 2MIN Diagnoses Acute UTI (urinary tract infection) N39.0 Metabolic encephalopathy G93.41 Generalized weakness R53.1 Paroxysmal atrial fibrillation I48.0 Atrial fibrillation type: paroxysmal Hypothyroidism E03.9 Dementia with behavioral disturbance F03.918 BPH w urinary obs/LUTS N40.1; N13.8 GERD (gastroesophageal reflux disease) K21.9 LBBB (left bundle branch block) I44.7 Type 2 diabetes mellitus in remission E11.9 Macular degeneration H35.30 Diabetic peripheral neuropathy E11.42 Urinary incontinence R32 (4) Atrial fibrillation Atrial fibrillation type: paroxysmal Qualified Code(s): I48.0 - Paroxysmal atrial fibrillation
[2023-03-29] MEDS: cefTRIAXone SODIUM 2,000 MG in DEXTROSE 5 % MINI-B 50 ML IV SCH (17:40)
[2023-03-30] MEDS: POLYETHYLENE (MIRALAX) 17 GM PACK PO PRN (06:08)
--- NOTE | 2023-03-30 14:19 | Hospitalist Progress Note ---
Date of Service March 30, 2023 Assessment & Plan (1) Acute UTI (urinary tract infection): Plan: Urinalysis suggestive Urine culture growing E. coli sensitive to ceftriaxone Continue Rocephin 2 g IV daily for now (2) Metabolic encephalopathy: Plan: Per H&P, patient's confusion increased over the last few days. 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 Will need prison placement at discharge PT and OT on board (4) Atrial fibrillation: Plan: Chronic Continue ASA, amiodarone (5) Hypothyroidism: Plan: Chronic Continue levothyroxine (6) Dementia with behavioral disturbance: Plan: Continue mirtazapine (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 Continue tamsulosin (8) GERD (gastroesophageal reflux disease): (9) LBBB (left bundle branch block): (10) Type 2 diabetes mellitus in remission: (11) Macular degeneration: (12) Diabetic peripheral neuropathy: (13) Urinary incontinence: Plan FENGI: heart healthy Code status: full code DVT prophylaxis: lovenox Isolation: none Disposition: Will need placement Spoke to daughter on the phone to update her 03/30 Admission and Anticipated Discharge Date Admission Date: March 28, 2023 Subjective Patient remains confused. No chest pain or shortness of breath. Spoke to daughter on the phone. Review of Systems Review of Systems: All systems reviewed & are unremarkable except as noted in Subjective Physical Exam Physical Exam: General: Patient was sleeping in the room. I woke him up. He woke up confused and restless. It took him some time to calm down. Heart: S1, S2/regular rate and rhythm, no murmur rubs or gallops Lungs: Clear to auscultation bilaterally. Normal effort Abdomen: Soft/nontender/nondistended. No hepatosplenomegaly Extremities: No clubbing/cyanosis. No edema Behavior: Appropriate, cooperative Results & Data Results & Data Vital Signs (Past 12 Hours) Vital Signs Temp Pulse Resp BP Pulse Ox O2 Del Method 03/30/23 07:39 36.6 C 68 17 91/59 L 100 Room Air PG Care Time/CCT Total # of Minutes Spent Total Time Spent with Patient: Total time spent is greater than 50% in coordination of care (as documented) at patient's floor/unit and/or counseling patient: Coding Level of Care Code 22717 SUB INP/OBS CARE 2/35MIN Diagnoses Acute UTI (urinary tract infection) N39.0 Metabolic encephalopathy G93.41 Generalized weakness R53.1 Paroxysmal atrial fibrillation I48.0 Atrial fibrillation type: paroxysmal Hypothyroidism E03.9 Dementia with behavioral disturbance F03.918 BPH w urinary obs/LUTS N40.1; N13.8 GERD (gastroesophageal reflux disease) K21.9 LBBB (left bundle branch block) I44.7 Type 2 diabetes mellitus in remission E11.9 Macular degeneration H35.30 Diabetic peripheral neuropathy E11.42 Urinary incontinence R32 (4) Atrial fibrillation Atrial fibrillation type: paroxysmal Qualified Code(s): I48.0 - Paroxysmal atrial fibrillation
--- NOTE | 2023-03-31 14:00 | Hospitalist Progress Note ---
Date of Service March 31, 2023 Assessment & Plan (1) Acute UTI (urinary tract infection): Plan: Urinalysis suggestive Urine culture growing E. coli sensitive to ceftriaxone Continue Rocephin 2 g IV daily for now Transition antibiotics to p.o. Keflex (2) Metabolic encephalopathy: Plan: Per H&P, patient's confusion increased over the last few days. 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 Will need jail placement at discharge PT and OT on board (4) Atrial fibrillation: Plan: Chronic Continue ASA, amiodarone (5) Hypothyroidism: Plan: Chronic Continue levothyroxine (6) Dementia with behavioral disturbance: Plan: Continue mirtazapine (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 Continue tamsulosin (8) GERD (gastroesophageal reflux disease): (9) LBBB (left bundle branch block): (10) Type 2 diabetes mellitus in remission: (11) Macular degeneration: (12) Diabetic peripheral neuropathy: (13) Urinary incontinence: Plan FENGI: heart healthy Code status: full code DVT prophylaxis: lovenox Isolation: none Disposition: Will need placement Spoke to daughter on the phone to update her 03/30 Admission and Anticipated Discharge Date Admission Date: March 28, 2023 Subjective Patient remains confused. No chest pain or shortness of breath. Spoke to daughter on the phone. Review of Systems Review of Systems: Review of systems reviewed, denies fever or chills, denies dysuria, reports generalized weakness Physical Exam Physical Exam: Patient is alert awake, frail-appearing Head is atraumatic normocephalic Neck supple no JVD no carotid bruit Lungs clear to auscultation Heart regular no murmurs gallops rubs or pressure Abdomen soft nontender nondistended, bowel sounds present Extremities no clubbing no cyanosis Neurologically alert awake, generalized weakness present Results & Data Results & Data Vital Signs (Past 12 Hours) Vital Signs Temp Pulse Resp BP Pulse Ox O2 Del Method 03/31/23 12:03 36.8 C 69 14 115/70 93 Room Air 03/31/23 07:55 36.4 C L 66 20 109/63 93 Room Air PG Care Time/CCT Total # of Minutes Spent Total Time Spent with Patient: Total time spent is greater than 50% in coordination of care (as documented) at patient's floor/unit and/or counseling patient: Coding Level of Care Code 12075 SUB INP/OBS CARE 2/35MIN Diagnoses Acute UTI (urinary tract infection) N39.0 Metabolic encephalopathy G93.41 Generalized weakness R53.1 Paroxysmal atrial fibrillation I48.0 Atrial fibrillation type: paroxysmal Hypothyroidism E03.9 Dementia with behavioral disturbance F03.918 BPH w urinary obs/LUTS N40.1; N13.8 GERD (gastroesophageal reflux disease) K21.9 LBBB (left bundle branch block) I44.7 Type 2 diabetes mellitus in remission E11.9 Macular degeneration H35.30 Diabetic peripheral neuropathy E11.42 Urinary incontinence R32 (4) Atrial fibrillation Atrial fibrillation type: paroxysmal Qualified Code(s): I48.0 - Paroxysmal atrial fibrillation
[2023-03-31] MEDS: cephALEXin 500 MG CAP PO SCH (16:22)
[2023-03-31] MEDS: ONDANSETRON INJ 2 MG/ML 2 ML VIAL IV PRN (20:37)
[2023-04-01 07:33] LABS: Basophils # (auto) 0.02 K/uL (0.00-0.20); Basophils % (auto) 0.4 %; Eosinophils # (auto) 0.22 K/uL (0.00-0.50); Eosinophils % (auto) 4.7 %; Hematocrit (blood only) 32.1 % (42.0-52.0); Hemoglobin 10.8 g/dl (14.0-18.0); Immature Granulocytes # (auto) 0.02 K/uL (0.01-0.20); Immature Granulocytes % (auto) 0.4 %; Lymphocytes # (auto) 1.09 K/uL (1.20-3.40); Lymphocytes % (auto) 23.3 %; Mean Corpuscular Hgb Conc 33.6 g/dL (32.0-36.0); Mean Corpuscular Volume 92.2 fL (80.0-100.0); Mean Platelet Volume 9.4 fL (9.4-12.4); Monocytes # (auto) 0.65 K/uL (0.11-0.59); Monocytes % (auto) 13.9 %; Neutrophils # (auto) 2.67 K/uL (1.40-6.50); Neutrophils % (auto) 57.3 %; Platelet Count 158 K/uL (130-400); RDW Coefficient of Variation 14.3 % (11.5-14.5); RDW Standard Deviation 47.8 fL (36.4-46.3); Red Blood Count 3.48 M/uL (4.70-6.10); White Blood Count 4.67 K/ul (4.8-10.8)
[2023-04-01 07:48] LABS: BUN Creatinine Ratio 13.3 (10-20); Calcium 8.7 mg/dl (8.6-10.3); Creatinine Clr Calc Pharmacy 56.3 ml/min; Est GFR (African American) 88.1 ml/min; Potassium 3.7 mmol/L (3.5-5.1)
--- NOTE | 2023-04-01 16:28 | Hospitalist Progress Note ---
Date of Service April 01, 2023 Assessment & Plan (1) Acute UTI (urinary tract infection): Plan: Urinalysis suggestive Urine culture growing E. coli sensitive to ceftriaxone Continue Rocephin 2 g IV daily for now Transition antibiotics to p.o. Keflex continue Keflex (2) Metabolic encephalopathy: Plan: Per H&P, patient's confusion increased over the last few days. 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 Will need a rehab at discharge PT and OT on board (4) Atrial fibrillation: Plan: Chronic Continue ASA, amiodarone (5) Hypothyroidism: Plan: Chronic Continue levothyroxine (6) Dementia with behavioral disturbance: Plan: Continue mirtazapine (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 Continue tamsulosin (8) GERD (gastroesophageal reflux disease): Plan: no symptoms (9) LBBB (left bundle branch block): Plan: no chest pain (10) Type 2 diabetes mellitus in remission: Plan: insulin sliding scale (11) Macular degeneration: (12) Diabetic peripheral neuropathy: (13) Urinary incontinence: Plan FENGI: heart healthy Code status: full code DVT prophylaxis: lovenox Isolation: none Disposition: Will need placement Spoke to daughter on the phone to update her 03/30 Admission and Anticipated Discharge Date Admission Date: March 28, 2023 Subjective Patient remains confused. No chest pain or shortness of breath. Spoke to daughter on the phone, awaiting rehab Review of Systems Review of Systems: Review of systems reviewed, denies fever or chills, denies dysuria, reports generalized weakness Physical Exam Physical Exam: Patient is alert awake, frail-appearing Head is atraumatic normocephalic Neck supple no JVD no carotid bruit Lungs clear to auscultation Heart regular no murmurs gallops rubs or pressure Abdomen soft nontender nondistended, bowel sounds present Extremities no clubbing no cyanosis Neurologically alert awake, generalized weakness present Results & Data Results & Data Vital Signs (Past 12 Hours) Vital Signs Temp Pulse Pulse Resp BP Pulse Ox O2 Del Method 04/01/23 15:39 36.2 C L 63 18 126/70 97 Room Air 04/01/23 11:19 36.3 C L 64 15 104/62 99 Room Air 04/01/23 07:54 36.6 C 76 14 139/78 95 Room Air PG Care Time/CCT Total # of Minutes Spent Total Time Spent with Patient: Total time spent is greater than 50% in coordination of care (as documented) at patient's floor/unit and/or counseling patient: Coding Level of Care Code 21355 SUB INP/OBS CARE 2/35MIN Diagnoses Acute UTI (urinary tract infection) N39.0 Metabolic encephalopathy G93.41 Generalized weakness R53.1 Paroxysmal atrial fibrillation I48.0 Atrial fibrillation type: paroxysmal Hypothyroidism E03.9 Dementia with behavioral disturbance F03.918 BPH w urinary obs/LUTS N40.1; N13.8 GERD (gastroesophageal reflux disease) K21.9 LBBB (left bundle branch block) I44.7 Type 2 diabetes mellitus in remission E11.9 Macular degeneration H35.30 Diabetic peripheral neuropathy E11.42 Urinary incontinence R32 (4) Atrial fibrillation Atrial fibrillation type: paroxysmal Qualified Code(s): I48.0 - Paroxysmal atrial fibrillation
--- NOTE | 2023-04-02 14:12 | Hospitalist Progress Note ---
Date of Service April 02, 2023 Assessment & Plan (1) Acute UTI (urinary tract infection): Plan: Urinalysis suggestive Urine culture growing E. coli sensitive to ceftriaxone Continue Rocephin 2 g IV daily for now Transition antibiotics to p.o. Keflex continue Keflex (2) Metabolic encephalopathy: Plan: Per H&P, patient's confusion increased over the last few days. 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 Will need a rehab at discharge PT and OT on board (4) Atrial fibrillation: Plan: Chronic Continue ASA, amiodarone (5) Hypothyroidism: Plan: Chronic Continue levothyroxine (6) Dementia with behavioral disturbance: Plan: Continue mirtazapine (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 Continue tamsulosin (8) GERD (gastroesophageal reflux disease): Plan: no symptoms (9) LBBB (left bundle branch block): Plan: no chest pain (10) Type 2 diabetes mellitus in remission: Plan: insulin sliding scale (11) Macular degeneration: (12) Diabetic peripheral neuropathy: (13) Urinary incontinence: Plan FENGI: heart healthy Code status: full code DVT prophylaxis: lovenox Isolation: none Disposition: Will need placement Spoke to daughter on the phone to update her 03/30 Admission and Anticipated Discharge Date Admission Date: March 28, 2023 Subjective Patient remains confused. No chest pain or shortness of breath. Spoke to daughter on the phone, awaiting rehab 04/02 no events overnight, not much appetite Review of Systems Review of Systems: Review of systems reviewed, denies fever or chills, denies dysuria, reports generalized weakness Physical Exam Physical Exam: Patient is alert awake, frail-appearing Head is atraumatic normocephalic Neck supple no JVD no carotid bruit Lungs clear to auscultation Heart regular no murmurs gallops rubs or pressure Abdomen soft nontender nondistended, bowel sounds present Extremities no clubbing no cyanosis Neurologically alert awake, generalized weakness present Results & Data Results & Data Vital Signs (Past 12 Hours) Vital Signs Temp Pulse Resp BP Pulse Ox O2 Del Method 04/02/23 08:40 36.4 C L 64 18 115/68 92 Room Air PG Care Time/CCT Total # of Minutes Spent Total Time Spent with Patient: Total time spent is greater than 50% in coordination of care (as documented) at patient's floor/unit and/or counseling patient: Coding Level of Care Code 83145 SUB INP/OBS CARE 2/35MIN Diagnoses Acute UTI (urinary tract infection) N39.0 Metabolic encephalopathy G93.41 Generalized weakness R53.1 Paroxysmal atrial fibrillation I48.0 Atrial fibrillation type: paroxysmal Hypothyroidism E03.9 Dementia with behavioral disturbance F03.918 BPH w urinary obs/LUTS N40.1; N13.8 GERD (gastroesophageal reflux disease) K21.9 LBBB (left bundle branch block) I44.7 Type 2 diabetes mellitus in remission E11.9 Macular degeneration H35.30 Diabetic peripheral neuropathy E11.42 Urinary incontinence R32 (4) Atrial fibrillation Atrial fibrillation type: paroxysmal Qualified Code(s): I48.0 - Paroxysmal atrial fibrillation
--- NOTE | 2023-04-03 15:48 | Hospitalist Progress Note ---
Date of Service April 03, 2023 Assessment & Plan (1) Acute UTI (urinary tract infection): Plan: Urinalysis suggestive Urine culture growing E. coli sensitive to ceftriaxone Continue Rocephin 2 g IV daily for now Transition antibiotics to p.o. Keflex stop antibiotics (2) Metabolic encephalopathy: Plan: Per H&P, patient's confusion increased over the last few days. 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 Continue tamsulosin (8) GERD (gastroesophageal reflux disease): Plan: no symptoms (9) LBBB (left bundle branch block): Plan: no chest pain (10) Type 2 diabetes mellitus in remission: Plan: insulin sliding scale (11) Macular degeneration: (12) Diabetic peripheral neuropathy: (13) Urinary incontinence: Plan FENGI: heart healthy Code status: full code DVT prophylaxis: lovenox Isolation: none Disposition: Will need placement Spoke to daughter on the phone to update her 03/30 stable for discharge Admission and Anticipated Discharge Date Admission Date: March 28, 2023 Subjective Patient remains confused. No chest pain or shortness of breath. Spoke to daughter on the phone, awaiting rehab 04/02 no events overnight, not much appetite Review of Systems Review of Systems: Review of systems reviewed, denies fever or chills, denies dysuria, reports generalized weakness Physical Exam Physical Exam: Patient is alert awake, frail-appearing Head is atraumatic normocephalic Neck supple no JVD no carotid bruit Lungs clear to auscultation Heart regular no murmurs gallops rubs or pressure Abdomen soft nontender nondistended, bowel sounds present Extremities no clubbing no cyanosis Neurologically alert awake, generalized weakness present Results & Data Results & Data Vital Signs (Past 12 Hours) Vital Signs Temp Pulse Resp BP Pulse Ox O2 Del Method 04/03/23 14:45 36.7 C 78 18 135/82 97 Room Air 04/03/23 07:41 36.5 C 63 18 111/62 95 Room Air PG Care Time/CCT Total # of Minutes Spent Total Time Spent with Patient: Total time spent is greater than 50% in coordination of care (as documented) at patient's floor/unit and/or counseling patient: Coding Level of Care Code 63565 SUB INP/OBS CARE 2/35MIN Diagnoses Acute UTI (urinary tract infection) N39.0 Metabolic encephalopathy G93.41 Generalized weakness R53.1 Paroxysmal atrial fibrillation I48.0 Atrial fibrillation type: paroxysmal Hypothyroidism E03.9 Dementia with behavioral disturbance F03.918 BPH w urinary obs/LUTS N40.1; N13.8 GERD (gastroesophageal reflux disease) K21.9 LBBB (left bundle branch block) I44.7 Type 2 diabetes mellitus in remission E11.9 Macular degeneration H35.30 Diabetic peripheral neuropathy E11.42 Urinary incontinence R32 (4) Atrial fibrillation Atrial fibrillation type: paroxysmal Qualified Code(s): I48.0 - Paroxysmal at rial fibrillation
[2023-04-03] MEDS: LORazepam 0.5 MG in SYRINGE 0.25 ML IV ONE (22:42)
[2023-04-04] MEDS: OLANZapine 10 MG/2.1 ML SDV IM STA (00:34)
[2023-04-04] MEDS: LORazepam 1 MG in SYRINGE 0.5 ML IV ONE (04:10)
--- NOTE | 2023-04-04 11:51 | Hospitalist Progress Note ---
Date of Service April 04, 2023 Assessment & Plan (1) Acute UTI (urinary tract infection): Plan: Urinalysis suggestive Urine culture growing E. coli sensitive to ceftriaxone He completed a course of antibiotics (2) Metabolic encephalopathy: Plan: Per H&P, patient's confusion increased over the last few days. 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 Continue tamsulosin (8) GERD (gastroesophageal reflux disease): Plan: no symptoms (9) LBBB (left bundle branch block): Plan: no chest pain (10) Type 2 diabetes mellitus in remission: Plan: insulin sliding scale (11) Macular degeneration: (12) Diabetic peripheral neuropathy: (13) Urinary incontinence: Plan FENGI: heart healthy Code status: full code DVT prophylaxis: lovenox Isolation: none Disposition: Will need placement Admission and Anticipated Discharge Date Admission Date: March 28, 2023 Subjective Patient seen and examined today, he is awake alert but confused does not seem to be in any distress Review of Systems Review of Systems: Unable to obtain due to confusion Physical Exam Physical Exam: The patient is awake, alert confused HEENT--PERRL, EOMI, mucous membranes and oropharynx mildly dry Neck--supple. No JVD. No bruits. Thyroid normal, trachea midline, no adenopathy. Heart--normal S1 and S2. No murmurs, rubs or gallops. Lungs--clear bilaterally, no respiratory distress, no accessory muscle use. Abdomen--normal bowel sounds and soft. Mild epigastric and left sided abdominal pain Extremities--no cyanosis or clubbing. No edema. Dermatologic--normal skin turgor, normal color, no abnormal lymph nodes, no rash. Neurologic--cranial nerves II through XII grossly intact. Rheumatologic--normal range of motion. Psychiatric--normal affect. Results & Data Results & Data Vital Signs (Past 12 Hours) Vital Signs Temp Pulse Resp BP Pulse Ox O2 Del Method 04/04/23 08:10 97.5 F L 69 18 146/66 H 98 Room Air 04/04/23 03:52 97.4 F L 86 16 117/56 L 98 Room Air PG Care Time/CCT Total # of Minutes Spent Total Time Spent with Patient: Total time spent is greater than 50% in coordination of care (as documented) at patient's floor/unit and/or counseling patient: Coding Level of Care Code 48994 SUB INP/OBS CARE 2/35MIN Diagnoses Acute UTI (urinary tract infection) N39.0 Metabolic encephalopathy G93.41 Generalized weakness R53.1 Paroxysmal atrial fibrillation I48.0 Atrial fibrillation type: paroxysmal Hypothyroidism E03.9 Dementia with behavioral disturbance F03.918 BPH w urinary obs/LUTS N40.1; N13.8 GERD (gastroesophageal reflux disease) K21.9 LBBB (left bundle branch block) I44.7 Type 2 diabetes mellitus in remission E11.9 Macular degeneration H35.30 Diabetic peripheral neuropathy E11.42 Urinary incontinence R32 Time Spent (min) 35 (4) Atrial fibrillation Atrial fibrillation type: paroxysmal Qualified Code(s): I48.0 - Paroxysmal atrial fibrillation
[2023-04-04 15:12] LABS: Basophils # (auto) 0.02 K/uL (0.00-0.20); Basophils % (auto) 0.4 %; Eosinophils # (auto) 0.11 K/uL (0.00-0.50); Eosinophils % (auto) 2.1 %; Hematocrit (blood only) 32.3 % (42.0-52.0); Hemoglobin 10.9 g/dl (14.0-18.0); Immature Granulocytes # (auto) 0.02 K/uL (0.01-0.20); Immature Granulocytes % (auto) 0.4 %; Lymphocytes # (auto) 0.73 K/uL (1.20-3.40); Lymphocytes % (auto) 14.1 %; Mean Corpuscular Hemoglobin 31.1 pg (25.0-34.0); Mean Corpuscular Hgb Conc 33.7 g/dL (32.0-36.0); Mean Platelet Volume 9.3 fL (9.4-12.4); Monocytes # (auto) 0.65 K/uL (0.11-0.59); Monocytes % (auto) 12.5 %; Neutrophils # (auto) 3.65 K/uL (1.40-6.50); Neutrophils % (auto) 70.5 %; Platelet Count 154 K/uL (130-400); RDW Coefficient of Variation 14.2 % (11.5-14.5); Red Blood Count 3.51 M/uL (4.70-6.10); White Blood Count 5.18 K/ul (4.8-10.8)
[2023-04-04 15:46] LABS: BUN Creatinine Ratio 21.1 (10-20); Calcium 8.8 mg/dl (8.6-10.3); Creatinine Clr Calc Pharmacy 56.3 ml/min; Est GFR (African American) 88.1 ml/min; Potassium 3.8 mmol/L (3.5-5.1)
[2023-04-04] MEDS: LORazepam 0.5 MG TAB PO STA (16:34)
--- NOTE | 2023-04-05 11:43 | Hospitalist Progress Note ---
Date of Service April 05, 2023 Assessment & Plan (1) Acute UTI (urinary tract infection): Plan: Urinalysis suggestive Urine culture growing E. coli sensitive to ceftriaxone He completed a course of antibiotics (2) Metabolic encephalopathy: Plan: Per H&P, patient's confusion increased over the last few days. 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 Continue tamsulosin (8) GERD (gastroesophageal reflux disease): Plan: no symptoms (9) LBBB (left bundle branch block): Plan: no chest pain (10) Type 2 diabetes mellitus in remission: Plan: insulin sliding scale (11) Macular degeneration: (12) Diabetic peripheral neuropathy: (13) Urinary incontinence: Plan FENGI: heart healthy Code status: full code DVT prophylaxis: lovenox Isolation: none Disposition: Will need placement will await for reassessment by physical therapy, last assessment was 03/31/2023 Admission and Anticipated Discharge Date Admission Date: March 28, 2023 Subjective Patient seen and examined today, he is awake alert but confused does not seem to be in any distress Review of Systems Review of Systems: Unable to obtain due to confusion Physical Exam Physical Exam: The patient is awake, alert confused HEENT--PERRL, EOMI, mucous membranes and oropharynx mildly dry Neck--supple. No JVD. No bruits. Thyroid normal, trachea midline, no adenopathy. Heart--normal S1 and S2. No murmurs, rubs or gallops. Lungs--clear bilaterally, no respiratory distress, no accessory muscle use. Abdomen--normal bowel sounds and soft. Mild epigastric and left sided abdominal pain Extremities--no cyanosis or clubbing. No edema. Dermatologic--normal skin turgor, normal color, no abnormal lymph nodes, no rash. Neurologic--cranial nerves II through XII grossly intact. Rheumatologic--normal range of motion. Psychiatric--normal affect. Results & Data Results & Data Vital Signs (Past 12 Hours) Vital Signs Temp Pulse Resp BP Pulse Ox O2 Del Method 04/05/23 07:15 97.5 F L 63 16 108/57 L 99 Room Air PG Care Time/CCT Total # of Minutes Spent Total Time Spent with Patient: Total time spent is greater than 50% in coordination of care (as documented) at patient's floor/unit and/or counseling patient: Coding Level of Care Code 80751 SUB INP/OBS CARE 2/35MIN Diagnoses Acute UTI (urinary tract infection) N39.0 Metabolic encephalopathy G93.41 Generalized weakness R53.1 Paroxysmal atrial fibrillation I48.0 Atrial fibrillation type: paroxysmal Hypothyroidism E03.9 Dementia with behavioral disturbance F03.918 BPH w urinary obs/LUTS N40.1; N13.8 GERD (gastroesophageal reflux disease) K21.9 LBBB (left bundle branch block) I44.7 Type 2 diabetes mellitus in remission E11.9 Macular degeneration H35.30 Diabetic peripheral neuropathy E11.42 Urinary incontinence R32 Time Spent (min) 35 (4) Atrial fibrillation Atrial fibrillation type: paroxysmal Qualified Code(s): I48.0 - Paroxysmal atrial fibrillation
--- NOTE | 2023-04-06 16:29 | Hospitalist Progress Note ---
Date of Service April 06, 2023 Assessment & Plan (1) Acute UTI (urinary tract infection): Plan: Urinalysis suggestive Urine culture growing E. coli sensitive to ceftriaxone He completed a course of antibiotics (2) Metabolic encephalopathy: Plan: Per H&P, patient's confusion increased over the last few days. 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 I updated his daughter Admission and Anticipated Discharge Date Admission Date: March 28, 2023 Subjective Patient seen and examined today, he is awake alert but confused does not seem to be in any distress Review of Systems Review of Systems: Unable to obtain due to confusion Physical Exam Physical Exam: The patient is awake, alert confused HEENT--PERRL, EOMI, mucous membranes and oropharynx mildly dry Neck--supple. No JVD. No bruits. Thyroid normal, trachea midline, no adenopathy. Heart--normal S1 and S2. No murmurs, rubs or gallops. Lungs--clear bilaterally, no respiratory distress, no accessory muscle use. Abdomen--normal bowel sounds and soft. Mild epigastric and left sided abdominal pain Extremities--no cyanosis or clubbing. No edema. Dermatologic--normal skin turgor, normal color, no abnormal lymph nodes, no rash. Neurologic--cranial nerves II through XII grossly intact. Rheumatologic--normal range of motion. Psychiatric--normal affect. Results & Data Results & Data Vital Signs (Past 12 Hours) Vital Signs Temp Pulse Resp BP Pulse Ox O2 Del Method 04/06/23 15:16 98.4 F 62 16 109/63 94 Room Air 04/06/23 06:57 97.7 F 59 L 16 120/69 97 Room Air PG Care Time/CCT Total # of Minutes Spent Total Time Spent with Patient: Total time spent is greater than 50% in coordination of care (as documented) at patient's floor/unit and/or counseling patient: Coding Level of Care Code 28836 SUB INP/OBS CARE 2/35MIN Diagnoses Acute UTI (urinary tract infection) N39.0 Metabolic encephalopathy G93.41 Generalized weakness R53.1 Paroxysmal atrial fibrillation I48.0 Atrial fibrillation type: paroxysmal Hypothyroidism E03.9 Dementia with behavioral disturbance F03.918 BPH w urinary obs/LUTS N40.1; N13.8 GERD (gastroesophageal reflux disease) K21.9 LBBB (left bundle branch block) I44.7 Type 2 diabetes mellitus in remission E11.9 Macular degeneration H35.30 Diabetic peripheral neuropathy E11.42 Urinary incontinence R32 Time Spent (min) 35 (4) Atrial fibrillation Atrial fibrillation type: paroxysmal Qualified Code(s): I48.0 - Paroxysmal atrial fibrillation
[2023-04-07 10:09] LABS: Calcium 8.6 mg/dl (8.6-10.3); Creatinine Clr Calc Pharmacy 50.7 ml/min; Est GFR (African American) 77.5 ml/min; Est GFR (Non-African American) 66.9 ml/min; Potassium 4.4 mmol/L (3.5-5.1)
--- NOTE | 2023-04-07 13:08 | Hospitalist Progress Note ---
Date of Service April 07, 2023 Assessment & Plan (1) Acute UTI (urinary tract infection): Plan: Urinalysis suggestive Urine culture growing E. coli sensitive to ceftriaxone He completed a course of antibiotics (2) Metabolic encephalopathy: Plan: Per H&P, patient's confusion increased over the last few days. 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 Continue tamsulosin (8) GERD (gastroesophageal reflux disease): Plan: no symptoms (9) LBBB (left bundle branch block): Plan: no chest pain (10) Type 2 diabetes mellitus in remission: Plan: insulin sliding scale (11) Macular degeneration: (12) Diabetic peripheral neuropathy: (13) Urinary incontinence: Plan FENGI: heart healthy Code status: full code DVT prophylaxis: lovenox Isolation: none Disposition: Patient is participating in physical therapy, plan is for SNF when approved Admission and Anticipated Discharge Date Admission Date: March 28, 2023 Subjective Patient seen and examined today, denies any new complaints, said he walked with therapy yesterday. Review of Systems Review of Systems: Unable to obtain due to confusion Physical Exam Physical Exam: The patient is awake, alert confused HEENT--PERRL, EOMI, mucous membranes and oropharynx mildly dry Neck--supple. No JVD. No bruits. Thyroid normal, trachea midline, no adenopathy. Heart--normal S1 and S2. No murmurs, rubs or gallops. Lungs--clear bilaterally, no respiratory distress, no accessory muscle use. Abdomen--normal bowel sounds and soft. Mild epigastric and left sided abdominal pain Extremities--no cyanosis or clubbing. No edema. Dermatologic--normal skin turgor, normal color, no abnormal lymph nodes, no rash. Neurologic--cranial nerves II through XII grossly intact. Rheumatologic--normal range of motion. Psychiatric--normal affect. Results & Data Results & Data Vital Signs (Past 12 Hours) Vital Signs Temp Pulse Resp BP Pulse Ox O2 Del Method 04/07/23 07:16 98.1 F 63 16 105/63 97 Room Air PG Care Time/CCT Total # of Minutes Spent Total Time Spent with Patient: Total time spent is greater than 50% in coordination of care (as documented) at patient's floor/unit and/or counseling patient: Coding Level of Care Code 36044 SUB INP/OBS CARE 2/35MIN Diagnoses Acute UTI (urinary tract infection) N39.0 Metabolic encephalopathy G93.41 Generalized weakness R53.1 Paroxysmal atrial fibrillation I48.0 Atrial fibrillation type: paroxysmal Hypothyroidism E03.9 Dementia with behavioral disturbance F03.918 BPH w urinary obs/LUTS N40.1; N13.8 GERD (gastroesophageal reflux disease) K21.9 LBBB (left bundle branch block) I44.7 Type 2 diabetes mellitus in remission E11.9 Macular degeneration H35.30 Diabetic peripheral neuropathy E11.42 Urinary incontinence R32 Time Spent (min) 35 (4) Atrial fibrillation Atrial fibrillation type: paroxysmal Qualified Code(s): I48.0 - Paroxysmal atrial fibrillation
--- NOTE | 2023-04-08 09:56 | Hospitalist Progress Note ---
Date of Service April 08, 2023 Assessment & Plan (1) Acute UTI (urinary tract infection): Plan: Urinalysis suggestive Urine culture growing E. 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 Will need a rehab at discharge PT and OT on board (4) Atrial fibrillation: Plan: Chronic Continue ASA, amiodarone (5) Hypothyroidism: Plan: Chronic Continue levothyroxine (6) Dementia with behavioral disturbance: Plan: Continue mirtazapine (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 Continue tamsulosin (8) GERD (gastroesophageal reflux disease): Plan: no symptoms (9) LBBB (left bundle branch block): Plan: no chest pain (10) Type 2 diabetes mellitus in remission: Plan: insulin sliding scale (11) Macular degeneration: (12) Diabetic peripheral neuropathy: (13) Urinary incontinence: Plan FENGI: heart healthy Code status: full code DVT prophylaxis: lovenox Isolation: none Disposition: Patient is participating in physical therapy, plan is for SNF when approved Admission and Anticipated Discharge Date Admission Date: March 28, 2023 Subjective Patient seen and examined today, denies any new complaints, was having his Coumadin done, awaiting the final word from SNF facility Review of Systems Review of Systems: Unreliable due to confusion Physical Exam Physical Exam: The patient is awake, alert confused HEENT--PERRL, EOMI, mucous membranes and oropharynx mildly dry Neck--supple. No JVD. No bruits. Thyroid normal, trachea midline, no adenopathy. Heart--normal S1 and S2. No murmurs, rubs or gallops. Lungs--clear bilaterally, no respiratory distress, no accessory muscle use. Abdomen--normal bowel sounds and soft. Mild epigastric and left sided abdominal pain Extremities--no cyanosis or clubbing. No edema. Dermatologic--normal skin turgor, normal color, no abnormal lymph nodes, no rash. Neurologic--cranial nerves II through XII grossly intact. Rheumatologic--normal range of motion. Psychiatric--normal affect. Results & Data Results & Data Vital Signs (Past 12 Hours) Vital Signs Temp Pulse Resp BP Pulse Ox O2 Del Method O2 Flow Rate 04/08/23 07:07 97.3 F L 64 18 127/69 95 Room Air 04/07/23 22:30 Nasal Cannula 2 PG Care Time/CCT Total # of Minutes Spent Total Time Spent with Patient: Total time spent is greater than 50% in coordination of care (as documented) at patient's floor/unit and/or counseling patient: Coding Level of Care Code 03516 SUB INP/OBS CARE 2/35MIN Diagnoses Acute UTI (urinary tract infection) N39.0 Metabolic encephalopathy G93.41 Generalized weakness R53.1 Paroxysmal atrial fibrillation I48.0 Atrial fibrillation type: paroxysmal Hypothyroidism E03.9 Dementia with behavioral disturbance F03.918 BPH w urinary obs/LUTS N40.1; N13.8 GERD (gastroesophageal reflux disease) K21.9 LBBB (left bundle branch block) I44.7 Type 2 diabetes mellitus in remission E11.9 Macular degeneration H35.30 Diabetic peripheral neuropathy E11.42 Urinary incontinence R32 Time Spent (min) 35 (4) Atrial fibrillation Atrial fibrillation type: paroxysmal Qualified Code(s): I48.0 - Paroxysmal atrial fibrillation
--- NOTE | 2023-04-09 11:05 | Hospitalist Progress Note ---
Date of Service April 09, 2023 Assessment & Plan (1) Acute UTI (urinary tract infection): Plan: Initial urinalysis suggestive Urine culture growing E. 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 Will need a rehab at discharge PT and OT on board (4) Atrial fibrillation: Plan: Chronic Continue ASA, amiodarone (5) Hypothyroidism: Plan: Chronic Continue levothyroxine (6) Dementia with behavioral disturbance: Plan: Continue mirtazapine (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 Continue tamsulosin (8) GERD (gastroesophageal reflux disease): Plan: no symptoms (9) LBBB (left bundle branch block): Plan: no chest pain (10) Type 2 diabetes mellitus in remission: Plan: insulin sliding scale (11) Macular degeneration: (12) Diabetic peripheral neuropathy: (13) Urinary incontinence: Plan FENGI: heart healthy Code status: full code DVT prophylaxis: lovenox Isolation: none Disposition: Patient is participating in physical therapy, plan is for SNF when approved Admission and Anticipated Discharge Date Admission Date: March 28, 2023 Subjective Patient seen and examined today, denies any new complaints, tolerating regular diet, awaiting placement in a SNF Review of Systems Review of Systems: Unreliable due to confusion Physical Exam Physical Exam: The patient is awake, alert oriented x 2 HEENT--PERRL, EOMI, mucous membranes and oropharynx mildly dry Neck--supple. No JVD. No bruits. Thyroid normal, trachea midline, no adenopathy. Heart--normal S1 and S2. No murmurs, rubs or gallops. Lungs--clear bilaterally, no respiratory distress, no accessory muscle use. Abdomen--normal bowel sounds and soft. Mild epigastric and left sided abdominal pain Extremities--no cyanosis or clubbing. No edema. Dermatologic--normal skin turgor, normal color, no abnormal lymph nodes, no rash. Neurologic--cranial nerves II through XII grossly intact. Rheumatologic--normal range of motion. Psychiatric--normal affect. Results & Data Results & Data Vital Signs (Past 12 Hours) Vital Signs Temp Pulse Resp BP Pulse Ox O2 Del Method 04/09/23 09:16 70 119/68 04/09/23 07:16 97.5 F L 61 18 116/71 95 Room Air PG Care Time/CCT Total # of Minutes Spent Total Time Spent with Patient: Total time spent is greater than 50% in coordination of care (as documented) at patient's floor/unit and/or counseling patient: Coding Level of Care Code 81960 SUB INP/OBS CARE 2/35MIN Diagnoses Acute UTI (urinary tract infection) N39.0 Metabolic encephalopathy G93.41 Generalized weakness R53.1 Paroxysmal atrial fibrillation I48.0 Atrial fibrillation type: paroxysmal Hypothyroidism E03.9 Dementia with behavioral disturbance F03.918 BPH w urinary obs/LUTS N40.1; N13.8 GERD (gastroesophageal reflux disease) K21.9 LBBB (left bundle branch block) I44.7 Type 2 diabetes mellitus in remission E11.9 Macular degeneration H35.30 Diabetic peripheral neuropathy E11.42 Urinary incontinence R32 Time Spent (min) 35 (4) Atrial fibrillation Atrial fibrillation type: paroxysmal Qualified Code(s): I48.0 - Paroxysmal atrial fibrillation
[2023-04-09] MEDS: HYDROCORTISONE 1% CRM 30 GM TUBE EXT PRN (19:02)
[2023-04-10 06:16] LABS: Hematocrit (blood only) 31.9 % (42.0-52.0); Hemoglobin 10.9 g/dl (14.0-18.0); Mean Corpuscular Hemoglobin 31.7 pg (25.0-34.0); Mean Corpuscular Hgb Conc 34.2 g/dL (32.0-36.0); Mean Corpuscular Volume 92.7 fL (80.0-100.0); Mean Platelet Volume 9.2 fL (9.4-12.4); Platelet Count 207 K/uL (130-400); RDW Coefficient of Variation 14.6 % (11.5-14.5); Red Blood Count 3.44 M/uL (4.70-6.10); White Blood Count 4.99 K/ul (4.8-10.8)
[2023-04-10 06:34] LABS: Calcium 8.7 mg/dl (8.6-10.3); Est GFR (African American) 88.5 ml/min; Est GFR (Non-African American) 76.3 ml/min; Potassium 3.8 mmol/L (3.5-5.1)
--- NOTE | 2023-04-10 10:25 | Hospitalist Progress Note ---
Date of Service April 10, 2023 Assessment & Plan (1) Acute UTI (urinary tract infection): Plan: Initial urinalysis suggestive Urine culture growing E. 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 Will need a rehab at discharge PT and OT on board (4) Atrial fibrillation: Plan: Chronic Continue ASA, amiodarone (5) Hypothyroidism: Plan: Chronic Continue levothyroxine (6) Dementia with behavioral disturbance: Plan: Continue mirtazapine (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 Continue tamsulosin (8) GERD (gastroesophageal reflux disease): Plan: no symptoms (9) LBBB (left bundle branch block): Plan: no chest pain (10) Type 2 diabetes mellitus in remission: Plan: Blood glucose under control Continue insulin sliding scale (11) Macular degeneration: (12) Diabetic peripheral neuropathy: (13) Urinary incontinence: Plan FENGI: heart healthy Code status: full code DVT prophylaxis: lovenox Isolation: none Disposition: Patient is participating in physical therapy, plan is for SNF when approved Admission and Anticipated Discharge Date Admission Date: March 28, 2023 Subjective Patient seen and examined today, lying quietly in bed, denies any new complaints, tolerating regular diet, awaiting placement in a SNF Review of Systems Review of Systems: Unreliable due to confusion Physical Exam Physical Exam: The patient is awake, alert oriented x 2 HEENT--PERRL, EOMI, mucous membranes and oropharynx mildly dry Neck--supple. No JVD. No bruits. Thyroid normal, trachea midline, no adenopathy. Heart--normal S1 and S2. No murmurs, rubs or gallops. Lungs--clear bilaterally, no respiratory distress, no accessory muscle use. Abdomen--normal bowel sounds and soft. Mild epigastric and left sided abdominal pain Extremities--no cyanosis or clubbing. No edema. Dermatologic--normal skin turgor, normal color, no abnormal lymph nodes, no rash. Neurologic--cranial nerves II through XII grossly intact. Rheumatologic--normal range of motion. Psychiatric--normal affect. Results & Data Results & Data Vital Signs (Past 12 Hours) Vital Signs Temp Pulse Resp BP BP Pulse Ox O2 Del Method 04/10/23 08:02 66 143/75 H 04/10/23 07:08 97.7 F 61 16 123/65 96 Room Air PG Care Time/CCT Total # of Minutes Spent Total Time Spent with Patient: Total time spent is greater than 50% in coordination of care (as documented) at patient's floor/unit and/or counseling patient: Coding Level of Care Code 82630 SUB INP/OBS CARE 2/35MIN Diagnoses Acute UTI (urinary tract infection) N39.0 Metabolic encephalopathy G93.41 Generalized weakness R53.1 Paroxysmal atrial fibrillation I48.0 Atrial fibrillation type: paroxysmal Hypothyroidism E03.9 Dementia with behavioral disturbance F03.918 BPH w urinary obs/LUTS N40.1; N13.8 GERD (gastroesophageal reflux disease) K21.9 LBBB (left bundle branch block) I44.7 Type 2 diabetes mellitus in remission E11.9 Macular degeneration H35.30 Diabetic peripheral neuropathy E11.42 Urinary incontinence R32 Time Spent (min) 35 (4) Atrial fibrillation Atrial fibrillation type: paroxysmal Qualified Code(s): I48.0 - Paroxysmal atrial fibrillation
--- NOTE | 2023-04-11 12:10 | Hospitalist Progress Note ---
Date of Service April 11, 2023 Assessment & Plan (1) Acute UTI (urinary tract infection): Plan: Initial urinalysis suggestive Urine culture growing E. 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 Will need a rehab at discharge PT and OT on board (4) Atrial fibrillation: Plan: Chronic Continue ASA, amiodarone (5) Hypothyroidism: Plan: Chronic Continue levothyroxine (6) Dementia with behavioral disturbance: Plan: Continue mirtazapine (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 Patient is clinically stable vital signs stable ready for discharge to SNF when accepted. Admission and Anticipated Discharge Date Admission Date: March 28, 2023 Subjective Patient seen and examined today, lying quietly in bed, denies any new complaints, tolerating regular diet, awaiting placement in a SNF Review of Systems Review of Systems: Unreliable due to confusion Physical Exam Physical Exam: The patient is awake, alert oriented x 2 HEENT--PERRL, EOMI, mucous membranes and oropharynx mildly dry Neck--supple. No JVD. No bruits. Thyroid normal, trachea midline, no adenopathy. Heart--normal S1 and S2. No murmurs, rubs or gallops. Lungs--clear bilaterally, no respiratory distress, no accessory muscle use. Abdomen--normal bowel sounds and soft. Mild epigastric and left sided abdominal pain Extremities--no cyanosis or clubbing. No edema. Dermatologic--normal skin turgor, normal color, no abnormal lymph nodes, no rash. Neurologic--cranial nerves II through XII grossly intact. Rheumatologic--normal range of motion. Psychiatric--normal affect. Results & Data Results & Data Vital Signs (Past 12 Hours) Vital Signs Temp Pulse Resp BP Pulse Ox O2 Del Method 04/11/23 08:14 66 120/66 04/11/23 07:25 97.2 F L 60 18 117/68 97 Room Air PG Care Time/CCT Total # of Minutes Spent Total Time Spent with Patient: Total time spent is greater than 50% in coordination of care (as documented) at patient's floor/unit and/or counseling patient: Coding Level of Care Code 81972 SUB INP/OBS CARE 2/35MIN Diagnoses Acute UTI (urinary tract infection) N39.0 Metabolic encephalopathy G93.41 Generalized weakness R53.1 Paroxysmal atrial fibrillation I48.0 Atrial fibrillation type: paroxysmal Hypothyroidism E03.9 Dementia with behavioral disturbance F03.918 BPH w urinary obs/LUTS N40.1; N13.8 GERD (gastroesophageal reflux disease) K21.9 LBBB (left bundle branch block) I44.7 Type 2 diabetes mellitus in remission E11.9 Macular degeneration H35.30 Diabetic peripheral neuropathy E11.42 Urinary incontinence R32 Time Spent (min) 35 (4) Atrial fibrillation Atrial fibrillation type: paroxysmal Qualified Code(s): I48.0 - Paroxysmal atrial fibrillation
--- NOTE | 2023-04-12 11:38 | Hospitalist Progress Note ---
Date of Service April 12, 2023 Assessment & Plan (1) Acute UTI (urinary tract infection): Plan: Initial urinalysis suggestive Urine culture growing E. 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 board Awaiting SNF placement, seems SNF beds are tight these days (4) Atrial fibrillation: Plan: Chronic Continue ASA, amiodarone (5) Hypothyroidism: Plan: Chronic Continue levothyroxine (6) Dementia with behavioral disturbance: Plan: Continue mirtazapine (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 Patient is clinically stable vital signs stable ready for discharge to SNF when accepted. Admission and Anticipated Discharge Date Admission Date: March 28, 2023 Subjective Patient seen and examined today, lying quietly in bed, denies any new complaints, tolerating regular diet, awaiting placement in a SNF Review of Systems Review of Systems: All systems reviewed are negative, apart from the ones contained in the history. Physical Exam Physical Exam: The patient is awake, alert oriented x 2 HEENT--PERRL, EOMI, mucous membranes and oropharynx mildly dry Neck--supple. No JVD. No bruits. Thyroid normal, trachea midline, no adenopathy. Heart--normal S1 and S2. No murmurs, rubs or gallops. Lungs--clear bilaterally, no respiratory distress, no accessory muscle use. Abdomen--normal bowel sounds and soft. Mild epigastric and left sided abdominal pain Extremities--no cyanosis or clubbing. No edema. Dermatologic--normal skin turgor, normal color, no abnormal lymph nodes, no rash. Neurologic--cranial nerves II through XII grossly intact. Rheumatologic--normal range of motion. Psychiatric--normal affect. Results & Data Results & Data Vital Signs (Past 12 Hours) Vital Signs Pulse Resp BP Pulse Ox O2 Del Method 04/12/23 08:35 60 15 122/70 97 Room Air PG Care Time/CCT Total # of Minutes Spent Total Time Spent with Patient: Total time spent is greater than 50% in coordination of care (as documented) at patient's floor/unit and/or counseling patient: Coding Level of Care Code 94338 SUB INP/OBS CARE 2/35MIN Diagnoses Acute UTI (urinary tract infection) N39.0 Metabolic encephalopathy G93.41 Generalized weakness R53.1 Paroxysmal atrial fibrillation I48.0 Atrial fibrillation type: paroxysmal Hypothyroidism E03.9 Dementia with behavioral disturbance F03.918 BPH w urinary obs/LUTS N40.1; N13.8 GERD (gastroesophageal reflux disease) K21.9 LBBB (left bundle branch block) I44.7 Type 2 diabetes mellitus in remission E11.9 Macular degeneration H35.30 Diabetic peripheral neuropathy E11.42 Urinary incontinence R32 Time Spent (min) 35 (4) Atrial fibrillation Atrial fibrillation type: paroxysmal Qualified Code(s): I48.0 - Paroxysmal atrial fibrillation
[2023-04-12] MEDS: diphenhydrAMINE Capsule 25 MG CAP PO STA (22:14)
[2023-04-12] MEDS: diphenhydrAMINE 50 MG/ML VIAL IV STA (22:56)
--- NOTE | 2023-04-13 09:27 | Discharge Summary ---
Date of Service April 13, 2023 Admission HPI Per Admitting Provider 87 yo male PMHx afib on chcf anticoagulation, L bundle branch block, cardiomyopathy, dementia with behavioral disturbance, T2DM in remission, generalized weakness in bedbound state, peripheral neuropathy, HLD, macular degeneration presents with increased confusion and discolored/malodorous urine. Confusion increased from baseline over the last few days. He has a history of multiple urinary tract infections. His is his primary medical illustrator and she is also sick and hospitalized. The patient's daughter states that they have been working on placement because he is no longer able to be cared for at home. De nies fevers, chills, CP, SOB, N/V/D. Endorses increased urinary frequency and smaller volumes/incomplete bladder emptying. Patient was hospitalized in late 2022 with similar symptoms. On CT at that time prostatomegaly, urinary bladder diverticulum containing calculous were note. ED course: UA appears infected UCx and Blood Cx obtained 1 dose 2g Rocephin 1L NSS Principal Diagnosis E. coli UTI, acute metabolic encephalopathy, weakness Discharge Exam General-alert, confused due to chronic dementia. No fever. HEENT-head atraumatic and normocephalic, pupils equal and reactive to light, extraocular muscles intact Neck-no lymphadenopathy or thyromegaly, trachea midline Chest-clear to auscultation. No rales, wheezing or rhonchi Cardiac-irregular rhythm consistent with atrial fibrillation. Controlled rate. Normal S1 and S2 Abdomen-normal bowel sounds, nontender, no hepatosplenomegaly Extremities-no cyanosis, clubbing, or edema Neuro-cranial nerves II through XII intact, motor and sensory function within normal limits, strength symmetrical, no focal deficits Psych-alert but confused with dementia Discharge Data Allergies Allergy/AdvReac Type Severity Reaction Status Date / Time Sulfa (Sulfonamide Allergy Intermediate RASH Verified 03/28/23 19:11 Antibiotics) adhesive Allergy Mild RASH Verified 03/28/23 19:11 bee venom protein (honey bee) Allergy Unknown Unknown Verified 03/28/23 19:11 Consultations 03/28/23 17:28 ED Decision to Admit Stat Hospital Course (1) Acute UTI (urinary tract infection): E. coli isolated. He has completed antibiotic therapy. Resolved (2) Metabolic encephalopathy: Present on admission. Due to UTI. Resolved (3) Generalized weakness: Improving with therapy and resolution of UTI. (4) Atrial fibrillation: Chronic. Rate controlled. Not on chronic systemic anticoagulation due to advanced age and high risk. Continue ASA, amiodarone (5) Hypothyroidism: Stable. Continue levothyroxine (6) Dementia with behavioral disturbance: Supportive care. Continue mirtazapine (7) BPH w urinary obs/LUTS: Stable. Continue tamsulosin (8) Type 2 diabetes mellitus in remission: Blood glucose under control. ADA diet. Sliding scale insulin coverage as needed Plan Discharge to [facility] today, April 13 Total Time Total Time Spent Total Time Spent (In Minutes): 45 minutes Discharge Plan Discharge Items Patient Disposition: Transfer [facility] Reason For Visit: UTI Discharge Diagnosis: E. coli UTI, metabolic encephalopathy, weakness Activity: Resume your previous activity Non-emergency contact: Primary Care Provider Call non-emergency contact if: your symptoms worsen Follow-up/Referrals: Gilberto Locke, [Primary Care Provider] - Diet: Carb Consistent or DM2 and Heart Healthy Addtl Attending Provider Instructions: See primary care provider as soon as possible after discharge from [facility] Pending Studies at Discharge: No Stand-Alone Forms: [facility] Skilled Items Patient informed of condition?: Yes DNR: Yes Discharge Level of Care: Skilled Communicable Disease: No Discharge Prognosis: Stable Lines: None Urinary Catheter: No Medications and DC Order Prescriptions: Continued furosemide 20 mg tablet 20 mg PO QAM Qty: 30 5RF levothyroxine 25 mcg tablet 25 mcg PO DAILY Qty: 90 3RF meclizine 25 mg tablet 25 mg PO TID PRN (Reason: vertigo) Qty: 50 5RF ondansetron 4 mg tablet,disintegrating 4 mg PO Q6H PRN (Reason: nausea and vomiting) Qty: 50 1RF mirtazapine 7.5 mg tablet 7.5 mg PO DAILY Qty: 90 1RF acetaminophen 325 mg Tablet 650 mg PO Q6 MDD 3g PRN (Reason: fever or pain) Qty: 0 0RF aspirin 81 mg Tablet,Delayed Release (Dr/Ec) 81 mg PO DAILY amiodarone 200 mg Tablet 200 mg PO QAM Qty: 30 4RF tamsulosin 0.4 mg Capsule 0.4 mg PO HS Qty: 30 4RF Discharge Orders: Discharge Order (Routine); Ordered 04/13/23 Ordered By: Nishant Bermeo Admission Data Admit Date/Time: 03/28/23 18:51 Attending Provider: Nishant Bermeo Admit Provider: Max Berger Primary Care Provider: Gilberto Locke Other Providers: Bobby Guardado; Junaid Garcia,Rehab; [facility]; [facility]; [facility] Coding Level of Care Code 84147 INP/OBS DISCH >30 MIN Diagnoses Acute UTI (urinary tract infection) N39.0 Metabolic encephalopathy G93.41 Generalized weakness R53.1 Paroxysmal atrial fibrillation I48.0 Atrial fibrillation type: paroxysmal Hypothyroidism E03.9 Dementia with behavioral disturbance F03.918 BPH w urinary obs/LUTS N40.1; N13.8 Type 2 diabetes mellitus in remission E11.9
== END 2023-04-13 11:10 | DRG 689 ==
LOC: ED 15:02 → 3W 18:51 → SUATTDRO 18:51 → 3W 22:46
DX: Z88.2 Allergy status to sulfonamides; G93.41 Metabolic encephalopathy; J44.9 Chronic obstructive pulmonary disease, unspecified; F03.918 Unspecified dementia, unspecified severity, with other behavioral disturbance; B96.20 Unspecified Escherichia coli [E. coli] as the cause of diseases classified elsewhere; Z79.82 Long term (current) use of aspirin; I45.4 Nonspecific intraventricular block; I48.20 Chronic atrial fibrillation, unspecified; N40.1 Benign prostatic hyperplasia with lower urinary tract symptoms; N39.0 Urinary tract infection, site not specified; I50.9 Heart failure, unspecified; E03.9 Hypothyroidism, unspecified; Z79.890 Hormone replacement therapy; Z95.5 Presence of coronary angioplasty implant and graft; E11.40 Type 2 diabetes mellitus with diabetic neuropathy, unspecified; K21.9 Gastro-esophageal reflux disease without esophagitis; E78.5 Hyperlipidemia, unspecified; I11.0 Hypertensive heart disease with heart failure; R32 Unspecified urinary incontinence; Z74.01 Bed confinement status